=== PATIENT | male | born 1970 | race Caucasian/White ===

== ENCOUNTER 2019-12-01 23:30 | Emergency (ER) | payer SELFPAY ==
--- NOTE | 2019-12-01 23:49 | ED_ITS ---
HPI - Nausea/Vomiting/Diarrhea General: Chief complaint: Alcohol Stated complaint: N/V/ ETOH Time Seen by Provider: 12/01/19 23:33 History of Present Illness: HPI Narrative: 49-year-old male who evidently has been drinking for 3 days. He presents tonight with several episodes of vomiting at a friend's house. He evidently has an appointment set up to check into [facility] tomorrow. He was given Phenergan in the ambulance, and has not vomited since, but is still feeling ill. He denies any fever, cough, congestion. He denies diarrhea. Denies significant belly pain. MD elicited complaint: nausea and vomiting Onset (ago): minute(s) Description of vomiting: food contents Associated nausea: Yes Associated abdominal pain: No Severity: moderate Context: alcohol abuse Associated symtoms: Reports nausea; Denies anxiety, change in vision, chest pain, dizziness, headache(s) or palpitations Review of Systems Const: Denies: fever or chills Eyes: Denies: change in vision or blurry vision ENMT: Denies: painful swallowing, post nasal drip or facial/sinus pain Card: Denies: chest pain, palpitations, irregular heart rhythm or edema Resp: Denies: shortness of breath, productive cough, non-productive cough or wheezing GI: Reports: nausea : Denies: difficulty urinating or blood in urine Musc: Denies: neck pain, back pain, redness or joint warmth Skin/Breast: Denies: rash, itching or redness Neuro: Denies: headache, dizziness or confusion Psych: Denies: anxiety PFSH ED PFSH: Social History Smoking and tobacco status: former smoker Physical Exam Const: GENERAL APPEARANCE: well developed ORIENTATION/CONSCIOUSNESS: Yes oriented to person, Yes oriented to place and Yes oriented to time HENMT: COMMON NORMALS: normocephalic, external ears normal and external nose normal HEAD & SCALP: normocephalic FACE & SINUS: normal facial exam NOSE: external nose normal and no nasal discharge EXTERNAL EAR: Yes external ears normal Eye: COMMON NORMALS: PERRL, EOMs intact bilaterally and conjunctivae normal EYELID: eyelids normal CONJUNCTIVA: Yes conjunctivae normal PUPIL: Yes PERRL Neck/C-Spine: COMMON NORMALS: full ROM GENERAL: No tracheal deviation Chest: COMMONS NORMALS: inspection of chest normal CHEST: No tenderness Resp: COMMON NORMALS: clear to auscultation bilaterally EFFORT & INSPECTION: No tachypneic, No respiratory distress, No retractions, No uses accessory muscles and No tracheal deviation AUSCULTATION: clear to auscultation bilaterally, no rhonchi, no wheezes and lung sounds not diminished Cardio: COMMON NORMALS: regular rate and regular rhythm RATE: regular rate RHYTHM: regular rhythm HEART SOUNDS: no murmurs PERIPHERAL PULSES: radial pulses present GI: INSPECTION: No abdominal distension AUSCULTATION: No hyperactive bowel sounds and No hypoactive bowel sounds PALPATION: No guarding and No rigid PERCUSSION: no dullness to percussion and no tympanic to percussion Neuro: SENSORIUM/ORIENTATION: Yes oriented to person, Yes oriented to place and Yes oriented to time Psych: COMMON NORMALS: mental status grossly normal Skin: COMMON NORMALS: no rashes or lesions noted GENERAL SKIN EXAM: no rashes or lesions noted Course Vital Signs: Vital signs: Vital Signs Temperature 98.7 F 12/02/19 00:07 Pulse Rate 95 12/02/19 00:24 Respiratory Rate 16 12/02/19 01:05 Blood Pressure 168/98 12/02/19 01:05 Pulse Oximetry 93 12/02/19 01:05 MDM - Nausea/Vomiting/Diarrhea MDM Narrative: Medical decision making narrative: 49-year-old male. He presents intoxicated, but calm. He has no belly tenderness. His white blood cell count is 8.8. He has a pseudohyponatremia of 128 related to an alcohol level above 300. His other laboratory is essentially benign. He has not vomited since he has been here. He is received Zofran, IV fluids, and thiamine. He also received Haldol for nausea. He will be discharged, as he has an appointment to start rehabilitation tomorrow. Lab Data: Attestation: I reviewed the patient's lab results. Labs: Lab Results 12/02/19 12/02/19 12/02/19 Range/Units 00:21 00:21 00:21 WBC 8.8 (4.0-10.0) 10^3/ uL RBC 5.34 H (4.1-5.3) 10^6/u L Hgb 16.3 (11.7-16.6) g/dL Hct 46.6 (42.0-52.0) % MCV 87.3 (80-94) fL MCH 30.5 (28.0-34.0) pg MCHC 35.0 (30.0-36.0) g/dL RDW 12.2 (12.1-15.1) % Plt Count 240 (130-400) 10^3/c mm MPV 10.6 H (7.4-10.4) fL Neut % (Auto) 56.0 % Lymph % (Auto) 35.3 % [place] % (Auto) 7.4 % Eos % (Auto) 0.2 % Baso % (Auto) 0.9 % Neut # (Auto) 4.9 (1.8-7.7) 10^3/u L Lymph # (Auto) 3.1 (0.8-4.8) 10^3/u L [place] # (Auto) 0.7 (0.2-0.9) 10^3/u L Eos # (Auto) 0.0 (0.0-0.8) 10^3/u L Baso # (Auto) 0.1 (0.0-0.1) 10^3/u L Nucleated RBC % (a uto) 0 % Nucleated RBCs # 0.0 /100WBC PT 13.20 (10.5-13.3) SECO NDS INR 1.00 (0.8-1.2) Sodium 128 L (136-145) mmol/L Potassium 4.1 (3.5-5.1) mmol/L Chloride 82 L (98-107) mmol/L Carbon Dioxide 22 (22-29) mmol/L Anion Gap 28.1 H (5-19) BUN 18 (6-20) mg/dL Creatinine 0.9 (0.7-1.2) mg/dL GFR Calculation 90.4 (90-130) mL/min Glucose 128 H (65-115) mg/dL Calculated Osmolal ity 264 L (285-295) mOsm/k g Calcium 9.4 (8.5-10.5) mg/dL Total Bilirubin 0.5 (0.15-1.2) mg/dL AST 55 H (0-40) U/L ALT 27 (0-41) U/L Alkaline Phosphata se 74 (40-130) IU/L Total Protein 8.8 H (6.6-8.7) g/dL Albumin 4.9 (3.5-5.2) g/dL Globulin 3.9 (1.3-4.6) g/dL Lipase 30 (13-60) U/L Ethyl Alcohol 316 H* (0-10) mg/dL Discharge Plan Discharge Patient Disposition: Home, Self-Care Clinical Impression: Alcoholic intoxication Qualifiers: Complication of substance-induced condition: uncomplicated Qualified Code(s): F10.920 - Alcohol use, unspecified with intoxication, uncomplicated Vomiting Qualifiers: Vomiting type: unspecified Vomiting Intractability: non-intractable Nausea presence: with nausea Qualified Code(s): R11.2 - Nausea with vomiting, unspecified Condition: Stable Prescriptions: No Action Unable to Assess RF: 0 Discharge Orders: Discharge Order (Routine); Ordered 12/02/19 Ordered By: Tate Vance Discharge Diet: Advance as tolerated Discharge Activity: Increase activity as tolerated Patient Instructions: Alcohol Intoxication (ED), Acute Nausea and Vomiting (ED) Activity Restrictions/Additional Instructions: Avoid alcohol. Plenty of clear liquids for the next 48 hours. Return for intra ctable vomiting, fever greater than 100, blood in vomitus or stool, other concerning symptoms. Coding Level of Care Code ED Grinder Set Up Operator External for Sandee Fwd Exam Comprehensive
[2019-12-02] VITALS (11 sets, daily range): BP systolic 141–197; BP diastolic 91–112; PULSE 91–107; RESP 14–18; TEMP 37.1; O2SAT 93–97; BMI 38.0
[2019-12-02] MEDS: ondansetron 2 mg/ML SDV 2 mL 8 MG IM (00:16)
[2019-12-02] MEDS: haloperidol inj 5 mg/mL INJ 1 mL 3 MG IVP ×2 (00:16→01:44)
[2019-12-02 00:27] LABS: Basophils # 0.1 10^3/uL (0.0-0.1); Basophils % 0.9 %; Eosinophils % 0.2 %; Hematocrit 46.6 % (42.0-52.0); Hemoglobin 16.3 g/dL (11.7-16.6); Lymphocytes # 3.1 10^3/uL (0.8-4.8); Lymphocytes % 35.3 %; Mean Corpuscular Hemoglobin 30.5 pg (28.0-34.0); Mean Corpuscular Volume 87.3 fL (80-94); Mean Platelet Volume 10.6 fL (7.4-10.4); Monocytes # 0.7 10^3/uL (0.2-0.9); Monocytes % 7.4 %; Neutrophils # 4.9 10^3/uL (1.8-7.7); Nucleated Red Blood Cells % 0 %; Platelet Count 240 10^3/cmm (130-400); Red Blood Count 5.34 10^6/uL (4.1-5.3); Red Cell Distribution Width 12.2 % (12.1-15.1); White Blood Count 8.8 10^3/uL (4.0-10.0)
[2019-12-02] MEDS: sodium chloride 0.9% 1,000 ML 999 ML IV ×2 (00:28→01:12)
--- NOTE | 2019-12-02 00:32 | PC.NURSE ---
patient given urinal and instructed that nurse needs a urine sample. Patient states that he will try to pee.
[2019-12-02 00:39] LABS: Alanine Aminotransferase 27 U/L (0-41); Albumin Level 4.9 g/dL (3.5-5.2); Alkaline Phosphatase 74 IU/L (40-130); Anion Gap 28.1 (5-19); Aspartate Amino Transferase 55 U/L (0-40); Blood Urea Nitrogen 18 mg/dL (6-20); Calcium 9.4 mg/dL (8.5-10.5); Carbon Dioxide 22 mmol/L (22-29); Chloride 82 mmol/L (98-107); Globulin 3.9 g/dL (1.3-4.6); Glomerular Filtration Rate 90.4 mL/min (90-130); Glucose 128 mg/dL (65-115); Lipase 30 U/L (13-60); Osmolality Calculated 264 mOsm/kg (285-295); Potassium 4.1 mmol/L (3.5-5.1); Sodium 128 mmol/L (136-145); Total Bilirubin 0.5 mg/dL (0.15-1.2); Total Protein 8.8 g/dL (6.6-8.7)
[2019-12-02 00:43] LABS: Alcohol Level 316 mg/dL (0-10)
[2019-12-02] MEDS: metoclopramide 5 mg/mL SDV 2 mL 10 MG IVP (01:46)
[2019-12-02 02:15] LABS: Bilirubin Urine Neg (NEGATIVE); Blood Urine 3+ (Negative); Glucose Urine UA 2+ (Normal); Ketones Urine 1+ (Negative); Leukocyte Esterase Urine Negative (Negative); Nitrate Urine Negative (Negative); Protein Urine 1+ (Negative); Specific Gravity, Urine 1.015 (1.005-1.030); Urine Appearance Clear (CLEAR); Urine Color Yellow (Yellow); Urobilinogen Urine Norm (Negative); pH Urine 5 (5-7)
[2019-12-02 02:16] LABS: Add Urine Microscopic? YES
[2019-12-02 02:17] LABS: RBC Urine 0-4 /hpf (0-2); Squamous Epithelial Cell Urine 0-4 (0-5); WBC Urine 0-4 /hpf (0-5)
[2019-12-02 02:18] LABS: Add Urine Culture? No; Amorphous Sediment Urine 1+; Bacteria Urine TRACE; Mucus Urine TRACE
[2019-12-02 02:20] LABS: Amphetamines Screen Urine Negative (Negative); Barbiturates Screen Urine Negative (Negative); Benzodiazepines Screen Urine Negative (Negative); Cocaine Screen Urine Negative (Negative); Opiate Screen Urine Negative (Negative); PCP Screen Urine Negative (Negative); THC Screen Urine Negative (Negative)
[2019-12-02] MEDS: LORazepam 2 mg/mL INJ 1 mL 1 MG IVP ×2 (03:14→05:16)
[2019-12-02] MEDS: ondansetron 2 mg/ML SDV 2 mL 4 MG IVP (05:16)
== END 2019-12-02 06:18 ==
PROVIDERS: Emergency Provider Emergency Medicine
DX: F10.120 Alcohol abuse with intoxication, uncomplicated (principal); Y90.8 Blood alcohol level of 240 mg/100 ml or more; Z87.891 Personal history of nicotine dependence
CPT/HCPCS: 12345; 80053; 80306; 80307; 81001; 81003; 83690; 85025; 85610; 96360; 96361; 96374; 96375; 96376; 99283; 99284; J1630; J2060; J2405; J2765; J3411; J7030

== ENCOUNTER 2020-05-07 11:52 | Emergency (ER) | payer SELFPAY ==
[2020-05-07 13:07] VITALS: BP 163/105; PULSE 110; RESP 12; TEMP 36.6; O2SAT 96; BMI 38.0
--- NOTE | 2020-05-07 13:39 | ED_ITS ---
HPI - Nausea/Vomiting/Diarrhea General: Chief complaint: Nausea/Vomiting/Diarrhea Stated complaint: alcohol withdrawl Time Seen by Provider: 05/07/20 13:31 Source: patient Mode of arrival: ambulatory Limitations: no limitations History of Present Illness: HPI Narrative: 49-year-old male who is a chronic alcoholic states has not had a drink in the last 5 to 6 hours and feels like he is going through withdrawals. He states he had vomiting and has had the shakes. 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 Denies any worsening improving factors. Denies any pain anywhere. Patient is diaphoretic and tachycardic currently. Associated nausea: Yes Associated symtoms: Reports nausea; Denies chest pain, dysuria or headache(s) Review of Systems Const: Denies: fever(s), chills, body aches or change in appetite Eyes: Denies: blurry vision or eye discomfort ENMT: Denies: throat pain or dental pain Card: Denies: chest pain Resp: Denies: dyspnea GI: Reports: nausea and vomiting : Denies: dysuria Musc: Denies: neck pain or back pain Skin/Breast: Denies: rash Neuro: Denies: headache(s) Psych: Denies: depression Anton/Lymph: Denies: easy bruising All/Imm: Denies: urticaria PFSH ED PFSH: Social History (Updated 05/07/20 @ 13:10 by Femi Sampson RN) Smoking and tobacco status: former smoker Alcohol intake: current Alcohol intake frequency: 3 or more drinks per day Alcohol type: hard liquor Substance/Drug Use: never Physical Exam Const: COMMON NORMALS: patient oriented x3 and healthy appearing GENERAL APPEARANCE: ill appearing HENMT: COMMON NORMALS: normocephalic and atraumatic HEAD & SCALP: normocephalic and atraumatic Eye: COMMON NORMALS: Equal, round and reactive pupils present and EOMs intact bilaterally PUPIL: Yes Equal, round and reactive pupils present Neck/C-Spine: COMMON NORMALS: full ROM and supple Chest: COMMONS NORMALS: normal inspection of the chest and normal palpation of entire chest wall Resp: COMMON NORMALS: normal respiratory effort, No retractions, No use of accessory muscles and clear to auscultation bilaterally AUSCULTATION: clear to auscultation bilaterally Cardio: COMMON NORMALS: regular rhythm and No murmurs present (Cardio) RATE: tachycardic RHYTHM: regular rhythm GI: COMMON NORMALS: Normal to inspection, nondistended, normoactive bowel sounds present, Soft to palpation, non-tender and no masses PALPATION: Yes Soft to palpation Extremity: COMMON NORMALS: normal to inspection and full ROM Neuro: COMMON NORMALS: patient oriented x3, moves all extremities and no focal motor deficits Psych: COMMON NORMALS: mental status grossly normal, Normal thought process present and cooperative THOUGHT PROCESS: Normal thought process present Skin: COMMON NORMALS: no rashes or lesions noted and no wounds GENERAL SKIN EXAM: no rashes or lesions noted Course Vital Signs: Vital signs: Vital Signs Temperature 98 F 05/07/20 13:07 Pulse Rate 113 H 05/07/20 16:15 Respiratory Rate 18 05/07/20 16:15 Blood Pressure 161/103 05/07/20 16:15 Pulse Oximetry 92 05/07/20 16:15 MDM - Nausea/Vomiting/Diarrhea MDM Narrative: Medical decision making narrative: Patient presents here with alcohol intoxication. Patient has no signs of active withdrawals here. Will prescribe him Librium for home if he does want to try to stop drinking. I did inform him not to take Librium while he drinks. Patient's lab work here is normal he feels improved and is stable for discharge. He is return if worsening. Lab Data: Labs: Lab Results 05/07/20 05/07/20 Range/Units 13:40 13:40 WBC 5.1 (4.0-10.0) 10^3/ uL RBC 5.21 (4.1-5.3) 10^6/u L Hgb 17.3 H (11.7-16.6) g/dL Hct 49.3 (42.0-52.0) % MCV 94.6 H (80-94) fL MCH 33.2 (28.0-34.0) pg MCHC 35.1 (30.0-36.0) g/dL RDW 15.4 H (12.1-15.1) % Plt Count 166 (130-400) 10^3/c mm MPV 10.8 H (7.4-10.4) fL Neut % (Auto) 42.8 % Lymph % (Auto) 44.5 % [place] % (Auto) 8.1 % Eos % (Auto) 2.8 % Baso % (Auto) 1.8 % Neut # (Auto) 2.18 (1.8-7.7) 10^3/u L Lymph # (Auto) 2.3 (0.8-4.8) 10^3/u L [place] # (Auto) 0.4 (0.2-0.9) 10^3/u L Eos # (Auto) 0.1 (0.0-0.8) 10^3/u L Baso # (Auto) 0.1 (0.0-0.1) 10^3/u L Nucleated RBC % (a uto) 0 % Nucleated RBCs # 0.0 /100WBC Sodium 134 L (136-145) mmol/L Potassium 4.4 (3.5-5.1) mmol/L Chloride 95 L (98-107) mmol/L Carbon Dioxide 23 (22-29) mmol/L Anion Gap 20.4 H (5-19) BUN 9 (6-20) mg/dL Creatinine 0.7 (0.7-1.2) mg/dL GFR Calculation 120.9 (90-130) mL/min Glucose 117 H (65-115) mg/dL Calculated Osmolal ity 278 L (285-295) mOsm/k g Calcium 9.3 (8.5-10.5) mg/dL Total Bilirubin 0.5 (0.15-1.2) mg/dL AST 188 H (0-40) U/L ALT 104 H (0-41) U/L Alkaline Phosphata se 75 (40-130) IU/L Total Protein 8.9 H (6.6-8.7) g/dL Albumin 4.9 (3.5-5.2) g/dL Globulin 4.0 (1.3-4.6) g/dL Lipase 46 (13-60) U/L Ethyl Alcohol 346 H* (0-10) mg/dL Discharge Plan Discharge Patient Disposition: Home Clinical Impression: Alcohol intoxication Qualifiers: Complication of substance-induced condition: uncomplicated Qualified Code(s): F10.920 - Alcohol use, unspecified with intoxication, uncomplicated Condition: Stable Prescriptions: New ondansetron 4 mg tablet,disintegrating 4 mg PO Q6H PRN (Reason: nausea and vomiting) Qty: 14 RF: 0 chlordiazepoxide HCl 25 mg capsule 25 mg PO Q6H PRN (Reason: withdrawal symptoms) Qty: 20 RF: 0 No Action ondansetron HCl [Zofran] 4 mg tablet 4 mg PO Q6H PRN (Reason: nausea and vomiting) Qty: 10 RF: 0 Discharge Orders: Discharge Order (Routine); Ordered 05/07/20 Ordered By: Krysta Vann Discharge Diet: Advance as tolerated Discharge Activity: Resume usual activity Patient Instructions: Abuse of Alcohol (ED) Discharge Date/Time: 05/07/20 16:18 Coding Level of Care Code ED Plywood Layup Line Core Feeder for Giang Fwd Exam Comprehensive
[2020-05-07] MEDS: sodium chloride 0.9% 1,000 ML 999 ML IV (13:47)
[2020-05-07] MEDS: LORazepam 2 mg/mL INJ 1 mL IVP (13:47)
[2020-05-07] MEDS: ondansetron 2 mg/ML SDV 2 mL 4 MG IVP (13:47)
[2020-05-07 13:49] LABS: Basophils # 0.1 10^3/uL (0.0-0.1); Basophils % 1.8 %; Eosinophils # 0.1 10^3/uL (0.0-0.8); Eosinophils % 2.8 %; Hematocrit 49.3 % (42.0-52.0); Hemoglobin 17.3 g/dL (11.7-16.6); Lymphocytes # 2.3 10^3/uL (0.8-4.8); Lymphocytes % 44.5 %; Mean Corpuscular HGB Conc 35.1 g/dL (30.0-36.0); Mean Corpuscular Hemoglobin 33.2 pg (28.0-34.0); Mean Corpuscular Volume 94.6 fL (80-94); Mean Platelet Volume 10.8 fL (7.4-10.4); Monocytes # 0.4 10^3/uL (0.2-0.9); Monocytes % 8.1 %; Neutrophils # 2.18 10^3/uL (1.8-7.7); Neutrophils % 42.8 %; Nucleated Red Blood Cells % 0 %; Platelet Count 166 10^3/cmm (130-400); Red Blood Count 5.21 10^6/uL (4.1-5.3); Red Cell Distribution Width 15.4 % (12.1-15.1); White Blood Count 5.1 10^3/uL (4.0-10.0)
[2020-05-07 14:05] LABS: Alanine Aminotransferase 104 U/L (0-41); Albumin Level 4.9 g/dL (3.5-5.2); Alkaline Phosphatase 75 IU/L (40-130); Aspartate Amino Transferase 188 U/L (0-40); Blood Urea Nitrogen 9 mg/dL (6-20); Calcium 9.3 mg/dL (8.5-10.5); Carbon Dioxide 23 mmol/L (22-29); Chloride 95 mmol/L (98-107); Glomerular Filtration Rate 120.9 mL/min (90-130); Glucose 117 mg/dL (65-115); Lipase 46 U/L (13-60); Osmolality Calculated 278 mOsm/kg (285-295); Sodium 134 mmol/L (136-145); Total Bilirubin 0.5 mg/dL (0.15-1.2); Total Protein 8.9 g/dL (6.6-8.7)
[2020-05-07 14:08] LABS: Anion Gap 20.4 (5-19); Potassium 4.4 mmol/L (3.5-5.1)
[2020-05-07 14:10] LABS: Alcohol Level 346 mg/dL (0-10)
[2020-05-07 15:10] VITALS: BP 117/69; PULSE 103; RESP 16; O2SAT 91
[2020-05-07 16:15] VITALS: BP 161/103; PULSE 113; RESP 18; O2SAT 92
== END 2020-05-07 16:18 | disposition home or self-care (01) ==
PROVIDERS: Emergency Provider Emergency Medicine
DX: F10.920 Alcohol use, unspecified with intoxication, uncomplicated (principal); Y90.8 Blood alcohol level of 240 mg/100 ml or more; Z87.891 Personal history of nicotine dependence
CPT/HCPCS: 12345; 80053; 80307; 83690; 85025; 96361; 96374; 96375; 99282; 99283; J2060; J2405; J7030

== ENCOUNTER 2020-05-09 21:39 | Emergency (ER) | payer SELFPAY ==
[2020-05-09 21:43] VITALS: BP 200/123; PULSE 125; RESP 28; TEMP 36.7; O2SAT 93; BMI 38.0
--- NOTE | 2020-05-09 21:46 | ECG_ITS ---
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 Measurements Intervals [place] Rate: 107 P: 45 DC: 132 QRS: 64 QRSD: 90 T: -6 QT: 320 QTc: 427 Interpretive Statements SINUS TACHYCARDIA Compared to ECG 06/17/2018 03:18:19 Sinus rhythm no longer present Electronically Signed On 05-10-2020 20:26:09 CDT by Henry Bear M.D. [id number] f
[2020-05-09 21:53] VITALS: BP 200/123; PULSE 111; RESP 19; O2SAT 94
[2020-05-09] MEDS: haloperidol inj 5 mg/mL INJ 1 mL IVP (22:01)
[2020-05-09] MEDS: LORazepam 2 mg/mL INJ 1 mL IV (22:01)
[2020-05-09] MEDS: sodium chloride 0.9% 1,000 ML 999 ML IV (22:02)
[2020-05-09 22:12] LABS: Basophils # 0.1 10^3/uL (0.0-0.1); Eosinophils % 0.8 %; Hematocrit 48.5 % (42.0-52.0); Hemoglobin 16.6 g/dL (11.7-16.6); Lymphocytes # 1.3 10^3/uL (0.8-4.8); Lymphocytes % 25.1 %; Mean Corpuscular HGB Conc 34.2 g/dL (30.0-36.0); Mean Corpuscular Hemoglobin 32.3 pg (28.0-34.0); Mean Corpuscular Volume 94.4 fL (80-94); Mean Platelet Volume 11.1 fL (7.4-10.4); Monocytes # 0.3 10^3/uL (0.2-0.9); Monocytes % 6.8 %; Neutrophils # 3.27 10^3/uL (1.8-7.7); Neutrophils % 65.1 %; Nucleated Red Blood Cells % 0 %; Platelet Count 122 10^3/cmm (130-400); Red Blood Count 5.14 10^6/uL (4.1-5.3); Red Cell Distribution Width 15.5 % (12.1-15.1)
[2020-05-09 22:25] LABS: Alanine Aminotransferase 212 U/L (0-41); Albumin Level 4.7 g/dL (3.5-5.2); Alcohol Level 207 mg/dL (0-10); Alkaline Phosphatase 77 IU/L (40-130); Aspartate Amino Transferase 539 U/L (0-40); Blood Urea Nitrogen 10 mg/dL (6-20); Calcium 9.9 mg/dL (8.5-10.5); Carbon Dioxide 19 mmol/L (22-29); Chloride 95 mmol/L (98-107); Creatinine Clr Calc Pharmacy 157.1997; Globulin 3.6 g/dL (1.3-4.6); Glomerular Filtration Rate 103.6 mL/min (90-130); Glucose 122 mg/dL (65-115); Osmolality Calculated 288 mOsm/kg (285-295); Sodium 139 mmol/L (136-145); Total Bilirubin 0.7 mg/dL (0.15-1.2); Total Protein 8.3 g/dL (6.6-8.7)
[2020-05-09 22:26] LABS: Anion Gap 28.6 (5-19); Potassium 3.6 mmol/L (3.5-5.1)
[2020-05-09 22:48] VITALS: BP 148/88; PULSE 98; RESP 18; O2SAT 96
--- NOTE | 2020-05-09 23:10 | ED_ITS ---
HPI - Alcohol General: Chief Complaint: Alcohol Stated Complaint: ETOH / N/V Time Seen by Provider: 05/09/20 21:44 History of Present Illness: HPI narrative: 49-year-old male alcoholic presenting with vomiting, abdominal discomfort, and shaking. He says that he has not had a drink since , 3 days ago. He is only drank water since then. No food. He has not held any solid food down, and was throwing up water when he called the ambulance. He notes that he was trying to take the medication that he was given a couple of days ago in the ER, but had thrown some of it up. MD complaint: alcohol withdrawal and alcohol dependence Last drink: Days (ago) Chronic alcohol use: Yes Previous visits for alcohol intoxication: Yes Recent trauma: No Associated symptoms: Reports abdominal pain, nausea and vomiting; Deny involuntary movements or suicidal ideation Review of Systems Const: Denies: fever(s) or chills Eyes: Denies: blurry vision ENMT: Denies: swelling of lips/tongue, bleeding gums, epistaxis, post nasal drip or sinus pain Card: Denies: chest pain, palpitations or irregular heart rhythm Resp: Denies: dyspnea, productive cough, non-productive cough or wheezing GI: Reports: abdominal pain, nausea and vomiting : Denies: difficulty urinating, dysuria or hematuria Musc: Denies: neck pain or back pain Skin/Breast: Denies: rash or pruritus Neuro: Denies: involuntary movements Psych: Denies: suicidal ideation PFS ED PFSH: Social History (Updated 05/07/20 @ 13:10 by Femi Sampson RN) Smoking and tobacco status: former smoker Alcohol intake: current Alcohol intake frequency: 3 or more drinks per day Alcohol type: hard liquor Physical Exam Const: GENERAL APPEARANCE: lethargic and ill appearing ORIENTATION/CONSCIOUSNESS: Yes oriented to person, Yes oriented to place, Yes oriented to time and Yes lethargic HENMT: COMMON NORMALS: normocephalic, external ears normal and Normal external nose present HEAD & SCALP: normocephalic FACE & SINUS: normal facial exam NOSE: Normal external nose present and No nasal discharge present EXTERNAL EAR: Yes external ears normal Eye: COMMON NORMALS: Equal, round and reactive pupils present, EOMs intact bilaterally and conjunctivae normal EYELID: eyelids normal CONJUNCTIVA: Yes conjunctivae normal PUPIL: Yes Equal, round and reactive pupils present Neck/C-Spine: GENERAL: No tracheal deviation Chest: COMMONS NORMALS: normal inspection of the chest CHEST: No tenderness Resp: COMMON NORMALS: clear to auscultation bilaterally EFFORT & INSPECTION: No tachypneic, No respiratory distress, No retractions, No uses accessory muscles and No tracheal deviation AUSCULTATION: clear to auscultation bilaterally, no rhonchi, no wheezes and lung sounds not diminished Cardio: COMMON NORMALS: regular rhythm RATE: tachycardic RHYTHM: regular rhythm HEART SOUNDS: no murmurs PERIPHERAL PULSES: radial pulses present GI: INSPECTION: No abdominal distension AUSCULTATION: No Hyperactive bowel sounds present and No Hypoactive bowel sounds present PALPATION: No Guarding due to palpation present (GI) and No Rigid due to palpation PERCUSSION: no dullness to percussion and no tympanic to percussion Neuro: SENSORIUM/ORIENTATION: Yes oriented to person, Yes oriented to place, Yes oriented to time and Yes lethargic Psych: COMMON NORMALS: cooperative, speech normal, denies hallucinations and denies suicidal ideation SPEECH: Yes normal speech Skin: COMMON NORMALS: no rashes or lesions noted GENERAL SKIN EXAM: no rashes or lesions noted Course Vital Signs: Vital signs: Vital Signs Temperature 98.1 F 05/09/20 21:43 Pulse Rate 85 05/10/20 02:46 Respiratory Rate 18 05/10/20 02:46 Blood Pressure 156/90 05/10/20 02:46 Pulse Oximetry 93 05/10/20 02:46 MDM - Alcohol MDM Narrative: Medical decision making narrative: 49-year-old male alcoholic presenting with vomiting. His blood alcohol level was 207 even though he told us he had not had a drink in 3 days. His platelet count is 122. His b icarbonate level was 19. He is received over a liter of fluid, thiamine, Ativan, and Haldol for vomiting. He is feeling better. His blood pressure is currently 142/91. He also got amlodipine for his blood pressure. He has been prescribed chlordiazepoxide as well as Zofran for alcohol withdrawal, which he likely has not taken. He will be discharged. Lab Data: Labs: Lab Results 05/09/20 05/09/20 05/09/20 Range/Units 22:00 22:00 23:51 WBC 5.0 (4.0-10.0) 10^3/ uL RBC 5.14 (4.1-5.3) 10^6/u L Hgb 16.6 (11.7-16.6) g/dL Hct 48.5 (42.0-52.0) % MCV 94.4 H (80-94) fL MCH 32.3 (28.0-34.0) pg MCHC 34.2 (30.0-36.0) g/dL RDW 15.5 H (12.1-15.1) % Plt Count 122 L (130-400) 10^3/c mm MPV 11.1 H (7.4-10.4) fL Neut % (Auto) 65.1 % Lymph % (Auto) 25.1 % [place] % (Auto) 6.8 % Eos % (Auto) 0.8 % Baso % (Auto) 2.0 % Neut # (Auto) 3.27 (1.8-7.7) 10^3/u L Lymph # (Auto) 1.3 (0.8-4.8) 10^3/u L [place] # (Auto) 0.3 (0.2-0.9) 10^3/u L Eos # (Auto) 0.0 (0.0-0.8) 10^3/u L Baso # (Auto) 0.1 (0.0-0.1) 10^3/u L Nucleated RBC % (a uto) 0 % Nucleated RBCs # 0.0 /100WBC Sodium 139 (136-145) mmol/L Potassium 3.6 (3.5-5.1) mmol/L Chloride 95 L (98-107) mmol/L Carbon Dioxide 19 L (22-29) mmol/L Anion Gap 28.6 H (5-19) BUN 10 (6-20) mg/dL Creatinine 0.8 (0.7-1.2) mg/dL GFR Calculation 103.6 (90-130) mL/min Glucose 122 H (65-115) mg/dL Calculated Osmolal ity 288 (285-295) mOsm/k g Calcium 9.9 (8.5-10.5) mg/dL Total Bilirubin 0.7 (0.15-1.2) mg/dL AST 539 H (0-40) U/L ALT 212 H (0-41) U/L Alkaline Phosphata se 77 (40-130) IU/L Total Protein 8.3 (6.6-8.7) g/dL Albumin 4.7 (3.5-5.2) g/dL Globulin 3.6 (1.3-4.6) g/dL Urine Color Yellow (Yellow) Urine Appearance Clear (CLEAR) Urine pH 6 (5-7) Ur Specific Gravit y 1.020 (1.005-1.030) Urine Protein 3+ H (Negative) Urine Glucose (UA) Norm (Normal) Urine Ketones 1+ H (Negative) Urine Blood 2+ H (Negative) Urine Nitrate Negative (Negative) Urine Bilirubin Neg (Negative) Urine Urobilinogen 1 H (Negative) mg/dL Ur Leukocyte Aishwarya ase Negative (Negative) Urine RBC 0-4 H (0-2) /hpf Urine WBC None (0-5) /hpf Ur Squamous Epith Cells None (0-5) /hpf Amorphous Sediment Not Reportable Urine Bacteria Trace (NONE) /hpf Hyaline Casts 0-4 H /lpf Coarse Granular Ca sts 0-4 H /lpf Urine Mucus 1+ /hpf Urine Opiates Scre en (Negative) ng/mL Ur Barbiturates Sc reen (Negative) ng/mL Ur Phencyclidine S crn (Negative) ng/mL Ur Amphetamines Sc reen (Negative) ng/mL U Benzodiazepines Scrn (Negative) ng/mL Urine Cocaine Scre en (Negative) ng/mL U Marijuana (THC) Screen (Negative) ng/mL Ethyl Alcohol 207 H (0-10) mg/dL 05/09/20 Range/Units 23:51 WBC (4.0-10.0) 10^3/ uL RBC (4.1-5.3) 10^6/u L Hgb (11.7-16.6) g/dL Hct (42.0-52.0) % MCV (80-94) fL MCH (28.0-34.0) pg MCHC (30.0-36.0) g/dL RDW (12.1-15.1) % Plt Count (130-400) 10^3/c mm MPV (7.4-10.4) fL Neut % (Auto) % Lymph % (Auto) % [place] % (Auto) % Eos % (Auto) % Baso % (Auto) % Neut # (Auto) (1.8-7.7) 10^3/u L Lymph # (Auto) (0.8-4.8) 10^3/u L [place] # (Auto) (0.2-0.9) 10^3/u L Eos # (Auto) (0.0-0.8) 10^3/u L Baso # (Auto) (0.0-0.1) 10^3/u L Nucleated RBC % (a uto) % Nucleated RBCs # /100WBC Sodium (136-145) mmol/L Potassium (3.5-5.1) mmol/L Chloride (98-107) mmol/L Carbon Dioxide (22-29) mmol/L Anion Gap (5-19) BUN (6-20) mg/dL Creatinine (0.7-1.2) mg/dL GFR Calculation (90-130) mL/min Glucose (65-115) mg/dL Calculated Osmolal ity (285-295) mOsm/k g Calcium (8.5-10.5) mg/dL Total Bilirubin (0.15-1.2) mg/dL AST (0-40) U/L ALT (0-41) U/L Alkaline Phosphata se (40-130) IU/L Total Protein (6.6-8.7) g/dL Albumin (3.5-5.2) g/dL Globulin (1.3-4.6) g/dL Urine Color (Yellow) Urine Appearance (CLEAR) Urine pH (5-7) Ur Specific Gravit y (1.005-1.030) Urine Protein (Negative) Urine Glucose (UA) (Normal) Urine Ketones (Negative) Urine Blood (Negative) Urine Nitrate (Negative) Urine Bilirubin (Negative) Urine Urobilinogen (Negative) mg/dL Ur Leukocyte Aishwarya ase (Negative) Urine RBC (0-2) /hpf Urine WBC (0-5) /hpf Ur Squamous Epith Cells (0-5) /hpf Amorphous Sediment Urine Bacteria (NONE) /hpf Hyaline Casts /lpf Coarse Granular Ca sts /lpf Urine Mucus /hpf Urine Opiates Scre en Negative (Negative) ng/mL Ur Barbiturates Sc reen Negative (Negative) ng/mL Ur Phencyclidine S crn Negative (Negative) ng/mL Ur Amphetamines Sc reen Negative (Negative) ng/mL U Benzodiazepines Scrn Positive H (Negative) ng/mL Urine Cocaine Scre en Negative (Negative) ng/mL U Marijuana (THC) Screen Negative (Negative) ng/mL Ethyl Alcohol (0-10) mg/dL Discharge Plan Discharge Patient Disposition: Home Clinical Impression: Alcohol intoxication Qualifiers: Complication of substance-induced condition: uncomplicated Qualified Code(s): F10.920 - Alcohol use, unspecified with intoxication, uncomplicated Hypertension Qualifiers: Hypertension type: essential hypertension Qualified Code(s): I10 - Essential (primary) hypertension Condition: Stable Prescriptions: New amlodipine 10 mg tablet 10 mg PO DAILY Qty: 30 RF: 0 No Action ondansetron HCl [Zofran] 4 mg tablet 4 mg PO Q6H PRN (Reason: nausea and vomiting) Qty: 10 RF: 0 ondansetron 4 mg tablet,disintegrating 4 mg PO Q6H PRN (Reason: nausea and vomiting) Qty: 14 RF: 0 chlordiazepoxide HCl 25 mg capsule 25 mg PO Q6H PRN (Reason: withdrawal symptoms) Qty: 20 RF: 0 Discharge Orders: Discharge Order (Routine); Ordered 05/10/20 Ordered By: Tate Vance Discharge Diet: Advance as tolerated and Clear Liquid Discharge Activity: Resume usual activity Patient Instructions: Alcohol Intoxication (ED) Activity Restrictions/Additional Instructions: Abstain from alcohol. Take your previously prescribed medication as instructed and ordered. Return for worsening symptoms despite treatment. Discharge Date/Time: 05/10/20 02:46 Coding Level of Care Code ED Pattern Changer for Sandee Fwd Exam Comprehensive
[2020-05-09 23:14] VITALS: BP 155/100; PULSE 103; RESP 16; O2SAT 96
[2020-05-10 00:04] VITALS: BP 202/118; PULSE 97; RESP 18; O2SAT 93
[2020-05-10 00:11] LABS: Amphetamines Screen Urine Negative (Negative); Barbiturates Screen Urine Negative (Negative); Benzodiazepines Screen Urine Positive (Negative); Cocaine Screen Urine Negative (Negative); Opiate Screen Urine Negative (Negative); PCP Screen Urine Negative (Negative); THC Screen Urine Negative (Negative)
[2020-05-10 00:13] LABS: Add Urine Microscopic? YES; Bilirubin Urine Neg (Negative); Blood Urine 2+ (Negative); Glucose Urine UA Norm (Normal); Ketones Urine 1+ (Negative); Leukocyte Esterase Urine Negative (Negative); Nitrate Urine Negative (Negative); Protein Urine 3+ (Negative); Urine Appearance Clear (CLEAR); Urine Color Yellow (Yellow); Urobilinogen Urine 1 mg/dL (Negative); pH Urine 6 (5-7)
[2020-05-10 00:14] LABS: Add Urine Culture? No; Bacteria Urine TRACE /hpf; Coarse Granular Casts Urine 0-4 /lpf; Hyaline Casts Urine 0-4 /lpf; Mucus Urine 1+ /hpf; RBC Urine 0-4 /hpf (0-2)
[2020-05-10] MEDS: LORazepam 2 mg/mL INJ 1 mL 1 MG IVP (00:43)
[2020-05-10] MEDS: amlodipine 10 mg Tablet PO (00:44)
[2020-05-10 00:48] VITALS: BP 164/109; PULSE 104; RESP 18; O2SAT 94
[2020-05-10] MEDS: labetalol 5 mg/mL SDV 20mL 20 MG IVP (01:32)
[2020-05-10 01:35] VITALS: BP 201/136; PULSE 103; RESP 17; O2SAT 93
[2020-05-10 02:28] VITALS: BP 142/91; PULSE 81; RESP 18; O2SAT 94
[2020-05-10 02:46] VITALS: BP 156/90; PULSE 85; RESP 18; O2SAT 93
== END 2020-05-10 02:46 | disposition home or self-care (01) ==
PROVIDERS: Emergency Provider Emergency Medicine
DX: F10.920 Alcohol use, unspecified with intoxication, uncomplicated (principal); I10 Essential (primary) hypertension; Y90.7 Blood alcohol level of 200-239 mg/100 ml; Z87.891 Personal history of nicotine dependence
CPT/HCPCS: 12345; 80053; 80306; 80307; 81001; 81003; 85025; 93005; 96361; 96374; 96375; 96376; 99283; 99284; J1630; J2060; J3411; J3490; J7030

== ENCOUNTER 2020-07-21 21:32 | Emergency (ER) | payer SELFPAY ==
[2020-07-21 21:33] VITALS: BP 179/126; PULSE 101; RESP 22; TEMP 36.8; O2SAT 94; BMI 38.0
--- NOTE | 2020-07-21 21:38 | CTR_ITS ---
PROCEDURE INFORMATION: Exam: CT Abdomen And Pelvis With Contrast Exam date and time: 07/21/2020 9:40 PM Age: 49 years old Clinical indication: Abdominal pain TECHNIQUE: Imaging protocol: Computed tomography of the abdomen and pelvis with intravenous contrast. Radiation optimization: All CT scans at this facility use at least one of these dose optimization techniques: automated exposure control; mA and/or kV adjustment per patient size (includes targeted exams where dose is matched to clinical indication); or iterative reconstruction. Contrast material: OMNI 300; Contrast volume: 95 ml; Contrast route: INTRAVENOUS (IV); COMPARISON: CT abdomen pelvis w con* [id number] 12/17/2018 5:09 PM RADIATION DOSE METRICS: Total DLP (mGy-cm): 1931.98 FINDINGS: Liver: Diffuse fatty infiltration of the liver. Gallbladder and bile ducts: Normal. No calcified stones. No ductal dilation. Pancreas: Normal. No ductal dilation. Spleen: Normal. No splenomegaly. Adrenal glands: Normal. No mass. Kidneys and ureters: Normal. No hydronephrosis. Stomach and bowel: Mild diverticulosis of the transverse colon without diverticulitis. The stomach and small bowel are unremarkable. Appendix: The appendix is normal. Intraperitoneal space: Unremarkable. No free air. No significant fluid collection. Vasculature: Unremarkable. No abdominal aortic aneurysm. Lymph nodes: Unremarkable. No enlarged lymph nodes. Urinary bladder: Unremarkable as visualized. Reproductive: Unremarkable as visualized. Bones/joints: Unremarkable. No acute fracture. Soft tissues: Unremarkable. CT/CT abdomen pelvis w con* [id number] IMPRESSION: 1. No acute abnormality identified in the abdomen or pelvis. 2. Mild diverticulosis in the transverse colon. Radiation Dose CTDIVOL = (mGy): DLP = 1931.98 (mGy-cm)
--- NOTE | 2020-07-21 21:38 | XR_ITS ---
WS: [id number] XR chest 1V portable [id number] REASON FOR EXAM: Confusion FINDINGS: Tortuous thoracic aorta without aneurysmal dilatation. The heart is not enlarged. No active pulmonary parenchymal or pleural disease is identified. Moderate degenerative spondylosis in the mid and lower thoracic spine. XR/XR chest 1V portable [id number] IMPRESSION: No acute chest abnormality.
[2020-07-21] MEDS: iohexol 300 mg/mL 100 mL Btl IV (21:51)
[2020-07-21 21:59] VITALS: BP 196/124; PULSE 97; RESP 18; O2SAT 99
[2020-07-21] MEDS: metoclopramide 5 mg/mL SDV 2 mL 10 MG IV (22:04)
[2020-07-21] MEDS: diphenhydrAMINE 50 mg/mL SDV 1mL 25 MG IVP (22:04)
[2020-07-21] MEDS: folic acid 1 MG, multivitamin inj 10 ML, thiamine 100 MG in sodium chloride 0.9% 1,000 ML 252.8 MG IV (22:25)
[2020-07-21 22:26] LABS: Basophils # 0.1 10^3/uL (0.0-0.1); Basophils % 0.9 %; Eosinophils # 0.1 10^3/uL (0.0-0.8); Eosinophils % 1.2 %; Hematocrit 46.9 % (42.0-52.0); Hemoglobin 16.3 g/dL (11.7-16.6); Lymphocytes # 3.2 10^3/uL (0.8-4.8); Lymphocytes % 46.3 %; Mean Corpuscular HGB Conc 34.8 g/dL (30.0-36.0); Mean Corpuscular Hemoglobin 32.9 pg (28.0-34.0); Mean Corpuscular Volume 94.7 fL (80-94); Mean Platelet Volume 11.2 fL (7.4-10.4); Monocytes # 0.5 10^3/uL (0.2-0.9); Monocytes % 6.9 %; Neutrophils # 3.08 10^3/uL (1.8-7.7); Neutrophils % 44.6 %; Nucleated Red Blood Cells % 0 %; Platelet Count 174 10^3/cmm (130-400); Red Blood Count 4.95 10^6/uL (4.1-5.3); Red Cell Distribution Width 13.6 % (12.1-15.1); White Blood Count 6.9 10^3/uL (4.0-10.0)
[2020-07-21 22:28] LABS: Alanine Aminotransferase 54 U/L (0-41); Albumin Level 4.5 g/dL (3.5-5.2); Alkaline Phosphatase 67 IU/L (40-130); Anion Gap 20.8 (5-19); Aspartate Amino Transferase 60 U/L (0-40); Blood Urea Nitrogen 11 mg/dL (6-20); Calcium 8.7 mg/dL (8.5-10.5); Carbon Dioxide 24 mmol/L (22-29); Chloride 100 mmol/L (98-107); Globulin 3.5 g/dL (1.3-4.6); Glomerular Filtration Rate 120.9 mL/min (90-130); Glucose 98 mg/dL (65-115); Lipase 26 U/L (13-60); Magnesium 1.8 mg/dL (1.7-2.3); Osmolality Calculated 291 mOsm/kg (285-295); Potassium 3.8 mmol/L (3.5-5.1); Sodium 141 mmol/L (136-145); Total Bilirubin 0.4 mg/dL (0.15-1.2)
[2020-07-21 22:32] LABS: Alcohol Level 419 mg/dL (0-10)
--- NOTE | 2020-07-21 23:28 | ED_ITS ---
Documented by User: Nasreen Yu 07/22/20 05:50 HPI - Alcohol General: Chief Complaint: Alcohol Stated Complaint: ETOH/ABD PAIN Time Seen by Provider: 07/21/20 21:33 Source: patient and EMS Mode of arrival: EMS Limitations: no limitations History of Present Illness: HPI narrative: Ade is a nice 49-year-old male who comes in complaining of abdominal pain. Patient is an alcoholic and admits to drinking vodka all day. He has had alcoholic pancreatitis in the past and it was concerned that was developing again. Patient states he wants relief from his pain and wants to get help. He denies any homicidal or suicidal ideation. Patient denies any medical problems other than hypertension which she states is not taking his medication for. Patient is a poor historian secondary to alcohol intoxication but does appear alert and oriented times person, place, time and situation. Associated symptoms: Reports abdominal pain; Deny diaphoresis, hematemesis, melena, nausea, seizure-like activity, syncope or vomiting Review of Systems Const: Denies: fever(s), chills, body aches, fatigue, malaise or diaphoresis Eyes: Denies: change in vision, blurry vision, photophobia, eye discomfort, eye discharge, eye redness or yellow eyes ENMT: Denies: throat pain, odynophagia, hoarseness, swelling of lips/tongue, ear or mastoid pain, ear discharge, change in hearing or nasal discharge Card: Denies: chest pain, palpitations, irregular heart rhythm, edema, lightheadedness, syncope, pre-syncope, dyspnea on exertion or orthopnea Resp: Denies: dyspnea, productive cough, non-productive cough, wheezing, hemoptysis or chest congestion GI: Reports: abdominal pain; Denies: nausea, vomiting, hematemesis, coffee ground emesis, heartburn, diarrhea, constipation, GI cramping, hematochezia or melena : Denies: flank pain, dysuria, urinary frequency, urinary urgency or hematuria Musc: Denies: neck pain, back pain, extremity pain, extremity swelling, joint pain, joint swelling, joint redness, joint warmth or joint stiffness Skin/Breast: Denies: rash, pruritus, erythema, skin pain or skin tenderness Neuro: Denies: headache(s), numbness in extremities, weakness in extremities, sensory changes, lack of coordination, difficulty walking, dizziness, vertigo, confusion, Slurred speech present or seizure-like activity Anton/Lymph: Denies: easy bruising, easy bleeding, petechiae, purpura or enlarged lymph nodes All/Imm: Denies: urticaria, throat swelling, tongue swelling, facial swelling or acute wheezing PFSH ED PFSH: Medical History Alcoholism Hypertension Social History Smoking and tobacco status: former smoker Alcohol intake: current Alcohol intake frequency: 3 or more drinks per day Alcohol type: hard liquor Physical Exam Const: COMMON NORMALS: no acute distress, patient oriented x3, no limitations and alert GENERAL APPEARANCE: cooperative HENMT: COMMON NORMALS: normocephalic, atraumatic, external ears normal, EAC's normal and Normal external nose present HEAD & SCALP: normal to inspection, normocephalic and atraumatic FACE & SINUS: normal facial exam and face symmetric NOSE: Normal external nose present and Normal nares present EXTERNAL EAR: Yes external ears normal EXTERNAL AUDITORY CANAL: EAC's normal MOUTH: Normal oral and palatal mucosa present, lip normal and tongue normal Eye: COMMON NORMALS: Equal, round and reactive pupils present and conjunctivae normal GENERAL EYE: appearance normal, both eyes and all related structures ALIGNMENT: Yes alignment normal PERIORBITAL: periorbital findings normal EYELID: eyelids normal CONJUNCTIVA: Yes conjunctivae normal SCLERA: sclerae normal PUPIL: Yes Equal, round and reactive pupils present Neck/C-Spine: COMMON NORMALS: full ROM, no lymphadenopathy, supple, no meningeal signs and no JVD GENERAL: Yes normal visual inspection and Yes trachea midline Chest: COMMONS NORMALS: normal inspection of the chest and normal palpation of entire chest wall Resp: COMMON NORMALS: normal respiratory effort, No retractions, No use of accessory muscles and clear to auscultation bilaterally EFFORT & INSPECTION: Yes able to speak in complete sentences and Yes symmetric chest movement AUSCULTATION: clear to auscultation bilaterally, no crackles, no rales, no rhonchi and no wheezes Cardio: COMMON NORMALS: no JVD, regular rate, regular rhythm, S1 normal heart sound present and S2 normal heart sound present RATE: regular rate RHYTHM: regular rhythm HEART SOUNDS: S1 normal heart sound present, S2 normal heart sound present, no click, no gallops, no murmurs and no rubs GI: COMMON NORMALS: Soft to palpation and No hepatosplenomegaly present PALPATION: Yes Soft to palpation, No Tenderness to palpation present (GI), No Guarding due to palpation present (GI), No Rigid due to palpation, Yes No hepatosplenomegaly present, No Hernia present, No Palpable mass present and No Pulsatile mass present : COMMON NORMALS: Yes no CVA tenderness BLADDER/KIDNEY EXAM: Yes no CVA tenderness Back/Pelvis: COMMON NORMALS: no CVA tenderness, thoracic and lumbar spine normal to inspection, no thoracic nor lumbar tenderness and thoraco-lumbar ROM normal Extremity: COMMON NORMALS: normal to inspection, full ROM, capillary refill normal, no joint enlargement, no clubbing, cyanosis or edema and no calf tenderness Neuro: COMMON NORMALS: patient oriented x3, CN's II-XII intact bilaterally, moves all extremities, no focal motor deficits and no sensory deficits noted SENSORIUM/ORIENTATION: Yes alert MENINGEAL SIGNS: Yes no meningeal signs SPEECH: speech normal Psych: COMMON NORMALS: mental status grossly normal, Normal thought process present, cooperative, normal affect, speech normal and activity/motor behavior normal SPEECH: Yes normal speech THOUGHT PROCESS: Normal thought process present Skin: COMMON NORMALS: no rashes or lesions noted, turgor normal, no jaundice, no petechiae and no mottling GENERAL SKIN EXAM: no rashes or lesions noted and turgor normal Course Vital Signs: Vital signs: Vital Signs Temperature 98.2 F 07/21/20 21:33 Pulse Rate 99 07/22/20 07:09 Respiratory Rate 18 07/22/20 07:09 Blood Pressure 163/95 07/22/20 07:09 Pulse Oximetry 96 07/22/20 07:09 MDM - Alcohol MDM Narrative: Medical decision making narrative: Js Webb is a 49-year-old male who comes in acutely intoxicated. He was concerned that he may be withdrawing as he had abdominal pain and he was also concerned about pancreatitis. No evidence of pancreatitis at this time. The patient wants to go home with Librium as he is done in the past. Sounds like he has a short runs of sobriety in which he uses benzos but then relapses. Patient asked if he can stay here until he has a trackless trolley driver and he can finish his banana bag. I will go ahead and allowed him to do this and treat him for gastritis as well. Patient understands he can return if his symptoms worsen at all. 0530 -patient is much more alert and oriented. He does not appear clinically intoxicated. Patient still says he wants to sleep and rest. He mentioned before about possibly having an metal cabinet finisher take him home but I have informed him that a responsible adult that he knows he was going to drive him home but then also get him into his home and care for him there will need to come pick him up. He states his mother will be awake later this morning and he believes that she may be able to come and get him. Until that time that a responsible adult can pick him up we will continue to watch him here and once he feels like cooperating to get up and ambulate and we feel he is clinically sober he can be discharged then otherwise he will have to rest in bed and wait until someone can pick him up. At this time as long as he is in bed he appears sober and is cooperative but does not want to get up and ambulate and cooperate otherwise. We will continue to monitor him until a safe disposition can be made. Case we turned over to the oncoming doctor Dr. Gardner this morning. Differential Diagnosis: Differential diagnosis: Likely hypomagnesemia, alcohol intoxication and alcohol ketoacidosis Medical Records: Attestation: I reviewed the patient's medical records. Lab Data: Attestation: I reviewed the patient's lab results. Labs: Lab Results 07/21/20 07/21/20 07/21/20 Range/Units 21:42 21:42 21:42 WBC 6.9 (4.0-10.0) 10^3/ uL RBC 4.95 (4.1-5.3) 10^6/u L Hgb 16.3 (11.7-16.6) g/dL Hct 46.9 (42.0-52.0) % MCV 94.7 H (80-94) fL MCH 32.9 (28.0-34.0) pg MCHC 34.8 (30.0-36.0) g/dL RDW 13.6 (12.1-15.1) % Plt Count 174 (130-400) 10^3/c mm MPV 11.2 H (7.4-10.4) fL Neut % (Auto) 44.6 % Lymph % (Auto) 46.3 % [place] % (Auto) 6.9 % Eos % (Auto) 1.2 % Baso % (Auto) 0.9 % Neut # (Auto) 3.08 (1.8-7.7) 10^3/u L Lymph # (Auto) 3.2 (0.8-4.8) 10^3/u L [place] # (Auto) 0.5 (0.2-0.9) 10^3/u L Eos # (Auto) 0.1 (0.0-0.8) 10^3/u L Baso # (Auto) 0.1 (0.0-0.1) 10^3/u L Nucleated RBC % (a uto) 0 % Nucleated RBCs # 0.0 /100WBC PT 14.50 (12.1-14.9) SECO NDS INR 1.10 (0.8-1.2) Sodium 141 (136-145) mmol/L Potassium 3.8 (3.5-5.1) mmol/L Chloride 100 (98-107) mmol/L Carbon Dioxide 24 (22-29) mmol/L Anion Gap 20.8 H (5-19) BUN 11 (6-20) mg/dL Creatinine 0.7 (0.7-1.2) mg/dL GFR Calculation 120.9 (90-130) mL/min Glucose 98 (65-115) mg/dL Calculated Osmolal ity 291 (285-295) mOsm/k g Calcium 8.7 (8.5-10.5) mg/dL Magnesium 1.8 (1.7-2.3) mg/dL Total Bilirubin 0.4 (0.15-1.2) mg/dL AST 60 H (0-40) U/L ALT 54 H (0-41) U/L Alkaline Phosphata se 67 (40-130) IU/L Total Protein 8.0 (6.6-8.7) g/dL Albumin 4.5 (3.5-5.2) g/dL Globulin 3.5 (1.3-4.6) g/dL Lipase 26 (13-60) U/L Ethyl Alcohol 419 H* (0-10) mg/dL Imaging Data^: CT Abd/Pel: Radiologist's impression: [address] [address] [address] Scan Report Signed Patient: Ade Carcamo #: [id number] : 1970Acct#:[id number] Age/Sex: 49 / MADM Date: 07/21/20 Loc: ERRoom/Bed: Attending Dr: Ordering Provider/Ordering MD: Nasreen Yu DO Date of Service: 07/21/20 Procedure(s): CT abdomen pelvis w con* [id number] Accession Number(s): [id number] Report Number: [id number] PROCEDURE INFORMATION: Exam: CT Abdomen And Pelvis With Contrast Exam date and time: 07/21/2020 9:40 PM Age: 49 years old Clinical indication: Abdominal pain TECHNIQUE: Imaging protocol: Computed tomography of the abdomen and pelvis with intravenous contrast. Radiation optimization: All CT scans at this facility use at least one of these dose optimization techniques: automated exposure control; mA and/or kV adjustment per patient size (includes targeted exams where dose is matched to clinical indication); or iterative reconstruction. Contrast material: OMNI 300; Contrast volume: 95 ml; Contrast route: INTRAVENOUS (IV); COMPARISON: CT abdomen pelvis w con* [id number] 12/17/2018 5:09 PM RADIATION DOSE METRICS: Total DLP (mGy-cm): 1931.98 FINDINGS: Liver: Diffuse fatty infiltration of the liver. Gallbladder and bile ducts: Normal. No calcified stones. No ductal dilation. Pancreas: Normal. No ductal dilation. Spleen: Normal. No splenomegaly. Adrenal glands: Normal. No mass. Kidneys and ureters: Normal. No hydronephrosis. Stomach and bowel: Mild diverticulosis of the transverse colon without diverticulitis. The stomach and small bowel are unremarkable. Appendix: The appendix is normal. Intraperitoneal space: Unremarkable. No free air. No significant fluid collection. Vasculature: Unremarkable. No abdominal aortic aneurysm. Lymph nodes: Unremarkable. No enlarged lymph nodes. Urinary bladder: Unremarkable as visualized. Reproductive: Unremarkable as visualized. Bones/joints: Unremarkable. No acute fracture. Soft tissues: Unremarkable. CT/CT abdomen pelvis w con* [id number] IMPRESSION: 1. No acute abnormality identified in the abdomen or pelvis. 2. Mild diverticulosis in the transverse colon. Radiation Dose CTDIVOL = (mGy): DLP = 1931.98 (mGy-cm) Dictated By:Lorne Johnson Signed By:Lorne JohnsonSiamarilis Date/Time:07/21/202214 DD/ 12 Discharge Plan Discharge Patient Disposition: Home Clinical Impression: Alcoholic intoxication Qualifiers: Complication of substance-induced condition: with unspecified complication Qualified Code(s): F10.929 - Alcohol use, unspecified with intoxication, unspecified Gastritis Qualifiers: Gastritis type: alcoholic Chronicity: acute Gastritis bleeding: without bleeding Qualified Code(s): K29.20 - Alcoholic gastritis without bleeding Condition: Stable Prescriptions: New Ativan 1 mg tablet 1 mg sublingual Q4H PRN (Reason: alcohol withdrawal) Qty: 20 RF: 0 Zofran 4 mg tablet 4 mg PO Q6H PRN (Reason: nausea and vomiting) Qty: 20 RF: 0 Protonix 40 mg tablet,delayed release (DR/EC) 40 mg PO DAILY Qty: 30 RF: 0 No Action ondansetron HCl [Zofran] 4 mg tablet 4 mg PO Q6H PRN (Reason: nausea and vomiting) Qty: 10 RF: 0 amlodipine 10 mg tablet 10 mg PO DAILY Qty: 30 RF: 0 ondansetron 4 mg tablet,disintegrating 4 mg PO Q6H PRN (Reason: nausea and vomiting) Qty: 14 RF: 0 chlordiazepoxide HCl 25 mg capsule 25 mg PO Q6H PRN (Reason: withdrawal symptoms) Qty: 20 RF: 0 Discharge Orders: Discharge ED (Routine); Ordered 07/22/20 Ordered By: Michael Gardner Referrals: [facility], [Staff Physician] - 1-3 days Milan Herrera MD [Physician] - 1-3 days Discharge Diet: Clear Liquid Discharge Activity: Increase activity as tolerated Patient Instructions: Alcoholism, Gastritis (ED), Alcohol Intoxication (ED), Alcohol Withdrawal (ED) Activity Restrictions/Additional Instructions: Please return to the ER immediately for any of the signs or symptoms listed on your discharge instruction sheets, worsening/changing of your symptoms, you are not getting better as quickly as expected, or for ANY other cause or concerns. Do not drink alcohol and take Ativan together. If you do so he can have a dangerous even lethal combining type of affect. Follow-up with your doctor or [facility] as an outpatient for treatment of your alcoholism. If your tremors become too severe, you can stop vomiting, you have seizures or any other concerns please return to the ER immediately for recheck. Coding Level of Care Code ED Production Shift Supervisor for Giang Fwd Exam Comprehensive Documented by User: Michael Gardner DO 07/22/20 11:22 HPI - Alcohol General: Chief Complaint: Alcohol Stated Complaint: ETOH/ABD PAIN Time Seen by Provider: 07/21/20 21:33 PFSH ED PFSH: Medical History Alcoholism Hypertension Social History Smoking and tobacco status: former smoker Alcohol intake: current Alcohol intake frequency: 3 or more drinks per day Alcohol type: hard liquor Course Vital Signs: Vital signs: Vital Signs Temperature 98.2 F 07/21/20 21:33 Pulse Rate 99 07/22/20 07:09 Respiratory Rate 18 07/22/20 07:09 Blood Pressure 163/95 07/22/20 07:09 Pulse Oximetry 96 07/22/20 07:09 MDM - Alcohol MDM Narrative: Medical decision making narrative: Assumed a change of shift Dr. Richardson already arranged for the discharge orders. I went in and evaluated the patient his exam is normal he is not having any further vomiting he is awake alert and oriented appropriate for discharge. Encouraged alcohol abstinence offered referral to [facility] Lab Data: Labs: Lab Results 07/21/20 07/21/20 07/21/20 Range/Units 21:42 21:42 21:42 WBC 6.9 (4.0-10.0) 10^3/ uL RBC 4.95 (4.1-5.3) 10^6/u L Hgb 16.3 (11.7-16.6) g/dL Hct 46.9 (42.0-52.0) % MCV 94.7 H (80-94) fL MCH 32.9 (28.0-34.0) pg MCHC 34.8 (30.0-36.0) g/dL RDW 13.6 (12.1-15.1) % Plt Count 174 (130-400) 10^3/c mm MPV 11.2 H (7.4-10.4) fL Neut % (Auto) 44.6 % Lymph % (Auto) 46.3 % [place] % (Auto) 6.9 % Eos % (Auto) 1.2 % Baso % (Auto) 0.9 % Neut # (Auto) 3.08 (1.8-7.7) 10^3/u L Lymph # (Auto) 3.2 (0.8-4.8) 10^3/u L [place] # (Auto) 0.5 (0.2-0.9) 10^3/u L Eos # (Auto) 0.1 (0.0-0.8) 10^3/u L Baso # (Auto) 0.1 (0.0-0.1) 10^3/u L Nucleated RBC % (a uto) 0 % Nucleated RBCs # 0.0 /100WBC PT 14.50 (12.1-14.9) SECO NDS INR 1.10 (0.8-1.2) Sodium 141 (136-145) mmol/L Potassium 3.8 (3.5-5.1) mmol/L Chloride 100 (98-107) mmol/L Carbon Dioxide 24 (22-29) mmol/L Anion Gap 20.8 H (5-19) BUN 11 (6-20) mg/dL Creatinine 0.7 (0.7-1.2) mg/dL GFR Calculation 120.9 (90-130) mL/min Glucose 98 (65-115) mg/dL Calculated Osmolal ity 291 (285-295) mOsm/k g Calcium 8.7 (8.5-10.5) mg/dL Magnesium 1.8 (1.7-2.3) mg/dL Total Bilirubin 0.4 (0.15-1.2) mg/dL AST 60 H (0-40) U/L ALT 54 H (0-41) U/L Alkaline Phosphata se 67 (40-130) IU/L Total Protein 8.0 (6.6-8.7) g/dL Albumin 4.5 (3.5-5.2) g/dL Globulin 3.5 (1.3-4.6) g/dL Lipase 26 (13-60) U/L Ethyl Alcohol 419 H* (0-10) mg/dL Discharge Plan Discharge Patient Disposition: Home Clinical Impression: Alcoholic intoxication Qualifiers: Complication of substance-induced condition: with unspecified complication Qualified Code(s): F10.929 - Alcohol use, unspecified with intoxication, unspecified Gastritis Qualifiers: Gastritis type: alcoholic Chronicity: acute Gastritis bleeding: without bleeding Qualified Code(s): K29.20 - Alcoholic gastritis without bleeding Condition: Stable Prescriptions: New Ativan 1 mg tablet 1 mg sublingual Q4H PRN (Reason: alcohol withdrawal) Qty: 20 RF: 0 Zofran 4 mg tablet 4 mg PO Q6H PRN (Reason: nausea and vomiting) Qty: 20 RF: 0 Protonix 40 mg tablet,delayed release (DR/EC) 40 mg PO DAILY Qty: 30 RF: 0 No Action ondansetron HCl [Zofran] 4 mg tablet 4 mg PO Q6H PRN (Reason: nausea and vomiting) Qty: 10 RF: 0 amlodipine 10 mg tablet 10 mg PO DAILY Qty: 30 RF: 0 ondansetron 4 mg tablet,disintegrating 4 mg PO Q6H PRN (Reason: nausea and vomiting) Qty: 14 RF: 0 chlordiazepoxide HCl 25 mg capsule 25 mg PO Q6H PRN (Reason: withdrawal symptoms) Qty: 20 RF: 0 Discharge Orders: Discharge ED (Routine); Ordered 07/22/20 Ordered By: Michael Gardner Referrals: [facility], [Staff Physician] - 1-3 days Milan Herrera MD [Physician] - 1-3 days Discharge Diet: Clear Liquid Discharge Activity: Increase activity as tolerated Patient Instructions: Alcoholism, Gastritis (ED), Alcohol Intoxication (ED), Alcohol Withdrawal (ED) Activity Restrictions/Additional Instructions: Please return to the ER immediately for any of the signs or symptoms listed on your discharge instruction sheets, worsening/changing of your symptoms, you are not getting better as quickly as expected, or for ANY other cause or concerns. Do not drink alcohol and take Ativan together. If you do so he can have a dangerous even lethal combining type of affect. Follow-up with your doctor or [facility] as an outpatient for treatment of your alcoholism. If your tremors become too severe, you can stop vomiting, you have seizures or any other concerns please return to the ER immediately for recheck. Coding Level of Care Code ED Production Shift Supervisor for Sandee Blanc Exam Comprehensive
[2020-07-21 23:49] VITALS: BP 167/117; PULSE 78; RESP 18; O2SAT 96
[2020-07-22 02:19] VITALS: BP 177/106; PULSE 82; RESP 18; O2SAT 95
[2020-07-22] MEDS: famotidine 20 mg/2 mL INJ 40 MG IVP (02:24)
[2020-07-22] MEDS: pantoprazole DR 40 mg Tablet 80 MG PO (02:26)
[2020-07-22 03:41] VITALS: BP 143/87; PULSE 77; RESP 16; O2SAT 95
[2020-07-22 05:38] VITALS: BP 143/88; PULSE 82; RESP 18; O2SAT 96
[2020-07-22] MEDS: ondansetron 2 mg/ML SDV 2 mL 4 MG IVP (05:50)
[2020-07-22] MEDS: lidocaine 2% viscous 15 ML, aluminum-mag hydrox-simethicon 30 ML, sucralfate oral liq 1 GM PO (06:04)
[2020-07-22 06:10] VITALS: BP 182/123; PULSE 82; RESP 16; O2SAT 94
[2020-07-22 07:09] VITALS: BP 163/95; PULSE 99; RESP 18; O2SAT 96
== END 2020-07-22 07:09 | disposition home or self-care (01) ==
PROVIDERS: Emergency Provider Emergency Medicine
DX: K29.20 Alcoholic gastritis without bleeding (principal); F10.929 Alcohol use, unspecified with intoxication, unspecified; I10 Essential (primary) hypertension; Z87.891 Personal history of nicotine dependence
CPT/HCPCS: 12345; 71045; 74177; 80053; 80307; 83690; 83735; 85025; 85610; 96374; 96375; 99283; J1200; J2405; J2765; J3411; J3490; J7030; Q9967

== ENCOUNTER 2020-07-31 05:07 | Emergency (ER) | payer SELFPAY ==
--- NOTE | 2020-07-31 05:11 | W.ED.ALCOHOL ---
Documented by User: Krysta Vann MD 07/31/20 05:13 HPI - Alcohol General: Chief Complaint: Alcohol Stated Complaint: ETOH Time Seen by Provider: 07/31/20 05:13 Source: patient and EMS Mode of arrival: EMS Limitations: no limitations History of Present Illness: HPI narrative: 50-year-old male who is well-known to the ER has a long history of alcoholism. He states been drinking heavily for the last 2 days. He states that he is also ran out of his blood pressure medicine has been having some tremors and high blood pressure. He has had some nausea denies any vomiting. Denies any chest pain. Associated symptoms: Deny abdominal pain, depression, nausea or vomiting Review of Systems Const: Denies: fever(s), chills, body aches or change in appetite Eyes: Denies: blurry vision or eye discomfort ENMT: Denies: throat pain or dental pain Card: Denies: chest pain Resp: Denies: dyspnea GI: Denies: abdominal pain, nausea, vomiting or diarrhea : Denies: dysuria Musc: Denies: neck pain or back pain Skin/Breast: Denies: rash Neuro: Denies: headache(s) Psych: Denies: depression Anton/Lymph: Denies: easy bruising All/Imm: Denies: urticaria PFSH ED PFSH: Medical History Alcoholism Hypertension Social History Smoking and tobacco status: former smoker Alcohol intake: current Alcohol intake frequency: 3 or more drinks per day Alcohol type: hard liquor Physical Exam Const: COMMON NORMALS: no acute distress, patient oriented x3 and healthy appearing GENERAL APPEARANCE: odor of alcohol detected HENMT: COMMON NORMALS: normocephalic and atraumatic HEAD & SCALP: normocephalic and atraumatic Eye: COMMON NORMALS: Equal, round and reactive pupils present and EOMs intact bilaterally PUPIL: Yes Equal, round and reactive pupils present Neck/C-Spine: COMMON NORMALS: full ROM and supple Chest: COMMONS NORMALS: normal inspection of the chest and normal palpation of entire chest wall Resp: COMMON NORMALS: normal respiratory effort, No retractions, No use of accessory muscles and clear to auscultation bilaterally AUSCULTATION: clear to auscultation bilaterally Cardio: COMMON NORMALS: regular rate, regular rhythm and No murmurs present (Cardio) RATE: regular rate RHYTHM: regular rhythm GI: COMMON NORMALS: Normal to inspection, nondistended, normoactive bowel sounds present, Soft to palpation, non-tender and no masses PALPATION: Yes Soft to palpation Extremity: COMMON NORMALS: normal to inspection and full ROM Neuro: COMMON NORMALS: patient oriented x3, moves all extremities and no focal motor deficits Psych: COMMON NORMALS: mental status grossly normal, Normal thought process present and cooperative THOUGHT PROCESS: Normal thought process present Skin: COMMON NORMALS: no rashes or lesions noted and no wounds GENERAL SKIN EXAM: no rashes or lesions noted Course Vital Signs: Vital signs: Vital Signs Temperature 98.1 F 07/31/20 05:16 Pulse Rate 84 07/31/20 06:40 Respiratory Rate 18 07/31/20 06:40 Blood Pressure 136/77 07/31/20 06:40 Pulse Oximetry 96 07/31/20 06:40 MDM - Alcohol Lab Data: Labs: Lab Results 07/31/20 07/31/20 Range/Units 05:40 05:40 WBC 5.2 (4.0-10.0) 10^3/ uL RBC 4.61 (4.1-5.3) 10^6/u L Hgb 15.4 (11.7-16.6) g/dL Hct 44.9 (42.0-52.0) % MCV 97.4 H (80-94) fL MCH 33.4 (28.0-34.0) pg MCHC 34.3 (30.0-36.0) g/dL RDW 13.6 (12.1-15.1) % Plt Count 141 (130-400) 10^3/c mm MPV 10.7 H (7.4-10.4) fL Neut % (Auto) 43.9 % Lymph % (Auto) 41.1 % [place] % (Auto) 10.9 % Eos % (Auto) 2.5 % Baso % (Auto) 1.4 % Neut # (Auto) 2.27 (1.8-7.7) 10^3/u L Lymph # (Auto) 2.1 (0.8-4.8) 10^3/u L [place] # (Auto) 0.6 (0.2-0.9) 10^3/u L Eos # (Auto) 0.1 (0.0-0.8) 10^3/u L Baso # (Auto) 0.1 (0.0-0.1) 10^3/u L Nucleated RBC % (a uto) 0 % Nucleated RBCs # 0.0 /100WBC Sodium 142 (136-145) mmol/L Potassium 4.0 (3.5-5.1) mmol/L Chloride 97 L (98-107) mmol/L Carbon Dioxide 25 (22-29) mmol/L Anion Gap 24.0 H (5-19) BUN 11 (6-20) mg/dL Creatinine 0.6 L (0.7-1.2) mg/dL GFR Calculation 143.8 H (90-130) mL/min Glucose 84 (65-115) mg/dL Calculated Osmolal ity 293 (285-295) mOsm/k g Calcium 9.1 (8.5-10.5) mg/dL Total Bilirubin 0.4 (0.15-1.2) mg/dL AST 144 H (0-40) U/L ALT 179 H (0-41) U/L Alkaline Phosphata se 59 (40-130) IU/L Total Protein 8.3 (6.6-8.7) g/dL Albumin 5.0 (3.5-5.2) g/dL Globulin 3.3 (1.3-4.6) g/dL Salicylates < 0.3 L (3-10) mg/dL Acetaminophen < 5.0 L (10-30) ug/mL Ethyl Alcohol 356 H* (0-10) mg/dL Discharge Plan Discharge Patient Disposition: Home Clinical Impression: Alcoholic intoxication Qualifiers: Complication of substance-induced condition: uncomplicated Qualified Code(s): F10.920 - Alcohol use, unspecified with intoxication, uncomplicated Condition: Stable Prescriptions: No Action ondansetron HCl [Zofran] 4 mg tablet 4 mg PO Q6H PRN (Reason: nausea and vomiting) Qty: 10 RF: 0 amlodipine 10 mg tablet 10 mg PO DAILY Qty: 30 RF: 0 ondansetron 4 mg tablet,disintegrating 4 mg PO Q6H PRN (Reason: nausea and vomiting) Qty: 14 RF: 0 chlordiazepoxide HCl 25 mg capsule 25 mg PO Q6H PRN (Reason: withdrawal symptoms) Qty: 20 RF: 0 Ativan 1 mg tablet 1 mg sublingual Q4H PRN (Reason: alcohol withdrawal) Qty: 20 RF: 0 Zofran 4 mg tablet 4 mg PO Q6H PRN (Reason: nausea and vomiting) Qty: 20 RF: 0 Protonix 40 mg tablet,delayed release (DR/EC) 40 mg PO DAILY Qty: 30 RF: 0 Discharge Orders: Discharge ED (Routine); Ordered 07/31/20 Ordered By: Alessandra Pace Discharge Diet: Usual diet Patient Instructions: Abuse of Alcohol (ED) Coding Level of Care Code ED Archives Director for Chg Fwd Exam Comprehensive Documented by User: Alessandra Pace MD 07/31/20 13:03 HPI - Alcohol General: Chief Complaint: Alcohol Stated Complaint: ETOH Time Seen by Provider: 07/31/20 05:13 PFS ED PFSH: Medical History Alcoholism Hypertension Social History Smoking and tobacco status: former smoker Alcohol intake: current Alcohol intake frequency: 3 or more drinks per day Alcohol type: hard liquor Course Vital Signs: Vital signs: Vital Signs Temperature 98.1 F 07/31/20 05:16 Pulse Rate 84 07/31/20 06:40 Respiratory Rate 18 07/31/20 06:40 Blood Pressure 136/77 07/31/20 06:40 Pulse Oximetry 96 07/31/20 06:40 MDM - Alcohol MDM Narrative: Medical decision making narrative: I received signout from at 0600; lab work was pending. Alcohol level mid 300s. Patient was not exhibiting any signs or symptoms of alcohol withdrawal. His vital signs remained stable. He was able to ambulate without difficulty he called a cab and left prior to being discharged. He declined thiamine and IV fluid Differential Diagnosis: Differential diagnosis: Likely alcohol intoxication Medical Records: Attestation: I reviewed the patient's medical records. Lab Data: Attestation: I reviewed the patient's lab results. Labs: Lab Results 07/31/20 07/31/20 Range/Units 05:40 05:40 WBC 5.2 (4.0-10.0) 10^3/ uL RBC 4.61 (4.1-5.3) 10^6/u L Hgb 15.4 (11.7-16.6) g/dL Hct 44.9 (42.0-52.0) % MCV 97.4 H (80-94) fL MCH 33.4 (28.0-34.0) pg MCHC 34.3 (30.0-36.0) g/dL RDW 13.6 (12.1-15.1) % Plt Count 141 (130-400) 10^3/c mm MPV 10.7 H (7.4-10.4) fL Neut % (Auto) 43.9 % Lymph % (Auto) 41.1 % [place] % (Auto) 10.9 % Eos % (Auto) 2.5 % Baso % (Auto) 1.4 % Neut # (Auto) 2.27 (1.8-7.7) 10^3/u L Lymph # (Auto) 2.1 (0.8-4.8) 10^3/u L [place] # (Auto) 0.6 (0.2-0.9) 10^3/u L Eos # (Auto) 0.1 (0.0-0.8) 10^3/u L Baso # (Auto) 0.1 (0.0-0.1) 10^3/u L Nucleated RBC % (a uto) 0 % Nucleated RBCs # 0.0 /100WBC Sodium 142 (136-145) mmol/L Potassium 4.0 (3.5-5.1) mmol/L Chloride 97 L (98-107) mmol/L Carbon Dioxide 25 (22-29) mmol/L Anion Gap 24.0 H (5-19) BUN 11 (6-20) mg/dL Creatinine 0.6 L (0.7-1.2) mg/dL GFR Calculation 143.8 H (90-130) mL/min Glucose 84 (65-115) mg/dL Calculated Osmolal ity 293 (285-295) mOsm/k g Calcium 9.1 (8.5-10.5) mg/dL Total Bilirubin 0.4 (0.15-1.2) mg/dL AST 144 H (0-40) U/L ALT 179 H (0-41) U/L Alkaline Phosphata se 59 (40-130) IU/L Total Protein 8.3 (6.6-8.7) g/dL Albumin 5.0 (3.5-5.2) g/dL Globulin 3.3 (1.3-4.6) g/dL Salicylates < 0.3 L (3-10) mg/dL Acetaminophen < 5.0 L (10-30) ug/mL Ethyl Alcohol 356 H* (0-10) mg/dL Discharge Plan Discharge Patient Disposition: Home Clinical Impression: Alcoholic intoxication Qualifiers: Complication of substance-induced condition: uncomplicated Qualified Code(s): F10.920 - Alcohol use, unspecified with intoxication, uncomplicated Condition: Stable Prescriptions: No Action ondansetron HCl [Zofran] 4 mg tablet 4 mg PO Q6H PRN (Reason: nausea and vomiting) Qty: 10 RF: 0 amlodipine 10 mg tablet 10 mg PO DAILY Qty: 30 RF: 0 ondansetron 4 mg tablet,disintegrating 4 mg PO Q6H PRN (Reason: nausea and vomiting) Qty: 14 RF: 0 chlordiazepoxide HCl 25 mg capsule 25 mg PO Q6H PRN (Reason: withdrawal symptoms) Qty: 20 RF: 0 Ativan 1 mg tablet 1 mg sublingual Q4H PRN (Reason: alcohol withdrawal) Qty: 20 RF: 0 Zofran 4 mg tablet 4 mg PO Q6H PRN (Reason: nausea and vomiting) Qty: 20 RF: 0 Protonix 40 mg tablet,delayed release (DR/EC) 40 mg PO DAILY Qty: 30 RF: 0 Discharge Orders: Discharge ED (Routine); Ordered 07/31/20 Ordered By: Alessandra Pace Discharge Diet: Usual diet Patient Instructions: Abuse of Alcohol (ED) Coding Level of Care Code ED Archives Director for Chg Fwd Exam Comprehensive
[2020-07-31 05:16] VITALS: BP 183/112; PULSE 91; RESP 18; TEMP 36.7; O2SAT 95; BMI 40.6
[2020-07-31 05:19] VITALS: BP 172/100; PULSE 82; RESP 20; O2SAT 90
[2020-07-31] MEDS: labetalol 5 mg/mL SDV 20mL 10 MG IVP (05:50)
[2020-07-31 05:56] VITALS: BP 146/91; PULSE 74; RESP 18; O2SAT 94
[2020-07-31 05:57] LABS: Basophils # 0.1 10^3/uL (0.0-0.1); Basophils % 1.4 %; Eosinophils # 0.1 10^3/uL (0.0-0.8); Eosinophils % 2.5 %; Hematocrit 44.9 % (42.0-52.0); Hemoglobin 15.4 g/dL (11.7-16.6); Lymphocytes # 2.1 10^3/uL (0.8-4.8); Lymphocytes % 41.1 %; Mean Corpuscular HGB Conc 34.3 g/dL (30.0-36.0); Mean Corpuscular Hemoglobin 33.4 pg (28.0-34.0); Mean Corpuscular Volume 97.4 fL (80-94); Mean Platelet Volume 10.7 fL (7.4-10.4); Monocytes # 0.6 10^3/uL (0.2-0.9); Monocytes % 10.9 %; Neutrophils # 2.27 10^3/uL (1.8-7.7); Neutrophils % 43.9 %; Nucleated Red Blood Cells % 0 %; Platelet Count 141 10^3/cmm (130-400); Red Blood Count 4.61 10^6/uL (4.1-5.3); Red Cell Distribution Width 13.6 % (12.1-15.1); White Blood Count 5.2 10^3/uL (4.0-10.0)
[2020-07-31 06:36] LABS: Alanine Aminotransferase 179 U/L (0-41); Alkaline Phosphatase 59 IU/L (40-130); Aspartate Amino Transferase 144 U/L (0-40); Blood Urea Nitrogen 11 mg/dL (6-20); Calcium 9.1 mg/dL (8.5-10.5); Carbon Dioxide 25 mmol/L (22-29); Chloride 97 mmol/L (98-107); Globulin 3.3 g/dL (1.3-4.6); Glomerular Filtration Rate 143.8 mL/min (90-130); Glucose 84 mg/dL (65-115); Osmolality Calculated 293 mOsm/kg (285-295); Sodium 142 mmol/L (136-145); Total Bilirubin 0.4 mg/dL (0.15-1.2); Total Protein 8.3 g/dL (6.6-8.7)
[2020-07-31 06:37] LABS: Acetaminophen < 5.0 ug/mL (10-30); Salicylate < 0.3 mg/dL (3-10)
[2020-07-31 06:38] LABS: Alcohol Level 356 mg/dL (0-10)
[2020-07-31 06:40] VITALS: BP 136/77; PULSE 84; RESP 18; O2SAT 96
== END 2020-07-31 07:58 | disposition home or self-care (01) ==
PROVIDERS: Emergency Medicine; Emergency Provider Family Medicine
DX: F10.920 Alcohol use, unspecified with intoxication, uncomplicated (principal); Y90.8 Blood alcohol level of 240 mg/100 ml or more; I10 Essential (primary) hypertension; Z87.891 Personal history of nicotine dependence
CPT/HCPCS: 12345; 80053; 80307; 85025; 96374; 99282; 99283; J3490

== ENCOUNTER 2020-08-02 19:11 | Inpatient (IN) | payer SELFPAY ==
[2020-08-02 19:18] VITALS: BP 171/104; PULSE 118; RESP 18; TEMP 36.7; O2SAT 99; BMI 36.2
--- NOTE | 2020-08-02 19:22 | ECG_ITS ---
[facility] Test Date: 2020-08-02 Pat Name: Ade Carcamo Department: Room: Gender: Male [employer]: : 1970 Requested By: Nasreen Murphy Order Number: [id number] Dilcia MD: Henry Bear M.D. Measurements Intervals [place] Rate: 108 P: 52 NH: 140 QRS: 4 QRSD: 89 T: 42 QT: 313 QTc: 420 Interpretive Statements SINUS TACHYCARDIA Compared to ECG 05/09/2020 21:56:02 No significant changes Electronically Signed On 08-03-2020 13:08:30 LADLE POURER by Henry Bear M.D. [id number] f
--- NOTE | 2020-08-02 19:22 | CTR_ITS ---
PROCEDURE INFORMATION: Exam: CT Head Without Contrast Exam date and time: 08/02/2020 7:30 PM Age: 50 years old Clinical indication: Injury or trauma; Blunt trauma (contusions or hematomas); Consciousness not specified; Patient HX: Multiple ETOH involved falls - unk loc; Additional info: Altered mental status, falls TECHNIQUE: Imaging protocol: Computed tomography of the head without contrast. Radiation optimization: All CT scans at this facility use at least one of these dose optimization techniques: automated exposure control; mA and/or kV adjustment per patient size (includes targeted exams where dose is matched to clinical indication); or iterative reconstruction. COMPARISON: CT head wo con* [id number] 06/17/2018 2:31 AM RADIATION DOSE METRICS: Total DLP (mGy-cm): 800.84 FINDINGS: Brain: Normal. No hemorrhage. Unremarkable white matter. No mass effect. Cerebral ventricles: No ventriculomegaly. Bones/joints: Unremarkable. No acute fracture. Paranasal sinuses: Mild sphenoid and bilateral ethmoid sinusitis is appreciated. Mastoid air cells: Visualized mastoid air cells are well aerated. Soft tissues: Unremarkable. CT/CT head wo con* [id number] IMPRESSION: No acute intracranial abnormality. Mild sinusitis. Radiation Dose CTDIVOL = (mGy): DLP = 800.84 (mGy-cm)
--- NOTE | 2020-08-02 19:22 | XRR_ITS ---
PROCEDURE INFORMATION: Exam: XR Chest, 1 View Exam date and time: 08/02/2020 7:49 PM Age: 50 years old Clinical indication: Dyspnea; Additional info: Altered mental status, falls TECHNIQUE: Imaging protocol: XR of the chest Views: 1 view. COMPARISON: CR XR chest 1V portable [id number] 07/21/2020 9:49 PM FINDINGS: Lungs: The lungs are clear. Pleural space: Unremarkable. No pleural effusion. No pneumothorax. Heart/Mediastinum: Unremarkable. No cardiomegaly. Bones/joints: No acute fracture is seen. XR/XR chest 1V portable [id number] IMPRESSION: No acute cardiopulmonary abnormality.
--- NOTE | 2020-08-02 19:25 | ED_ITS ---
HPI - Alcohol General: Chief Complaint: Alcohol Stated Complaint: ETOH WITHDRAW Time Seen by Provider: 08/02/20 19:12 Source: patient and EMS Mode of arrival: EMS Limitations: no limitations History of Present Illness: HPI narrative: Ade is a 50-year-old male who comes in requesting help with alcohol addiction. Patient states that he is an alcoholic and can stop drinking on his own. He states that he has not urinated in the past 3 days and he has not had anything to eat or drink in the past 6 days. Patient admits to drinking heavily today. Patient states he is unable to stop drinking on his own as he has seizures and hallucinations when he withdraws. Patient states that he needs help to come off of the alcohol. Patient claims to be hurting all over and he just has generalized malaise. Denies any vomiting, any vomiting blood, blood in his stools or other complaints. Review of Systems General: Reports: ROS unobtainable due to mental status PFSH ED PFSH: Medical History (Updated 08/02/20 @ 22:20 by Nasreen Yu) Alcoholism Depression Fibula fracture Generalized anxiety disorder Hypertension Surgical History (Updated 08/02/20 @ 21:57 by Taya Lala MD) History of open reduction and internal fixation (ORIF) procedure Fibula fracture, left distal lateral malleolar fracture Family History (Updated 08/02/20 @ 21:52 by Taya Lala MD) Other No pertinent family history Social History (Updated 08/02/20 @ 21:51 by Taya Lala MD) Smoking and tobacco status: former smoker Alcohol intake: current Alcohol intake frequency: 3 or more drinks per day Alcohol type: hard liquor Household members: friend(s) Physical Exam Const: COMMON NORMALS: no acute distress, no limitations and alert GENERAL APPEARANCE: cooperative HENMT: COMMON NORMALS: normocephalic, atraumatic, external ears normal, EAC's normal and Normal external nose present HEAD & SCALP: normal to inspection, normocephalic and atraumatic FACE & SINUS: normal facial exam and face symmetric NOSE: Normal external nose present and Normal nares present EXTERNAL EAR: Yes external ears normal EXTERNAL AUDITORY CANAL: EAC's normal MOUTH: Normal oral and palatal mucosa present, lip normal and tongue normal Eye: COMMON NORMALS: Equal, round and reactive pupils present and conjunctivae normal GENERAL EYE: appearance normal, both eyes and all related structures ALIGNMENT: Yes alignment normal PERIORBITAL: periorbital findings normal EYELID: eyelids normal CONJUNCTIVA: Yes conjunctivae normal SCLERA: sclerae normal PUPIL: Yes Equal, round and reactive pupils present Neck/C-Spine: COMMON NORMALS: full ROM, no lymphadenopathy, supple, no meningeal signs and no JVD GENERAL: Yes normal visual inspection and Yes trachea midline Chest: COMMONS NORMALS: normal inspection of the chest and normal palpation of entire chest wall Resp: COMMON NORMALS: normal respiratory effort, No retractions, No use of accessory muscles and clear to auscultation bilaterally EFFORT & INSPECTION: Yes able to speak in complete sentences and Yes symmetric chest movement AUSCULTATION: clear to auscultation bilaterally, no crackles, no rales, no rhonchi and no wheezes Cardio: COMMON NORMALS: no JVD, regular rate, regular rhythm, S1 normal heart sound present and S2 normal heart sound present RATE: regular rate RHYTHM: regular rhythm HEART SOUNDS: S1 normal heart sound present, S2 normal heart sound present, no click, no gallops, no murmurs and no rubs GI: COMMON NORMALS: Soft to palpation and No hepatosplenomegaly present PALPATION: Yes Soft to palpation, No Tenderness to palpation present (GI), No Guarding due to palpation present (GI), No Rigid due to palpation, Yes No hepatosplenomegaly present, No Hernia present, No Palpable mass present and No Pulsatile mass present : COMMON NORMALS: Yes no CVA tenderness BLADDER/KIDNEY EXAM: Yes no CVA tenderness Back/Pelvis: COMMON NORMALS: no CVA tenderness, thoracic and lumbar spine normal to inspection, no thoracic nor lumbar tenderness and thoraco-lumbar ROM normal Extremity: COMMON NORMALS: normal to inspection, full ROM, capillary refill normal, no joint enlargement, no clubbing, cyanosis or edema and no calf tenderness Neuro: COMMON NORMALS: CN's II-XII intact bilaterally, moves all extremities, no focal motor deficits and no sensory deficits noted SENSORIUM/ORIENTATION: Yes alert MENINGEAL SIGNS: Yes no meningeal signs SPEECH: speech normal Skin: COMMON NORMALS: no rashes or lesions noted, turgor normal, no jaundice, no petechiae and no mottling GENERAL SKIN EXAM: no rashes or lesions noted and turgor normal Course Vital Signs: Vital signs: Vital Signs Temperature 98.0 F 08/02/20 19:18 Pulse Rate 80 08/02/20 21:39 Respiratory Rate 22 H 08/02/20 21:39 Blood Pressure 146/89 08/02/20 21:39 Pulse Oximetry 93 08/02/20 21:39 MDM - Alcohol MDM Narrative: Medical decision making narrative: Mr. Carcamo is a nice 50-ye ar-old male who comes in with a complaint of alcohol intoxication. Patient's been on a binge drinking episode. Patient states he wants to stop drinking but cannot do so on his own. He states he has seizures and hallucinations when he tries to stop drinking. Patient this time obviously is very intoxicated but he is in ketoacidosis from his alcohol intake. He has not had anything to eat or drink in 3 days. I have started him on a banana bag and get him medicine for nausea. He is feeling somewhat better. I have endorsed the case to Dr. Lala as alcoholic ketoacidosis and the patient desires to detox and will need help as he goes through delirium tremens. Lab Data: Attestation: I reviewed the patient's lab results. Labs: Lab Results 08/02/20 08/02/20 08/02/20 Range/Units 20:26 20:30 20:30 WBC 4.0 (4.0-10.0) 10^3/ uL RBC 5.02 (4.1-5.3) 10^6/u L Hgb 16.7 H (11.7-16.6) g/dL Hct 48.1 (42.0-52.0) % MCV 95.8 H (80-94) fL MCH 33.3 (28.0-34.0) pg MCHC 34.7 (30.0-36.0) g/dL RDW 13.6 (12.1-15.1) % Plt Count 147 (130-400) 10^3/c mm MPV 10.5 H (7.4-10.4) fL Neut % (Auto) 44.8 % Lymph % (Auto) 42.1 % [place] % (Auto) 8.9 % Eos % (Auto) 1.5 % Baso % (Auto) 2.2 % Neut # (Auto) 1.81 (1.8-7.7) 10^3/u L Lymph # (Auto) 1.7 (0.8-4.8) 10^3/u L [place] # (Auto) 0.4 (0.2-0.9) 10^3/u L Eos # (Auto) 0.1 (0.0-0.8) 10^3/u L Baso # (Auto) 0.1 (0.0-0.1) 10^3/u L Nucleated RBC % (a uto) 0 % Nucleated RBCs # 0.0 /100WBC PT 13.90 (12.1-14.9) SECO NDS INR 1.04 (0.8-1.2) Specimen Type Arterial Sample Site Radial, right ABG pH 7.41 (7.35-7.45) ABG pCO2 41.7 (35-45) mmHg ABG pO2 72.6 L (80.0-100.0) mmH g ABG HCO3 26.6 H (22-26) mmol/L ABG Base Excess 1.7 (-2.0-2.0) mmol/ L John Test Pos Hematocrit 51.8 (42-52) % O2 Delivery Device Room air FiO2 21.0 % Uniform Room Attendant ID Harkr Sodium (136-145) mmol/L Potassium (3.5-5.1) mmol/L Chloride (98-107) mmol/L Carbon Dioxide (22-29) mmol/L Anion Gap (5-19) BUN (6-20) mg/dL Creatinine (0.7-1.2) mg/dL GFR Calculation (90-130) mL/min Glucose (65-115) mg/dL Calculated Osmolal ity (285-295) mOsm/k g Lactic Acid (0.5-2.2) mmol/L Calcium (8.5-10.5) mg/dL Magnesium (1.7-2.3) mg/dL Total Bilirubin (0.15-1.2) mg/dL AST (0-40) U/L ALT (0-41) U/L Alkaline Phosphata se (40-130) IU/L Creatine Kinase (39-308) U/L Troponin T Baselin e (0-15) ng/L Total Protein (6.6-8.7) g/dL Albumin (3.5-5.2) g/dL Globulin (1.3-4.6) g/dL Lipase (13-60) U/L Urine Color (Yellow) Urine Appearance (CLEAR) Urine pH (5-7) Ur Specific Gravit y (1.005-1.030) Urine Protein (Negative) Urine Glucose (UA) (Normal) Urine Ketones (Negative) Urine Blood (Negative) Urine Nitrate (Negative) Urine Bilirubin (Negative) Urine Urobilinogen (Negative) mg/dL Ur Leukocyte Aishwarya ase (Negative) Urine RBC (0-2) /hpf Urine WBC (0-5) /hpf Ur Squamous Epith Cells (0-5) /hpf Amorphous Sediment Urine Bacteria (NONE) /hpf Hyaline Casts /lpf Urine Mucus /hpf Urine Opiates Scre en (Negative) ng/mL Ur Barbiturates Sc reen (Negative) ng/mL Ur Phencyclidine S crn (Negative) ng/mL Ur Amphetamines Sc reen (Negative) ng/mL U Benzodiazepines Scrn (Negative) ng/mL Urine Cocaine Scre en (Negative) ng/mL U Marijuana (THC) Screen (Negative) ng/mL Ethyl Alcohol (0-10) mg/dL 08/02/20 08/02/20 08/02/20 Range/Units 20:30 20:30 20:30 WBC (4.0-10.0) 10^3/ uL RBC (4.1-5.3) 10^6/u L Hgb (11.7-16.6) g/dL Hct (42.0-52.0) % MCV (80-94) fL MCH (28.0-34.0) pg MCHC (30.0-36.0) g/dL RDW (12.1-15.1) % Plt Count (130-400) 10^3/c mm MPV (7.4-10.4) fL Neut % (Auto) % Lymph % (Auto) % [place] % (Auto) % Eos % (Auto) % Baso % (Auto) % Neut # (Auto) (1.8-7.7) 10^3/u L Lymph # (Auto) (0.8-4.8) 10^3/u L [place] # (Auto) (0.2-0.9) 10^3/u L Eos # (Auto) (0.0-0.8) 10^3/u L Baso # (Auto) (0.0-0.1) 10^3/u L Nucleated RBC % (a uto) % Nucleated RBCs # /100WBC PT (12.1-14.9) SECO NDS INR (0.8-1.2) Specimen Type Sample Site ABG pH (7.35-7.45) ABG pCO2 (35-45) mmHg ABG pO2 (80.0-100.0) mmH g ABG HCO3 (22-26) mmol/L ABG Base Excess (-2.0-2.0) mmol/ L John Test Hematocrit (42-52) % O2 Delivery Device FiO2 % Uniform Room Attendant ID Sodium 141 (136-145) mmol/L Potassium 4.4 (3.5-5.1) mmol/L Chloride 95 L (98-107) mmol/L Carbon Dioxide 25 (22-29) mmol/L Anion Gap 25.4 H (5-19) BUN 10 (6-20) mg/dL Creatinine 0.5 L (0.7-1.2) mg/dL GFR Calculation 177.5 H (90-130) mL/min Glucose 101 (65-115) mg/dL Calculated Osmolal ity 291 (285-295) mOsm/k g Lactic Acid 3.4 H (0.5-2.2) mmol/L Calcium 9.4 (8.5-10.5) mg/dL Magnesium 1.9 (1.7-2.3) mg/dL Total Bilirubin 0.7 (0.15-1.2) mg/dL AST 246 H (0-40) U/L ALT 245 H (0-41) U/L Alkaline Phosphata se 70 (40-130) IU/L Creatine Kinase 450 H* (39-308) U/L Troponin T Baselin e 8 (0-15) ng/L Total Protein 8.5 (6.6-8.7) g/dL Albumin 5.1 (3.5-5.2) g/dL Globulin 3.4 (1.3-4.6) g/dL Lipase 47 (13-60) U/L Urine Color (Yellow) Urine Appearance (CLEAR) Urine pH (5-7) Ur Specific Gravit y (1.005-1.030) Urine Protein (Negative) Urine Glucose (UA) (Normal) Urine Ketones (Negative) Urine Blood (Negative) Urine Nitrate (Negative) Urine Bilirubin (Negative) Urine Urobilinogen (Negative) mg/dL Ur Leukocyte Aishwarya ase (Negative) Urine RBC (0-2) /hpf Urine WBC (0-5) /hpf Ur Squamous Epith Cells (0-5) /hpf Amorphous Sediment Urine Bacteria (NONE) /hpf Hyaline Casts /lpf Urine Mucus /hpf Urine Opiates Scre en (Negative) ng/mL Ur Barbiturates Sc reen (Negative) ng/mL Ur Phencyclidine S crn (Negative) ng/mL Ur Amphetamines Sc reen (Negative) ng/mL U Benzodiazepines Scrn (Negative) ng/mL Urine Cocaine Scre en (Negative) ng/mL U Marijuana (THC) Screen (Negative) ng/mL Ethyl Alcohol 467 H* (0-10) mg/dL 08/02/20 08/02/20 Range/Units 21:29 21:29 WBC (4.0-10.0) 10^3/ uL RBC (4.1-5.3) 10^6/u L Hgb (11.7-16.6) g/dL Hct (42.0-52.0) % MCV (80-94) fL MCH (28.0-34.0) pg MCHC (30.0-36.0) g/dL RDW (12.1-15.1) % Plt Count (130-400) 10^3/c mm MPV (7.4-10.4) fL Neut % (Auto) % Lymph % (Auto) % [place] % (Auto) % Eos % (Auto) % Baso % (Auto) % Neut # (Auto) (1.8-7.7) 10^3/u L Lymph # (Auto) (0.8-4.8) 10^3/u L [place] # (Auto) (0.2-0.9) 10^3/u L Eos # (Auto) (0.0-0.8) 10^3/u L Baso # (Auto) (0.0-0.1) 10^3/u L Nucleated RBC % (a uto) % Nucleated RBCs # /100WBC PT (12.1-14.9) SECO NDS INR (0.8-1.2) Specimen Type Sample Site ABG pH (7.35-7.45) ABG pCO2 (35-45) mmHg ABG pO2 (80.0-100.0) mmH g ABG HCO3 (22-26) mmol/L ABG Base Excess (-2.0-2.0) mmol/ L John Test Hematocrit (42-52) % O2 Delivery Device FiO2 % Uniform Room Attendant ID Sodium (136-145) mmol/L Potassium (3.5-5.1) mmol/L Chloride (98-107) mmol/L Carbon Dioxide (22-29) mmol/L Anion Gap (5-19) BUN (6-20) mg/dL Creatinine (0.7-1.2) mg/dL GFR Calculation (90-130) mL/min Glucose (65-115) mg/dL Calculated Osmolal ity (285-295) mOsm/k g Lactic Acid (0.5-2.2) mmol/L Calcium (8.5-10.5) mg/dL Magnesium (1.7-2.3) mg/dL Total Bilirubin (0.15-1.2) mg/dL AST (0-40) U/L ALT (0-41) U/L Alkaline Phosphata se (40-130) IU/L Creatine Kinase (39-308) U/L Troponin T Baselin e (0-15) ng/L Total Protein (6.6-8.7) g/dL Albumin (3.5-5.2) g/dL Globulin (1.3-4.6) g/dL Lipase (13-60) U/L Urine Color Yellow (Yellow) Urine Appearance Clear (CLEAR) Urine pH 5 (5-7) Ur Specific Gravit y 1.020 (1.005-1.030) Urine Protein 3+ H (Negative) Urine Glucose (UA) Norm (Normal) Urine Ketones 2+ H (Negative) Urine Blood 2+ H (Negative) Urine Nitrate Negative (Negative) Urine Bilirubin Neg (Negative) Urine Urobilinogen Norm (Negative) mg/dL Ur Leukocyte Aishwarya ase Negative (Negative) Urine RBC 0-4 H (0-2) /hpf Urine WBC 0-4 H (0-5) /hpf Ur Squamous Epith Cells 0-4 H (0-5) /hpf Amorphous Sediment Not Reportable Urine Bacteria Trace (NONE) /hpf Hyaline Casts 55-80 H /lpf Urine Mucus 3+ /hpf Urine Opiates Scre en Negative (Negative) ng/mL Ur Barbiturates Sc reen Negative (Negative) ng/mL Ur Phencyclidine S crn Negative (Negative) ng/mL Ur Amphetamines Sc reen Negative (Negative) ng/mL U Benzodiazepines Scrn Negative (Negative) ng/mL Urine Cocaine Scre en Negative (Negative) ng/mL U Marijuana (THC) Screen Negative (Negative) ng/mL Ethyl Alcohol (0-10) mg/dL Imaging Data^: CXR: Attestation: I personally reviewed and interpreted this imaging study as follows: My impression: No acute cardiopulmonary findings. CT Head: Radiologist's impression: [address] [address] [address] Scan Report Signed Patient: Ade Carcamo Unit #: [id number] : 1970 Age/Sex: 50 / M ADM Date: 08/02/20 Loc: ER Room/Bed: Attending Dr: Ordering Provider/Ordering MD: Nasreen Yu DO Date of Service: 08/02/20 Procedure(s): CT head wo con* [id number] Accession Number(s): [id number] Report Number: [id number] PROCEDURE INFORMATION: Exam: CT Head Without Contrast Exam date and time: 08/02/2020 7:30 PM Age: 50 years old Clinical indication: Injury or trauma; Blunt trauma (contusions or hematomas); Consciousness not specified; Patient HX: Multiple ETOH involved falls - unk loc; Additional info: Altered mental status, falls TECHNIQUE: Imaging protocol: Computed tomography of the head without contrast. Radiation optimization: All CT scans at this facility use at least one of these dose optimization techniques: automated exposure control; mA and/or kV adjustment per patient size (includes targeted exams where dose is matched to clinical indication); or iterative reconstruction. COMPARISON: CT head wo con* [id number] 06/17/2018 2:31 AM RADIATION DOSE METRICS: Total DLP (mGy-cm): 800.84 FINDINGS: Brain: Normal. No hemorrhage. Unremarkable white matter. No mass effect. Cerebral ventricles: No ventriculomegaly. Bones/joints: Unremarkable. No acute fracture. Paranasal sinuses: Mild sphenoid and bilateral ethmoid sinusitis is appreciated. Mastoid air cells: Visualized mastoid air cells are well aerated. Soft tissues: Unremarkable. CT/CT head wo con* [id number] IMPRESSION: No acute intracranial abnormality. Mild sinusitis. Radiation Dose CTDIVOL = (mGy): DLP = 800.84 (mGy-cm) Dictated By: Herminio Watkins MD Signed By: Herminio Watkins MD Signed Date/Time: 08/02/201956 DD/ 55 EKG Data^: EKG 1: Attestation: I personally reviewed and interpreted this EKG as follows: EKG interpretation date: 08/02/20 EKG interpretation time: 19:41 Interpretation: Sinus tachycardia to 108 beats a minute, normal axis, no blocks, normal intervals, no acute ST or T wave changes. Discharge Plan Discharge Patient Disposition: Admitted As Inpatient Clinical Impression: Alcoholic ketoacidosis, Alcoholic intoxication Condition: Stable Prescriptions: No Action ondansetron HCl [Zofran] 4 mg tablet 4 mg PO Q6H PRN (Reason: nausea and vomiting) Qty: 10 RF: 0 amlodipine 10 mg tablet 10 mg PO DAILY Qty: 30 RF: 0 ondansetron 4 mg tablet,disintegrating 4 mg PO Q6H PRN (Reason: nausea and vomiting) Qty: 14 RF: 0 chlordiazepoxide HCl 25 mg capsule 25 mg PO Q6H PRN (Reason: withdrawal symptoms) Qty: 20 RF: 0 Ativan 1 mg tablet 1 mg sublingual Q4H PRN (Reason: alcohol withdrawal) Qty: 20 RF: 0 Zofran 4 mg tablet 4 mg PO Q6H PRN (Reason: nausea and vomiting) Qty: 20 RF: 0 Protonix 40 mg tablet,delayed release (DR/EC) 40 mg PO DAILY Qty: 30 RF: 0 Coding Level of Care Code ED Logging Engineer for Chg Fwd Exam Comprehensive
[2020-08-02 20:04] VITALS: BP 165/98; PULSE 93; RESP 17; O2SAT 96
[2020-08-02] MEDS: ondansetron 2 mg/ML SDV 2 mL 4 MG IVP (20:32)
[2020-08-02] MEDS: folic acid 1 MG, multivitamin inj 10 ML, thiamine 100 MG in sodium chloride 0.9% 1,000 ML 252.8 MG IV (20:33)
[2020-08-02 20:36] LABS: ABG PCO2 41.7 mmHg (35-45); ABG PH Result 7.41 (7.35-7.45); Arterial Blood Gas Hematocrit 51.8 % (42-52); Base Excess ABG 1.7 mmol/L (-2.0-2.0); Blood Gas Allen Test Pos; Blood Gas Operator Identificat HARKR; Blood Gas Sample Site Radial, right; Blood Gas Sample Type Arterial; HCO3 ABG 26.6 mmol/L (22-26); Oxygen Device ROOM AIR; PO2 ABG 72.6 mmHg (80.0-100.0)
[2020-08-02 20:38] LABS: Basophils # 0.1 10^3/uL (0.0-0.1); Basophils % 2.2 %; Eosinophils # 0.1 10^3/uL (0.0-0.8); Eosinophils % 1.5 %; Hematocrit 48.1 % (42.0-52.0); Hemoglobin 16.7 g/dL (11.7-16.6); Lymphocytes # 1.7 10^3/uL (0.8-4.8); Lymphocytes % 42.1 %; Mean Corpuscular HGB Conc 34.7 g/dL (30.0-36.0); Mean Corpuscular Hemoglobin 33.3 pg (28.0-34.0); Mean Corpuscular Volume 95.8 fL (80-94); Mean Platelet Volume 10.5 fL (7.4-10.4); Monocytes # 0.4 10^3/uL (0.2-0.9); Monocytes % 8.9 %; Neutrophils # 1.81 10^3/uL (1.8-7.7); Neutrophils % 44.8 %; Nucleated Red Blood Cells % 0 %; Platelet Count 147 10^3/cmm (130-400); Red Blood Count 5.02 10^6/uL (4.1-5.3); Red Cell Distribution Width 13.6 % (12.1-15.1)
[2020-08-02 20:48] LABS: INR 1.04 (0.8-1.2)
[2020-08-02 20:59] LABS: Alanine Aminotransferase 245 U/L (0-41); Albumin Level 5.1 g/dL (3.5-5.2); Alkaline Phosphatase 70 IU/L (40-130); Anion Gap 25.4 (5-19); Aspartate Amino Transferase 246 U/L (0-40); Blood Urea Nitrogen 10 mg/dL (6-20); Calcium 9.4 mg/dL (8.5-10.5); Carbon Dioxide 25 mmol/L (22-29); Chloride 95 mmol/L (98-107); Globulin 3.4 g/dL (1.3-4.6); Glomerular Filtration Rate 177.5 mL/min (90-130); Glucose 101 mg/dL (65-115); Lipase 47 U/L (13-60); Magnesium 1.9 mg/dL (1.7-2.3); Osmolality Calculated 291 mOsm/kg (285-295); Potassium 4.4 mmol/L (3.5-5.1); Sodium 141 mmol/L (136-145); Total Bilirubin 0.7 mg/dL (0.15-1.2); Total Protein 8.5 g/dL (6.6-8.7)
[2020-08-02 21:00] VITALS: BP 132/76; PULSE 82; RESP 22; O2SAT 97
[2020-08-02 21:00] LABS: Troponin(5th) Baseline 8 ng/L (0-15)
[2020-08-02 21:01] LABS: Lactic Sepsis W/Reflex 3.4 mmol/L (0.5-2.2)
[2020-08-02 21:03] LABS: Creatine Phosphokinase 450 U/L (39-308)
[2020-08-02 21:04] LABS: Alcohol Level 467 mg/dL (0-10)
[2020-08-02 21:39] VITALS: BP 146/89; PULSE 80; RESP 22; O2SAT 93
[2020-08-02 21:47] LABS: Amphetamines Screen Urine Negative (Negative); Barbiturates Screen Urine Negative (Negative); Benzodiazepines Screen Urine Negative (Negative); Cocaine Screen Urine Negative (Negative); Opiate Screen Urine Negative (Negative); PCP Screen Urine Negative (Negative); THC Screen Urine Negative (Negative)
--- NOTE | 2020-08-02 21:49 | P.HP_ITS ---
Providers/Chief Complaint Chief Complaint: ETOH WITHDRAW History of Present Illness Ade Carcamo is a 50 year old male who has history of heavy alcohol abuse presented today with for detoxification. Patient is stating that he wants to quit and does not want detoxification at home because last time he experienced withdrawal symptoms which are really painful to him. He is drinking 1 gallon of vodka about every day does not smoke or use recreational drugs. He drank alcohol before coming to the hospital. He has never been intubated before however endorsing severe withdrawal symptoms. He is currently eating with his mother. Recently he has not noticed any fever nausea vomiting diarrhea, his last proper meal intake was probably a week ago he has not been able to eat healthy at all. Also endorsing decreased urine output. Diagnostics in the ER revealed alcohol tox Acacian CIWA 4-5, sinus tachycardia, hypertensive, diaphoretic, awake alert able to protect airway, not endorsing active hallucination at this point Admit to ICU CIWA protocol Review of Systems Const: Reports: chills, body aches, change in appetite, change in weight, fatigue and diaphoresis Eyes: Denies: change in vision ENMT: Denies: throat pain Card: Denies: chest pain Resp: Denies: dyspnea GI: Reports: nausea; Denies: abdominal pain : Reports: oliguria; Denies: flank pain Musc: Denies: neck pain Skin/Breast: Denies: rash Neuro: Denies: headache(s) Psych: Denies: anxiety Endo: Denies: polyuria Anton/Lymph: Denies: easy bruising All/Imm: Denies: urticaria Medications/Allergies Home Medications Medication Instructions Recorded Confirmed Last Taken Type ondansetron HCl [Zofran] 4 mg PO Q6H PRN #10 tab 12/02/19 05/07/20 Unknown Rx chlordiazepoxide HCl 25 mg PO Q6H PRN #20 cap 05/07/20 Unknown Rx ondansetron 4 mg PO Q6H PRN #14 tab 05/07/20 Unknown Rx amlodipine 10 mg PO DAILY #30 tab 05/10/20 Unknown Rx lorazepam [Ativan] 1 mg SUBLINGUAL Q4H PRN #20 tab 07/22/20 Unknown Rx ondansetron HCl [Zofran] 4 mg PO Q6H PRN #20 tab 07/22/20 Unknown Rx pantoprazole [Protonix] 40 mg PO DAILY #30 tab 07/22/20 Unknown Rx Allergies Allergy/AdvReac Type Severity Reaction Status Date / Time No Known Allergies Allergy Verified 12/02/19 00:20 PFSH Acute PFSH: Medical History Alcoholism Depression Fibula fracture Generalized anxiety disorder Hypertension Surgical History History of open reduction and internal fixation (ORIF) procedure Fibula fracture, left distal lateral malleolar fracture Family History Other No pertinent family history Social History Smoking and tobacco status: former smoker Alcohol intake: current Alcohol intake frequency: 3 or more drinks per day Alcohol type: hard liquor Household members: friend(s) Vitals/I&O/Wt Last Vital Signs Temp 98.0 F 08/02/20 19:18 Pulse 80 08/02/20 21:39 Resp 22 H 08/02/20 21:39 BP 146/89 08/02/20 21:39 Pulse Ox 93 08/02/20 21:39 Weight last 48 hrs Weight 117.934 kg Physical Exam Narrative: EXAM NARRATIVE: middle-age male who appears more than stated age Currently diaphoretic seems very anxious Diaphoretic sinus tachycardia, hypertensive No coarse tremors S1, S2 sinus tachycardia no signs of heart failure Abdomen soft, distended, bowel sounds present, Bilateral breath sounds without adventitious rhonchi or crackles Awake alert oriented x3 GCS 15 Mood irritable and anxious EOMI, PERRLA no neurological deficit Lower extremity no edema gangrene or ulcer Data : 08/02/20 20:30 08/02/20 20:30 A&P Assessment and plan (1) Alcoholic intoxication: Status: Acute (2) Starvation: Status: Acute (3) Lactic acidosis: Status: Acute Additional A&P Information Alcohol toxic patient with acute withdrawal CIWA protocol Admit to ICU, use Precedex for conscious sedation Is high risk for DTs Also at risk of refeeding syndrome will check magnesium and phosphorus level have received banana bag in the ER I will start D5 normal saline maintenance rate along thiamine and folic acid Lactic acidemia This most likely secondary to starvation ketosis and alcohol No signs of sepsis No active tremors At risk of refeeding syndrome, Monitor closely in the ER Full code Cardiac diet DVT prophylaxis Lovenox Attestations Medical Necessity Statement*: Anticipating stay in the hospital cross more than 2 midnights for etoh intoxication and acute withdrawal Time Spent in Patient Care: (>than 50% of time spent in counselling and/or direct pt care on unit) . 40mins Coding Level of Care Code Acute Manager Animation for g Fwd Diagnoses Alcoholic intoxication F10.929 Starvation T73.0XXA Lactic acidosis E87.2
[2020-08-02 21:59] LABS: Add Urine Microscopic? YES; Bilirubin Urine Neg (Negative); Blood Urine 2+ (Negative); Glucose Urine UA Norm (Normal); Ketones Urine 2+ (Negative); Leukocyte Esterase Urine Negative (Negative); Nitrate Urine Negative (Negative); Protein Urine 3+ (Negative); Urine Appearance Clear (CLEAR); Urine Color Yellow (Yellow); Urobilinogen Urine Norm (Negative); pH Urine 5 (5-7)
[2020-08-02 22:00] LABS: RBC Urine 0-4 /hpf (0-2); WBC Urine 0-4 /hpf (0-5)
[2020-08-02 22:01] LABS: Bacteria Urine TRACE /hpf; Mucus Urine 3+ /hpf; Squamous Epithelial Cell Urine 0-4 /hpf (0-5)
[2020-08-02 22:02] LABS: Add Urine Culture? No; Hyaline Casts Urine 55-80 /lpf
[2020-08-02 22:22] LABS: Reflex Lactate Order REFLEX LACTIC ORDERD
[2020-08-02 22:42] VITALS: BP 166/105; PULSE 104; RESP 18; O2SAT 96
[2020-08-02 22:52] LABS: Troponin 5 2HR 7.12 ng/L (0-15)
[2020-08-02 22:56] LABS: Troponin 5 2HR Delta -0.88 ABS# (0-10)
[2020-08-02 23:52] VITALS: BP 135/78; PULSE 96; RESP 17; O2SAT 94
[2020-08-03] VITALS (52 sets, daily range): BP systolic 116–227; BP diastolic 79–139; PULSE 78–144; RESP 11–30; TEMP 36.9–37.2; O2SAT 90–98
[2020-08-03] MEDS: metoclopramide 5 mg/mL SDV 2 mL 10 MG IV (01:25)
[2020-08-03] MEDS: diphenhydrAMINE 50 mg/mL SDV 1mL IVP (01:25)
[2020-08-03] MEDS: ondansetron 2 mg/ML SDV 2 mL 4 MG IVP ×2 (02:52→22:06)
[2020-08-03] MEDS: LORazepam 2 mg/mL INJ 1 mL IVP ×7 (02:58→23:50)
[2020-08-03] MEDS: dexmedetomidine 400 MCG in sodium chloride 0.9% (100 ml) 100 ML 6.1 MCG IV (03:11)
[2020-08-03] MEDS: dextrose 5%-sod chloride 0.9% 1,000 ML 75 ML IV ×2 (03:19→16:36)
[2020-08-03] MEDS: enoxaparin 40 mg/0.4 mL Syringe SUBCUT (03:19)
[2020-08-03 04:56] LABS: Basophils # 0.1 10^3/uL (0.0-0.1); Basophils % 1.2 %; Eosinophils % 0.4 %; Hematocrit 43.6 % (42.0-52.0); Lymphocytes # 0.9 10^3/uL (0.8-4.8); Lymphocytes % 18.6 %; Mean Corpuscular HGB Conc 34.4 g/dL (30.0-36.0); Mean Corpuscular Hemoglobin 33.3 pg (28.0-34.0); Mean Corpuscular Volume 96.9 fL (80-94); Mean Platelet Volume 10.9 fL (7.4-10.4); Monocytes # 0.4 10^3/uL (0.2-0.9); Neutrophils # 3.59 10^3/uL (1.8-7.7); Neutrophils % 71.6 %; Nucleated Red Blood Cells % 0 %; Platelet Count 126 10^3/cmm (130-400); Red Cell Distribution Width 13.7 % (12.1-15.1)
[2020-08-03 05:12] LABS: Alanine Aminotransferase 200 U/L (0-41); Albumin Level 4.7 g/dL (3.5-5.2); Alkaline Phosphatase 58 IU/L (40-130); Anion Gap 28.2 (5-19); Aspartate Amino Transferase 193 U/L (0-40); Blood Urea Nitrogen 11 mg/dL (6-20); Calcium 8.6 mg/dL (8.5-10.5); Carbon Dioxide 21 mmol/L (22-29); Chloride 97 mmol/L (98-107); Globulin 3.1 g/dL (1.3-4.6); Glomerular Filtration Rate 120.4 mL/min (90-130); Glucose 94 mg/dL (65-115); Magnesium 1.6 mg/dL (1.7-2.3); Osmolality Calculated 293 mOsm/kg (285-295); Phosphorus 2.1 mg/dL (2.5-4.5); Potassium 4.2 mmol/L (3.5-5.1); Sodium 142 mmol/L (136-145); Total Bilirubin 0.7 mg/dL (0.15-1.2); Total Protein 7.8 g/dL (6.6-8.7)
[2020-08-03] MEDS: pantoprazole DR 40 mg Tablet PO (08:12)
[2020-08-03] MEDS: amlodipine 10 mg Tablet PO (08:12)
[2020-08-03] MEDS: thiamine 100 mg Tablet PO (08:12)
[2020-08-03] MEDS: multivitamin therapeutic Tablet 1 TAB PO (08:12)
[2020-08-03] MEDS: folic acid 1 mg Tablet PO (08:13)
--- NOTE | 2020-08-03 09:38 | PC.CHAP ---
Pastoral Care Encounter/Spiritual Assessment Type of Contact [] Declined produce laborer visit [] Patient/Family/Request visit [] Outpatient visit [] Follow-up visit [] Physician referral [] Code/Alert [] Routine visit [] Staff referral [] Actively dying [] Patient sleeping [] Family support [] [] Out of room [] Palliative care [] [] Receiving care in room [] Pre-surgical visit [] Trauma [] Long length of stay [x] ICU visit [] Other: Relational/Emotional Strength [] Patient feels connected with others/family/visitors/staff [] Distress [] Loneliness/isolation [] Abandonment Spirituality of Patient [] Person of Gregoria [] Attends Nondenominational of their Gregoria [] Believes in Prayer [] Reads Bible or Baptism materials [] There are Spiritual issues to be addressed Brineyard Supervisor Interventions [x] Prayer [] Active listening [] Non-anxious presence [] Spiritual/emotional support [] Crisis/trauma care [] Spiritual counseling [] Bereavement support [] Provided bereavement packet [] Provided Bible/devotional materials [] Provided toy/stuffed animal, coloring book to patient or family member [] Provided Communion [] Anointing/Providence [] Salvation [x] Completed spiritual assessment [] Other: Impact on Illness or Injury [] Angry [] Fearful [] Anxious [] Often cries [] Exhaustion [] Unable to work [] Unable to attend methodist [] Unable to walk/stand [] Unable to read [] Unable to drive [] Unable to eat/drink [] Unable to sleep [] Unable to be with family [] Patient intubated [] Other: Summary Time spent with patient
--- NOTE | 2020-08-03 10:13 | P.PN_ITS ---
Subjective Subjective: Interval history: Ade reports he still feels very shaky and is going through withdrawal. He is slightly nauseated. History and physical was reviewed. Medications: Reviewed: Yes Vitals/I&O/Wt Last Vital Signs Temp 98.5 F 08/03/20 08:00 Pulse 85 08/03/20 08:00 Resp 22 H 08/03/20 08:00 BP 116/87 08/03/20 08:00 Pulse Ox 95 08/03/20 08:00 08/02/20 08/03/20 08/03/20 22:59 06:59 14:59 Intake Total 1018.507 / 1018.507 Balance 1018.507 / 1018.507 Weight last 48 hrs Weight 117.934 kg Physical Exam Narrative: EXAM NARRATIVE: General exam is a white male, somewhat shaky with injected sclera Neck is supple no lymphadenopathy or thyromegaly Cardiovascular regular rate and rhythm without murmur Lungs clear no wheezing or crackles Abdomen is soft, positive bowel sounds. No obvious organomegaly Extremities no cyanosis clubbing or edema Data : 08/03/20 03:59 08/03/20 03:59 A&P Assessment and plan (1) Alcoholic intoxication: Now with some alcohol withdrawal Continue Precedex Continue CIWA protocol Continue thiamine Continue hydration Status: Acute (2) Starvation: Now taking some p.o. Status: Acute (3) Lactic acidosis: Resolving Status: Acute Additional A&P Information Hypomagnesemia. Supplement. Transaminitis. Secondary to alcohol. Slightly low platelets secondary to the same. Check Hepatitis serology. Check TSH History of hypertension for which she has not taken medicines in quite some time secondary to noncompliance Full code Lovenox for DVT prophylaxis Attestations Medical Necessity Statement*: Needs continued hospitalization secondary to alcohol withdrawal requiring Ativan, Precedex Coding Level of Care Code Acute Piano Professor for [facility] Fwd Diagnoses Alcoholic intoxication F10.929 Starvation T73.0XXA Lactic acidosis E87.2
[2020-08-03] MEDS: magnesium sulfate premix 2 GM/50 ML PIGGYBACK IV (10:31)
[2020-08-03 11:26] LABS: Thyroid Stimulating Hormone 3.69 uIU/mL (0.27-4.20)
--- NOTE | 2020-08-03 12:39 | PC.NURSE ---
tremors more severe. precedex turned up to o.7 with ativan 2 mg iv.
[2020-08-03] MEDS: LORazepam 2 mg Tablet PO ×2 (12:56→17:30)
[2020-08-03] MEDS: dexmedetomidine 400 MCG in sodium chloride 0.9% (100 ml) 100 ML 9.2 MCG IV (16:36)
[2020-08-03 17:45] LABS: Glucose Point of Care 172 mg/dL (70-110)
[2020-08-03 17:45] LABS: Glucose Point of Care 135 mg/dL (70-110)
[2020-08-03 18:03] LABS: Hepatitis A Antibody IgM Non-Reactive (Nonreactive); Hepatitis B Core IgM Non-Reactive (Nonreactive); Hepatitis B Surface Antigen Non-Reactive (Nonreactive); Hepatitis C Virus Antibody Non-Reactive (Nonreactive)
[2020-08-04] VITALS (48 sets, daily range): BP systolic 124–179; BP diastolic 87–126; PULSE 67–78; RESP 14–36; TEMP 36.7–37.5; O2SAT 89–98
[2020-08-04] MEDS: LORazepam 2 mg/mL INJ 1 mL IVP ×6 (01:15→21:09)
[2020-08-04] MEDS: dexmedetomidine 400 MCG in sodium chloride 0.9% (100 ml) 100 ML 12.3 MCG IV ×3 (01:49→19:57)
--- NOTE | 2020-08-04 01:51 | PC.NURSE ---
Patient resting in bed with eyes closed. Did have episodes of vomiting and nausea earlier PRN medication given per orders and continues to following CIWA protocol. Denies pain. Call light within reach. Continue care
[2020-08-04] MEDS: enoxaparin 40 mg/0.4 mL Syringe SUBCUT (02:06)
--- NOTE | 2020-08-04 02:20 | PC.NURSE ---
Patient requiring ativian per protocol to manage withdrawals. Precedex running per MAR via protocol
--- NOTE | 2020-08-04 03:07 | PC.NURSE ---
Patient had not voided entire shift and some of day shift. Bladder scanned patient and bladder scanner showed greater than 999mL. Dr. Lala on floor and gave orders to place canales. 1000mL of urine returned upon placement via sterile technique.
[2020-08-04] MEDS: dextrose 5%-sod chloride 0.9% 1,000 ML 75 ML IV ×2 (04:43→17:44)
[2020-08-04 05:55] LABS: Basophils # 0.1 10^3/uL (0.0-0.1); Basophils % 1.1 %; Eosinophils # 0.2 10^3/uL (0.0-0.8); Eosinophils % 3.6 %; Hematocrit 39.6 % (42.0-52.0); Hemoglobin 13.2 g/dL (11.7-16.6); Lymphocytes # 1.4 10^3/uL (0.8-4.8); Lymphocytes % 31.2 %; Mean Corpuscular HGB Conc 33.3 g/dL (30.0-36.0); Mean Corpuscular Hemoglobin 33.2 pg (28.0-34.0); Mean Corpuscular Volume 99.7 fL (80-94); Monocytes # 0.4 10^3/uL (0.2-0.9); Neutrophils # 2.43 10^3/uL (1.8-7.7); Neutrophils % 54.9 %; Nucleated Red Blood Cells % 0 %; Platelet Count 89 10^3/cmm (130-400); Red Blood Count 3.97 10^6/uL (4.1-5.3); Red Cell Distribution Width 13.2 % (12.1-15.1); White Blood Count 4.4 10^3/uL (4.0-10.0)
[2020-08-04 06:18] LABS: Magnesium 1.7 mg/dL (1.7-2.3)
[2020-08-04 06:21] LABS: Alanine Aminotransferase 162 U/L (0-41); Alkaline Phosphatase 54 IU/L (40-130); Anion Gap 14.6 (5-19); Aspartate Amino Transferase 150 U/L (0-40); Blood Urea Nitrogen 12 mg/dL (6-20); Calcium 9.1 mg/dL (8.5-10.5); Carbon Dioxide 26 mmol/L (22-29); Chloride 98 mmol/L (98-107); Globulin 2.8 g/dL (1.3-4.6); Glomerular Filtration Rate 143.8 mL/min (90-130); Glucose 122 mg/dL (65-115); Osmolality Calculated 281 mOsm/kg (285-295); Potassium 3.6 mmol/L (3.5-5.1); Sodium 135 mmol/L (136-145); Total Bilirubin 1.2 mg/dL (0.15-1.2); Total Protein 6.8 g/dL (6.6-8.7)
--- NOTE | 2020-08-04 06:21 | PC.NURSE ---
Patient still requiring increased usage of ativan per protocol. Brunson in place draining appropriately. No s/s of pain. Call light within reach. Continue care.
--- NOTE | 2020-08-04 07:44 | P.PN_ITS ---
Subjective Subjective: Interval history: Ade reports he has been nauseated and vomiting some. He reports he does not feel well. Medications: Reviewed: Yes Vitals/I&O/Wt Last Vital Signs Temp 99.5 F 08/04/20 00:00 Pulse 72 08/04/20 06:00 Resp 23 H 08/04/20 06:00 BP 144/96 08/04/20 06:00 Pulse Ox 93 08/04/20 06:00 08/03/20 08/04/20 08/04/20 22:59 06:59 14:59 Intake Total 1239.57 / 2839.57 1340.00 / 4179.57 Balance 1239.57 / 2839.57 1340.00 / 4179.57 Weight last 48 hrs Weight 117.934 kg Physical Exam Narrative: EXAM NARRATIVE: General exam is a white male, somewhat shaky with injected sclera Neck is supple no lymphadenopathy or thyromegaly Cardiovascular regular rate and rhythm without murmur Lungs clear no wheezing or crackles Abdomen is soft, positive bowel sounds. No obvious organomegaly Extremities no cyanosis clubbing or edema Neurologic: Able to converse with me, tremor is noted. Urinary Catheter Management^: Brunson: Cath Placed During This Visit: yes Reason for Continuing Indwelling Catheter: Accurate Measurement of Urinary Output in Critically Ill Patients Urinary Catheter Date of Insertion: 08/04/20 Urinary Catheter Time of Insertion: 03:00 Data : 08/04/20 05:27 08/04/20 05:27 A&P Assessment and plan (1) Alcoholic intoxication: Alcohol withdrawal appears somewhat worse than yesterday Continue Precedex Continue CIWA protocol, Librium Continue thiamine Continue hydration Status: Acute (2) Starvation: Now taking some p.o. Status: Acute (3) Lactic acidosis: Resolving Status: Acute Additional A&P Information Hypomagnesemia. Supplemented and normal today Transaminitis. Improved. Secondary to alcohol. Slightly low platelets secondary to the same, but lower today. Hepatitis serology negative. TSH normal History of hypertension for which she has not taken medicines in quite some time secondary to noncompliance. Continue Norvasc. Add hydralazine as needed Full code Lovenox for DVT prophylaxis. Consider stopping if platelet count drops less than 70,000 Attestations Medical Necessity Statement*: Needs continued hospitalization secondary to alcohol withdrawal Critical Care Time: 30 minutes spent in critical care time at bedside secondary to significant alcohol withdrawal requiring multiple medications including IV drip of Precedex in this patient with high risk of worsening alcohol withdrawal, seizures from alcohol withdrawal and multiple complications . Coding Level of Care Code Acute Choir Teacher for [facility] Blanc Diagnoses Alcoholic intoxication F10.929 Starvation T73.0XXA Lactic acidosis E87.2
[2020-08-04] MEDS: pantoprazole DR 40 mg Tablet PO (07:47)
[2020-08-04] MEDS: potassium chloride ER 20 mEq Tablet 40 MEQ PO (07:47)
[2020-08-04] MEDS: multivitamin therapeutic Tablet 1 TAB PO (07:47)
[2020-08-04] MEDS: LORazepam 2 mg Tablet PO ×4 (07:48→18:42)
[2020-08-04] MEDS: amlodipine 10 mg Tablet PO (07:48)
[2020-08-04] MEDS: chlordiazePOXIDE 25 mg Capsule 50 MG PO ×4 (07:48→19:54)
[2020-08-04] MEDS: folic acid 1 mg Tablet PO (07:48)
[2020-08-04] MEDS: thiamine 100 mg Tablet PO (07:48)
[2020-08-04] MEDS: ondansetron 2 mg/ML SDV 2 mL 4 MG IVP ×2 (11:45→17:44)
[2020-08-04] MEDS: hyDRALAzine 25 mg Tablet PO ×2 (15:28→23:23)
[2020-08-05] VITALS (48 sets, daily range): BP systolic 100–179; BP diastolic 81–135; PULSE 65–99; RESP 0–35; O2SAT 84–99
[2020-08-05] MEDS: chlordiazePOXIDE 25 mg Capsule 50 MG PO ×4 (02:35→18:15)
[2020-08-05] MEDS: LORazepam 2 mg/mL INJ 1 mL IVP ×9 (02:35→22:18)
[2020-08-05] MEDS: enoxaparin 40 mg/0.4 mL Syringe SUBCUT (02:36)
[2020-08-05] MEDS: dexmedetomidine 400 MCG in sodium chloride 0.9% (100 ml) 100 ML 18.4 MCG IV (02:40)
[2020-08-05 04:20] LABS: Basophils # 0.1 10^3/uL (0.0-0.1); Basophils % 0.9 %; Eosinophils # 0.3 10^3/uL (0.0-0.8); Eosinophils % 5.1 %; Hematocrit 40.9 % (42.0-52.0); Hemoglobin 14.2 g/dL (11.7-16.6); Lymphocytes # 1.6 10^3/uL (0.8-4.8); Lymphocytes % 30.1 %; Mean Corpuscular HGB Conc 34.7 g/dL (30.0-36.0); Mean Corpuscular Hemoglobin 33.6 pg (28.0-34.0); Mean Corpuscular Volume 96.9 fL (80-94); Mean Platelet Volume 11.7 fL (7.4-10.4); Monocytes # 0.4 10^3/uL (0.2-0.9); Monocytes % 7.7 %; Neutrophils # 3.05 10^3/uL (1.8-7.7); Nucleated Red Blood Cells % 0 %; Platelet Count 82 10^3/cmm (130-400); Red Blood Count 4.22 10^6/uL (4.1-5.3); Red Cell Distribution Width 12.5 % (12.1-15.1); White Blood Count 5.5 10^3/uL (4.0-10.0)
[2020-08-05 04:49] LABS: Alanine Aminotransferase 159 U/L (0-41); Albumin Level 3.8 g/dL (3.5-5.2); Alkaline Phosphatase 57 IU/L (40-130); Anion Gap 13.7 (5-19); Aspartate Amino Transferase 132 U/L (0-40); Blood Urea Nitrogen 6 mg/dL (6-20); Calcium 9.3 mg/dL (8.5-10.5); Carbon Dioxide 24 mmol/L (22-29); Chloride 101 mmol/L (98-107); Globulin 3.2 g/dL (1.3-4.6); Glomerular Filtration Rate 143.8 mL/min (90-130); Glucose 143 mg/dL (65-115); Osmolality Calculated 280 mOsm/kg (285-295); Potassium 3.7 mmol/L (3.5-5.1); Sodium 135 mmol/L (136-145)
[2020-08-05 04:53] LABS: Magnesium 1.5 mg/dL (1.7-2.3)
[2020-08-05] MEDS: ondansetron 2 mg/ML SDV 2 mL 4 MG IVP ×2 (06:04→15:24)
[2020-08-05] MEDS: magnesium sulfate premix 2 GM/50 ML PIGGYBACK IV (07:32)
[2020-08-05] MEDS: amlodipine 10 mg Tablet PO (08:18)
[2020-08-05] MEDS: dextrose 5%-sod chloride 0.9% 1,000 ML 75 ML IV ×2 (08:18→20:31)
[2020-08-05] MEDS: thiamine 100 mg Tablet PO (08:19)
[2020-08-05] MEDS: multivitamin therapeutic Tablet 1 TAB PO (08:19)
[2020-08-05] MEDS: folic acid 1 mg Tablet PO (08:19)
[2020-08-05] MEDS: lisinopril 10 mg Tablet PO (08:19)
[2020-08-05] MEDS: pantoprazole DR 40 mg Tablet PO (08:19)
[2020-08-05] MEDS: LORazepam 2 mg Tablet PO ×4 (08:20→18:15)
--- NOTE | 2020-08-05 13:36 | PC.NURSE ---
Patient up to chair per patient request, linens changed at this time. Patient appears less anxious/tremors after 2mg Ativan IV
--- NOTE | 2020-08-05 16:07 | PM.PN ---
Subjective Subjective: Interval history: Feels like he needs more Ativan. Visited him early this morning and repeat visit this afternoon. Medications: Reviewed: Yes Vitals/I&O/Wt Last Vital Signs Temp 98.0 F 08/04/20 20:00 Pulse 67 08/05/20 13:30 Resp 22 H 08/05/20 13:30 BP 125/100 08/05/20 14:00 Pulse Ox 96 08/05/20 13:30 08/05/20 08/05/20 08/05/20 06:59 14:59 22:59 Intake Total 622.358 / 2538.023 1091.82 / 1091.82 28.447 / 1120.267 Output Total 1400 / 2125 325 / 325 Balance -777.642 / 413.023 766.82 / 766.82 28.447 / 795.267 Physical Exam Narrative: EXAM NARRATIVE: General exam is a white male, somewhat shaky with injected sclera Neck is supple no lymphadenopathy or thyromegaly Cardiovascular regular rate and rhythm without murmur Lungs clear no wheezing or crackles Abdomen is soft, positive bowel sounds. No obvious organomegaly Extremities no cyanosis clubbing or edema Neurologic: Less tremor. Urinary Catheter Management^: Brunson: Cath Placed During This Visit: yes Reason for Continuing Indwelling Catheter: Accurate Measurement of Urinary Output in Critically Ill Patients Urinary Catheter Date of Insertion: 08/04/20 Urinary Catheter Time of Insertion: 03:00 Data : 08/05/20 04:02 08/05/20 04:02 A&P Assessment and plan (1) Alcoholic intoxication: Still in significant alcohol withdrawal Increase Ativan, see if Precedex can be discontinued Continue CIWA protocol, will also schedule Librium Continue thiamine Continue hydration Status: Acute (2) Starvation: Now taking some p.o. Status: Acute (3) Lactic acidosis: Resolving Status: Acute Additional A&P Information Hypomagnesemia. Supplement again Transaminitis. Improved. Secondary to alcohol. Slightly low platelets secondary to the same, but lower today. Hepatitis serology negative. TSH normal History of hypertension for which she has not taken medicines in quite some time secondary to noncompliance. Continue Norvasc. Lisinopril added. Hydralazine as needed Full code Lovenox for DVT prophylaxis. Consider stopping if platelet count drops less than 70,000 Attestations Medical Necessity Statement*: Needs continued hospital stay secondary to severe alcohol withdrawal Critical Care Time: 31 minutes spent in critical care, at bedside, reviewing patient history, examining the patient, reviewing abscess, in this patient with high risk for morbidity and mortality secondary to active alcohol withdrawal requiring IV Precedex Coding Level of Care Code Acute Grain Cleaner And Transfer Operator for [facility] Karend Diagnoses Alcoholic intoxication F10.929 Starvation T73.0XXA Lactic acidosis E87.2
[2020-08-05] MEDS: hyDRALAzine 25 mg Tablet PO ×2 (16:40→22:22)
[2020-08-05] MEDS: dexmedetomidine 400 MCG in sodium chloride 0.9% (100 ml) 100 ML IV (20:31)
--- NOTE | 2020-08-05 21:36 | PC.NURSE ---
Pt anxious and requesting ativan more often than available. Pt has tremors and beads of sweat on his forehead. Pt thoughts are inconsistent and often trails off on his conversations. Pt over hearing conversations in hallway and becoming paranoid that his family was in a car accident. Blood pressure is elevated. Other VSS - canales cath to gravity.
[2020-08-06] VITALS (49 sets, daily range): BP systolic 92–193; BP diastolic 65–134; PULSE 59–137; RESP 11–34; TEMP 36.6–36.8; O2SAT 93–99
[2020-08-06] MEDS: LORazepam 2 mg/mL INJ 1 mL IVP ×7 (00:22→17:04)
[2020-08-06] MEDS: dexmedetomidine 400 MCG in sodium chloride 0.9% (100 ml) 100 ML 15.3 MCG IV (03:41)
[2020-08-06] MEDS: enoxaparin 40 mg/0.4 mL Syringe SUBCUT (03:43)
[2020-08-06 05:32] LABS: Alanine Aminotransferase 159 U/L (0-41); Albumin Level 3.9 g/dL (3.5-5.2); Alkaline Phosphatase 59 IU/L (40-130); Anion Gap 15.6 (5-19); Aspartate Amino Transferase 108 U/L (0-40); Blood Urea Nitrogen 4 mg/dL (6-20); Calcium 9.3 mg/dL (8.5-10.5); Carbon Dioxide 23 mmol/L (22-29); Chloride 102 mmol/L (98-107); Glomerular Filtration Rate 177.5 mL/min (90-130); Glucose 141 mg/dL (65-115); Magnesium 1.7 mg/dL (1.7-2.3); Osmolality Calculated 283 mOsm/kg (285-295); Potassium 3.6 mmol/L (3.5-5.1); Sodium 137 mmol/L (136-145); Total Bilirubin 0.9 mg/dL (0.15-1.2); Total Protein 6.9 g/dL (6.6-8.7)
[2020-08-06 06:26] LABS: Basophils # 0.1 10^3/uL (0.0-0.1); Basophils % 0.8 %; Eosinophils # 0.2 10^3/uL (0.0-0.8); Hematocrit 42.1 % (42.0-52.0); Hemoglobin 14.5 g/dL (11.7-16.6); Lymphocytes # 1.5 10^3/uL (0.8-4.8); Lymphocytes % 24.4 %; Mean Corpuscular HGB Conc 34.4 g/dL (30.0-36.0); Mean Corpuscular Hemoglobin 33.8 pg (28.0-34.0); Mean Corpuscular Volume 98.1 fL (80-94); Mean Platelet Volume 12.6 fL (7.4-10.4); Monocytes # 0.5 10^3/uL (0.2-0.9); Neutrophils # 3.96 10^3/uL (1.8-7.7); Neutrophils % 63.6 %; Nucleated Red Blood Cells % 0 %; Platelet Count 88 10^3/cmm (130-400); Red Blood Count 4.29 10^6/uL (4.1-5.3); Red Cell Distribution Width 13.2 % (12.1-15.1); White Blood Count 6.2 10^3/uL (4.0-10.0)
[2020-08-06] MEDS: chlordiazePOXIDE 25 mg Capsule 50 MG PO ×4 (07:20→17:02)
[2020-08-06] MEDS: pantoprazole DR 40 mg Tablet PO (08:09)
[2020-08-06] MEDS: amlodipine 10 mg Tablet PO (08:09)
[2020-08-06] MEDS: lisinopril 10 mg Tablet PO (08:09)
[2020-08-06] MEDS: thiamine 100 mg Tablet PO (08:09)
[2020-08-06] MEDS: multivitamin therapeutic Tablet 1 TAB PO (08:09)
[2020-08-06] MEDS: folic acid 1 mg Tablet PO (08:09)
--- NOTE | 2020-08-06 10:16 | PC.NURSE ---
Patient resting quietly in bed upon shift change. Precedex infusing at 0.3 mcg/min - MAR documented precedex at 0.5 mcg/min. Physician verbalizes that patient can have 2mg ativan IVP q 2 hours as needed.
[2020-08-06] MEDS: dextrose 5%-sod chloride 0.9% 1,000 ML 75 ML IV (10:43)
--- NOTE | 2020-08-06 16:17 | PM.PN ---
Subjective Subjective: Interval history: Ade reports he might be a little bit better. Still feels like he is withdrawing and wants to make sure he can get his Ativan frequently. He has been taking it about every 2 hours. This morning I discussed with the nurse about trying to get him off the Precedex drip which is been successful. Medications: Reviewed: Yes Vitals/I&O/Wt Last Vital Signs Temp 98.2 F 08/06/20 08:00 Pulse 82 08/06/20 15:30 Resp 29 H 08/06/20 15:30 BP 173/108 08/06/20 15:30 Pulse Ox 98 08/06/20 15:30 08/06/20 08/06/20 08/06/20 06:59 14:59 22:59 Intake Total 106.427 / 2292.944 1838.412 / 1838.412 Output Total 1400 / 3975 600 / 600 Balance -1293.573 / -7522.640 3507.412 / 1238.412 Physical Exam Narrative: EXAM NARRATIVE: Distress Cardiovascular regular in rhythm without murmur Lungs clear Abdomen is soft positive bowel sounds Extremities no cyanosis clubbing or edema Urinary Catheter Management^: Brunson: Cath Placed During This Visit: yes, but has since been removed by the nurse Reason for Continuing Indwelling Catheter: Accurate Measurement of Urinary Output in Critically Ill Patients Urinary Catheter Date of Insertion: 08/04/20 Urinary Catheter Time of Insertion: 03:00 Date Urinary Catheter Removed: 08/06/20 Time Urinary Catheter Discontinued: 10:50 Data : 08/06/20 04:27 08/06/20 04:27 A&P Assessment and plan (1) Alcoholic intoxication: Still in withdrawal but improving Discontinue Precedex Continue CIWA protocol, scheduled Librium Continue thiamine Continue hydration Status: Acute (2) Starvation: Now taking some p.o. Status: Acute (3) Lactic acidosis: Resolving Status: Acute Additional A&P Information Hypomagnesemia. Supplemented and normal this morning Transaminitis. Improved. Secondary to alcohol. Platelets have stabilized. Hepatitis serology negative. TSH normal. History of hypertension for which she has not taken medicines in quite some time secondary to noncompliance. Continue Norvasc, lisinopril. Hydralazine as needed Full code Lovenox for DVT prophylaxis. Consider stopping if platelet count drops less than 70,000 Attestations Medical Necessity Statement*: Needs continued hospital stay for continued treatment of alcohol withdrawal. Coding Level of Care Code Acute Planning Coordinator for [facility] Fwd Diagnoses Alcoholic intoxication F10.929 Starvation T73.0XXA Lactic acidosis E87.2
[2020-08-06] MEDS: hyDRALAzine 25 mg Tablet PO (16:21)
[2020-08-06] MEDS: LORazepam 2 mg Tablet PO ×3 (19:00→23:00)
[2020-08-06] MEDS: cloNIDine 0.1 mg Tablet PO (20:55)
[2020-08-07] VITALS (37 sets, daily range): BP systolic 120–194; BP diastolic 77–127; PULSE 63–100; RESP 11–36; TEMP 36.6–37; O2SAT 94–97
[2020-08-07] MEDS: hyDRALAzine 25 mg Tablet PO (00:01)
[2020-08-07] MEDS: chlordiazePOXIDE 25 mg Capsule 50 MG PO ×4 (00:01→17:30)
[2020-08-07] MEDS: dextrose 5%-sod chloride 0.9% 1,000 ML 75 ML IV (00:04)
[2020-08-07] MEDS: LORazepam 2 mg Tablet PO ×8 (00:58→21:03)
[2020-08-07] MEDS: cloNIDine 0.1 mg Tablet PO ×2 (00:59→06:58)
[2020-08-07] MEDS: labetalol 5 mg/mL SDV 20mL 10 MG IVP ×2 (01:02→06:05)
[2020-08-07] MEDS: enoxaparin 40 mg/0.4 mL Syringe SUBCUT (03:09)
[2020-08-07] MEDS: ondansetron 2 mg/ML SDV 2 mL 4 MG IVP ×2 (03:32→22:40)
[2020-08-07 03:39] LABS: Basophils # 0.1 10^3/uL (0.0-0.1); Basophils % 0.6 %; Eosinophils # 0.2 10^3/uL (0.0-0.8); Eosinophils % 1.7 %; Hematocrit 41.5 % (42.0-52.0); Hemoglobin 14.3 g/dL (11.7-16.6); Lymphocytes # 1.9 10^3/uL (0.8-4.8); Lymphocytes % 20.5 %; Mean Corpuscular HGB Conc 34.5 g/dL (30.0-36.0); Mean Corpuscular Hemoglobin 33.6 pg (28.0-34.0); Mean Corpuscular Volume 97.6 fL (80-94); Mean Platelet Volume 11.9 fL (7.4-10.4); Monocytes # 0.9 10^3/uL (0.2-0.9); Monocytes % 9.6 %; Neutrophils # 6.23 10^3/uL (1.8-7.7); Neutrophils % 67.4 %; Nucleated Red Blood Cells % 0 %; Platelet Count 115 10^3/cmm (130-400); Red Blood Count 4.25 10^6/uL (4.1-5.3); Red Cell Distribution Width 13.3 % (12.1-15.1); White Blood Count 9.3 10^3/uL (4.0-10.0)
[2020-08-07 04:17] LABS: Alanine Aminotransferase 160 U/L (0-41); Albumin Level 3.9 g/dL (3.5-5.2); Alkaline Phosphatase 61 IU/L (40-130); Anion Gap 15.4 (5-19); Aspartate Amino Transferase 95 U/L (0-40); Blood Urea Nitrogen 3 mg/dL (6-20); Calcium 9.4 mg/dL (8.5-10.5); Carbon Dioxide 23 mmol/L (22-29); Chloride 102 mmol/L (98-107); Globulin 3.2 g/dL (1.3-4.6); Glomerular Filtration Rate 143.8 mL/min (90-130); Glucose 135 mg/dL (65-115); Osmolality Calculated 283 mOsm/kg (285-295); Potassium 3.4 mmol/L (3.5-5.1); Sodium 137 mmol/L (136-145); Total Bilirubin 0.7 mg/dL (0.15-1.2); Total Protein 7.1 g/dL (6.6-8.7)
[2020-08-07] MEDS: thiamine 100 mg Tablet PO (08:46)
[2020-08-07] MEDS: multivitamin therapeutic Tablet 1 TAB PO (08:46)
[2020-08-07] MEDS: lisinopril 10 mg Tablet PO (08:46)
[2020-08-07] MEDS: folic acid 1 mg Tablet PO (08:46)
[2020-08-07] MEDS: amlodipine 10 mg Tablet PO (08:46)
[2020-08-07] MEDS: pantoprazole DR 40 mg Tablet PO (08:46)
--- NOTE | 2020-08-07 08:58 | PC.NURSE ---
frequent requesting medication for nerves ativan given po and when he asked for librium assured him it was due at noon
--- NOTE | 2020-08-07 09:22 | PC.CHAP ---
Pastoral Care Encounter/Spiritual Assessment Type of Contact [] Declined manager hotel visit [] Patient/Family/Request visit [] Outpatient visit [] Follow-up visit [] Physician referral [] Code/Alert [x] Routine visit [] Staff referral [] Actively dying [] Patient sleeping [] Family support [] [] Out of room [] Palliative care [] [] Receiving care in room [] Pre-surgical visit [] Trauma [] Long length of stay [] ICU visit [] Other: Relational/Emotional Strength [] Patient feels connected with others/family/visitors/staff [] Distress [] Loneliness/isolation [] Abandonment Spirituality of Patient [] Person of Gregoria [] Attends Oriental Orthodox of their Gregoria [] Believes in Prayer [] Reads Bible or Baptism materials [] There are Spiritual issues to be addressed Credit Portfolio Manager Interventions [x] Prayer [x] Active listening [x] Non-anxious presence [x] Spiritual/emotional support [] Crisis/trauma care [] Spiritual counseling [] Bereavement support [] Provided bereavement packet [] Provided Bible/devotional materials [] Provided toy/stuffed animal, coloring book to patient or family member [] Provided Communion [] Anointing/[place] [] Salvation [x] Completed spiritual assessment [] Other: Impact on Illness or Injury [] Angry [] Fearful [] Anxious [] Often cries [] Exhaustion [] Unable to work [] Unable to attend amish [] Unable to walk/stand [] Unable to read [] Unable to drive [] Unable to eat/drink [] Unable to sleep [] Unable to be with family [] Patient intubated [] Other: Summary feeling stronger Time spent with patient 5 min
--- NOTE | 2020-08-07 10:05 | PC.NURSE ---
pt called staff to room requesting more ativan explained not due untill [id number]
--- NOTE | 2020-08-07 17:38 | PC.NURSE ---
pt requesting more ativan states im too nervous no change in order given
--- NOTE | 2020-08-07 19:27 | P.PN_ITS ---
Subjective Subjective: Interval history: Patient has been triggering on CIWA. Has been getting Ativan around the clock. Has not had any seizure-like activity. States he feels very anxious. Also noted nausea and decreased p.o. intake. Medications: Reviewed: Yes Vitals/I&O/Wt Last Vital Signs Temp 98.1 F 08/09/20 03:37 Pulse 75 08/09/20 16:31 Resp 18 08/09/20 16:31 BP 130/68 08/09/20 16:31 Pulse Ox 97 08/09/20 16:31 Physical Exam Narrative: EXAM NARRATIVE: General- no acute distress Cardiovascular regular in rhythm without murmur Lungs clear Abdomen is soft positive bowel sounds Extremities no cyanosis clubbing or edema Urinary Catheter Management^: Brunson: Cath Placed During This Visit: yes, but has since been removed by the nurse Reason for Continuing Indwelling Catheter: Accurate Measurement of Urinary Output in Critically Ill Patients Urinary Catheter Date of Insertion: 08/04/20 Urinary Catheter Time of Insertion: 03:00 Date Urinary Catheter Removed: 08/06/20 Time Urinary Catheter Discontinued: 10:50 Data : 08/07/20 03:20 08/07/20 03:20 A&P Assessment and plan (1) Alcoholic intoxication: Ativan PRN for CIWA Will try to limit May consider psych consult On Librium as well Continue hydration Status: Resolved (2) Starvation: Improving Status: Resolved (3) Lactic acidosis: Resolving Status: Resolved Additional A&P Information Hypomagnesemia. Continue to monitor and replace as needed. Transaminitis. Trend LFT Hypertension: Continue Norvasc, lisinopril. Hydralazine as needed Anxiety/depression: Consider cosultation with psychiatry Disposition: Ok to transfer out of ICU pending bed availability Full code Lovenox for DVT prophylaxis. Consider stopping if platelet count drops less than 70,000 Attestations Medical Necessity Statement*: Will require further hospitalization for management of alcohol withdrawal Time Spent in Patient Care: Greater than 35 minutes (>than 50% of time spent in counselling and/or direct pt care on unit) . Coding Level of Care Code Acute Special Education Itinerant Teacher for Sandee Blanc Diagnoses Alcoholic intoxication F10.929 Starvation T73.0XXA Lactic acidosis E87.2
[2020-08-08] MEDS: chlordiazePOXIDE 25 mg Capsule 50 MG PO ×2 (00:03→05:40)
[2020-08-08 00:05] VITALS: BP 132/87; PULSE 82; RESP 22; TEMP 37.1; O2SAT 97
[2020-08-08] MEDS: ondansetron 2 mg/ML SDV 2 mL 4 MG IVP ×2 (02:31→08:22)
[2020-08-08] MEDS: LORazepam 2 mg Tablet PO (03:01)
[2020-08-08] MEDS: enoxaparin 40 mg/0.4 mL Syringe SUBCUT (03:01)
[2020-08-08 03:25] VITALS: BP 140/80; RESP 22; TEMP 37.1; O2SAT 98
[2020-08-08 07:24] VITALS: BP 122/88; PULSE 78; RESP 14; TEMP 37.1; O2SAT 98
--- NOTE | 2020-08-08 07:55 | PC.NURSE ---
Pt sitting up in bed. Informed this nurse that his Ativan is due at 0930 and he needs his Zofran before breakfast, so he does not throw up. When asked pt stated he had zero nausea at this time. Re-reminded pt that the Ativan was administered only when need per his CIWA score, which he does not need at this time. He informed me that he was suppose to be tapered off the meds. I replied Yes. That is what is happening. The Ativan is not to stop every uncomfortable feeling it is suppose to prevent seizures due to withdrawal.
--- NOTE | 2020-08-08 08:45 | PC.NURSE ---
Pt retching, less than 50ml noted , it appears he ate only the ice cream on his breakfast tray. Zfran admin. Pt stating needed that Ativan he was shaking, this nurse noted only the left arm, (where nurse was looking while administering Zofran) was shaking , right was normal. Will admin PO meds after Zofran takes effect. It was noticed that pt has absolutely no more retching immediately after Zofran administered.
[2020-08-08] MEDS: pantoprazole DR 40 mg Tablet PO (08:59)
[2020-08-08] MEDS: multivitamin therapeutic Tablet 1 TAB PO (08:59)
[2020-08-08] MEDS: thiamine 100 mg Tablet PO (08:59)
[2020-08-08] MEDS: amlodipine 10 mg Tablet PO (08:59)
[2020-08-08] MEDS: folic acid 1 mg Tablet PO (08:59)
[2020-08-08] MEDS: lisinopril 10 mg Tablet PO (08:59)
--- NOTE | 2020-08-08 10:30 | PC.NURSE ---
Dr Nevin peng on pts. Pt informed of his throwing up spell. They discussed gastritis , taking longer to heal after every alcohol abuse spell. Diet hanged to clear liquid for his stomach comfort. Also discussed pt's behavior: pt thought he had recieved an Ativan with his am meds, he did not. Pt stated his withdrawing was improving. Absolutely no tremors, nausea or sweating noted after Zofran administration.
[2020-08-08 12:00] VITALS: BP 138/82; PULSE 81; RESP 24; TEMP 36.9; O2SAT 98
--- NOTE | 2020-08-08 12:40 | PC.NURSE ---
Pt finished his clear liquid diet. Asked for something ore substantial as he was still hungry Discussed again with pt gastritis after alcohol abuse.
--- NOTE | 2020-08-08 15:50 | PC.NURSE ---
Pt called this nurse to his room asked about having a diet other than clear liquids again. Discussed with pt gastritis after alcohol abuse again. PT state it was a Matheus miracle, my stomach is all better now .
--- NOTE | 2020-08-08 17:39 | PC.NURSE ---
Report faxed to [facility].
--- NOTE | 2020-08-08 17:45 | PC.NURSE ---
Verbal report given to ELIN Barron CSU
[2020-08-08 18:00] VITALS: BP 141/94; PULSE 80; RESP 14; TEMP 36.9; O2SAT 100
--- NOTE | 2020-08-08 18:35 | PC.NURSE ---
Pt transferred to [facility] via W/C. All belongings gathered and taken by pt.
--- NOTE | 2020-08-08 18:54 | PC.NURSE ---
received into room 107 from icu at 1815.report received.oriented to room environment.
[2020-08-08 19:20] VITALS: BP 144/108; PULSE 88; RESP 18; TEMP 36.6; O2SAT 97
--- NOTE | 2020-08-08 19:32 | P.PN_ITS ---
Subjective Subjective: Interval history: Was noted to have increased appetite. Scoring less on alcohol withdrawal scale. Requiring less than anoxiolytcs. no fever, chills. no emesis. Medications: Reviewed: Yes Vitals/I&O/Wt Last Vital Signs Temp 98.1 F 08/09/20 03:37 Pulse 75 08/09/20 16:31 Resp 18 08/09/20 16:31 BP 130/68 08/09/20 16:31 Pulse Ox 97 08/09/20 16:31 Physical Exam Narrative: EXAM NARRATIVE: General- no acute distress Cardiovascular regular in rhythm without murmur Lungs clear Abdomen is soft positive bowel sounds Extremities no cyanosis clubbing or edema Urinary Catheter Management^: Brunson: Cath Placed During This Visit: yes, but has since been removed by the nurse Reason for Continuing Indwelling Catheter: Accurate Measurement of Urinary Output in Critically Ill Patients Urinary Catheter Date of Insertion: 08/04/20 Urinary Catheter Time of Insertion: 03:00 Date Urinary Catheter Removed: 08/06/20 Time Urinary Catheter Discontinued: 10:50 Data : 08/07/20 03:20 08/07/20 03:20 A&P Assessment and plan (1) Alcoholic intoxication: Ativan PRN for CIWA Scoring less on CIWA- requiring less ativan May consider psych consult On Librium as well Continue hydration Status: Resolved (2) Starvation: Improving, Was started on regular diet overnight. Status: Resolved (3) Lactic acidosis: Resolving Status: Resolved Additional A&P Information Hypomagnesemia. Continue to monitor and replace as needed. Transaminitis. Trend LFT Hypertension: Continue Norvasc, lisinopril. Hydralazine as needed Anxiety/depression: Consider consultation with psychiatry - No suicidal ideation, Is wanting to discharge, transferred to [facility] Disposition: [place] to discharge home. Is not willing to consider alcohol detox rehab Full code Lovenox for DVT prophylaxis. Attestations Medical Necessity Statement*: Continue hospitalization for managment of alcohol withdrawal. Time Spent in Patient Care: Greater than 35 minutes (>than 50% of time spent in counselling and/or direct pt care on unit) . Coding Level of Care Code Acute Hot Blast Worker for [facility] Fwd Diagnoses Alcoholic intoxication F10.929 Starvation T73.0XXA Lactic acidosis E87.2
--- NOTE | 2020-08-09 00:52 | PC.NURSE ---
PT IS NON COMPLIANT WITH WEARING TELE, WEARING A MASK OUTSIDE OF ROOM, DIET. PT GOT INTO REFRIGERATOR AN TOOK 8-12 CHEESE STICKS, SODA, AND A SANDWICH. PT WENT TO VENDING MACHINE TO GET SNACKS. PT WAS EDUCATED THAT THEY ARE ON A CLEAR LIQUID DIET. PT STATES THAT THE DOCTOR SAID THAT ISN'T NEEDED ANYMORE. PT IS PUTTING WATER ON THEIR FACE AND THEN SAID ITS HOT IN HERE, AM I SWEATING. PT IS UPSET AND CALLED THE NURSES STATION WANTING US TO CALL HIS [employer] TO EXPLAIN WHY HE IS HERE. PT IS UPSET THAT THEIR ISN'T A PROGRAM HERE THAT ALLOW HIS MOM TO GIFT HIM MONEY TO BUY SNACKS. PT STATES THAT EVEN PRISONS HAVE THIS OPTION.
[2020-08-09] MEDS: enoxaparin 40 mg/0.4 mL Syringe SUBCUT (02:07)
[2020-08-09 03:37] VITALS: BP 144/95; PULSE 85; RESP 18; TEMP 36.7; O2SAT 97
--- NOTE | 2020-08-09 05:12 | PC.NURSE ---
WAS NOTIFIED THAT PT WANTS TO UPGRADE DIET OFF CLEAR LIQUID. DR RUBALCAVA PUT IN CARDIAC DIET ORDERS.
[2020-08-09] MEDS: thiamine 100 mg Tablet PO (08:40)
[2020-08-09] MEDS: folic acid 1 mg Tablet PO (08:40)
[2020-08-09] MEDS: pantoprazole DR 40 mg Tablet PO (08:40)
[2020-08-09] MEDS: lisinopril 10 mg Tablet PO (08:40)
[2020-08-09] MEDS: multivitamin therapeutic Tablet 1 TAB PO (08:40)
[2020-08-09] MEDS: amlodipine 10 mg Tablet PO (08:40)
--- NOTE | 2020-08-09 10:32 | PC.NURSE ---
Patient denies any nausea vomiting no tremors noted patient has requested to be on a regular diet several times thus far this shift.
--- NOTE | 2020-08-09 13:29 | PC.NURSE ---
The pts nurse told me that the pt did not want to move rooms. Unfortunately, we did not have a option d/t every floor being maxed on pts. So I went to speak with the pt and told him that we would be moving him to another room and he would have a roommate. The pt was not very receptive to this and stated that I don't like being around other people . I apologized but told him that our options were limited d/t the fact that the Hospital was full. The pts stated I guess I don't have a choice and I told him that we would continue to provide him with excellent care. After leaving the room the pt approached the nurses station and told his nurse that he was leaving because it was getting too crowded here .
--- NOTE | 2020-08-09 13:31 | PC.NURSE ---
Patient standing at nurses station asking to see the doctor wants to go home. patient educated on the right to refuse treatment and sign out AMA. patient states I would like to go home its just getting to crowded her for me patient then asked for a work release; patient advised if he left AMA this would not be provided for him. Patient verbalizes understanding and would like to speak with the doctor Patient was asked to change rooms to a semi-privet room which patient denied, patient was asked again by boiler house supervisor. This started the upset with patient. Patient has remained calm throughout process. Dr. Rooney notified of situation.
[2020-08-09 15:00] VITALS: BP 130/86; PULSE 75; RESP 18; O2SAT 97
[2020-08-09 16:31] VITALS: BP 130/68; PULSE 75; RESP 18; O2SAT 97
--- NOTE | 2020-08-09 17:01 | PC.NURSE ---
Patient discharged home at this time patient alert oriented and in stable condition patient provided with all discharge instructions and follow up appointment educated patient on new medications and discharge diagnosis. patient assisted to uber ride via wheel chair. all belongings and discharge instructions in hand.
--- NOTE | 2020-08-09 19:36 | PM.DCS ---
Discharge Providers Date of Admission: 08/03/20 02:15 Date of Discharge: August 18, 2020 Attending Provider at Admission: Taya Lala MD Attending Provider at Discharge: Mark Krueger MD Diagnoses at Discharge Discharge Diagnosis (1) Alcoholic intoxication: Status: Resolved (2) Starvation: Status: Resolved (3) Lactic acidosis: Status: Resolved Reason for Visit Reason for Visit: ETOH WITHDRAW Hospital Course Hospital Course 50-year-old male with a longstanding history of alcoholism of presented to the hospital with withdrawal. He was initially admitted to the intensive care unit due to high scores requiring Ativan and Librium. He was eventually transition out to CSU unit. In addition he was complaining of poor appetite and nausea. This gradually improved as well. On the day of discharge patient was dressed and wanting to be discharged home [place] to the care of family. Did not have any suicidal ideations. Recommended inpatient psychiatric evaluation however patient refused. In addition recommended alcohol detox rehab however patient also refused. Stated he would follow up with his primary care physician for further care. At this point discharge order was placed. Patient verbalized understanding of risk of premature discharge. Stated he would leave against medical advice if order was not placed. Physical Exam Narrative: EXAM NARRATIVE: General- no acute distress Cardiovascular regular in rhythm without murmur Lungs clear Abdomen is soft positive bowel sounds Extremities no cyanosis clubbing or edema Urinary Catheter Management^: Brunson: Cath Placed During This Visit: yes, but has since been removed by the nurse Reason for Continuing Indwelling Catheter: Accurate Measurement of Urinary Output in Critically Ill Patients Urinary Catheter Date of Insertion: 08/04/20 Urinary Catheter Time of Insertion: 03:00 Date Urinary Catheter Removed: 08/06/20 Time Urinary Catheter Discontinued: 10:50 Discharge Data Data Completed and Pending: Completed Studies During Hospitalization Category Date Time Status CT head wo con* [id number] Stat Cat Scan 08/02/20 19:22 Completed XR chest 1V ciara ble [id number] Stat Exams 08/02/20 19:22 Completed Vitals: Last Vital Signs Temp 98.1 F 08/09/20 03:37 Pulse 75 08/09/20 16:31 Resp 18 08/09/20 16:31 BP 130/68 08/09/20 16:31 Pulse Ox 97 08/09/20 16:31 Discharge Plan Discharge Patient Disposition: Home Condition: Stable Prescriptions: New amlodipine 10 mg Tablet 10 mg PO DAILY Qty: 30 RF: 0 pantoprazole 40 mg Tablet,Delayed Release (Dr/Ec) 40 mg PO DAILY Qty: 30 RF: 0 lisinopril 10 mg Tablet 10 mg PO DAILY Qty: 30 RF: 0 folic acid 1 mg Tablet 1 mg PO DAILY Qty: 30 RF: 0 Vitamin B-1 (mononitrate) 100 mg Tablet 100 mg PO DAILY Qty: 30 RF: 0 Continued multivitamin with minerals Tablet 1 tab PO DAILY RF: 0 Discharge Orders: Discharge Order (Routine); Ordered 08/09/20 Ordered By: Emeka Rooney Referrals: Latonya Jaramillo FNP [Referring] - 08/17/20 1:30 pm (Please arrive at 1:00pm, will need to fill out paperwork at this time & will need to bring a source of income. ) Discharge Diet: Advance as tolerated Discharge Activity: Return to work/school after cleared by PCP/Specialist Patient Instructions: Alcohol Abuse, Lisinopril (By mouth), Thiamine (Vitamin B-1) (By mouth), Folic Acid (By mouth), Amlodipine (By mouth), Pantoprazole (By mouth), Chronic Hypertension (DC) Activity Restrictions/Additional Instructions: Alcohol cessation counseling, no driving until seen by primary care physician and cleared. Also no operating heavy machinery. Return to hospital if any recurrence of withdrawal symptoms. Discharge Attestations Time Spent in Discharge Care*: greater than 30 min Specific Discharge Activities: educating patient, discussing with machine adjuster leader case trim/social workers/dc planners, documenting/other paperwork and evaluating patient/reviewing data Status at Discharge: Cognitive status at discharge: cognitively intact, Behavioral status at discharge: can be uncooperative, Functional status at discharge: independent ambulation Overall status at discharge: patient is progressing back to baseline Quality Metrics Clinical Quality Measures During this hospital stay, did patient experience: None Coding Level of Care Code Acute [facility] Manager for Sandee Fwd Diagnoses Alcoholic intoxication F10.929 Starvation T73.0XXA Lactic acidosis E87.2
== END 2020-08-09 17:04 | disposition home or self-care (01) | DRG 897 ==
LOC: ER 22:40 → ICU 08-03 02:33 → CSU 08-08 18:10
PROVIDERS: Admitting Provider Internal Medicine; Emergency Provider Emergency Medicine; Visit Provider Internal Medicine
DX: F10.229 Alcohol dependence with intoxication, unspecified (principal); E87.2 Acidosis; F10.239 Alcohol dependence with withdrawal, unspecified; Y90.8 Blood alcohol level of 240 mg/100 ml or more; F32.9 Major depressive disorder, single episode, unspecified; I10 Essential (primary) hypertension; F41.1 Generalized anxiety disorder; Z87.891 Personal history of nicotine dependence; T73.0XXA Starvation, initial encounter; X58.XXXA Exposure to other specified factors, initial encounter; E83.42 Hypomagnesemia; Z91.128 Patient's intentional underdosing of medication regimen for other reason
CPT/HCPCS: 12345; 36415; 36416; 36592; 36600; 51702; 70450; 71045; 80053; 80074; 80306; 80307; 81001; 82550; 82803; 82962; 83605; 83690; 83735; 84100; 84443; 84484; 85025; 85610; 93005; 96372; 99283; J1200; J1650; J2060; J2405; J2765; J3411; J3475; J3490; J7030

== ENCOUNTER → 2020-09-28 15:14 | Outpatient (BNVA) | payer SELFPAY | PROVIDERS: PCP Family Medicine; Visit Provider Nurse Practitioner Family | DX: I10 Essential (primary) hypertension (principal); F10.20 Alcohol dependence, uncomplicated | CPT/HCPCS: 80053; 80061; 82607; 82746; 83735; 84443; 85025 ==

== ENCOUNTER → 2021-03-01 08:23 | Outpatient (BNVA) | payer SELFPAY | PROVIDERS: PCP Family Medicine; Visit Provider Nurse Practitioner Family | DX: I10 Essential (primary) hypertension (principal) | CPT/HCPCS: 80053; 80061; 83735; 85025 ==

== ENCOUNTER → 2021-04-02 12:25 | Outpatient (BNVA) | payer OTHER, SELFPAY | PROVIDERS: PCP Family Medicine; Visit Provider Nurse Practitioner Family | DX: Z20.822 Contact with and (suspected) exposure to COVID-19 (principal) | CPT/HCPCS: 87635 ==

== ENCOUNTER → 2021-07-07 15:56 | Outpatient (BNVA) | payer SELFPAY | PROVIDERS: PCP Family Medicine; Visit Provider Family Medicine | DX: F41.1 Generalized anxiety disorder (principal); I10 Essential (primary) hypertension; J32.9 Chronic sinusitis, unspecified | CPT/HCPCS: 80053; 80061; 84443; 85025 ==

== ENCOUNTER → 2021-11-12 08:46 | Outpatient (BNVA) | payer SELFPAY | PROVIDERS: PCP Family Medicine; Visit Provider Nurse Practitioner Family | DX: M25.521 Pain in right elbow (principal); M25.421 Effusion, right elbow | CPT/HCPCS: 73080 ==

== ENCOUNTER → 2022-01-19 09:22 | Outpatient (BNVA) | payer SELFPAY | PROVIDERS: PCP Family Medicine; Referring Provider Nurse Practitioner Family; Visit Provider Specialist | DX: M25.521 Pain in right elbow (principal) | CPT/HCPCS: 73080 ==

== ENCOUNTER 2022-02-18 06:59 | Outpatient (CLI) | payer SELFPAY ==
--- NOTE | 2022-02-18 07:15 | MR_ITS ---
WS: [id number] INDICATION: Possible muscle tear. Pain for 3 to 4 months. TECHNIQUE: Axial T1, axial T2, coronal T1, coronal STIR, sagittal PD fat-sat, axial 3-D FSPGR. FINDINGS: Normal bone marrow signal in the distal humerus and humeral condyles. Normal bone marrow si gnal in the radial head and neck. Normal olecranon. No acute fractures. No significant bone marrow ed ratna. No significant joint effusion. Slight dorsal olecranon spurring. Small amount T2 signal abnormality with mild irregularity involving the distal triceps insertion at the olecranon compatible with tendinopathy. Recommend correlation wi th area of pain and injury. Small amount of fluid along the distal biceps tendon. Distal biceps tendon is intact at the radial in sertion. Findings compatible with tenosynovitis. Capitellum and trochlea are intact. Tiny amount of edema along the extensor compartment common tendon sheath. No high-grade tears. Normal flexor compartment tendons. Normal visualized soft tissues. Tortuous dilated superficial varicositie s. No other significant findings. MR/MR elbow RT wo con* [id number] IMPRESSION: 1. Normal bone marrow signal in the distal humerus and humeral epicondyles. 2. Radial head and neck are normal. No acute radial fractures. 3. Normal olecranon. Slight spurring at the dorsal olecranon. 4. Tendinopathy involving the distal triceps insertion at the dorsal olecranon . Correlation for area of pain and injury. 5. Small amount of tenosynovitis along the distal biceps tendon which is other syed intact. 6. Small amount of edema along the common extensor tendon. Normal common flexo r tendon
== END 2022-02-18 07:00 | disposition home or self-care (01) ==
PROVIDERS: PCP Family Medicine; Visit Provider Specialist
DX: M25.521 Pain in right elbow (principal)
CPT/HCPCS: 73221

== ENCOUNTER → 2022-04-20 09:39 | Outpatient (BNVA) | payer SELFPAY | PROVIDERS: PCP Family Medicine; Visit Provider Nurse Practitioner Family | DX: I10 Essential (primary) hypertension (principal); R73.9 Hyperglycemia, unspecified; F41.9 Anxiety disorder, unspecified; F32.9 Major depressive disorder, single episode, unspecified; G47.00 Insomnia, unspecified | CPT/HCPCS: 80053; 80061; 83036; 83735; 84443; 85025 ==

== ENCOUNTER → 2022-08-12 12:17 | Outpatient (BNVA) | payer SELFPAY | PROVIDERS: PCP Family Medicine; Visit Provider Family Medicine | DX: R05.8 Other specified cough (principal) | CPT/HCPCS: 71046; 87400; 87426 ==

== ENCOUNTER 2023-06-20 12:23 | Emergency (ER) | payer SELFPAY ==
[2023-06-20] VITALS (12 sets, daily range): BP systolic 153–177; BP diastolic 92–99; PULSE 92; RESP 18; TEMP 36.8; O2SAT 89–98
--- NOTE | 2023-06-20 12:46 | ED_ITS ---
HPI - Alcohol General: Chief Complaint: Alcohol Stated Complaint: N/V ETOH Time Seen by Provider: 06/20/23 12:26 Source: patient Mode of arrival: EMS History of Present Illness: 52-year-old male presents emergency room heavily intoxicated. He states he thinks he is having withdrawals. He drank half of a liter and a half bottle of vodka yesterday and drank some more vodka this morning although he cannot tell me exactly how much or when this morning. He was given oral Zofran in route. Admits to history of heavy drinking the last 3 to 4 months. He states prior to that he had been sober. He presents complaining of withdrawal symptoms. MD complaint: alcohol intoxication Associated symptoms: Reports abdominal pain; Deny depression, diaphoresis, hematemesis, involuntary movements, melena, nausea, seizure-like activity, suicidal ideation, syncope, vomiting or other Treatments prior to arrival: anti-emetics (Oral Zofran) Review of Systems Const: Reports: fatigue and malaise; Denies: fever(s), chills or diaphoresis Card: Denies: chest pain or syncope Resp: Denies: dyspnea GI: Reports: abdominal pain; Denies: nausea, vomiting, hematemesis or melena : Denies: dysuria, urinary frequency or urinary urgency Musc: Denies: neck pain or back pain Skin/Breast: Denies: rash Neuro: Denies: seizure-like activity or involuntary movements Psych: Denies: depression or suicidal ideation PFS ED PFSH: Medical History Alcoholism Depression Fibula fracture Generalized anxiety disorder Hypertension Surgical History History of open reduction and internal fixation (ORIF) procedure Fibula fracture, left distal lateral malleolar fracture Family History Other No pertinent family history Social History Smoking and tobacco/nicotine status: former use of tobacco/nicotine Quit status (tobacco/nicotine): has quit using Year quit tobacco: 2021 3-4 months ago Second hand smoke exposure: No Alcohol intake: former Former alcohol use details: has been sober x 6 months Substance/Drug Use: never Lives independently: No Household members: friend(s) Marital status: Single service: No Current occupational status: employed Current gender identity: Male Special bethel needs: No Agree to transfusion: Yes Physical Exam Const: COMMON NORMALS: no acute distress GENERAL APPEARANCE: cooperative and comfortable ORIENTATION/CONSCIOUSNESS: Yes awake, Yes oriented to person, Yes oriented to place and Yes oriented to time HENMT: COMMON NORMALS: normocephalic, atraumatic and hearing grossly normal bilaterally HEAD & SCALP: normocephalic and atraumatic Resp: COMMON NORMALS: normal respiratory effort, No retractions, No use of accessory muscles and clear to auscultation bilaterally AUSCULTATION: clear to auscultation bilaterally Cardio: COMMON NORMALS: regular rate, regular rhythm and No murmurs present (Cardio) RATE: regular rate RHYTHM: regular rhythm GI: COMMON NORMALS: Soft to palpation and No hepatosplenomegaly present AUSCULTATION: Yes normoactive bowel sounds PALPATION: Yes Soft to palpation, No Tenderness to palpation present (GI), No Guarding due to palpation present (GI) and Yes No hepatosplenomegaly present Extremity: COMMON NORMALS: normal to inspection, capillary refill normal, no clubbing, cyanosis or edema, no calf tenderness and no pedal edema Neuro: SENSORIUM/ORIENTATION: Yes oriented to person, Yes oriented to place and Yes oriented to time Skin: COMMON NORMALS: no rashes or lesions noted GENERAL SKIN EXAM: no rashes or lesions noted Course Vital Signs: Vital signs: Vital Signs Temperature 98.2 F 06/20/23 12:37 Pulse Rate 92 06/20/23 14:54 Respiratory Rate 18 06/20/23 12:37 Blood Pressure 177/99 06/20/23 14:54 Pulse Oximetry 98 06/20/23 14:54 Oxygen Delivery Me thod Room Air 06/20/23 14:54 MDM - Alcohol Medical Decision Making Patient is highly intoxicated same time he is still coherent we had a prolonged conversation about how he would get home and who he might call and when they would be available. He is asking to be admitted he wants to stay in the ER until tomorrow morning when his mother gets off of work and can come pick him up advised him we would not be able to do that. We will discharge the patient home he is going to call some friends to come get him. Discussed with patient if he continues to drink this way I will have significantly life-threatening effects on his health he expresses understanding of this but when encouraged him to seek out assistance and abstinence and sobriety he expresses no interest. Improved slightly after IV fluids given Differential Diagnosis Likely alcohol intoxication Medical Records I reviewed the patient's medical records. Lab Data I reviewed the patient's lab results. 06/20/23 13:00 06/20/23 14:53 Laboratory Results WBC 4.13 10^3/uL (3.29-11.43) 06/20/23 13:00 RBC 3.68 10^6/uL (3.85-5.65) L 06/20/23 13:00 Hgb 12.50 g/dL (11.27-16.99) 06/20/23 13:00 Hct 34.7 % (37-53) L 06/20/23 13:00 MCV 94.3 fl (82-101) 06/20/23 13:00 MCH 34.0 pg (27-33) H 06/20/23 13:00 MCHC 36.0 g/dL (30-55) 06/20/23 13:00 RDW 12.5 % (12.1-15.1) 06/20/23 13:00 Plt Count 86 10^3/cmm (157-399) L 06/20/23 13:00 MPV 10.9 fL (7.4-10.4) H 06/20/23 13:00 Neut % (Auto) 49.8 % 06/20/23 13:00 Lymph % (Auto) 35.4 % 06/20/23 13:00 [place] % (Auto) 12.1 % 06/20/23 13:00 Eos % (Auto) 1.0 % 06/20/23 13:00 Baso % (Auto) 1.5 % 06/20/23 13:00 Neut # (Auto) 2.06 10^3/uL (1.8-7.7) 06/20/23 13:00 Lymph # (Auto) 1.5 10^3/uL (0.8-4.8) 06/20/23 13:00 [place] # (Auto) 0.5 10^3/uL (0.2-0.9) 06/20/23 13:00 Eos # (Auto) 0.0 10^3/uL (0.0-0.8) 06/20/23 13:00 Baso # (Auto) 0.1 10^3/uL (0.0-0.1) 06/20/23 13:00 Nucleated RBC % (auto) 0 % 06/20/23 13:00 Nucleated RBCs # 0.0 /100WBC 06/20/23 13:00 Sodium 130 mmol/L (136-145) L 06/20/23 14:53 Potassium 4.4 mmol/L (3.5-5.1) 06/20/23 14:53 Chloride 85 mmol/L (98-107) L 06/20/23 14:53 Carbon Dioxide 21 mmol/L (22-29) L 06/20/23 14:53 Anion Gap 28.4 (5-19) H 06/20/23 14:53 BUN 12 mg/dL (6-20) 06/20/23 14:53 Creatinine 1.0 mg/dL (0.7-1.2) 06/20/23 14:53 GFR Calculation 79.1 mL/min (90-130) L 06/20/23 14:53 Glucose 83 mg/dL (65-115) 06/20/23 14:53 Calculated Osmolality 269 mOsm/kg (285-295) L 06/20/23 14:53 Calcium 8.8 mg/dL (8.5-10.5) 06/20/23 14:53 Total Bilirubin 0.8 mg/dL (0.15-1.2) 06/20/23 13:00 AST 336 U/L (0-40) H 06/20/23 13:00 ALT 278 U/L (0-41) H 06/20/23 13:00 Alkaline Phosphatase 64 U/L (40-130) 06/20/23 13:00 Total Protein 8.7 g/dL (6.6-8.7) 06/20/23 13:00 Albumin 4.9 g/dL (3.5-5.2) 06/20/23 13:00 Globulin 3.8 g/dL (1.3-4.6) 06/20/23 13:00 Ethyl Alcohol 408 mg/dL (0-10) H* 06/20/23 13:00 All radiology interpretation(s) finalized by discharge Discharge Plan Discharge Patient Disposition: Home Clinical Impression: Alcoholic intoxication, Alcohol use disorder, severe, dependence Condition: Stable Prescriptions: No Action vitamin B complex Tablet 1 tab PO DAILY propranolol 20 mg tablet 20 mg PO BID PRN (Reason: anxiety) Qty: 60 2RF diazepam [Valium] 5 mg tablet 5 mg PO BID Qty: 60 0RF multivitamin with minerals Tablet 1 tab PO DAILY magnesium oxide 400 mg magnesium Tablet 400 mg PO DAILY ibuprofen 800 mg tablet 800 mg PO Q8H PRN (Reason: Pain) sucralfate 1 gram tablet 1 g PO TID sertraline 100 mg tablet 100 mg PO DAILY amlodipine 10 mg tablet 10 mg PO DAILY lisinopril 10 mg tablet 10 mg PO DAILY lansoprazole 30 mg capsule,delayed release(DR/EC) 30 mg PO BID buspirone 15 mg tablet 15 mg PO BID hydroxyzine pamoate 25 mg capsule 75 mg PO TID PRN (Reason: Anxiety) Discharge Orders: Discharge ED (Routine); Ordered 06/20/23 Ordered By: Michael Gardner Referrals: Hyacinth Lee MD [Primary Care Provider] - Discharge Diet: Usual diet Discharge Activity: Increase activity as tolerated Patient Instructions: Alcohol Intoxication (ED), Abuse of Alcohol (ED), Alcoholic Hepatitis (ED), Opioid Safety, Pain Management Activity Restrictions/Additional Instructions: Thank you for choosing [facility] for your healthcare needs today. Please realize this is an emergency room and that we are providing you with a medical screening exam and this may not be complete and all inclusive of all the testing and or work up that you may need to determine your ailment or severity of your illness. It is very important that you follow up as instructed or that you return to the Emergency Department should you have concerns or if your condition changes or worsens in any way. You were seen today for in regards to alcohol use. You are highly intoxicated in the emergency room. Strongly recommend you abstain from alcohol and follow- up with a treatment program such as [facility] here in [place]. Coding Level of Care Code ED Advertising Agency Manager for Sandee Blanc
--- NOTE | 2023-06-20 13:16 | PC.PHAR ---
Addendum entered by Vida Wagner 06/20/23 13:23: medications entered are the meds the pt states he has and takes when he wants too Original Note: pt states he takes care of his own medications-pt states he hasnt taken most of his meds in 2 months pt states he picks them up but doesnt take them states just replaces his pills with alcohol-pt states he no longer has an albuterol inhaler ext shows last filled 08/09/22 25d/s-pt states he no longer takes trazodone 100mg hs ext shows last filled 01/06/23 30d/s-notes are made in the pharmacy comments on each prescription with last fill dates
[2023-06-20] MEDS: pantoprazole 40 mg SDV 80 MG IVP (13:24)
[2023-06-20] MEDS: lactated ringers 1,000 ML 999 ML IV ×2 (13:24→14:50)
[2023-06-20 13:27] LABS: Basophils # 0.1 10^3/uL (0.0-0.1); Basophils % 1.5 %; Hematocrit 34.7 % (37-53); Lymphocytes # 1.5 10^3/uL (0.8-4.8); Lymphocytes % 35.4 %; Mean Corpuscular Volume 94.3 fl (82-101); Mean Platelet Volume 10.9 fL (7.4-10.4); Monocytes # 0.5 10^3/uL (0.2-0.9); Monocytes % 12.1 %; Neutrophils # 2.06 10^3/uL (1.8-7.7); Neutrophils % 49.8 %; Nucleated Red Blood Cells % 0 %; Platelet Count 86 10^3/cmm (157-399); Red Blood Count 3.68 10^6/uL (3.85-5.65); Red Cell Distribution Width 12.5 % (12.1-15.1); White Blood Count 4.13 10^3/uL (3.29-11.43)
[2023-06-20 13:47] LABS: Alanine Aminotransferase 278 U/L (0-41); Albumin Level 4.9 g/dL (3.5-5.2); Alkaline Phosphatase 64 U/L (40-130); Anion Gap 28.4 (5-19); Aspartate Amino Transferase 336 U/L (0-40); Blood Urea Nitrogen 13 mg/dL (6-20); Carbon Dioxide 21 mmol/L (22-29); Chloride 83 mmol/L (98-107); Globulin 3.8 g/dL (1.3-4.6); Glomerular Filtration Rate 89.3 mL/min (90-130); Glucose 85 mg/dL (65-115); Osmolality Calculated 265 mOsm/kg (285-295); Potassium 4.4 mmol/L (3.5-5.1); Sodium 128 mmol/L (136-145); Total Bilirubin 0.8 mg/dL (0.15-1.2); Total Protein 8.7 g/dL (6.6-8.7)
[2023-06-20 13:49] LABS: Alcohol Level 408 mg/dL (0-10)
[2023-06-20 16:58] LABS: Anion Gap 28.4 (5-19); Blood Urea Nitrogen 12 mg/dL (6-20); Calcium 8.8 mg/dL (8.5-10.5); Carbon Dioxide 21 mmol/L (22-29); Chloride 85 mmol/L (98-107); Glomerular Filtration Rate 79.1 mL/min (90-130); Glucose 83 mg/dL (65-115); Osmolality Calculated 269 mOsm/kg (285-295); Potassium 4.4 mmol/L (3.5-5.1); Sodium 130 mmol/L (136-145)
== END 2023-06-20 16:06 | disposition home or self-care (01) ==
PROVIDERS: Emergency Provider Family Medicine; PCP Family Medicine
DX: F10.229 Alcohol dependence with intoxication, unspecified (principal); Y90.8 Blood alcohol level of 240 mg/100 ml or more; Z87.891 Personal history of nicotine dependence; I10 Essential (primary) hypertension
CPT/HCPCS: 36415; 80048; 80053; 80307; 85025; 96361; 96374; 99284; C9113; J7120

== ENCOUNTER 2023-11-25 15:00 | Inpatient (IN) | payer MEDICAID, SELFPAY ==
[2023-11-25] VITALS (9 sets, daily range): BP systolic 132–200; BP diastolic 83–132; PULSE 89–123; RESP 18–27; TEMP 36.8; O2SAT 91–98
--- NOTE | 2023-11-25 15:06 | ED_ITS ---
HPI - Alcohol 2 General: Chief Complaint: Alcohol Stated Complaint: N/V; ETOH Time Seen by Provider: 11/25/23 15:02 Source: patient and EMS Mode of arrival: EMS Limitations: no limitations History of Present Illness: 53-year-old male has a history of alcoho lism states he been drinking heavily since last night states he is drink a pint of vodka he states he has been vomiting today with severe nausea he did receive Ativan Phenergan and route had some improvement he denies any pain anywhere. Associated symptoms: Reports nausea and vomiting; Deny abdominal pain Review of Systems 2 Const: Denies: fever(s), chills, body aches or change in appetite ENMT: Denies: throat pain or dental pain Card: Denies: chest pain Resp: Denies: dyspnea GI: Reports: nausea and vomiting; Denies: abdominal pain or diarrhea : Denies: dysuria Musc: Denies: neck pain or back pain Skin/Breast: Denies: rash Neuro: Denies: headache(s) PFSH ED 2 PFSH: Medical History Fibula fracture Generalized anxiety disorder Depression Alcoholism Hypertension Surgical History History of open reduction and internal fixation (ORIF) procedure Fibula fracture, left distal lateral malleolar fracture Family History Other No pertinent family history Social History Smoking and tobacco/nicotine status: former use of tobacco/nicotine Quit status (tobacco/nicotine): has quit using Year quit tobacco: 2021 3-4 months ago Second hand smoke exposure: No Alcohol intake: former Former alcohol use details: has been sober x 6 months Substance/Drug Use: never Lives independently: No Household members: friend(s) Marital status: Single service: No Current occupational status: employed Current gender identity: Male Special bethel needs: No Agree to transfusion: Yes Physical Exam 2 Const: COMMON NORMALS: no acute distress and patient oriented x3 OTHER: intoxicated HENMT: COMMON NORMALS: normocephalic and atraumatic HEAD & SCALP: n ormocephalic and atraumatic Eye: COMMON NORMALS: Equal, round and reactive pupils present and EOMs intact bilaterally PUPIL: Yes Equal, round and reactive pupils present Neck/C-Spine: COMMON NORMALS: full ROM and supple Chest: COMMONS NORMALS: normal inspection of the chest and normal palpation of entire chest wall Resp: COMMON NORMALS: normal respiratory effort, No retractions, No use of accessory muscles and clear to auscultation bilaterally AUSCULTATION: clear to auscultation bilaterally Cardio: COMMON NORMALS: regular rate, regular rhythm and No murmurs present (Cardio) RATE: regular rate RHYTHM: regular rhythm GI: COMMON NORMALS: Normal to inspection, nondistended, normoactive bowel sounds present, Soft to palpation, non-tender and no masses PALPATION: Yes Soft to palpation Extremity: COMMON NORMALS: normal to inspection and full ROM Neuro: COMMON NORMALS: patient oriented x3, moves all extremities and no focal motor deficits Psych: COMMON NORMALS: mental status grossly normal, Normal thought process present and cooperative THOUGHT PROCESS: Normal thought process present Skin: COMMON NORMALS: no rashes or lesions noted and no wounds GENERAL SKIN EXAM: no rashes or lesions noted Course 2 Vital Signs: Vital signs: Vital Signs Temperature 98.3 F 11/25/23 15:01 Pulse Rate 107 H 11/25/23 15:01 Respiratory Rate 18 11/25/23 15:01 Blood Pressure 180/106 11/25/23 15:01 Pulse Oximetry 92 11/25/23 15:01 Oxygen Delivery Me thod Room Air 11/25/23 15:01 MDM - Alcohol Medical Decision Making Patient presents with alcohol intoxication he has been well-appearing here blood works normal besides alcohol level he is stable for discharge follow-up PCP return if worsening. Medical Records I reviewed the patient's medical records. Lab Data I reviewed the patient's lab results. 11/25/23 15:32 11/25/23 15:32 Laboratory Results WBC 4.54 10^3/uL (3.29-11.43) 11/25/23 15:32 RBC 5.23 10^6/uL (3.85-5.65) 11/25/23 15:32 Hgb 16.70 g/dL (11.27-16.99) 11/25/23 15:32 Hct 47.9 % (37-53) 11/25/23 15:32 MCV 91.6 fl (82-101) 11/25/23 15:32 MCH 31.9 pg (27-33) 11/25/23 15: MCHC 34.9 g/dL (30-55) 11/25/23 15:32 RDW 13.8 % (12.1-15.1) 11/25/23 15:32 Plt Count 110 10^3/cmm (157-399) L 11/25/23 15:32 MPV 10.2 fL (7.4-10.4) 11/25/23 15:32 Neut % (Auto) 61.7 % 11/25/23 15:32 Lymph % (Auto) 25.8 % 11/25/23 15:32 [place] % (Auto) 9.7 % 11/25/23 15:32 Eos % (Auto) 1.1 % 11/25/23:32 Baso % (Auto) 1.5 % 11/25/23: Neut # (Auto) 2.80 10^3/uL (1.8-7.7) 11/25/23 15:32 Lymph # (Auto) 1.2 10^3/uL (0.8-4.8) 11/25/23 15:32 [place] # (Auto) 0.4 10^3/uL (0.2-0.9) 11/25/23 15:32 Eos # (Auto) 0.1 10^3/uL (0.0-0.8) 11/25/23:32 Baso # (Auto) 0.1 10^3/uL (0.0-0.1) 11/25/23 15:32 Nucleated RBC % (auto) 0 % 11/25/23: Nucleated RBCs # 0.0 /100WBC 11/25/23 15:32 Sodium 137 mmol/L (136-145) 11/25/23 15:32 Potassium 3.8 mmol/L (3.5-5.1) 11/25/23 15:32 Chloride 95 mmol/L (98-107) L 11/25/23 15:32 Carbon Dioxide 24 mmol/L (22-29) 11/25/23 15:32 Anion Gap 21.8 (5-19) H 11/25/23 15:32 BUN 9 mg/dL (6-20) 11/25/23 15:32 Creatinine 0.6 mg/dL (0.7-1.2) L 11/25/23 15:32 GFR Calculation 142.0 mL/min (90-130) H 11/25/23 15:32 Glucose 111 mg/dL (65-115) 11/25/23 15:32 Calculated Osmolality 283 mOsm/kg (285-295) L 11/25/23 15:32 Calcium 8.4 mg/dL (8.5-10.5) L 11/25/23 15:32 Total Bilirubin 0.6 mg/dL (0.15-1.2) 11/25/23 15:32 AST 117 U/L (0-40) H 11/25/23 15:32 ALT 79 U/L (0-41) H 11/25/23 15:32 Alkaline Phosphatase 64 U/L (40-130) 11/25/23 15:32 Total Protein 8.5 g/dL (6.6-8.7) 11/25/23 15:32 Albumin 4.4 g/dL (3.5-5.2) 11/25/23 15:32 Globulin 4.1 g/dL (1.3-4.6) 11/25/23 15:32 Lipase 84 U/L (13-60) H 11/25/23 15:32 Ethyl Alcohol 373 mg/dL (0-10) H* 11/25/23 15:32 No radiology studies performed this visit Discharge Plan Discharge Patient Disposition: Home Clinical Impression: Alcoholic intoxication, Abdominal pain Condition: Stable Prescriptions: New ondansetron 4 mg tablet,disintegrating 4 mg PO Q6H PRN (Reason: nausea and vomiting) Qty: 14 0RF No Action amlodipine 10 mg tablet 10 mg PO DAILY 30 Days Qty: 30 3RF lisinopril 10 mg tablet 10 mg PO DAILY 30 Days Qty: 30 3RF propranolol 20 mg tablet 20 mg PO BID PRN (Reason: anxiety) Qty: 60 2RF sertraline 100 mg tablet 100 mg PO DAILY Qty: 30 2RF buspirone 15 mg tablet 15 mg PO BID Qty: 60 3RF diazepam [Valium] 5 mg tablet 5 mg PO BID Qty: 60 0RF lansoprazole 30 mg capsule,delayed release(DR/EC) 30 mg PO BID Qty: 60 3RF multivitamin with minerals Tablet 1 tab PO DAILY ibuprofen 800 mg tablet 800 mg PO Q8H PRN (Reason: Pain) sucralfate 1 gram tablet 1 g PO TID hydroxyzine pamoate 25 mg capsule 75 mg PO TID PRN (Reason: Anxiety) Discharge Orders: Discharge ED (Routine); Ordered 11/25/23 Ordered By: Krysta Vann Referrals: Hyacinth Lee MD [Primary Care Provider] - 4-7 days Discharge Diet: Advance as tolerated Discharge Activity: Resume usual activity Patient Instructions: Acute Nausea and Vomiting (ED), Abdominal Pain (ED) Coding Level of Care Code ED Transportation Consultant for Sandee Blanc
[2023-11-25 15:38] LABS: Basophils # 0.1 10^3/uL (0.0-0.1); Basophils % 1.5 %; Eosinophils # 0.1 10^3/uL (0.0-0.8); Eosinophils % 1.1 %; Hematocrit 47.9 % (37-53); Lymphocytes # 1.2 10^3/uL (0.8-4.8); Lymphocytes % 25.8 %; Mean Corpuscular HGB Conc 34.9 g/dL (30-55); Mean Corpuscular Hemoglobin 31.9 pg (27-33); Mean Corpuscular Volume 91.6 fl (82-101); Mean Platelet Volume 10.2 fL (7.4-10.4); Monocytes # 0.4 10^3/uL (0.2-0.9); Monocytes % 9.7 %; Neutrophils % 61.7 %; Nucleated Red Blood Cells % 0 %; Platelet Count 110 10^3/cmm (157-399); Red Blood Count 5.23 10^6/uL (3.85-5.65); Red Cell Distribution Width 13.8 % (12.1-15.1); White Blood Count 4.54 10^3/uL (3.29-11.43)
[2023-11-25] MEDS: multivitamin therapeutic Tablet 1 TAB PO (15:44)
[2023-11-25] MEDS: sodium chloride 0.9% 1,000 ML 999 ML IV ×2 (15:50→22:06)
[2023-11-25 15:55] LABS: Alanine Aminotransferase 79 U/L (0-41); Albumin Level 4.4 g/dL (3.5-5.2); Alkaline Phosphatase 64 U/L (40-130); Aspartate Amino Transferase 117 U/L (0-40); Blood Urea Nitrogen 9 mg/dL (6-20); Calcium 8.4 mg/dL (8.5-10.5); Carbon Dioxide 24 mmol/L (22-29); Chloride 95 mmol/L (98-107); Globulin 4.1 g/dL (1.3-4.6); Glucose 111 mg/dL (65-115); Lipase 84 U/L (13-60); Osmolality Calculated 283 mOsm/kg (285-295); Sodium 137 mmol/L (136-145); Total Bilirubin 0.6 mg/dL (0.15-1.2); Total Protein 8.5 g/dL (6.6-8.7)
[2023-11-25 16:05] LABS: Creatinine Clr Calc Pharmacy 208.0606
[2023-11-25 16:06] LABS: Anion Gap 21.8 (5-19); Potassium 3.8 mmol/L (3.5-5.1)
[2023-11-25 16:07] LABS: Alcohol Level 373 mg/dL (0-10)
[2023-11-25] MEDS: ondansetron 2 mg/ML SDV 2 mL 4 MG IVP (16:10)
--- NOTE | 2023-11-25 18:38 | PC.NURSE ---
discharge delayed due to waiting on medicaid ride.
[2023-11-25] MEDS: LORazepam 2 mg/mL INJ 10 mL MDV 0.5 MG IM (20:58)
[2023-11-25] MEDS: LORazepam 2 mg/mL INJ 10 mL MDV 1 MG IM (21:38)
[2023-11-25] MEDS: LORazepam 2 mg/mL INJ 10 mL MDV 1 MG IVP (22:12)
[2023-11-25] MEDS: diphenhydrAMINE 50 mg/mL SDV 1mL IVP (22:13)
[2023-11-25] MEDS: metoclopramide 5 mg/mL SDV 2 mL 10 MG IVP (22:13)
[2023-11-25 22:53] LABS: Alcohol Level 239 mg/dL (0-10)
--- NOTE | 2023-11-25 22:57 | P.HP_ITS ---
Providers/Chief Complaint 2 Admitting Physician: Arlin Erickson MD Primary Care Provider: Hyacinth Lee MD Chief Complaint: N/V; ETOH History of Present Illness Ade Carcamo is a 53 year old male with a longstanding history of alcohol abuse and withdrawal, currently presenting to the hospital this morning with intractable nausea and vomiting. Alcohol level was 373 upon admission. He was diagnosed with alcohol induced gastritis. He was given symptomatic treatment and was planned to be discharged home however by the evening he started to go into alcohol withdrawal. His nausea worsened after an initial period Of improvement, he had excessive shaking, sweating and high CIWA scores. additionally became hypertensive and required admission. At the time of my assessment, patient's blood pressure is 194/120 mmHg. CIWA score was nearly 21. He was admitted to the ICU for close monitoring. Review of Systems 2 General: Reports: 10 or more systems reviewed and unremarkable except in HPI and below Const: Denies: fever(s), chills or body aches Eyes: Denies: change in vision, blurry vision or photophobia ENMT: Reports: hoarseness; Denies: throat pain, enlarged tonsils, odynophagia or nasal congestion Card: Denies: chest pain, palpitations, irregular heart rhythm, edema, swelling of feet/ankles, lightheadedness, pre-syncope, dyspnea on exertion or orthopnea Resp: Denies: dyspnea, productive cough, non-productive cough, wheezing, stridor, pain on inspiration, change in phlegm color, hemoptysis or chest congestion GI: Denies: abdominal pain, nausea, vomiting, hematemesis, coffee ground emesis, dysphagia, heartburn, diarrhea, constipation, GI cramping, change in stool character, hematochezia or melena : Denies: flank pain, dysuria, urinary frequency, urinary urgency, urinary hesitancy or hematuria Musc: Denies: neck pain, back pain, extremity pain, joint swelling, joint warmth or deformity Neuro: Denies: headache(s), numbness in extremities, weakness in extremities, sensory changes, difficulty walking, frequent falls, dizziness, vertigo, behavioral changes, Slurred speech present or seizure-like activity Psych: Denies: anxiety, depression, suicidal ideation or homicidal ideation Endo: Denies: polyuria, polydipsia, tired all the time, cold intolerance or hot flashes Anton/Lymph: Denies: easy bruising or easy bleeding Medications/Allergies Home Medications Medication Instructions Recorded Confirmed Last Taken Type multivitamin with minerals 1 tab PO DAILY 08/03/20 11/25/23 11/24/23 History propranolol 20 mg tablet 20 mg PO BID PRN anxiety #60 tabs 05/23/23 11/25/23 Unknown Rx hydroxyzine pamoate 25 mg capsule 75 mg PO TID PRN Anxiety 06/20/23 11/25/23 Unknown History ibuprofen 800 mg tablet 800 mg PO Q8H PRN Pain 06/20/23 11/25/23 Unknown History sucralfate 1 gram tablet 1 g PO TID 06/20/23 11/25/23 11/18/23 History sertraline 100 mg tablet 100 mg PO DAILY #30 tabs 07/06/23 11/25/23 11/24/23 Rx amlodipine 10 mg tablet 10 mg PO DAILY 30 days #30 tabs 07/10/23 11/25/23 11/24/23 Rx lisinopril 10 mg tablet 10 mg PO DAILY 30 days #30 tabs 07/10/23 11/25/23 11/24/23 Rx buspirone 15 mg tablet 15 mg PO BID #60 tabs 08/31/23 11/25/23 11/24/23 Rx diazepam 5 mg tablet (Valium) 5 mg PO BID #60 tabs 11/03/23 11/25/23 11/24/23 Rx lansoprazole 30 mg capsule,delayed 30 mg PO BID #60 caps 11/09/23 11/25/23 11/24/23 Rx release ondansetron 4 mg disintegrating 4 mg PO Q6H PRN nausea and 11/25/23 Unknown Rx tablet vomiting #14 tabs Allergies Allergy/AdvReac Type Severity Reaction Status Date / Time No Known Allergies Allergy Verified 07/10/23 11:23 PFSH Acute 2 PFSH: Medical History Fibula fracture Generalized anxiety disorder Depression Alcoholism Hypertension Surgical History History of open reduction and internal fixation (ORIF) procedure Fibula fracture, left distal lateral malleolar fracture Family History Other No pertinent family history Social History Smoking and tobacco/nicotine status: former use of tobacco/nicotine Quit status (tobacco/nicotine): has quit using Year quit tobacco: 2021 3-4 months ago Second hand smoke exposure: No Alcohol intake: former Former alcohol use details: has been sober x 6 months Substance/Drug Use: never Lives independently: No Household members: friend(s) Marital status: Single service: No Current occupational status: employed Current gender identity: Male Special bethel needs: No Agree to transfusion: Yes Vitals/I&O/Wt Last Vital Signs Temp 98.3 F 11/25/23 15:01 Pulse 107 H 11/25/23 22:00 Resp 27 H 11/25/23 22:00 BP 159/83 11/25/23 22:00 Pulse Ox 97 11/25/23 22:00 O2 Del Method Room Air 11/25/23 22:00 Weight last 48 hrs Weight 136.078 kg Physical Exam 2 Narrative: General: Tachycardic, anxious, asking for Ativan continuously , AO x3 HEENT: PERRLA, pupils bilaterally equal and reactive, pallors not present Chest: Normal vesicular breath sounds, no added sounds, equal good air entry bilaterally CVS: S1-S2 regular, no murmurs, no tachycardia, no gallops, no rubs Abdomen: Soft, nontender, no organomegaly, bowel sounds present Neuro: No focal deficits, no facial deformity, AO x3, power 5/5 in all limbs Extremities: bilateral lower extremity lymphedema Data 11/25/23 15:32 11/25/23 15:32 Other data: Laboratory Results WBC 4.54 10^3/uL (3.29-11.43) 11/25/23 15:32 RBC 5.23 10^6/uL (3.85-5.65) 11/25/23 15:32 Hgb 16.70 g/dL (11.27-16.99) 11/25/23 15:32 Hct 47.9 % (37-53) 11/25/23 15:32 MCV 91.6 fl (82-101) 11/25/23 15:32 MCH 31.9 pg (27-33) 11/25/23 15:32 MCHC 34.9 g/dL (30-55) 11/25/23 15:32 RDW 13.8 % (12.1-15.1) 11/25/23 15:32 Plt Count 110 10^3/cmm (157-399) L 11/25/23 15:32 MPV 10.2 fL (7.4-10.4) 11/25/23 15:32 Neut % (Auto) 61.7 % 11/25/23 15:32 Lymph % (Auto) 25.8 % 11/25/23 15:32 [place] % (Auto) 9.7 % 11/25/23 15:32 Eos % (Auto) 1.1 % 11/25/23: Baso % (Auto) 1.5 % 11/25/23: Neut # (Auto) 2.80 10^3/uL (1.8-7.7) 11/25/23 15:32 Lymph # (Auto) 1.2 10^3/uL (0.8-4.8) 11/25/23 15:32 [place] # (Auto) 0.4 10^3/uL (0.2-0.9) 11/25/23 15:32 Eos # (Auto) 0.1 10^3/uL (0.0-0.8) 11/25/23:32 Baso # (Auto) 0.1 10^3/uL (0.0-0.1) 11/25/23 15:32 Nucleated RBC % (auto) 0 % 11/25/23 15: Nucleated RBCs # 0.0 /100WBC 11/25/23 15:32 Sodium 137 mmol/L (136-145) 11/25/23 15:32 Potassium 3.8 mmol/L (3.5-5.1) 11/25/23 15:32 Chloride 95 mmol/L (98-107) L 11/25/23 15:32 Carbon Dioxide 24 mmol/L (22-29) 11/25/23 15:32 Anion Gap 21.8 (5-19) H 11/25/23 15:32 BUN 9 mg/dL (6-20) 11/25/23 15:32 Creatinine 0.6 mg/dL (0.7-1.2) L 11/25/23 15:32 GFR Calculation 142.0 mL/min (90-130) H 11/25/23 15:32 Glucose 111 mg/dL (65-115) 11/25/23 15:32 Calculated Osmolality 283 mOsm/kg (285-295) L 11/25/23 15:32 Calcium 8.4 mg/dL (8.5-10.5) L 11/25/23 15:32 Total Bilirubin 0.6 mg/dL (0.15-1.2) 11/25/23 15:32 AST 117 U/L (0-40) H 11/25/23 15:32 ALT 79 U/L (0-41) H 11/25/23 15:32 Alkaline Phosphatase 64 U/L (40-130) 11/25/23 15:32 Troponin T 5th Gen ng/L 7 ng/L (0-15) 11/26/23 01:47 Total Protein 8.5 g/dL (6.6-8.7) 11/25/23 15:32 Albumin 4.4 g/dL (3.5-5.2) 11/25/23 15:32 Globulin 4.1 g/dL (1.3-4.6) 11/25/23 15:32 Lipase 84 U/L (13-60) H 11/25/23 15:32 Ethyl Alcohol 239 mg/dL (0-10) H 11/25/23 22:33 XR/XR chest 2V* [id number] IMPRESSION: No acute findings. A&P Assessment and plan (1) Alcohol use disorder, severe, dependence: (2) Alcohol withdrawal: (3) Vomiting: (4) Gastritis: (5) Uncontrolled hypertension: Plan 53-year-old male initially presenting with multiple episodes of vomiting, acute alcohol intoxication, thereafter during course of the day now developed alcohol withdrawal. Currently CIWA score is a 21. Patient is anxious, agitated, no evidence of respiratory compromise at this time. He is being admitted to the ICU in view of high scores and need to monitor for possibility of DTs/seizures. Management for alcohol withdrawal per CIWA protocol. As needed Ativan, additionally adding Precedex infusion to help with severe alcohol withdrawal. While on Precedex infusion closely monitor heart rate, any signs of arrhythmias. As needed Zofran/Reglan, scopolamine patch for intractable vomiting Protonix 40 mg twice daily for suspected alcohol gastritis. Patient takes sucralfate at home which we will continue during the admission course. Abdominal exam is benign. Lipase noted to be mildly elevated at 84, however clinical picture currently more consistent with alcohol gastritis and intractable nausea from withdrawal. Defer imaging for now. Repeat lipase with a.m. labs. Uncontrolled hypertension, currently likely driven by acute withdrawal. Hydralazine 10 mg IV every 4 hours Continue home dose of amlodipine 10 mg daily, starting now. Continue lisinopril. Continue sertraline at home dosing Attestations 2 Medical Necessity Statement*: Greater than 2 midnight admission is anticipated Critical Care Time: The high probability of a clinically significant, sudden or life threatening deterioration of the patient's [neurological, GI] system(s) required my full and direct attention, intervention and personal management. The critical care time is as shown. This time is in addition to time spent performing any reported procedures but includes the following: [x] Data and vital sign review and interpretation [x] Patient assessment, examination and intervention [x] Documentation [x] Medication orders and management Critical Care Time (min): 45 Coding Level of Care Code Critical Care >/= 30 minutes Critical care time (in minutes): 45 The high probability of a clinically significant, sudden or life threatening deterioration, as referenced in this documentation, required my full and direct attention, intervention and personal management. The critical care time shown is in addition to time spent performing any reported separately billable procedures and includes the following: [x] Data and vital sign review and interpretation [x ] Patient assessment, examination and intervention [x] Medication orders and management [x] Patient/Family updates as able [x] Care Coordination and Documentation. Diagnoses Alcohol use disorder, severe, dependence F10.20 Alcohol withdrawal F10.939 Vomiting R11.10 Gastritis K29.70 Uncontrolled hypertension I10
[2023-11-26] VITALS (63 sets, daily range): BP systolic 111–210; BP diastolic 75–152; PULSE 68–143; RESP 12–33; TEMP 36.9; O2SAT 87–96
--- NOTE | 2023-11-26 | PC.NURSE ---
Received patient from ER. Patient has been vomiting since arrival and was unable to take po BP medicine. Patient is sweaty, shaking, and and asking for ativan. Patient reports generalized body pain and headache.
[2023-11-26] MEDS: ondansetron 2 mg/ML SDV 2 mL 4 MG IVP ×3 (00:07→22:10)
[2023-11-26] MEDS: LORazepam 2 mg/mL INJ 10 mL MDV IVP ×2 (00:12→02:16)
[2023-11-26] MEDS: scopolamine 1.5 Patch 1 PATCH TRANSDERMA (00:19)
[2023-11-26] MEDS: sodium chloride 0.9% 1,000 ML 75 ML IV ×2 (00:19→19:44)
[2023-11-26] MEDS: hyDRALAzine 20 mg/mL INJ 1 mL 10 MG IVP ×3 (00:20→21:05)
[2023-11-26] MEDS: dexmedeTOMIDine 0.9 % NaCL 400 MCG/100 ML PREMIX 3.39999999999999991 MCG IV (00:29)
[2023-11-26 02:28] LABS: Troponin T (5th) Once 7 ng/L (0-15)
[2023-11-26 05:35] LABS: Basophils # 0.1 10^3/uL (0.0-0.1); Basophils % 0.9 %; Eosinophils # 0.1 10^3/uL (0.0-0.8); Eosinophils % 1.5 %; Hematocrit 41.4 % (37-53); Lymphocytes # 1.1 10^3/uL (0.8-4.8); Lymphocytes % 21.1 %; Mean Corpuscular HGB Conc 34.3 g/dL (30-55); Mean Corpuscular Hemoglobin 31.8 pg (27-33); Mean Corpuscular Volume 92.8 fl (82-101); Mean Platelet Volume 11.2 fL (7.4-10.4); Monocytes # 0.5 10^3/uL (0.2-0.9); Monocytes % 8.5 %; Neutrophils # 3.66 10^3/uL (1.8-7.7); Neutrophils % 67.8 %; Nucleated Red Blood Cells % 0 %; Platelet Count 88 10^3/cmm (157-399); Red Blood Count 4.46 10^6/uL (3.85-5.65)
[2023-11-26 05:47] LABS: INR 1.15 (0.8-1.2)
[2023-11-26 05:52] LABS: Alanine Aminotransferase 72 U/L (0-41); Albumin Level 3.9 g/dL (3.5-5.2); Alkaline Phosphatase 52 U/L (40-130); Anion Gap 19.7 (5-19); Aspartate Amino Transferase 110 U/L (0-40); Blood Urea Nitrogen 11 mg/dL (6-20); Calcium 7.7 mg/dL (8.5-10.5); Carbon Dioxide 24 mmol/L (22-29); Chloride 98 mmol/L (98-107); Creatinine Clr Calc Pharmacy 249.6727; Globulin 3.2 g/dL (1.3-4.6); Glomerular Filtration Rate 175.3 mL/min (90-130); Glucose 101 mg/dL (65-115); Osmolality Calculated 286 mOsm/kg (285-295); Potassium 3.7 mmol/L (3.5-5.1); Sodium 138 mmol/L (136-145); Total Bilirubin 0.8 mg/dL (0.15-1.2); Total Protein 7.1 g/dL (6.6-8.7)
[2023-11-26 05:55] LABS: Lipase 77 U/L (13-60); Magnesium 1.6 mg/dL (1.7-2.3)
[2023-11-26] MEDS: dexmedeTOMIDine 0.9 % NaCL 400 MCG/100 ML PREMIX 17.0100000000000016 MCG IV ×2 (06:58→12:08)
[2023-11-26] MEDS: BuSPIRONE 10 mg Tablet 15 MG PO ×2 (09:04→17:13)
[2023-11-26] MEDS: sucralfate 1 gm Tablet PO ×3 (09:05→20:19)
[2023-11-26] MEDS: thiamine 100 mg Tablet PO (09:05)
[2023-11-26] MEDS: folic acid 1 mg Tablet PO (09:05)
[2023-11-26] MEDS: amlodipine 10 mg Tablet PO (09:05)
[2023-11-26] MEDS: lisinopril 10 mg Tablet PO (09:05)
[2023-11-26] MEDS: pantoprazole DR 40 mg Tablet PO ×2 (09:05→17:13)
[2023-11-26] MEDS: sertraline 100 mg Tablet PO (09:06)
[2023-11-26 11:45] LABS: Iron 220 ug/dL (59-158); Thyroid Stimulating Hormone 4.22 uIU/mL (0.27-4.20); Vitamin B12 661 pg/mL (232-1245)
[2023-11-26] MEDS: chlordiazePOXIDE 25 mg Capsule PO ×2 (12:25→22:03)
--- NOTE | 2023-11-26 13:22 | P.PN_ITS ---
Subjective 2 Subjective: Admitted overnight. No acute events overnight. Currently on Precedex 0.5. CIWA around 15. Complaining of nausea and jitteriness along with [id number]. Vitals/I&O/Wt Last Vital Signs Temp 98.4 F 11/26/23 03:00 Pulse 76 11/26/23 10:15 Resp 15 11/26/23 10:15 BP 154/113 11/26/23 10:15 Pulse Ox 90 11/26/23 10:15 O2 Del Method Room Air 11/26/23 10:15 O2 Flow Rate 4 11/25/23 23:32 11/25/23 11/26/23 11/26/23 22:59 06:59 14:59 Intake Total 1000 / 1000 2266.293 / 3266.293 387.885 / 387.885 Balance 1000 / 1000 2266.293 / 3266.293 387.885 / 387.885 Weight last 48 hrs Weight 131.542 kg Weight 136.078 kg Physical Exam 2 Narrative: General: Tachycardic, anxious, asking for Ativan continuously , AO x3 HEENT: PERRLA, pupils bilaterally equal and reactive, pallors not present Chest: Normal vesicular breath sounds, no added sounds, equal good air entry bilaterally CVS: S1-S2 regular, no murmurs, no tachycardia, no gallops, no rubs Abdomen: Soft, nontender, no organomegaly, bowel sounds present Neuro: No focal deficits, no facial deformity, AO x3, power 5/5 in all limbs Extremities: bilateral lower extremity lymphedema Data 11/26/23 05:25 11/26/23 05:25 A&P Assessment and plan (1) Alcohol use disorder, severe, dependence: (2) Alcohol withdrawal: (3) Vomiting: (4) Gastritis: (5) Uncontrolled hypertension: Plan 53-year-old male initially presenting with multiple episodes of vomiting, acute alcohol intoxication, thereafter during course of the day now developed alcohol withdrawal. Currently CIWA score is a 21. Patient is anxious, agitated, no evidence of respiratory compromise at this time. Monitor CIWA. Wean Precedex accordingly. Restart home dose of diazepam. Start on Librium 50 mg every 6 hourly. Monitor LFTs. Protonix twice daily, Zofran as needed. Continue with home dose of Carafate. Hypertension: Most likely uncontrolled in setting of alcohol withdrawal. Continue home antihypertensives. IV hydralazine as needed. Continue the chronic home medications. Full code Clear liquid diet Attestations 2 Medical Necessity Statement*: Requires further hospitalization for management of alcohol withdrawal as patient is on Precedex drip Diagnoses Alcohol use disorder, severe, dependence F10.20 Alcohol withdrawal F10.939 Vomiting R11.10 Gastritis K29.70 Uncontrolled hypertension I10
[2023-11-26 13:44] LABS: Total Iron Binding Capacity 227.99999 mcg/dl; Unsaturated Iron Binding < 8 ug/dL (112-347)
[2023-11-26] MEDS: diazePAM 5 mg Tablet PO (17:13)
[2023-11-26] MEDS: dexmedeTOMIDine 0.9 % NaCL 400 MCG/100 ML PREMIX 20.4100000000000001 MCG IV ×2 (17:50→22:42)
[2023-11-26] MEDS: metoclopramide 5 mg/mL SDV 2 mL IVP (19:17)
[2023-11-26] MEDS: LORazepam 2 mg Tablet PO (22:08)
[2023-11-27] VITALS (60 sets, daily range): BP systolic 89–130; BP diastolic 71–100; PULSE 61–90; RESP 13–32; TEMP 36.6; O2SAT 90–98; BMI 39.3
[2023-11-27] MEDS: metoclopramide 5 mg/mL SDV 2 mL IVP (01:41)
[2023-11-27] MEDS: dexmedeTOMIDine 0.9 % NaCL 400 MCG/100 ML PREMIX 20.4100000000000001 MCG IV ×4 (03:13→18:43)
[2023-11-27] MEDS: LORazepam 2 mg Tablet PO ×2 (04:57→08:12)
[2023-11-27 07:41] LABS: Basophils % 0.6 %; Eosinophils # 0.2 10^3/uL (0.0-0.8); Eosinophils % 4.7 %; Hematocrit 42.2 % (37-53); Lymphocytes # 0.9 10^3/uL (0.8-4.8); Lymphocytes % 17.7 %; Mean Corpuscular HGB Conc 35.5 g/dL (30-55); Mean Corpuscular Hemoglobin 31.8 pg (27-33); Mean Corpuscular Volume 89.4 fl (82-101); Mean Platelet Volume 11.8 fL (7.4-10.4); Monocytes # 0.4 10^3/uL (0.2-0.9); Monocytes % 7.4 %; Neutrophils # 3.37 10^3/uL (1.8-7.7); Neutrophils % 69.4 %; Nucleated Red Blood Cells % 0 %; Platelet Count 75 10^3/cmm (157-399); Red Blood Count 4.72 10^6/uL (3.85-5.65); Red Cell Distribution Width 13.1 % (12.1-15.1); White Blood Count 4.86 10^3/uL (3.29-11.43)
[2023-11-27 08:04] LABS: Alanine Aminotransferase 63 U/L (0-41); Albumin Level 3.9 g/dL (3.5-5.2); Alkaline Phosphatase 56 U/L (40-130); Anion Gap 14.4 (5-19); Aspartate Amino Transferase 86 U/L (0-40); Blood Urea Nitrogen 7 mg/dL (6-20); Calcium 7.9 mg/dL (8.5-10.5); Carbon Dioxide 26 mmol/L (22-29); Chloride 96 mmol/L (98-107); Creatinine Clr Calc Pharmacy 245.1871; Globulin 3.5 g/dL (1.3-4.6); Glomerular Filtration Rate 175.3 mL/min (90-130); Glucose 103 mg/dL (65-115); Osmolality Calculated 274 mOsm/kg (285-295); Potassium 3.4 mmol/L (3.5-5.1); Sodium 133 mmol/L (136-145); Total Protein 7.4 g/dL (6.6-8.7)
[2023-11-27 08:06] LABS: Chol HDL Ratio 2.57 mg/dL (1.0-5.00); Cholesterol 213 mg/dL (0-200); Estmated Average Glucose 123; HDL Cholesterol 83 mg/dL (60-100); Hemoglobin A1C 5.9 % (4.0-6.0); LDL Cholesterol Calculated 109 mg/dL (50-129); Magnesium 1.4 mg/dL (1.7-2.3); Triglycerides 106 mg/dL (0-150); VLDL Cholestrol Calculation 21 mg/dL (0-30)
[2023-11-27] MEDS: thiamine 100 mg Tablet PO (08:11)
[2023-11-27] MEDS: lisinopril 10 mg Tablet PO (08:11)
[2023-11-27] MEDS: sucralfate 1 gm Tablet PO ×3 (08:11→19:28)
[2023-11-27] MEDS: diazePAM 5 mg Tablet PO (08:11)
[2023-11-27] MEDS: folic acid 1 mg Tablet PO (08:12)
[2023-11-27] MEDS: sertraline 100 mg Tablet PO (08:12)
[2023-11-27] MEDS: pantoprazole DR 40 mg Tablet PO ×2 (08:12→17:37)
[2023-11-27] MEDS: amlodipine 10 mg Tablet PO (08:12)
[2023-11-27] MEDS: BuSPIRONE 10 mg Tablet 15 MG PO ×2 (08:12→17:37)
[2023-11-27 08:57] LABS: Folate Level > 20.0 ng/mL (4.5-32.2)
[2023-11-27] MEDS: magnesium sulfate premix 4 GM/100 ML PREMIX IV (10:39)
[2023-11-27] MEDS: potassium chloride oral liq 20 mEq/15 mL UDC PO (10:40)
[2023-11-27] MEDS: chlordiazePOXIDE 25 mg Capsule PO (10:53)
[2023-11-27] MEDS: LORazepam 2 mg/mL INJ 10 mL MDV IVP ×3 (13:45→22:28)
[2023-11-27] MEDS: sodium chloride 0.9% 1,000 ML 75 ML IV (15:49)
--- NOTE | 2023-11-27 17:38 | PM.PN ---
Subjective Subjective: He is still tremulous, anxious. States earlier was having some hallucinations but that seems to be better. Feels he cannot shake off his tremors and anxiety so far. Getting partial relief from the medications he is on currently. He has previously gone for rehabilitation at [facility] and at another facility. Feels that he did get some benefit from it, but also had some concerns. He states that he will be reaching out to rehabilitation after discharge again. Vitals/I&O/Wt Last Vital Signs Temp 98.4 F 11/26/23 20:27 Pulse 68 11/27/23 16:00 Resp 17 11/27/23 16:00 BP 113/78 11/27/23 16:00 Pulse Ox 95 11/27/23 15:45 O2 Del Method Room Air 11/26/23 16:00 O2 Flow Rate 4 11/25/23 23:32 11/27/23 11/27/23 11/27/23 06:59 14:59 22:59 Intake Total 572.185 / 2757.027 2158.308 / 2158.308 Output Total 1000 / 1000 Balance 572.185 / 6210.209 3711.308 / 1158.308 Weight last 48 hrs Weight 131.542 kg Weight 131.542 kg Physical Exam Narrative: Anxious Tremulous Const: COMMON NORMALS: patient oriented x3 and alert GENERAL APPEARANCE: cooperative ORIENTATION/CONSCIOUSNESS: Yes awake HENMT: COMMON NORMALS: oropharynx normal Neck/C-Spine: COMMON NORMALS: no JVD Resp: COMMON NORMALS: normal respiratory effort and clear to auscultation bilaterally AUSCULTATION: clear to auscultation bilaterally Cardio: COMMON NORMALS: no JVD, regular rhythm, S1 normal heart sound present, S2 normal heart sound present and No murmurs present (Cardio) RHYTHM: regular rhythm HEART SOUNDS: S1 normal heart sound present and S2 normal heart sound present GI: COMMON NORMALS: Normal to inspection, nondistended, normoactive bowel sounds present, Soft to palpation and non-tender PALPATION: Yes Soft to palpation Extremity: COMMON NORMALS: no joint enlargement and no pedal edema Neuro: COMMON NORMALS: patient oriented x3 and moves all extremities SENSORIUM/ORIENTATION: Yes alert Skin: COMMON NORMALS: no rashes or lesions noted GENERAL SKIN EXAM: no rashes or lesions noted Data 11/27/23 07:23 11/27/23 07:23 A&P Assessment and plan (1) Alcohol use disorder, severe, dependence: (2) Alcohol withdrawal: (3) Vomiting: (4) Gastritis: (5) Uncontrolled hypertension: Plan 53-year-old male initially presenting with multiple episodes of vomiting, acute alcohol intoxication, thereafter during course of the day now developed alcohol withdrawal. Severe alcohol withdrawal/delirium tremens at risk of life-threatening complications. So far without seizure. Did have hallucinations earlier. Seizure precautions. CIWA up to 16 today. Still reports symptoms with anxiety, tremors. Will further adjust medications, switch from diazepam to scheduled Librium 20 mg every 8 hours. Ativan for breakthrough symptoms. He is also on Precedex, wean down as tolerating. Reviewed vitals, CBC, CMP, magnesium, folic acid. Noted hypomagnesemia, requested for gram replacement. Recheck magnesium. Recheck chemistry. Reviewed potassium, noted hypokalemia: Replacement requested. Recheck chemistry. Monitor CIWA. Wean Precedex accordingly. Start on Librium 50 mg every 6 hourly. Monitor LFTs. At home on diazepam and seems in the past was used treatment of DTs, subsequently added as an additional agent for treatment of anxiety alongside buspirone and sertraline. Encourage alcohol cessation. Discussed with director of casework services. Protonix twice daily, Zofran as needed. Continue with home dose of Carafate. Hypertension: Reviewed blood pressures, continue current medication treatment with amlodipine, lisinopril Continue the chronic home medications. Full code Clear liquid diet Attestations Medical Necessity Statement*: Continue admission for assessment management of severe alcohol withdrawal. Coding Level of Care Code Critical Care >/= 30 minutes Critical care time (in minutes): 35 The high probability of a clinically significant, sudden or life threatening deterioration, as referenced in this documentation, required my full and direct attention, intervention and personal management. The critical care time shown is in addition to time spent performing any reported separately billable procedures and includes the following: [x] Data and vital sign review and interpretation [x] Patient assessment, examination and intervention [x] Medication orders and management [x] Patient/Family updates as able [x] Care Coordination and Documentation. Diagnoses Alcohol use disorder, severe, dependence F10.20 Alcohol withdrawal F10.939 Vomiting R11.10 Gastritis K29.70 Uncontrolled hypertension I10
[2023-11-27] MEDS: chlordiazePOXIDE 10 mg Capsule 20 MG PO (18:16)
[2023-11-27] MEDS: guaiFENesin 100 mg/5 mL UDC 10 mL 200 MG PO (21:42)
--- NOTE | 2023-11-27 22:17 | PC.NURSE ---
Patient requesting something for a cough. Informed Dr Lala and received orders for Robitussin and tessalon phong as ordered and documented. RBVO
[2023-11-28] VITALS (25 sets, daily range): BP systolic 87–160; BP diastolic 63–107; PULSE 56–94; RESP 13–29; TEMP 36.6; O2SAT 92–95
[2023-11-28] MEDS: chlordiazePOXIDE 10 mg Capsule 20 MG PO ×3 (01:03→16:59)
[2023-11-28] MEDS: LORazepam 2 mg/mL INJ 10 mL MDV IVP ×4 (01:40→14:24)
[2023-11-28] MEDS: metoclopramide 5 mg/mL SDV 2 mL IVP (03:54)
--- NOTE | 2023-11-28 04:02 | PC.NURSE ---
Patient continues with withdrawal symptoms of n/v/d, tremors/shivers in general does not feel well. Medicated as ordered. Will continue to monitor.
[2023-11-28 07:51] LABS: Basophils % 0.6 %; Eosinophils # 0.2 10^3/uL (0.0-0.8); Eosinophils % 3.2 %; Hematocrit 45.9 % (37-53); Lymphocytes # 1.1 10^3/uL (0.8-4.8); Lymphocytes % 17.5 %; Mean Corpuscular HGB Conc 35.3 g/dL (30-55); Mean Corpuscular Hemoglobin 31.7 pg (27-33); Mean Corpuscular Volume 89.8 fl (82-101); Mean Platelet Volume 11.9 fL (7.4-10.4); Monocytes # 0.5 10^3/uL (0.2-0.9); Monocytes % 7.7 %; Neutrophils # 4.63 10^3/uL (1.8-7.7); Nucleated Red Blood Cells % 0 %; Platelet Count 81 10^3/cmm (157-399); Red Blood Count 5.11 10^6/uL (3.85-5.65); Red Cell Distribution Width 13.1 % (12.1-15.1); White Blood Count 6.52 10^3/uL (3.29-11.43)
[2023-11-28] MEDS: ondansetron 2 mg/ML SDV 2 mL 4 MG IVP ×3 (07:56→23:56)
[2023-11-28] MEDS: dexmedeTOMIDine 0.9 % NaCL 400 MCG/100 ML PREMIX 10.2100000000000009 MCG IV (07:57)
[2023-11-28] MEDS: folic acid 1 mg Tablet PO (07:59)
[2023-11-28] MEDS: thiamine 100 mg Tablet PO (07:59)
[2023-11-28] MEDS: sertraline 100 mg Tablet PO (07:59)
[2023-11-28] MEDS: amlodipine 10 mg Tablet PO (07:59)
[2023-11-28] MEDS: sucralfate 1 gm Tablet PO ×3 (07:59→19:39)
[2023-11-28] MEDS: BuSPIRONE 10 mg Tablet 15 MG PO ×2 (08:02→16:59)
[2023-11-28] MEDS: lisinopril 10 mg Tablet PO (08:02)
[2023-11-28] MEDS: pantoprazole DR 40 mg Tablet PO ×2 (08:02→16:59)
[2023-11-28 08:20] LABS: Alanine Aminotransferase 76 U/L (0-41); Alkaline Phosphatase 63 U/L (40-130); Aspartate Amino Transferase 116 U/L (0-40); Blood Urea Nitrogen 6 mg/dL (6-20); Carbon Dioxide 23 mmol/L (22-29); Chloride 99 mmol/L (98-107); Creatinine Clr Calc Pharmacy 204.3226; Globulin 3.9 g/dL (1.3-4.6); Glucose 108 mg/dL (65-115); Osmolality Calculated 276 mOsm/kg (285-295); Sodium 134 mmol/L (136-145); Total Bilirubin 0.8 mg/dL (0.15-1.2); Total Protein 7.9 g/dL (6.6-8.7)
[2023-11-28 08:25] LABS: Anion Gap 15.7 (5-19); Potassium 3.7 mmol/L (3.5-5.1)
[2023-11-28 08:34] LABS: Magnesium 1.5 mg/dL (1.7-2.3)
[2023-11-28 08:43] LABS: Slide Review Slide Review Perform
[2023-11-28] MEDS: dexmedeTOMIDine 0.9 % NaCL 400 MCG/100 ML PREMIX 1.02000000000000002 MCG IV (12:46)
[2023-11-28] MEDS: LORazepam 2 mg Tablet PO ×2 (19:31→23:54)
[2023-11-28] MEDS: dexmedeTOMIDine 0.9 % NaCL 400 MCG/100 ML PREMIX 17.0100000000000016 MCG IV (19:40)
--- NOTE | 2023-11-28 19:40 | P.PN_ITS ---
Subjective 2 Subjective: He feels he is not yet improving. Still tremulous, anxious. Vitals/I&O/Wt Last Vital Signs Temp 97.8 F 11/28/23 01:14 Pulse 58 L 11/28/23 16:00 Resp 19 H 11/28/23 16:00 BP 108/72 11/28/23 16:00 Pulse Ox 96 11/27/23 20:00 O2 Del Method Room Air 11/28/23 04:00 O2 Flow Rate 4 11/25/23 23:32 11/28/23 11/28/23 11/28/23 06:59 14:59 22:59 Intake Total 627.544 / 4050.808 100 / 100 758.869 / 858.869 Output Total 750 / 1750 700 / 700 1200 / 1900 Balance -122.456 / 2300.808 -600 / -600 -441.131 / -1041.131 Weight last 48 hrs Weight 131.542 kg Weight 131.542 kg Physical Exam 2 Narrative: Tremulous Const: COMMON NORMALS: patient oriented x3 and alert GENERAL APPEARANCE: c ooperative ORIENTATION/CONSCIOUSNESS: Yes awake HENMT: COMMON NORMALS: oropharynx normal Neck/C-Spine: COMMON NORMALS: no JVD Resp: COMMON NORMALS: normal respiratory effort and clear to auscultation bilaterally AUSCULTATION: clear to auscultation bilaterally Cardio: COMMON NORMALS: no JVD, regular rhythm, S1 normal heart sound present, S2 normal heart sound present and No murmurs present (Cardio) RHYTHM: regular rhythm HEART SOUNDS: S1 normal heart sound present and S2 normal heart sound present GI: COMMON NORMALS: Normal to inspection, nondistended, normoactive bowel sounds present, Soft to palpation and non-tender PALPATION: Yes Soft to palpation Extremity: COMMON NORMALS: no joint enlargement and no pedal edema Neuro: COMMON NORMALS: patient oriented x3 and moves all extremities S ENSORIUM/ORIENTATION: Yes alert Skin: COMMON NORMALS: no rashes or lesions noted GENERAL SKIN EXAM: no rashes or lesions noted Data 11/28/23 07:31 11/28/23 07:31 A&P Assessment and plan (1) Alcohol use disorder, severe, dependence: (2) Alcohol withdrawal: (3) Vomiting: (4) Gastritis: (5) Uncontrolled hypertension: Plan 53-year-old male initially presenting with multiple episodes of vomiting, acute alcohol intoxication, thereafter during course of the day now developed alcohol withdrawal. CIWA score up to 29 this morning, 19 later this morning. Continue Librium, Ativan as needed. Discussed with nursing staff. Cut down . Precedex, will adjust Librium dose 0.1 mcg/KG/HR every 2-3 hours, will adjust Librium dose as needed. Includes Librium dose to 25 mg every 8 hours. He does appear to have tolerance to benzodiazepines, with prior diazepam exposure. Severe alcohol withdrawal/delirium tremens at risk of life-threatening complications. So far without seizure. Did have hallucinations earlier. Seizure precautions. Discussed with adult protective caseworker, he has declined rehabilitation so far, however, on discussion with him he would like a prescription for naltrexone at discharge. He still having intermittent nausea, dry heaving. Discussed consideration of and risk of advancing diet. He will let us know once he is feeling little bit better wants to try something more substantial. Reviewed vitals, CBC, CMP, magnesium, folic acid. Again hypomagnesemia, requested 4 gram additional replacement. Recheck magnesium. Recheck chemistry. Monitor CIWA. Wean Precedex Librium 50 mg every 6 hourly. Monitor LFTs. At home on diazepam and seems in the past was used treatment of DTs, subsequently added as an additional agent for treatment of anxiety alongside buspirone and sertraline. Encourage alcohol cessation. Discussed with adult protective caseworker. Protonix twice daily, Zofran as needed. Continue with home dose of Carafate. Hypertension: Reviewed blood pressures, continue current medication treatment with amlodipine, lisinopril Continue the chronic home medications. Full code Clear liquid diet Attestations 2 Medical Necessity Statement*: Continue admission for assessment management of severe alcohol withdrawal. Coding Level of Care Code Acute Code for [facility] Fwd Diagnoses Alcohol use disorder, severe, dependence F10.20 Alcohol withdrawal F10.939 Vomiting R11.10 Gastritis K29.70 Uncontrolled hypertension I10
[2023-11-28] MEDS: magnesium sulfate premix 4 GM/100 ML PREMIX IV (20:45)
[2023-11-28] MEDS: sodium chloride 0.9% 1,000 ML 30 ML IV (22:11)
[2023-11-29] VITALS (26 sets, daily range): BP systolic 95–187; BP diastolic 56–118; PULSE 58–140; RESP 7–30; TEMP 36.6–37; O2SAT 93–99
[2023-11-29] MEDS: chlordiazePOXIDE 25 mg Capsule PO ×2 (01:09→08:08)
[2023-11-29] MEDS: metoclopramide 5 mg/mL SDV 2 mL IVP ×2 (02:02→07:59)
[2023-11-29] MEDS: acetaminophen 325 mg Tablet 650 MG PO (04:10)
[2023-11-29] MEDS: LORazepam 2 mg Tablet PO ×2 (04:10→20:29)
[2023-11-29 04:50] LABS: Basophils # 0.1 10^3/uL (0.0-0.1); Basophils % 0.8 %; Eosinophils # 0.3 10^3/uL (0.0-0.8); Eosinophils % 4.3 %; Hematocrit 46.1 % (37-53); Lymphocytes # 1.4 10^3/uL (0.8-4.8); Lymphocytes % 22.3 %; Mean Corpuscular HGB Conc 34.9 g/dL (30-55); Mean Corpuscular Hemoglobin 31.4 pg (27-33); Mean Platelet Volume 12.5 fL (7.4-10.4); Monocytes # 0.6 10^3/uL (0.2-0.9); Monocytes % 9.1 %; Neutrophils # 3.94 10^3/uL (1.8-7.7); Neutrophils % 63.3 %; Nucleated Red Blood Cells % 0 %; Platelet Count 78 10^3/cmm (157-399); Red Blood Count 5.12 10^6/uL (3.85-5.65); Red Cell Distribution Width 13.1 % (12.1-15.1); White Blood Count 6.23 10^3/uL (3.29-11.43)
[2023-11-29 05:09] LABS: Alanine Aminotransferase 98 U/L (0-41); Albumin Level 4.1 g/dL (3.5-5.2); Alkaline Phosphatase 59 U/L (40-130); Anion Gap 15.5 (5-19); Aspartate Amino Transferase 138 U/L (0-40); Blood Urea Nitrogen 6 mg/dL (6-20); Calcium 8.9 mg/dL (8.5-10.5); Carbon Dioxide 26 mmol/L (22-29); Chloride 98 mmol/L (98-107); Creatinine Clr Calc Pharmacy 204.3226; Globulin 3.8 g/dL (1.3-4.6); Glucose 89 mg/dL (65-115); Osmolality Calculated 279 mOsm/kg (285-295); Potassium 3.5 mmol/L (3.5-5.1); Sodium 136 mmol/L (136-145); Total Bilirubin 0.8 mg/dL (0.15-1.2); Total Protein 7.9 g/dL (6.6-8.7)
[2023-11-29 05:11] LABS: Magnesium 1.7 mg/dL (1.7-2.3)
[2023-11-29] MEDS: hyDRALAzine 20 mg/mL INJ 1 mL 10 MG IVP (06:15)
[2023-11-29] MEDS: ondansetron 2 mg/ML SDV 2 mL 4 MG IVP (06:50)
[2023-11-29] MEDS: LORazepam 2 mg/mL INJ 10 mL MDV IVP ×4 (07:20→11:18)
[2023-11-29] MEDS: dexmedeTOMIDine 0.9 % NaCL 400 MCG/100 ML PREMIX 3.39999999999999991 MCG IV (09:24)
[2023-11-29] MEDS: amlodipine 10 mg Tablet PO (10:04)
[2023-11-29] MEDS: BuSPIRONE 10 mg Tablet 15 MG PO ×2 (10:05→17:41)
[2023-11-29] MEDS: sertraline 100 mg Tablet PO (10:05)
[2023-11-29] MEDS: folic acid 1 mg Tablet PO (10:06)
[2023-11-29] MEDS: lisinopril 10 mg Tablet PO (10:06)
[2023-11-29] MEDS: sucralfate 1 gm Tablet PO ×3 (10:06→20:29)
[2023-11-29] MEDS: pantoprazole DR 40 mg Tablet PO (10:06)
[2023-11-29] MEDS: thiamine 100 mg Tablet PO (10:06)
[2023-11-29] MEDS: cloNIDine 0.1 mg/24 hr Patch 1 PATCH TRANSDERMA (12:10)
--- NOTE | 2023-11-29 15:18 | PM.PN ---
Subjective Subjective: He still feeling anxious, jittery, especially when trying to get up and do something. Also with nausea and vomiting today could not receive several his medications despite antiemetic. Had to be restarted on Precedex Vitals/I&O/Wt Last Vital Signs Temp 98.6 F 11/29/23 09:00 Pulse 68 11/29/23 14:00 Resp 20 H 11/29/23 14:00 BP 109/67 11/29/23 14:00 Pulse Ox 93 11/29/23 12:00 O2 Del Method Room Air 11/29/23 06:00 O2 Flow Rate 4 11/25/23 23:32 11/29/23 11/29/23 11/29/23 06:59 14:59 22:59 Intake Total 265.83 / 1507.008 5.383 / 5.383 Output Total 2226 / 4126 1500 / 1500 Balance -1960.17 / -2618.992 -1494.617 / -1494.617 Weight last 48 hrs Weight 134.445 kg Weight 131.542 kg Physical Exam Narrative: Tremulous, anxious Const: COMMON NORMALS: patient oriented x3 and alert GENERAL APPEARANCE: cooperative ORIENTATION/CONSCIOUSNESS: Yes awake HENMT: COMMON NORMALS: oropharynx normal Neck/C-Spine: COMMON NORMALS: no JVD Resp: COMMON NORMALS: normal respiratory effort and clear to auscultation bilaterally AUSCULTATION: clear to auscultation bilaterally Cardio: COMMON NORMALS: no JVD, regular rhythm, S1 normal heart sound present, S2 normal heart sound present and No murmurs present (Cardio) RHYTHM: regular rhythm HEART SOUNDS: S1 normal heart sound present and S2 normal heart sound present GI: COMMON NORMALS: Normal to inspection, nondistended, normoactive bowel sounds present, Soft to palpation and non-tender PALPATION: Yes Soft to palpation Extremity: COMMON NORMALS: no joint enlargement and no pedal edema Neuro: COMMON NORMALS: patient oriented x3 and moves all extremities SENSORIUM/ORIENTATION: Yes alert Skin: COMMON NORMALS: no rashes or lesions noted GENERAL SKIN EXAM: no rashes or lesions noted Data 11/29/23 04:30 11/29/23 04:30 A&P Assessment and plan (1) Alcohol use disorder, severe, dependence: (2) Alcohol withdrawal: (3) Vomiting: (4) Gastritis: (5) Uncontrolled hypertension: Plan 53-year-old male initially presenting with multiple episodes of vomiting, acute alcohol intoxication, thereafter during course of the day now developed alcohol withdrawal. This morning more difficulties with withdrawal, CIWA score up to received Librium, but as needed could not be given as he was also having nausea and vomiting the same time. Received Zofran, Reglan, Ativan, had to be restarted on Precedex. Switch PPI to IV twice daily. Continue sucralfate. With improvement in nausea and ability to return Librium will increase Librium to 40 mg every 8 hours. Continue treatment of severe withdrawal. Added clonidine patch for HTN, alcohol withdrawal as unable to reliably tolerate oral medication. Monitor heart rates due to risk of bradycardia. Wean off Precedex as tolerating. Severe alcohol withdrawal/delirium tremens at risk of life-threatening complications. So far without seizure. Did have hallucinations earlier in admission. Seizure precautions. Discussed with continuous pillowcase cutter, he has declined rehabilitation so far, however, on discussion with him he would like a prescription for naltrexone at discharge. He still having intermittent nausea, dry heaving. Discussed consideration of and risk of advancing diet. He will let us know once he is feeling little bit better wants to try something more substantial. Reviewed vitals, CBC, CMP, magnesium, folic acid. Still hypomagnesemia noted and reviewed magnesium but somewhat better, requested 2 gram additional replacement. Recheck magnesium. Recheck chemistry. Monitor CIWA. Wean Precedex Librium 50 mg every 6 hourly. Monitor LFTs. At home on diazepam and seems in the past was used treatment of DTs, subsequently added as an additional agent for treatment of anxiety alongside buspirone and sertraline. Encourage alcohol cessation. Discussed with continuous pillowcase cutter. Protonix twice daily, Zofran as needed. Continue with home dose of Carafate. Hypertension: Reviewed blood pressures, continue current medication treatment with amlodipine, lisinopril Continue the chronic home medications. Full code Attestations Medical Necessity Statement*: Continue admission for assessment management of severe alcohol withdrawal. Coding Level of Care Code Critical Care >/= 30 minutes Critical care time (in minutes): 35 The high probability of a clinically significant, sudden or life threatening deterioration, as referenced in this documentation, required my full and direct attention, intervention and personal management. The critical care time shown is in addition to time spent performing any reported separately billable procedures and includes the following: [x] Data and vital sign review and interpretation [x] Patient assessment, examination and intervention [x] Medication orders and management [x] Patient/Family updates as able [x] Care Coordination and Documentation. Diagnoses Alcohol use disorder, severe, dependence F10.20 Alcohol withdrawal F10.939 Vomiting R11.10 Gastritis K29.70 Uncontrolled hypertension I10
[2023-11-29] MEDS: chlordiazePOXIDE 10 mg Capsule 40 MG PO (15:49)
[2023-11-29] MEDS: pantoprazole 40 mg SDV IVP (15:49)
[2023-11-29] MEDS: magnesium sulfate premix 2 GM/50 ML PIGGYBACK IV (15:50)
[2023-11-29 16:15] LABS: Lipase 53 U/L (13-60)
[2023-11-29] MEDS: dexmedeTOMIDine 0.9 % NaCL 400 MCG/100 ML PREMIX 10.2100000000000009 MCG IV (18:13)
[2023-11-30] VITALS (18 sets, daily range): BP systolic 147–189; BP diastolic 90–113; PULSE 72–114; RESP 18–35; TEMP 36.9–37.2; O2SAT 95–97
[2023-11-30] MEDS: chlordiazePOXIDE 10 mg Capsule 40 MG PO ×4 (00:10→23:13)
[2023-11-30] MEDS: temazepam 15 mg Capsule PO ×2 (00:10→23:14)
[2023-11-30] MEDS: LORazepam 2 mg Tablet PO ×5 (03:50→20:41)
[2023-11-30] MEDS: pantoprazole 40 mg SDV IVP ×2 (03:50→15:09)
[2023-11-30] MEDS: sodium chloride 0.9% 1,000 ML 30 ML IV ×2 (03:51→23:14)
[2023-11-30] MEDS: hyDRALAzine 20 mg/mL INJ 1 mL 10 MG IVP (04:06)
[2023-11-30 04:14] LABS: Basophils # 0.1 10^3/uL (0.0-0.1); Basophils % 0.6 %; Eosinophils # 0.2 10^3/uL (0.0-0.8); Eosinophils % 2.2 %; Hematocrit 48.7 % (37-53); Lymphocytes # 1.6 10^3/uL (0.8-4.8); Mean Corpuscular HGB Conc 35.1 g/dL (30-55); Mean Corpuscular Hemoglobin 31.5 pg (27-33); Mean Corpuscular Volume 89.7 fl (82-101); Monocytes # 0.9 10^3/uL (0.2-0.9); Monocytes % 10.2 %; Neutrophils # 5.79 10^3/uL (1.8-7.7); Neutrophils % 67.6 %; Nucleated Red Blood Cells % 0 %; Platelet Count 103 10^3/cmm (157-399); Red Blood Count 5.43 10^6/uL (3.85-5.65); Red Cell Distribution Width 13.5 % (12.1-15.1); White Blood Count 8.56 10^3/uL (3.29-11.43)
[2023-11-30 04:36] LABS: Alanine Aminotransferase 94 U/L (0-41); Albumin Level 4.4 g/dL (3.5-5.2); Alkaline Phosphatase 61 U/L (40-130); Anion Gap 17.6 (5-19); Aspartate Amino Transferase 89 U/L (0-40); Blood Urea Nitrogen 9 mg/dL (6-20); Calcium 9.5 mg/dL (8.5-10.5); Carbon Dioxide 24 mmol/L (22-29); Chloride 99 mmol/L (98-107); Creatinine Clr Calc Pharmacy 206.7149; Glucose 100 mg/dL (65-115); Osmolality Calculated 283 mOsm/kg (285-295); Potassium 3.6 mmol/L (3.5-5.1); Sodium 137 mmol/L (136-145); Total Bilirubin 0.8 mg/dL (0.15-1.2); Total Protein 8.4 g/dL (6.6-8.7)
[2023-11-30 05:02] LABS: Slide Review Slide Review Perform
[2023-11-30] MEDS: sertraline 100 mg Tablet PO (08:18)
[2023-11-30] MEDS: thiamine 100 mg Tablet PO (08:18)
[2023-11-30] MEDS: folic acid 1 mg Tablet PO (08:18)
[2023-11-30] MEDS: sucralfate 1 gm Tablet PO ×3 (08:18→20:41)
[2023-11-30] MEDS: amlodipine 10 mg Tablet PO (08:18)
[2023-11-30] MEDS: lisinopril 10 mg Tablet PO (08:18)
[2023-11-30] MEDS: BuSPIRONE 10 mg Tablet 15 MG PO ×2 (08:18→17:08)
[2023-11-30] MEDS: ondansetron 2 mg/ML SDV 2 mL 4 MG IVP ×2 (12:53→17:11)
--- NOTE | 2023-11-30 21:36 | P.PN_ITS ---
Subjective 2 Subjective: He still feels anxious, tremulous. No hallucinations. Vitals/I&O/Wt Last Vital Signs Temp 98.9 F 11/30/23 19:41 Pulse 93 11/30/23 19:41 Resp 18 11/30/23 19:41 BP 172/104 11/30/23 20:36 Pulse Ox 97 11/30/23 19:41 O2 Del Method Room Air 11/30/23 16:01 O2 Flow Rate 4 11/25/23 23:32 11/30/23 11/30/23 11/30/23 06:59 14:59 22:59 Intake Total 220.5 / 1415.847 200 / 200 Output Total 700 / 2725 Balance -479.5 / -1309.153 200 / 200 Weight last 48 hrs Weight 132.041 kg Weight 134.445 kg Physical Exam 2 Narrative: Tremulous, anxious Const: COMMON NORMALS: patient oriented x3 and alert GENERAL APPEARANCE: c ooperative ORIENTATION/CONSCIOUSNESS: Yes awake HENMT: COMMON NORMALS: oropharynx normal Neck/C-Spine: COMMON NORMALS: no JVD Resp: COMMON NORMALS: normal respiratory effort and clear to auscultation bilaterally AUSCULTATION: clear to auscultation bilaterally Cardio: COMMON NORMALS: no JVD, regular rhythm, S1 normal heart sound present, S2 normal heart sound present and No murmurs present (Cardio) RHYTHM: regular rhythm HEART SOUNDS: S1 normal heart sound present and S2 normal heart sound present GI: COMMON NORMALS: Normal to inspection, nondistended, normoactive bowel sounds present, Soft to palpation and non-tender PALPATION: Yes Soft to palpation Extremity: COMMON NORMALS: no joint enlargement and no pedal edema Neuro: COMMON NORMALS: patient oriented x3 and moves all extremities S ENSORIUM/ORIENTATION: Yes alert Skin: COMMON NORMALS: no rashes or lesions noted GENERAL SKIN EXAM: no rashes or lesions noted Data 11/30/23 03:50 11/30/23 03:50 A&P Assessment and plan (1) Alcohol use disorder, severe, dependence: (2) Alcohol withdrawal: (3) Vomiting: (4) Gastritis: (5) Uncontrolled hypertension: Plan 53-year-old male initially presenting with multiple episodes of vomiting, acute alcohol intoxication, thereafter during course of the day now developed alcohol withdrawal. Reviewed vitals, CBC, CMP, noted no leukocytosis, platelets slightly better at 103. Hemoglobin with some hemoconcentration 17.1. Follow-up CBC. Transaminitis slightly better, AST 89, ALT 94. Recheck CMP. Recheck magnesium. Still having anxiety, tremors, however, Reviewed CIWA scores and appears to be doing better. Continue on increased dose Librium 40 mg 3 times daily. States could not sleep, did take a dose of temazepam last night. Continue as needed for now. Weaned off Precedex. Transfer out of ICU. Continue CIWA assessments, reassessment of mental status, risk of mental status and respiratory depression with IV benzodiazepines. Discussed with case finishing machine adjuster. Per their discussion he was not interested in rehabilitation, per our discussion he would be interested in prescription for naltrexone at discharge. Severe alcohol withdrawal/delirium tremens at risk of life-threatening complications. So far without seizure. Did have hallucinations earlier in admission. Seizure precautions. He has been having nausea although not vomiting anymore, has had poor appetite. Discussed with him and he would like to downgrade diet to clear liquid, changed. Added boost breeze. He will let us know when he is feeling a bit better and ready to advance. Reviewed lipase, discussed with him, he is not having symptoms of pancreatitis. He still having intermittent nausea, dry heaving. Discussed consideration of and risk of advancing diet. He will let us know once he is feeling little bit better wants to try something more substantial. Reviewed vitals, CBC, CMP, magnesium, folic acid. Still hypomagnesemia noted and reviewed magnesium but somewhat better, requested 2 gram additional replacement. Recheck magnesium. Recheck chemistry. At home on diazepam and seems in the past was used treatment of DTs, subsequently added as an additional agent for treatment of anxiety alongside buspirone and sertraline. Encourage alcohol cessation. Protonix twice daily, Zofran as needed. Continue with home dose of Carafate. Hypertension: Reviewed blood pressures, continue current medication treatment with amlodipine, lisinopril Continue the chronic home medications. Full code Attestations 2 Medical Necessity Statement*: Continue admission for assessment management of severe alcohol withdrawal with benzodiazepine tolerance. Diagnoses Alcohol use disorder, severe, dependence F10.20 Alcohol withdrawal F10.939 Vomiting R11.10 Gastritis K29.70 Uncontrolled hypertension I10
[2023-12-01] VITALS (8 sets, daily range): BP systolic 139–172; BP diastolic 88–104; PULSE 75–98; RESP 16–18; TEMP 36.9–37.3; O2SAT 93–96
[2023-12-01] MEDS: LORazepam 2 mg Tablet PO ×2 (03:58→08:08)
[2023-12-01] MEDS: pantoprazole 40 mg SDV IVP ×2 (04:17→16:44)
[2023-12-01 05:58] LABS: Basophils # 0.1 10^3/uL (0.0-0.1); Basophils % 0.8 %; Eosinophils # 0.1 10^3/uL (0.0-0.8); Eosinophils % 1.2 %; Hematocrit 45.2 % (37-53); Lymphocytes # 1.9 10^3/uL (0.8-4.8); Lymphocytes % 20.9 %; Mean Corpuscular HGB Conc 35.2 g/dL (30-55); Mean Corpuscular Hemoglobin 32.1 pg (27-33); Mean Corpuscular Volume 91.1 fl (82-101); Mean Platelet Volume 11.4 fL (7.4-10.4); Monocytes # 1.5 10^3/uL (0.2-0.9); Monocytes % 16.2 %; Neutrophils # 5.46 10^3/uL (1.8-7.7); Neutrophils % 60.7 %; Nucleated Red Blood Cells % 0 %; Platelet Count 128 10^3/cmm (157-399); Red Blood Count 4.96 10^6/uL (3.85-5.65); Red Cell Distribution Width 13.9 % (12.1-15.1)
[2023-12-01 06:08] LABS: Magnesium 1.8 mg/dL (1.7-2.3)
[2023-12-01 06:09] LABS: Alanine Aminotransferase 75 U/L (0-41); Albumin Level 4.1 g/dL (3.5-5.2); Alkaline Phosphatase 54 U/L (40-130); Anion Gap 14.5 (5-19); Aspartate Amino Transferase 56 U/L (0-40); Blood Urea Nitrogen 10 mg/dL (6-20); Calcium 9.2 mg/dL (8.5-10.5); Carbon Dioxide 25 mmol/L (22-29); Chloride 101 mmol/L (98-107); Globulin 3.9 g/dL (1.3-4.6); Glomerular Filtration Rate 118.9 mL/min (90-130); Glucose 105 mg/dL (65-115); Osmolality Calculated 283 mOsm/kg (285-295); Potassium 3.5 mmol/L (3.5-5.1); Sodium 137 mmol/L (136-145); Total Bilirubin 0.8 mg/dL (0.15-1.2)
[2023-12-01] MEDS: chlordiazePOXIDE 10 mg Capsule 40 MG PO (07:28)
[2023-12-01] MEDS: BuSPIRONE 10 mg Tablet 15 MG PO ×2 (08:09→16:44)
[2023-12-01] MEDS: folic acid 1 mg Tablet PO (08:09)
[2023-12-01] MEDS: sucralfate 1 gm Tablet PO ×3 (08:10→20:59)
[2023-12-01] MEDS: thiamine 100 mg Tablet PO (08:10)
[2023-12-01] MEDS: lisinopril 10 mg Tablet PO (08:10)
[2023-12-01] MEDS: sertraline 100 mg Tablet PO (08:11)
[2023-12-01] MEDS: amlodipine 10 mg Tablet PO (08:11)
[2023-12-01] MEDS: chlordiazePOXIDE 10 mg Capsule 20 MG PO ×2 (16:00→23:28)
--- NOTE | 2023-12-01 21:27 | P.PN_ITS ---
Subjective 2 Subjective: He feels that he is improving. He would like to try more solid diet. No further vomiting. He denies any feelings of depression, has not had any thoughts of self-harm or suicidal ideation. States that he will reach out to rehabilitation after discharge. We discussed the concerns of continuing benzodiazepines long-term given their concerning adverse effects. He is agreeable to prescription of naltrexone. Vitals/I&O/Wt Last Vital Signs Temp 98.9 F 12/01/23 19:44 Pulse 76 12/01/23 19:44 Resp 18 12/01/23 19:44 BP 152/88 12/01/23 19:44 Pulse Ox 96 12/01/23 19:44 O2 Del Method Room Air 12/01/23 19:44 O2 Flow Rate 4 11/25/23 23:32 12/01/23 12/01/23 12/01/23 06:59 14:59 22:59 Intake Total 941.5 / 1141.5 1240 / 1240 Balance 941.5 / 1141.5 1240 / 1240 Weight last 48 hrs Weight 126.552 kg Weight 132.041 kg Physical Exam 2 Narrative: Tremulous, anxious Const: COMMON NORMALS: patient oriented x3 and alert GENERAL APPEARANCE: c ooperative ORIENTATION/CONSCIOUSNESS: Yes awake HENMT: COMMON NORMALS: oropharynx normal Neck/C-Spine: COMMON NORMALS: no JVD Resp: COMMON NORMALS: normal respiratory effort and clear to auscultation bilaterally AUSCULTATION: clear to auscultation bilaterally Cardio: COMMON NORMALS: no JVD, regular rhythm, S1 normal heart sound present, S2 normal heart sound present and No murmurs present (Cardio) RHYTHM: regular rhythm HEART SOUNDS: S1 normal heart sound present and S2 normal heart sound present GI: COMMON NORMALS: Normal to inspection, nondistended, normoactive bowel sounds present, Soft to palpation and non-tender PALPATION: Yes Soft to palpation Extremity: COMMON NORMALS: no joint enlargement and no pedal edema Neuro: COMMON NORMALS: patient oriented x3 and moves all extremities S ENSORIUM/ORIENTATION: Yes alert Skin: COMMON NORMALS: no rashes or lesions noted GENERAL SKIN EXAM: no rashes or lesions noted Data 12/01/23 05:36 12/01/23 05:36 A&P Assessment and plan (1) Alcohol use disorder, severe, dependence: (2) Alcohol withdrawal: (3) Vomiting: (4) Gastritis: (5) Uncontrolled hypertension: Plan 53-year-old male initially presenting with multiple episodes of vomiting, acute alcohol intoxication, thereafter during course of the day now developed alcohol withdrawal. Reviewed vitals, CBC, CMP, CIWA score. He is improving. Symptomatically he is starting to feel better. Would like to advance diet. No further vomiting. He does not feel ready to discharge home. Discussed with him we will cut down Librium dose. Reassess continued recovery from withdrawal. Discussed with nurse case management. Decrease scheduled Librium to 20 mg every 8 hours. Continue CIWA assessments, reassessment of mental status, risk of mental status and respiratory depression with IV benzodiazepines. Discussed with nurse case management. Per their discussion he was not interested in rehabilitation, per our discussion he would be interested in prescription for naltrexone at discharge. Severe alcohol withdrawal/delirium tremens at risk of life-threatening complications. So far without seizure. Did have hallucinations earlier in admission. Seizure precautions. He still having intermittent nausea, dry heaving. Discussed consideration of and risk of advancing diet. He will let us know once he is feeling little bit better wants to try something more substantial. At home on diazepam and seems in the past was used treatment of DTs, subsequently added as an additional agent for treatment of anxiety alongside buspirone and sertraline. Encourage alcohol cessation. Protonix twice daily, Zofran as needed. Continue with home dose of Carafate. Hypertension: Reviewed blood pressures, continue current medication treatment with amlodipine, lisinopril Continue the chronic home medications. Full code Attestations 2 Medical Necessity Statement*: Continue admission for assessment management of severe alcohol withdrawal with benzodiazepine tolerance. Diagnoses Alcohol use disorder, severe, dependence F10.20 Alcohol withdrawal F10.939 Vomiting R11.10 Gastritis K29.70 Uncontrolled hypertension I10
[2023-12-01] MEDS: temazepam 15 mg Capsule PO (23:28)
[2023-12-02] VITALS: BP 115/75; PULSE 78; RESP 18; TEMP 37.2; O2SAT 95
[2023-12-02 04:00] VITALS: BP 123/85; PULSE 72; RESP 15; TEMP 36.4; O2SAT 94
[2023-12-02] MEDS: pantoprazole 40 mg SDV IVP (04:42)
[2023-12-02 05:27] LABS: Basophils # 0.1 10^3/uL (0.0-0.1); Basophils % 0.8 %; Eosinophils # 0.1 10^3/uL (0.0-0.8); Hematocrit 43.3 % (37-53); Lymphocytes # 1.8 10^3/uL (0.8-4.8); Lymphocytes % 25.1 %; Mean Corpuscular HGB Conc 34.9 g/dL (30-55); Mean Corpuscular Hemoglobin 32.1 pg (27-33); Mean Corpuscular Volume 92.1 fl (82-101); Mean Platelet Volume 11.2 fL (7.4-10.4); Monocytes # 1.3 10^3/uL (0.2-0.9); Monocytes % 18.9 %; Neutrophils # 3.75 10^3/uL (1.8-7.7); Neutrophils % 52.8 %; Nucleated Red Blood Cells % 0 %; Platelet Count 128 10^3/cmm (157-399); Red Cell Distribution Width 13.8 % (12.1-15.1)
[2023-12-02 05:43] LABS: Magnesium 1.7 mg/dL (1.7-2.3)
[2023-12-02 05:46] LABS: Alanine Aminotransferase 72 U/L (0-41); Albumin Level 4.1 g/dL (3.5-5.2); Alkaline Phosphatase 54 U/L (40-130); Anion Gap 13.5 (5-19); Aspartate Amino Transferase 53 U/L (0-40); Blood Urea Nitrogen 12 mg/dL (6-20); Calcium 8.5 mg/dL (8.5-10.5); Carbon Dioxide 25 mmol/L (22-29); Chloride 101 mmol/L (98-107); Glomerular Filtration Rate 118.9 mL/min (90-130); Glucose 93 mg/dL (65-115); Osmolality Calculated 281 mOsm/kg (285-295); Potassium 3.5 mmol/L (3.5-5.1); Sodium 136 mmol/L (136-145); Total Bilirubin 0.6 mg/dL (0.15-1.2); Total Protein 7.1 g/dL (6.6-8.7)
[2023-12-02 06:00] VITALS: PULSE 74
[2023-12-02 08:15] VITALS: BP 139/87; PULSE 79; RESP 17; TEMP 37.2; O2SAT 93
[2023-12-02] MEDS: amlodipine 10 mg Tablet PO (08:52)
[2023-12-02] MEDS: chlordiazePOXIDE 10 mg Capsule 20 MG PO (08:52)
[2023-12-02] MEDS: folic acid 1 mg Tablet PO (08:53)
[2023-12-02] MEDS: BuSPIRONE 10 mg Tablet 15 MG PO (08:53)
[2023-12-02] MEDS: lisinopril 10 mg Tablet PO (08:53)
[2023-12-02] MEDS: thiamine 100 mg Tablet PO (08:53)
[2023-12-02] MEDS: sucralfate 1 gm Tablet PO (08:53)
[2023-12-02] MEDS: sertraline 100 mg Tablet PO (08:57)
[2023-12-02 09:18] VITALS: BMI 38.9
[2023-12-02] MEDS: ondansetron 2 mg/ML SDV 2 mL 4 MG IVP (11:01)
[2023-12-02 12:56] VITALS: BP 117/85; PULSE 69; RESP 18; TEMP 37.2; O2SAT 92
--- NOTE | 2023-12-02 13:37 | PM.DCS ---
Discharge Providers Date of Admission: 11/25/23 23:28 Date of Discharge: December 02, 2023 Attending Provider at Admission: Arlin Erickson MD Attending Provider at Discharge: Abdifatah Wong Primary Care Provider: Hyacinth Lee MD Diagnoses at Discharge Discharge Diagnosis (1) Alcohol use disorder, severe, dependence: Status: Acute (2) Alcohol withdrawal: Status: Acute (3) Vomiting: Status: Acute (4) Gastritis: Status: Acute (5) Uncontrolled hypertension: Status: Acute Reason for Visit Reason for Visit: N/V; ETOH Hospital Course Hospital Course Pleasant 53-year-old gentleman with history of alcohol use disorder, prior attempts for rehabilitation, was admitted for assessment management due to severe alcohol withdrawal, initially with hallucinations, required benzodiazepines by [facility] protocol, Precedex drip, with elevated tolerance to benzodiazepines previously taking diazepam at home as part of his anxiety regimen with buspirone, sertraline and propranolol, had a difficult time going through the withdrawal with tolerance also to the treatment medications. Was started on scheduled Librium dose of which had to be increased, with additional Ativan per [facility] protocol. Hospitalization complicated by severe persistent nausea and vomiting with alcohol and NSAID induced gastritis. He takes ibuprofen chronically due to lower back pain. Treated with IV PPI, sucralfate while in the hospital. Blood pressure was elevated while in the hospital but improved with eventually improving and resolving withdrawal. Tapered on chlordiazepoxide. Weaned off Ativan. Asked to discontinue and avoid benzodiazepines due to associated risks. He would like to try to quit drinking, he will be looking into additional rehabilitation, but also is interested in naltrexone. It was not available to try to start in the hospital, but he is given prescription for the 380 mg deep gluteal injections, please start in office if possible which she is to continue monthly to help diminish cravings and reduce chance of relapse. He is not on any opiates and will need to avoid them once starting naltrexone. Continue to support alcohol abstinence. Please reassess also for resolution of gastritis, he continues on twice daily Protonix, sucralfate tablet 3 times daily, please refer for EGD if he has not had one. Recommended to discontinue and avoid NSAIDs with risk of recurrence of gastritis, and with hypertension, discussed strategies for chronic back pain including combination of acetaminophen, local agents with menthol, IcyHot and, or other age-adjusted negative relief, plus minus heat or cooling, which ever might work better for him. Physical Exam Narrative: Today he appears calm, pleasant, more energetic, in better spirits. No nausea or vomiting. Tolerating oral intake. Feels better and would like to discharge home. Const: COMMON NORMALS: patient oriented x3 and alert GENERAL APPEARANCE: cooperative NUTRITIONAL APPEARANCE: overweight ORIENTATION/CONSCIOUSNESS: Yes awake HENMT: COMMON NORMALS: oropharynx normal Neck/C-Spine: COMMON NORMALS: no JVD Resp: COMMON NORMALS: normal respiratory effort and clear to auscultation bilaterally AUSCULTATION: clear to auscultation bilaterally Cardio: COMMON NORMALS: no JVD, regular rhythm, S1 normal heart sound present, S2 normal heart sound present and No murmurs present (Cardio) RHYTHM: regular rhythm HEART SOUNDS: S1 normal heart sound present and S2 normal heart sound present GI: COMMON NORMALS: Normal to inspection, nondistended, normoactive bowel sounds present, Soft to palpation and non-tender PALPATION: Yes Soft to palpation Extremity: COMMON NORMALS: no joint enlargement and no pedal edema Neuro: COMMON NORMALS: patient oriented x3 and moves all extremities SENSORIUM/ORIENTATION: Yes alert Skin: COMMON NORMALS: no rashes or lesions noted GENERAL SKIN EXAM: no rashes or lesions noted Discharge Data Studies Completed and Pending Pending at discharge Category Date Time Status Complete Blood Count w/Auto AM LABS Lab 12/03/23 04:00 Ordered Comprehensive Metabolic Panel AM LABS Lab 12/03/23 04:00 Ordered Magnesium AM LABS Lab 12/03/23 04:00 Ordered Laboratory Results WBC 7.10 10^3/uL (3.29-11.43) 12/02/23 04:35 RBC 4.70 10^6/uL (3.85-5.65) 12/02/23 04:35 Hgb 15.10 g/dL (11.27-16.99) 12/02/23 04:35 Hct 43.3 % (37-53) 12/02/23 04:35 MCV 92.1 fl (82-101) 12/02/23 04:35 MCH 32.1 pg (27-33) 12/02/23 04:35 MCHC 34.9 g/dL (30-55) 12/02/23 04:35 RDW 13.8 % (12.1-15.1) 12/02/23 04:35 Plt Count 128 10^3/cmm (157-399) L 12/02/23 04:35 MPV 11.2 fL (7.4-10.4) H 12/02/23 04:35 Neut % (Auto) 52.8 % 12/02/23 04:35 Lymph % (Auto) 25.1 % 12/02/23 04:35 [place] % (Auto) 18.9 % 12/02/23 04:35 Eos % (Auto) 2.0 % 12/02/23 04:35 Baso % (Auto) 0.8 % 12/02/23 04:35 Neut # (Auto) 3.75 10^3/uL (1.8-7.7) 12/02/23 04:35 Lymph # (Auto) 1.8 10^3/uL (0.8-4.8) 12/02/23 04:35 [place] # (Auto) 1.3 10^3/uL (0.2-0.9) H 12/02/23 04:35 Eos # (Auto) 0.1 10^3/uL (0.0-0.8) 12/02/23 04:35 Baso # (Auto) 0.1 10^3/uL (0.0-0.1) 12/02/23 04:35 Nucleated RBC % (auto) 0 % 12/02/23 04:35 Nucleated RBCs # 0.0 /100WBC 12/02/23 04:35 PT 15.10 SECONDS (12.1-14.9) H 11/26/23 05:25 INR 1.15 (0.8-1.2) 11/26/23 05:25 Sodium 136 mmol/L (136-145) 12/02/23 04:35 Potassium 3.5 mmol/L (3.5-5.1) 12/02/23 04:35 Chloride 101 mmol/L (98-107) 12/02/23 04:35 Carbon Dioxide 25 mmol/L (22-29) 12/02/23 04:35 Anion Gap 13.5 (5-19) 12/02/23 04:35 BUN 12 mg/dL (6-20) 12/02/23 04:35 Creatinine 0.7 mg/dL (0.7-1.2) 12/02/23 04:35 GFR Calculation 118.9 mL/min (90-130) 12/02/23 04:35 Glucose 93 mg/dL (65-115) 12/02/23 04:35 Estimat Average Glucose 123 11/27/23 07:23 Hemoglobin A1c 5.9 % (4.0-6.0) 11/27/23 07:23 Calculated Osmolality 281 mOsm/kg (285-295) L 12/02/23 04:35 Calcium 8.5 mg/dL (8.5-10.5) 12/02/23 04:35 Magnesium 1.7 mg/dL (1.7-2.3) 12/02/23 04:35 Iron 220 ug/dL (59-158) H 11/26/23 05:25 TIBC 227.33034 mcg/dl 11/26/23 05:25 % Saturation 96.0 % (20-50) H 11/26/23 05:25 Unsat Iron Binding < 8 ug/dL (112-347) L 11/26/23 05:25 Total Bilirubin 0.6 mg/dL (0.15-1.2) 12/02/23 04:35 AST 53 U/L (0-40) H 12/02/23 04:35 ALT 72 U/L (0-41) H 12/02/23 04:35 Alkaline Phosphatase 54 U/L (40-130) 12/02/23 04:35 Troponin T 5th Gen ng/L 7 ng/L (0-15) 11/26/23 01:47 Total Protein 7.1 g/dL (6.6-8.7) 12/02/23 04:35 Albumin 4.1 g/dL (3.5-5.2) 12/02/23 04:35 Globulin 3.0 g/dL (1.3-4.6) 12/02/23 04:35 Triglycerides 106 mg/dL (0-150) 11/27/23 07:23 Cholesterol 213 mg/dL (0-200) H 11/27/23 07:23 LDL Cholesterol, Calc 109 mg/dL (50-129) 11/27/23 07:23 Total VLDL Cholesterol 21 mg/dL (0-30) 11/27/23 07:23 HDL Cholesterol 83 mg/dL (60-100) 11/27/23 07:23 Cholesterol/HDL Ratio 2.57 mg/dL (1.0-5.00) 11/27/23 07:23 Lipase 53 U/L (13-60) 11/29/23 04:30 Vitamin B12 661 pg/mL (232-1245) 11/26/23 05:25 Folate > 20.0 ng/mL (4.5-32.2) 11/27/23 07:23 TSH 4.22 uIU/mL (0.27-4.20) H 11/26/23 05:25 Ethyl Alcohol 239 mg/dL (0-10) H 11/25/23 22:33 Vitals Last Vital Signs Temp 99 F 12/02/23 12:56 Pulse 69 12/02/23 12:56 Resp 18 12/02/23 12:56 BP 117/85 12/02/23 12:56 Pulse Ox 92 12/02/23 12:56 O2 Del Method Room Air 12/02/23 12:56 O2 Flow Rate 4 11/25/23 23:32 Discharge Plan Discharge Patient Disposition: Home Condition: Stable Prescriptions: New ondansetron 4 mg tablet,disintegrating 4 mg PO Q6H PRN (Reason: nausea and vomiting) Qty: 14 0RF folic acid 1 mg Tablet 1 mg PO DAILY Qty: 90 0RF Vitamin B-1 (mononitrate) 100 mg Tablet 100 mg PO DAILY Qty: 90 0RF naltrexone microspheres 380 mg suspension,extended rel recon 380 mg IM .monthly Qty: 6 0RF Continued amlodipine 10 mg tablet 10 mg PO DAILY 30 Days Qty: 30 3RF lisinopril 10 mg tablet 10 mg PO DAILY 30 Days Qty: 30 3RF propranolol 20 mg tablet 20 mg PO BID PRN (Reason: anxiety) Qty: 60 2RF sertraline 100 mg tablet 100 mg PO DAILY Qty: 30 2RF buspirone 15 mg tablet 15 mg PO BID Qty: 60 3RF multivitamin with minerals Tablet 1 tab PO DAILY hydroxyzine pamoate 25 mg capsule 75 mg PO TID PRN (Reason: Anxiety) sucralfate 1 gram tablet 1 g PO TID Qty: 90 0RF lansoprazole 30 mg capsule,delayed release(DR/EC) 30 mg PO BID Qty: 60 3RF Discontinued diazepam [Valium] 5 mg tablet 5 mg PO BID Qty: 60 0RF ibuprofen 800 mg tablet 800 mg PO Q8H PRN (Reason: Pain) Discharge Orders: Discharge Order (Routine); Ordered 12/02/23 Ordered By: Abdifatah Wong Referrals: Crisis Stabilization [Other] (7 days a week 8am-6pm. ) [facility] [address] [Outside] (? Follow up as a walk in at [facility], walk in hours are Monday-Monday from 7:30AM-3:00PM, first come, first seen. Once you do this assessment you will be referred for appropriate services.) Hyacinth Lee MD [Primary Care Provider] - 12/06/23 2:20 pm Discharge Diet: Advance as tolerated and Cardiac Discharge Activity: Resume usual activity and Increase activity as tolerated Patient Instructions: Folic Acid (By mouth), Naltrexone (By mouth), Ondansetron (By mouth), Gastritis (GEN), Acute Nausea and Vomiting (ED), Abdominal Pain (ED), Alcohol Dependence (GEN) Activity Restrictions/Additional Instructions: Please abstain from any alcohol. Returning to alcohol drinking will lead to further complications including gastritis/stomach inflammation, liver cirrhosis, dementia, high blood pressure, heart attack, stroke, different cancers including stomach cancer, colon cancer, and other complications including withdrawal. Given prescription for naltrexone, once you pick it up, bring it for your appointment with primary provider for help with administration, it is given as a deep gluteal injection (shot into the buttock) once monthly. Avoid any opioids while on this medication. Please discuss with your primary doctor naltrexone therapy to help you avoid restarting drinking. Seek rehabilitation to help you. Please do not take diazepam anymore, avoid benzodiazepines outside of hospital settings. Advance oral intake as tolerating. Discussed with your primary doctor additional assessment by EGD if you have never had one to further assess after symptoms of nausea, vomiting, suspected gastritis, but also to exclude malignancy. Avoid ibuprofen or other NSAID medications since they affect the stomach lining and contribute to gastritis, ulcers, nausea, vomiting, other problems as well as high blood pressure. When advancing her diet avoid fried foods, dairy. Return to the hospital in case of any worsening or new concerning symptoms Discharge Attestations Time Spent in Discharge Care*: greater than 30 min Status at Discharge: Cognitive status at discharge: cognitively intact, Behavioral status at discharge: can be uncooperative, Quality Metrics Clinical Quality Measures [ No reported AMI, CVA or VTE this stay] Coding Level of Care Code 19176 Total time (in minutes) for Discharge: 60 Diagnoses Alcohol use disorder, severe, dependence F10.20 Alcohol withdrawal F10.939 Vomiting R11.10 Gastritis K29.70 Uncontrolled hypertension I10
[2023-12-02 15:36] VITALS: BP 117/85; PULSE 69; RESP 18; TEMP 37.2; O2SAT 92
== END 2023-12-02 15:36 | disposition home or self-care (01) | DRG 897 ==
LOC: ER 21:49 → ICU 22:02 → MEDSURG 11-30 17:33
PROVIDERS: Student in an Organized Health Care Education/Training Program; Admitting Provider Student in an Organized Health Care Education/Training Program; Emergency Provider Emergency Medicine; PCP Family Medicine; Visit Provider Internal Medicine
DX: F10.232 Alcohol dependence with withdrawal with perceptual disturbance (principal); K29.20 Alcoholic gastritis without bleeding; F10.229 Alcohol dependence with intoxication, unspecified; Y90.8 Blood alcohol level of 240 mg/100 ml or more; I10 Essential (primary) hypertension; F41.9 Anxiety disorder, unspecified; E83.42 Hypomagnesemia; Z87.891 Personal history of nicotine dependence; Z79.1 Long term (current) use of non-steroidal anti-inflammatories (NSAID); M54.50 Low back pain, unspecified; G89.29 Other chronic pain
CPT/HCPCS: 36415; 80053; 80061; 80307; 82607; 82746; 83036; 83540; 83550; 83690; 83735; 84443; 84484; 85025; 85610; 96361; 96372; 96374; 96375; 96376; 99285; C9113; J0360; J1200; J2060; J2405; J2765; J3411; J3475; J7030

== ENCOUNTER 2024-03-16 15:11 | Inpatient (IN) | payer MEDICAID, SELFPAY ==
[2024-03-16] VITALS (20 sets, daily range): BP systolic 118–196; BP diastolic 69–118; PULSE 80–112; RESP 15–26; TEMP 36.3–36.7; O2SAT 90–99
--- NOTE | 2024-03-16 15:15 | ECG_ITS ---
[facility] Test Date: 2024-03-16 Pat Name: Ade Carcamo Department: Room: Gender: Male Emergency Department Director: : 1970 Requested By: Radha Lawrence Order Number: [id number] Ha MD: Henry Bear M.D. Measurements Intervals [place] Rate: 89 P: 44 AL: 175 QRS: -31 QRSD: 97 T: 62 QT: 360 QTc: 438 Interpretive Statements SINUS RHYTHM LEFT ATRIAL ENLARGEMENT [-0.15mV P-WAVE IN V1/V2] LEFT AXIS DEVIATION [QRS AXIS < -30] POSSIBLE ANTERIOR MYOCARDIAL INFARCTION , OF INDETERMINATE AGE [30 ms Q WAVE IN V3/V4, OR R < 0.2 mV IN V4] Compared to ECG 08/02/2020 19:41:15 Atrial abnormality now present Left-axis deviation now present Myocardial infarct finding now present Sinus tachycardia no longer present Electronically Signed On 03-17-2024 9:09:39 CDT by Henry Bear M.D. [id number]
--- NOTE | 2024-03-16 16:04 | ED_ITS ---
HPI - Alcohol 2 General: Chief Complaint: Alcohol Stated Complaint: ANXIETY Time Seen by Provider: 03/16/24 15:15 History of Present Illness: T3-year-old man with a history of known alcoholism, anxiety, hypertension and depression who presents emergency room with anxiety. He had told EMS that he was withdrawing and so Ativan was given. Here he appears intoxicated and quite somnolent after having received the Ativan. Unclear exactly what happened that caused police and EMS to become involved. Apparently his mother had called. Related Data Home Medications Medication Instructions Recorded Confirmed multivitamin with minerals 1 tab PO DAILY 08/03/20 03/15/24 Previous Rx's Medication Instructions Recorded ondansetron 4 mg disintegrating 4 mg PO Q6H PRN nausea and 11/25/23 tablet vomiting #14 tabs folic acid 1 mg tablet 1 mg PO DAILY #90 tabs 12/02/23 lansoprazole 30 mg capsule,delayed 30 mg PO BID #60 caps 12/02/23 release naltrexone microspheres 380 mg 380 mg IM .monthly #6 ea 12/02/23 intramuscular suspension,extended release thiamine mononitrate (vit B1) 100 100 mg PO DAILY #90 tabs 12/02/23 mg tablet (Vitamin B-1 (mononitrate)) amlodipine 10 mg tablet 10 mg PO DAILY 30 days #30 tabs 12/06/23 buspirone 15 mg tablet 15 mg PO BID #60 tabs 12/06/23 hydroxyzine pamoate 25 mg capsule 75 mg (3 x 25 mg) PO TID PRN 12/06/23 Anxiety #270 caps lisinopril 10 mg tablet 10 mg PO DAILY 30 days #30 tabs 12/06/23 meloxicam 15 mg tablet 15 mg PO DAILY #30 tabs 12/06/23 propranolol 20 mg tablet 20 mg PO BID PRN anxiety #60 tabs 12/06/23 sertraline 100 mg tablet 100 mg PO DAILY #30 tabs 12/06/23 sucralfate 1 gram tablet 1 g PO TID #90 tabs 12/06/23 omeprazole 40 mg capsule,delayed 40 mg PO DAILY #30 caps 01/10/24 release diazepam 5 mg tablet 5 mg PO DAILY PRN anxiety #14 tabs 03/12/24 Allergies Allergy/AdvReac Type Severity Reaction Status Date / Time No Known Allergies Allergy Verified 12/06/23 08:29 Review of Systems 2 General: Reports: ROS unobtainable due to mental status PFSH ED 2 PFSH: Medical History Fibula fracture Generalized anxiety disorder Depression Alcoholism Hypertension Surgical History History of open reduction and internal fixation (ORIF) procedure Fibula fracture, left distal lateral malleolar fracture Family History Other No pertinent family history Social History Smoking and tobacco/nicotine status: former use of tobacco/nicotine Quit status (tobacco/nicotine): has quit using Year quit tobacco: 2021 3-4 months ago Second hand smoke exposure: No Alcohol intake: former Former alcohol use details: has been sober x 6 months Substance/Drug Use: never Lives independently: No Household members: friend(s) Marital status: Single service: No Current occupational status: employed Current gender identity: Male Special bethel needs: No Agree to transfusion: Yes Physical Exam 2 Narrative: EXAM NARRATIVE: General: Alert, somnolent but arousable, appears intoxicated Skin: Warm, dry. Head: Normocephalic, atraumatic. Neck: Supple, trachea midline. Eye: Extraocular movements are intact. Ears, nose, mouth and throat: mucosa moist. Cardiovascular: Regular, Normal peripheral perfusion. Respiratory: Lungs are clear to auscultation, respirations are non-labored, breath sounds are equal, Symmetrical chest wall expansion. Gastrointestinal: Soft, Nontender, Non distended Musculoskeletal: Normal ROM, no deformity. Neurological: Somnolent, No focal neurological deficit observed. Psychiatric: Somnolent, appears intoxicated Course 2 Vital Signs: Vital signs: Vital Signs Temperature 98.1 F 03/16/24 15:26 Pulse Rate 95 03/16/24 19:57 Respiratory Rate 16 03/16/24 19:57 Blood Pressure 151/91 03/16/24 19:57 Pulse Oximetry 94 03/16/24 19:57 Oxygen Delivery Me thod Room Air 03/16/24 19:57 Oxygen Flow Rate 2 03/16/24 15:26 MDM - Alcohol Medical Decision Making Differential diagnosis: Patient with reported alcohol abuse and possible psychiatric issues. concerns for infection, alcohol intoxication, cardiac issues or other medical problems prior to psychiatric admission. Workup: labwork, ekg ordered to evaluate the pathologies and to clear the patient medically prior to psychiatric admission EKG: Time 1623. Rate 89. Normal sinus rhythm, No ST-T changes, no ectopy, normal MA & QRS intervals, This was reviewed and interpreted by myself the ER physician at 1625. Lab Review: Laboratory results were reviewed and interpreted by myself the emergency room physician. Lab work is fairly unremarkable other than a blood alcohol level of over 400. This is not an uncommon occurrence for this patient. Repeat after 4 hours shows about an 80 decrease in his blood alcohol level. Am discharging him but he will stay here in the emergency room and sleep until he is more awake. Or he can get a ride. Vital signs have been normal. He is maintaining his airway. And again this is not uncommon for him to have blood-alcohol level this high Assessment and plan: Alcohol intoxication Dehydration ? Normal saline bolus in the emergency room -Admission to neuropsychiatric unit for continued evaluation and treatment. - All lab work was reviewed and interpreted personally by myself, the ER physician - Evaluation and treatment of this problem were appropriate in the emergency setting Lab Data 03/16/24 15:48 03/16/24 15:48 Laboratory Results WBC 4.75 10^3/uL (3.29-11.43) 03/16/24 15:48 RBC 4.62 10^6/uL (3.85-5.65) 03/16/24 15:48 Hgb 15.50 g/dL (11.27-16.99) 03/16/24 15:48 Hct 44.3 % (37-53) 03/16/24 15:48 MCV 95.9 fl (82-101) 03/16/24 15:48 MCH 33.5 pg (27-33) H 03/16/24 15:48 MCHC 35.0 g/dL (30-55) 03/16/24 15:48 RDW 13.3 % (12.1-15.1) 03/16/24 15:48 Plt Count 163 10^3/cmm (157-399) 03/16/24 15:48 MPV 10.3 fL (7.4-10.4) 03/16/24 15:48 Neut % (Auto) 55.4 % 03/16/24 15:48 Lymph % (Auto) 33.5 % 03/16/24 15:48 [place] % (Auto) 6.9 % 03/16/24 15:48 Eos % (Auto) 2.5 % 03/16/24 15:48 Baso % (Auto) 1.3 % 03/16/24 15:48 Neut # (Auto) 2.63 10^3/uL (1.8-7.7) 03/16/24 15:48 Lymph # (Auto) 1.6 10^3/uL (0.8-4.8) 03/16/24 15:48 [place] # (Auto) 0.3 10^3/uL (0.2-0.9) 03/16/24 15:48 Eos # (Auto) 0.1 10^3/uL (0.0-0.8) 03/16/24 15:48 Baso # (Auto) 0.1 10^3/uL (0.0-0.1) 03/16/24 15:48 Nucleated RBC % (auto) 0 % 03/16/24 15:48 Nucleated RBCs # 0.0 /100WBC 03/16/24 15:48 Sodium 141 mmol/L (136-145) 03/16/24 15:48 Potassium 3.5 mmol/L (3.5-5.1) 03/16/24 15:48 Chloride 101 mmol/L (98-107) 03/16/24 15:48 Carbon Dioxide 21 mmol/L (22-29) L 03/16/24 15:48 Anion Gap 22.5 (5-19) H 03/16/24 15:48 BUN 10 mg/dL (6-20) 03/16/24 15:48 Creatinine 0.7 mg/dL (0.7-1.2) 03/16/24 15:48 GFR Calculation 118.9 mL/min (90-130) 03/16/24 15:48 Glucose 92 mg/dL (65-115) 03/16/24 15:48 Calculated Osmolality 291 mOsm/kg (285-295) 03/16/24 15:48 Calcium 8.2 mg/dL (8.5-10.5) L 03/16/24 15:48 Total Bilirubin 0.3 mg/dL (0.15-1.2) 03/16/24 15:48 AST 72 U/L (0-40) H 03/16/24 15:48 ALT 42 U/L (0-41) H 03/16/24 15:48 Alkaline Phosphatase 65 U/L (40-130) 03/16/24 15:48 Total Protein 7.7 g/dL (6.6-8.7) 03/16/24 15:48 Albumin 4.1 g/dL (3.5-5.2) 03/16/24 15:48 Globulin 3.6 g/dL (1.3-4.6) 03/16/24 15:48 TSH 1.42 uIU/mL (0.27-4.20) 03/16/24 15:48 Urine Color Yellow (Yellow) 03/16/24 16:00 Urine Appearance Clear (CLEAR) 03/16/24 16:00 Urine pH 5.5 (5-7) 03/16/24 16:00 Ur Specific [place] 1.011 (1.005-1.030) 03/16/24 16:00 Urine Protein 1+ (Negative) A 03/16/24 16:00 Urine Glucose (UA) Negative (Normal) 03/16/24 16:00 Urine Ketones Negative (Negative) 03/16/24 16:00 Urine Blood Trace (Negative) A 03/16/24 16:00 Urine Nitrate Negative (Negative) 03/16/24 16:00 Urine Bilirubin Negative (Negative) 03/16/24 16:00 Urine Urobilinogen 1.0 mg/dL (Negative) 03/16/24 16:00 Ur Leukocyte Esterase Negative (Negative) 03/16/24 16:00 Urine RBC 0-2 /hpf (0-2) 03/16/24 16:00 Urine WBC 0-5 /hpf (0-5) 03/16/24 16:00 Ur Squamous Epith Cells 0-5 /hpf (0-5) 03/16/24 16:00 Amorphous Sediment Not Reportable 03/16/24 16:00 Urine Bacteria None seen /hpf (NONE) 03/16/24 16:00 Hyaline Casts 3.71 /lpf 03/16/24 16:00 Salicylates < 0.3 mg/dL (3-10) L 03/16/24 15:48 Urine Opiates Screen Negative ng/mL (Negative) 03/16/24 16:00 Acetaminophen < 5.0 ug/mL (10-30) L 03/16/24 15:48 Ur Barbiturates Screen Negative ng/mL (Negative) 03/16/24 16:00 Ur Phencyclidine Scrn Negative ng/mL (Negative) 03/16/24 16:00 Ur Amphetamines Screen Negative ng/mL (Negative) 03/16/24 16:00 U Benzodiazepines Scrn Positive ng/mL (Negative) H 03/16/24 16:00 Urine Cocaine Screen Negative ng/mL (Negative) 03/16/24 16:00 U Marijuana (THC) Screen Positive ng/mL (Negative) H 03/16/24 16:00 Ethyl Alcohol 358 mg/dL (0-10) H* 03/16/24 19:16 No radiology studies performed this visit Discharge Plan Discharge Patient Disposition: Home Clinical Impression: Alcoholic intoxication Condition: Stable Prescriptions: No Action sertraline 100 mg tablet 100 mg PO DAILY Qty: 30 2RF propranolol 20 mg tablet 20 mg PO BID PRN (Reason: anxiety) Qty: 60 2RF lisinopril 10 mg tablet 10 mg PO DAILY 30 Days Qty: 30 3RF amlodipine 10 mg tablet 10 mg PO DAILY 30 Days Qty: 30 3RF buspirone 15 mg tablet 15 mg PO BID Qty: 60 3RF hydroxyzine pamoate 25 mg capsule 75 mg PO TID PRN (Reason: Anxiety) Qty: 270 3RF sucralfate 1 gram tablet 1 g PO TID Qty: 90 0RF meloxicam 15 mg tablet 15 mg PO DAILY Qty: 30 4RF omeprazole 40 mg capsule,delayed release(DR/EC) 40 mg PO DAILY Qty: 30 2RF diazepam 5 mg tablet 5 mg PO DAILY PRN (Reason: anxiety) Qty: 14 0RF multivitamin with minerals Tablet 1 tab PO DAILY ondansetron 4 mg tablet,disintegrating 4 mg PO Q6H PRN (Reason: nausea and vomiting) Qty: 14 0RF folic acid 1 mg Tablet 1 mg PO DAILY Qty: 90 0RF Vitamin B-1 (mononitrate) 100 mg Tablet 100 mg PO DAILY Qty: 90 0RF lansoprazole 30 mg capsule,delayed release(DR/EC) 30 mg PO BID Qty: 60 3RF naltrexone microspheres 380 mg suspension,extended rel recon 380 mg IM .monthly Qty: 6 0RF Discharge Orders: Discharge ED (Routine); Ordered 03/16/24 Ordered By: Radha Bella Referrals: Hyacinth Lee MD [Primary Care Provider] - Discharge Diet: Usual diet Discharge Activity: Increase activity as tolerated Patient Instructions: Abuse of Alcohol (ED) Activity Restrictions/Additional Instructions: Thank you for choosing [facility] for your healthcare needs today. Please realize this is an emergency room and that we are providing you with a medical screening exam and this may not be complete and all inclusive of all the testing and or work up that you may need to determine your ailment or severity of your illness. You have been screened and evaluated and felt safe for discharge. Health conditions do change or evolve sometimes and as such it is important that you follow up with your Primary Doctor to be re checked, 3-5 days is a general good time frame for follow up. You are always welcome to return to the ED for re assessment if your symptoms are worsening or you have new concerns Coding Level of Care Code ED [employer] for Sandee Blanc
[2024-03-16 16:10] LABS: Basophils # 0.1 10^3/uL (0.0-0.1); Basophils % 1.3 %; Eosinophils # 0.1 10^3/uL (0.0-0.8); Eosinophils % 2.5 %; Hematocrit 44.3 % (37-53); Lymphocytes # 1.6 10^3/uL (0.8-4.8); Lymphocytes % 33.5 %; Mean Corpuscular Hemoglobin 33.5 pg (27-33); Mean Corpuscular Volume 95.9 fl (82-101); Mean Platelet Volume 10.3 fL (7.4-10.4); Monocytes # 0.3 10^3/uL (0.2-0.9); Monocytes % 6.9 %; Neutrophils # 2.63 10^3/uL (1.8-7.7); Neutrophils % 55.4 %; Nucleated Red Blood Cells % 0 %; Platelet Count 163 10^3/cmm (157-399); Red Blood Count 4.62 10^6/uL (3.85-5.65); Red Cell Distribution Width 13.3 % (12.1-15.1); White Blood Count 4.75 10^3/uL (3.29-11.43)
[2024-03-16 16:13] LABS: Bilirubin Urine Negative (Negative); Blood Urine Trace (Negative); Glucose Urine UA Negative (Normal); Ketones Urine Negative (Negative); Leukocyte Esterase Urine Negative (Negative); Nitrate Urine Negative (Negative); Protein Urine 1+ (Negative); Specific Gravity, Urine 1.011 (1.005-1.030); Urine Appearance Clear (CLEAR); Urine Color Yellow (Yellow); pH Urine 5.5 (5-7)
[2024-03-16 16:18] LABS: Bacteria Urine None Seen /hpf; Hyaline Casts Urine 3.71 /lpf; RBC Urine 0-2 /hpf (0-2); Squamous Epithelial Cell Urine 0-5 /hpf (0-5); WBC Urine 0-5 /hpf (0-5)
[2024-03-16 16:22] LABS: Amphetamines Screen Urine Negative (Negative); Barbiturates Screen Urine Negative (Negative); Benzodiazepines Screen Urine Positive (Negative); Cocaine Screen Urine Negative (Negative); Opiate Screen Urine Negative (Negative); PCP Screen Urine Negative (Negative); THC Screen Urine Positive (Negative)
[2024-03-16 16:38] LABS: Alanine Aminotransferase 42 U/L (0-41); Albumin Level 4.1 g/dL (3.5-5.2); Alkaline Phosphatase 65 U/L (40-130); Anion Gap 22.5 (5-19); Aspartate Amino Transferase 72 U/L (0-40); Blood Urea Nitrogen 10 mg/dL (6-20); Calcium 8.2 mg/dL (8.5-10.5); Carbon Dioxide 21 mmol/L (22-29); Chloride 101 mmol/L (98-107); Globulin 3.6 g/dL (1.3-4.6); Glomerular Filtration Rate 118.9 mL/min (90-130); Glucose 92 mg/dL (65-115); Osmolality Calculated 291 mOsm/kg (285-295); Potassium 3.5 mmol/L (3.5-5.1); Sodium 141 mmol/L (136-145); Thyroid Stimulating Hormone 1.42 uIU/mL (0.27-4.20); Total Bilirubin 0.3 mg/dL (0.15-1.2); Total Protein 7.7 g/dL (6.6-8.7)
[2024-03-16 16:51] LABS: Acetaminophen < 5.0 ug/mL (10-30); Salicylate < 0.3 mg/dL (3-10)
[2024-03-16 16:52] LABS: Alcohol Level 429 mg/dL (0-10)
[2024-03-16] MEDS: sodium chloride 0.9% 1,000 ML 999 ML IV (17:43)
[2024-03-16 19:41] LABS: Alcohol Level 358 mg/dL (0-10)
[2024-03-16] MEDS: LORazepam 2 mg Tablet PO (21:45)
[2024-03-17] VITALS (92 sets, daily range): BP systolic 111–227; BP diastolic 73–132; PULSE 78–114; RESP 14–38; TEMP 36.4–36.8; O2SAT 85–96
[2024-03-17] MEDS: LORazepam 2 mg/mL INJ 1 mL IVP ×4 (00:37→12:15)
[2024-03-17] MEDS: hyDRALAzine 20 mg/mL INJ 1 mL 10 MG IVP ×3 (01:12→21:34)
--- NOTE | 2024-03-17 01:25 | P.HP_ITS ---
Providers/Chief Complaint 2 Admitting Physician: Arlin Erickson MD Primary Care Provider: Hyacinth Lee MD Chief Complaint: ANXIETY History of Present Illness Ade Carcamo is a 53 year old male with a longstanding history of alcohol abuse and withdrawal, currently presenting to the hospital because he was hypertensive after having consumed alcohol at home. In the ER blood pressure was noted to be as high as 220/119. Alcohol level was 429 upon admission. He was given treatment for the hypertension and was planned to be discharged home however by the evening he started to go into alcohol withdrawal. he had excessive shaking, sweating and high CIWA scores - 21 at time of this assessment. He has needed to be on Precedex infusions during his past admissions. He is being admitted to the hospital today for the above problems. Review of Systems 2 General: Reports: 10 or more systems reviewed and unremarkable except in HPI and below Const: Denies: fever(s), chills or body aches Eyes: Denies: change in vision, blurry vision or photophobia ENMT: Reports: hoarseness; Denies: throat pain, enlarged tonsils, odynophagia or nasal congestion Card: Denies: chest pain, palpitations, irregular heart rhythm, edema, swelling of feet/ankles, lightheadedness, pre-syncope, dyspnea on exertion or orthopnea Resp: Denies: dyspnea, productive cough, non-productive cough, wheezing, stridor, pain on inspiration, change in phlegm color, hemoptysis or chest congestion GI: Denies: abdominal pain, nausea, vomiting, hematemesis, coffee ground emesis, dysphagia, heartburn, diarrhea, constipation, GI cramping, change in stool character, hematochezia or melena : Denies: flank pain, dysuria, urinary frequency, urinary urgency, urinary hesitancy or hematuria Musc: Denies: neck pain, back pain, extremity pain, joint swelling, joint warmth or deformity Neuro: Denies: headache(s), numbness in extremities, weakness in extremities, sensory changes, difficulty walking, frequent falls, dizziness, vertigo, behavioral changes, Slurred speech present or seizure-like activity Psych: Denies: anxiety, depression, suicidal ideation or homicidal ideation Endo: Denies: polyuria, polydipsia, tired all the time, cold intolerance or hot flashes Anton/Lymph: Denies: easy bruising or easy bleeding Medications/Allergies Home Medications Medication Instructions Recorded Confirmed Last Taken Type multivitamin with minerals 1 tab PO DAILY 08/03/20 03/17/24 03/16/24 History amlodipine 10 mg tablet 10 mg PO DAILY 30 days #30 tabs 12/06/23 03/17/24 03/16/24 Rx buspirone 15 mg tablet 15 mg PO BID #60 tabs 12/06/23 03/17/24 03/16/24 Rx hydroxyzine pamoate 25 mg capsule 75 mg (3 x 25 mg) PO TID PRN 12/06/23 03/17/24 03/16/24 Rx Anxiety #270 caps lisinopril 10 mg tablet 10 mg PO DAILY 30 days #30 tabs 12/06/23 03/17/24 03/16/24 Rx meloxicam 15 mg tablet 15 mg PO DAILY #30 tabs 12/06/23 03/17/24 03/16/24 Rx sertraline 100 mg tablet 100 mg PO DAILY #30 tabs 12/06/23 03/17/24 03/16/24 Rx sucralfate 1 gram tablet 1 g PO TID #90 tabs 12/06/23 03/17/24 03/16/24 Rx omeprazole 40 mg capsule,delayed 40 mg PO DAILY #30 caps 01/10/24 03/17/24 03/16/24 Rx release diazepam 5 mg tablet 5 mg PO DAILY PRN anxiety #14 tabs 03/12/24 03/17/24 03/16/24 Rx vitamin B complex 1 tab PO DAILY 03/17/24 03/17/24 03/16/24 History Allergies Allergy/AdvReac Type Severity Reaction Status Date / Time No Known Allergies Allergy Verified 12/06/23 08:29 PFSH Acute 2 PFSH: Medical History Fibula fracture Generalized anxiety disorder Depression Alcoholism Hypertension Surgical History History of open reduction and internal fixation (ORIF) procedure Fibula fracture, left distal lateral malleolar fracture Family History Other No pertinent family history Social History Smoking and tobacco/nicotine status: former use of tobacco/nicotine Quit status (tobacco/nicotine): has quit using Year quit tobacco: 2021 3-4 months ago Second hand smoke exposure: No Alcohol intake: former Former alcohol use details: has been sober x 6 months Substance/Drug Use: never Lives independently: No Household members: friend(s) Marital status: Single service: No Current occupational status: employed Current gender identity: Male Special bethel needs: No Agree to transfusion: Yes Vitals/I&O/Wt Last Vital Signs Temp 97.6 F 03/17/24 00:05 Pulse 85 03/17/24 00:50 Resp 14 03/17/24 00:50 BP 206/125 03/17/24 00:50 Pulse Ox 94 03/16/24 23:35 O2 Del Method Room Air 03/16/24 23:26 O2 Flow Rate 2 03/16/24 15:26 03/16/24 03/16/24 03/17/24 14:59 22:59 06:59 Intake Total 1000 / 1000 Balance 1000 / 1000 Weight last 48 hrs Weight 134.399 kg Physical Exam 2 Narrative: General: No acute distress, AO x3 HEENT: PERRLA, pupils bilaterally equal and reactive, pallors not present Chest: Normal vesicular breath sounds, no added sounds, equal good air entry bilaterally CVS: S1-S2 regular, no murmurs, no tachycardia, no gallops, no rubs Abdomen: Soft, nontender, no organomegaly, bowel sounds present Neuro: No focal deficits, no facial deformity, AO x3, power 5/5 in all limbs Extremities: Bilateral lower extremity 1+ edema. Data 03/16/24 15:48 03/16/24 15:48 A&P Assessment and plan (1) Alcohol withdrawal: (2) Accelerated hypertension: Plan 53-year-old male initially presenting with hypertension with systolic BP > 220 , thereafter during course of the day developed alcohol withdrawal. Currently CIWA score is a 21. Patient is anxious, agitated, no evidence of respiratory compromise at this time. He is being admitted to the ICU in view of high scores and need to monitor for possibility of DTs/seizures. May need Precedex gtt if unable to control symptoms with Ativan. Management for alcohol withdrawal per CIWA protocol. As needed Ativan Uncontrolled hypertension, currently likely driven by acute withdrawal and non compliance with medications Hydralazine 10 mg IV every 4 hours, Labetalol 10mg IV q6h prn Continue home dose of amlodipine 10 mg daily, starting now. Continue lisinopril. Continue sertraline at home dosing Noted to have transamnitis on labs. LE edema. No signs of CHF. Concern for underlying cirrhosis and portal HTN- liver US to assess for same. Check acute hepatitis panel DVT ppx: lovenox 40 s/c Full code PUD ppx: protonix Attestations 2 Medical Necessity Statement*: > 2 midnight stay is anticipated Coding Level of Care Code Acute Code for Chg Fwd High MDM includes number and complexity of problems actively addressed during encounter, amount and/or complexity of data reviewed/ordered and described risk of complication, morbidity or mortality of management as documented Diagnoses Alcohol withdrawal F10.939 Accelerated hypertension I10
[2024-03-17] MEDS: ondansetron 2 mg/ML SDV 2 mL 4 MG IVP ×4 (01:58→20:36)
[2024-03-17] MEDS: amlodipine 10 mg Tablet PO ×2 (01:59→09:30)
[2024-03-17] MEDS: enoxaparin 40 mg/0.4 mL Syringe SUBCUT (01:59)
[2024-03-17] MEDS: labetalol 5 mg/mL SDV 20mL 10 MG IVP (02:14)
--- NOTE | 2024-03-17 06:34 | USR_ITS ---
PROCEDURE INFORMATION: Exam: US Abdomen, Limited; Right Upper Quadrant Exam date and time: 03/17/2024 9:39 AM Age: 53 years old Clinical indication: Screening exam; Other: Concern for cirrhosis TECHNIQUE: Imaging protocol: Real time ultrasound of the abdomen with image documentation. Limited exam focused on the right upper quadrant. COMPARISON: CT abdomen pelvis w con* [id number] 07/21/2020 9:41 PM FINDINGS: Liver: The liver is enlarged measuring 21.2 cm.The liver is diffusely increased in echogenicity consistent with fatty infiltration. Gallbladder: The gallbladder is mildly distended measuring 9.5 cm. No evidence for wall thickening, stones, or pericholecystic fluid. Biliary ducts: Common bile duct is normal in caliber measuring 6 mm. Pancreas: The pancreas is obscured by overlying bowel gas. Right kidney: Normal. No mass. No hydronephrosis. US/US liver [id number] IMPRESSION: Hepatomegaly with fatty infiltration of the liver.
--- NOTE | 2024-03-17 07:31 | P.PN_ITS ---
Subjective 2 Subjective: seen at bedside this AM. admitted for alcohol withdrawal CIWA on admission 21, current CIWA 10. longstanding Hx of alcohol abuse/withdrawal. 1 gallon vodka/day overnight had elevated blood pressures. pt appears slightly anxious. has nausea with two witness small emesis. visible shaking in L hand He has needed to be on Precedex infusions during his past admissions. Medications: Reviewed: Yes Vitals/I&O/Wt Last Vital Signs Temp 97.7 F 03/17/24 03:30 Pulse 85 03/17/24 06:00 Resp 26 H 03/17/24 04:35 BP 151/87 03/17/24 04:35 Pulse Ox 92 03/17/24 04:35 O2 Del Method Nasal Cannula 03/17/24 04:05 O2 Flow Rate 2 03/17/24 04:05 03/16/24 03/17/24 03/17/24 22:59 06:59 14:59 Intake Total 1000 / 1000 360 / 1360 Balance 1000 / 1000 360 / 1360 Weight last 48 hrs Weight 296 lb 4.8 oz Physical Exam 2 Narrative: General: AOx3, mild distress HEENT: PERRLA, pupils bilaterally equal and reactive, pallors not present Chest: Normal vesicular breath sounds, no added sounds, equal good air entry bilaterally CVS: tachycardic,S1-S2 regular, no murmurs, no gallops, no rubs Abdomen: Soft, nontender, no organomegaly, bowel sounds present Neuro: No focal deficits, no facial deformity, AO x3, power 5/5 in all limbs Extremities: Bilateral lower extremity 1+ edema. Data 03/17/24 08:13 03/17/24 08:13 A&P Assessment and plan (1) Alcohol withdrawal: (2) Accelerated hypertension: Plan 53-year-old male initially presenting with hypertension with systolic BP > 220 , thereafter during course of the day developed alcohol withdrawal. CIWA: 21 (03/16/24), CIWA 10 (03/17/24). Patient is anxious, agitated, no evidence of respiratory compromise at this time. Ativan appears to be controlling Sx, precedex gtt if unable to control Sx. monitor for withdrawal Sx (DT's/seizures) As needed Ativan Uncontrolled hypertension, currently likely driven by acute withdrawal and non compliance with medications Hydralazine 10 mg IV every 4 hours, Labetalol 10mg IV q6h prn continue home norvasc 10mg and lisinopril 10mg. may need ot adjust Noted to have transamnitis on labs. LE edema. No signs of CHF. Concern for underlying cirrhosis and portal HTN- liver US to assess for same. Check acute hepatitis panel DVT ppx: lovenox 40 s/c Full code PUD ppx: protonix Attestations 2 Medical Necessity Statement*: patient will require 2 overnight stays for ICU management Coding Level of Care Code 41772 Diagnoses Alcohol withdrawal F10.939 Accelerated hypertension I10
[2024-03-17 08:24] LABS: Basophils # 0.1 10^3/uL (0.0-0.1); Basophils % 1.2 %; Eosinophils # 0.3 10^3/uL (0.0-0.8); Eosinophils % 4.3 %; Hematocrit 43.2 % (37-53); Lymphocytes # 1.7 10^3/uL (0.8-4.8); Lymphocytes % 25.1 %; Mean Corpuscular HGB Conc 34.7 g/dL (30-55); Mean Corpuscular Volume 95.2 fl (82-101); Mean Platelet Volume 9.9 fL (7.4-10.4); Monocytes # 0.6 10^3/uL (0.2-0.9); Monocytes % 9.3 %; Neutrophils # 3.94 10^3/uL (1.8-7.7); Neutrophils % 59.8 %; Nucleated Red Blood Cells % 0 %; Platelet Count 142 10^3/cmm (157-399); Red Blood Count 4.54 10^6/uL (3.85-5.65); Red Cell Distribution Width 13.3 % (12.1-15.1); White Blood Count 6.58 10^3/uL (3.29-11.43)
[2024-03-17] MEDS: pantoprazole DR 40 mg Tablet PO (08:37)
[2024-03-17] MEDS: sucralfate 1 gm Tablet PO ×3 (08:37→20:36)
[2024-03-17 08:48] LABS: Alanine Aminotransferase 45 U/L (0-41); Albumin Level 4.3 g/dL (3.5-5.2); Alkaline Phosphatase 62 U/L (40-130); Anion Gap 22.5 (5-19); Aspartate Amino Transferase 80 U/L (0-40); Blood Urea Nitrogen 8 mg/dL (6-20); Calcium 8.1 mg/dL (8.5-10.5); Carbon Dioxide 23 mmol/L (22-29); Chloride 98 mmol/L (98-107); Globulin 3.4 g/dL (1.3-4.6); Glucose 94 mg/dL (65-115); Magnesium 1.4 mg/dL (1.7-2.3); Osmolality Calculated 288 mOsm/kg (285-295); Potassium 3.5 mmol/L (3.5-5.1); Sodium 140 mmol/L (136-145); Total Bilirubin 0.6 mg/dL (0.15-1.2); Total Protein 7.7 g/dL (6.6-8.7)
[2024-03-17 08:57] LABS: Creatinine Clr Calc Pharmacy 205.2175
[2024-03-17 08:59] LABS: Hepatitis A Antibody IgM Non-Reactive (Nonreactive); Hepatitis B Core IgM Non-Reactive (Nonreactive); Hepatitis B Surface Antigen Non-Reactive (Nonreactive); Hepatitis C Virus Antibody Non-Reactive (Nonreactive)
[2024-03-17] MEDS: multivitamin therapeutic Tablet 1 TAB PO (09:29)
[2024-03-17] MEDS: thiamine 100 mg Tablet PO (09:29)
[2024-03-17] MEDS: folic acid 1 mg Tablet PO (09:29)
[2024-03-17] MEDS: lisinopril 10 mg Tablet PO (09:30)
[2024-03-17] MEDS: sertraline 100 mg Tablet PO (09:30)
[2024-03-17] MEDS: LORazepam 2 mg Tablet PO ×3 (09:30→20:36)
[2024-03-17] MEDS: hyDROXYzine 25 mg Capsule 75 MG PO ×3 (11:00→23:56)
[2024-03-17] MEDS: magnesium citrate Btl 296 mL 150 ML PO (13:06)
--- NOTE | 2024-03-17 18:10 | PC.NURSE ---
Shift summary: Pt remains alert and oriented tp person, place and time. He is on CIWA protocol, 10-14 this shift. He had quite a bit of nausea and heaving with clear full output. He would heave then spit out saliva. He did complain of sinus drainage. He was becoming more anxious during this. Then that would exacerbate his puking . He received Zofran this am. Per Dr Nicholson go ahead and give him Zofran the next time it is due to help prevent this. He has had 2 doses this shift. He had PRN hydralazine once for HTN. He has received Ativan 3 x this shift for CIWA, 2 tablets and IVP once. He has also had Vistaril once this sift. His nausea finally slowed down around 1400. He is able to eat and drink this afternoon. He received Magnesium sulfate liquid tis am. His Mag level was 1.4. He has urinated 3x, adequate amount. He has had a large loose BM.
[2024-03-18] VITALS (43 sets, daily range): BP systolic 125–191; BP diastolic 76–110; PULSE 78–96; RESP 13–41; TEMP 36.2–37.1; O2SAT 93–97
[2024-03-18] MEDS: LORazepam 2 mg Tablet PO ×5 (00:37→22:24)
[2024-03-18] MEDS: enoxaparin 40 mg/0.4 mL Syringe SUBCUT (00:38)
[2024-03-18] MEDS: hyDRALAzine 20 mg/mL INJ 1 mL 10 MG IVP (01:56)
[2024-03-18] MEDS: ondansetron 2 mg/ML SDV 2 mL 4 MG IVP ×2 (04:11→12:47)
[2024-03-18 04:29] LABS: Basophils # 0.1 10^3/uL (0.0-0.1); Basophils % 0.8 %; Eosinophils # 0.2 10^3/uL (0.0-0.8); Eosinophils % 3.5 %; Hematocrit 47.6 % (37-53); Lymphocytes # 1.3 10^3/uL (0.8-4.8); Lymphocytes % 19.3 %; Mean Corpuscular HGB Conc 33.2 g/dL (30-55); Mean Corpuscular Hemoglobin 33.3 pg (27-33); Mean Corpuscular Volume 100.4 fl (82-101); Mean Platelet Volume 10.7 fL (7.4-10.4); Monocytes # 0.6 10^3/uL (0.2-0.9); Monocytes % 9.1 %; Neutrophils # 4.42 10^3/uL (1.8-7.7); Neutrophils % 67.1 %; Nucleated Red Blood Cells % 0 %; Platelet Count 128 10^3/cmm (157-399); Red Blood Count 4.74 10^6/uL (3.85-5.65); Red Cell Distribution Width 13.4 % (12.1-15.1); White Blood Count 6.58 10^3/uL (3.29-11.43)
[2024-03-18 04:49] LABS: Albumin Level 3.8 g/dL (3.5-5.2); Alkaline Phosphatase 55 U/L (40-130); Blood Urea Nitrogen 7 mg/dL (6-20); Calcium 8.4 mg/dL (8.5-10.5); Carbon Dioxide 23 mmol/L (22-29); Chloride 95 mmol/L (98-107); Globulin 3.8 g/dL (1.3-4.6); Glomerular Filtration Rate 175.3 mL/min (90-130); Glucose 114 mg/dL (65-115); Osmolality Calculated 275 mOsm/kg (285-295); Sodium 133 mmol/L (136-145); Total Protein 7.6 g/dL (6.6-8.7)
[2024-03-18 04:50] LABS: Alanine Aminotransferase 40 U/L (0-41); Anion Gap 18.6 (5-19); Aspartate Amino Transferase 67 U/L (0-40); Potassium 3.6 mmol/L (3.5-5.1)
[2024-03-18 04:55] LABS: Magnesium 1.7 mg/dL (1.7-2.3)
[2024-03-18] MEDS: sucralfate 1 gm Tablet PO ×3 (07:38→20:20)
[2024-03-18] MEDS: amlodipine 10 mg Tablet PO (07:38)
[2024-03-18] MEDS: lisinopril 10 mg Tablet PO (07:38)
[2024-03-18] MEDS: sertraline 100 mg Tablet PO (08:40)
[2024-03-18] MEDS: pantoprazole DR 40 mg Tablet PO (08:40)
[2024-03-18] MEDS: thiamine 100 mg Tablet PO (08:40)
[2024-03-18] MEDS: folic acid 1 mg Tablet PO (08:40)
[2024-03-18] MEDS: multivitamin therapeutic Tablet 1 TAB PO (08:40)
--- NOTE | 2024-03-18 12:41 | P.PN_ITS ---
Subjective 2 Subjective: Patient reports he is doing better. Less nauseous. Taking some p.o. Ativan. Overall CIWA scores improving. Medications: Reviewed: Yes Vitals/I&O/Wt Last Vital Signs Temp 98.8 F 03/18/24 08:30 Pulse 83 03/18/24 10:00 Resp 31 H 03/18/24 10:00 BP 164/94 03/18/24 10:00 Pulse Ox 93 03/18/24 10:00 O2 Del Method Room Air 03/18/24 10:00 O2 Flow Rate 2 03/17/24 10:00 03/17/24 03/18/24 03/18/24 22:59 06:59 14:59 Intake Total 1220 / 1520 480 / 2000 200 / 200 Output Total 800 / 1550 Balance 1220 / 770 -320 / 450 200 / 200 Weight last 48 hrs Weight 134.399 kg Weight 136.078 kg Weight 134.399 kg Physical Exam 2 Narrative: General Exam no distress Neck is supple Cardiovascular regular rate and rhythm, no murmur Lungs clear Abdomen is soft Extremities no cyanosis clubbing edema Data 03/18/24 03:52 03/18/24 03:52 A&P Assessment and plan (1) Alcohol withdrawal: Significant alcohol withdrawal Still with some withdrawal, requiring p.o. Ativan Stable to be transferred out of the ICU Continue to follow CIWA scores Continue fluids secondary to nausea (2) Accelerated hypertension: Lisinopril, amlodipine added. Continue to follow. Hopefully blood pressure will decrease as withdrawal wanes. Has as needed hydralazine Plan Transaminitis. Hepatitis panel negative. Liver ultrasound fatty infiltration. Repeat CBC, CMP in the morning DVT ppx: lovenox 40 s/c Full code PUD ppx: protonix Transfer out of ICU Attestations 2 Medical Necessity Statement*: Needs continued hospitalization secondary to continued withdrawal, with need for close monitoring and Ativan Diagnoses Alcohol withdrawal F10.939 Accelerated hypertension I10 Time Spent (min) 29
[2024-03-18] MEDS: sodium chloride 0.9% 1,000 ML 100 ML IV ×2 (13:04→22:19)
--- NOTE | 2024-03-18 13:52 | PC.NURSE ---
Addendum entered by Simon Clements RN 03/18/24 18:24: Patient has since urinated, 400mL [place] concentrated urine Original Note: No urine output during this shift so far. NUrse bladder scanned. SHows 240mL retained. Alerted Dr vasquez. No new orders.
--- NOTE | 2024-03-18 17:53 | PC.NURSE ---
Shift SUmmary: Uneventful shift. Patient rested in bed throughout the day, occasionally up to the bathroom. Needed ativan PO twice today for withdrawal symptoms (headache, tremors, nausea, perspiration, anxiety), but frequency was less than previous shift. Pending transfer to [facility], waiting on bed to become available.
--- NOTE | 2024-03-18 20:37 | PC.NURSE ---
Report called to med surg at 2014, patient transferred to med surg at 2024
[2024-03-19] VITALS: BP 157/93; PULSE 75; RESP 20; TEMP 36.9; O2SAT 95
[2024-03-19] MEDS: LORazepam 2 mg/mL INJ 1 mL IVP (00:05)
[2024-03-19] MEDS: enoxaparin 40 mg/0.4 mL Syringe SUBCUT (01:32)
[2024-03-19 04:00] VITALS: BP 129/86; PULSE 75; RESP 20; TEMP 36.8; O2SAT 96
[2024-03-19 05:36] LABS: Basophils % 0.7 %; Eosinophils # 0.4 10^3/uL (0.0-0.8); Eosinophils % 6.3 %; Hematocrit 45.2 % (37-53); Lymphocytes # 1.3 10^3/uL (0.8-4.8); Lymphocytes % 22.1 %; Mean Corpuscular HGB Conc 34.3 g/dL (30-55); Mean Corpuscular Hemoglobin 33.7 pg (27-33); Mean Corpuscular Volume 98.3 fl (82-101); Mean Platelet Volume 10.6 fL (7.4-10.4); Monocytes # 0.5 10^3/uL (0.2-0.9); Monocytes % 8.4 %; Neutrophils # 3.65 10^3/uL (1.8-7.7); Neutrophils % 62.3 %; Nucleated Red Blood Cells % 0 %; Platelet Count 118 10^3/cmm (157-399); Red Cell Distribution Width 12.6 % (12.1-15.1); White Blood Count 5.85 10^3/uL (3.29-11.43)
[2024-03-19] MEDS: LORazepam 2 mg Tablet PO (05:46)
[2024-03-19 05:59] VITALS: PULSE 73
[2024-03-19 06:02] LABS: Alanine Aminotransferase 44 U/L (0-41); Alkaline Phosphatase 55 U/L (40-130); Aspartate Amino Transferase 79 U/L (0-40); Blood Urea Nitrogen 6 mg/dL (6-20); Calcium 8.3 mg/dL (8.5-10.5); Carbon Dioxide 21 mmol/L (22-29); Chloride 98 mmol/L (98-107); Creatinine Clr Calc Pharmacy 203.8158; Globulin 3.5 g/dL (1.3-4.6); Glucose 170 mg/dL (65-115); Osmolality Calculated 278 mOsm/kg (285-295); Sodium 133 mmol/L (136-145); Total Protein 7.5 g/dL (6.6-8.7)
[2024-03-19 06:04] LABS: Anion Gap 17.1 (5-19); Potassium 3.1 mmol/L (3.5-5.1)
[2024-03-19 06:09] LABS: Magnesium 1.6 mg/dL (1.7-2.3)
[2024-03-19 07:08] VITALS: BP 140/98; PULSE 89; RESP 18; TEMP 36.9; O2SAT 97
[2024-03-19] MEDS: amlodipine 10 mg Tablet PO (09:08)
[2024-03-19] MEDS: thiamine 100 mg Tablet PO (09:08)
[2024-03-19] MEDS: multivitamin therapeutic Tablet 1 TAB PO (09:08)
[2024-03-19] MEDS: lisinopril 10 mg Tablet PO (09:08)
[2024-03-19] MEDS: magnesium sulfate premix 2 GM/50 ML PIGGYBACK IV (09:08)
[2024-03-19] MEDS: potassium chloride ER 20 mEq Tablet 40 MEQ PO (09:08)
[2024-03-19] MEDS: folic acid 1 mg Tablet PO (09:09)
[2024-03-19] MEDS: hyDROXYzine 25 mg Capsule 75 MG PO (09:09)
[2024-03-19] MEDS: sucralfate 1 gm Tablet PO (09:09)
[2024-03-19] MEDS: sertraline 100 mg Tablet PO (09:09)
[2024-03-19] MEDS: pantoprazole DR 40 mg Tablet PO (09:09)
--- NOTE | 2024-03-19 09:22 | P.DS_ITS ---
Discharge Providers Date of Admission: 03/16/24 22:36 Date of Discharge: March 19, 2024 Attending Provider at Admission: Arlin Erickson MD Attending Provider at Discharge: Mark Krueger MD Primary Care Provider: Hyacinth Lee MD Diagnoses at Discharge Discharge Diagnosis (1) Alcohol withdrawal: Status: Acute (2) Accelerated hypertension: Status: Acute Reason for Visit Reason for Visit: ANXIETY Hospital Course Hospital Course Ade is a 53-year-old white male who presented to the hospital on March 17, with elevated blood pressure as well as alcohol withdrawal. Blood pressure m edication with initiated. CIWA protocol was initiated. He was given fluids. Ultrasound of liver was done demonstrating some fatty liver. With this management he had gradual improvement. Withdrawal waned significantly and blood pressure became under better control with home medication. By March 19 he wished to go home. He reported he had some mild withdrawal symptoms but did not want to stay for any further treatment. He was amenable to taking some Librium as needed at home, and I counseled him not to take this with his Valium. He is not to drink any alcohol, discharge planning to give him resources regarding rehabilitation. He will follow-up with his primary care provider, to have further adjustments in blood pressure medication if needed. He was given an opportunity to ask questions, and agreed with the plan. He was discharged in stable condition home. Magnesium and potassium were supplemented prior to discharge. Physical Exam Narrative: General Exam no distress Neck is supple Cardiovascular regular rate and rhythm Lungs clear Abdomen is soft Extremities no cyanosis clubbing edema Discharge Data Studies Completed and Pending Completed Studies During Hospitalization [place] [id number] Routine Ultrasound 03/17/24 06:34 Completed Pending at discharge Category Date Time Status CBC Auto Diff [Complete Blood Count w/Auto] AM LABS Lab 03/20/24 09:00 Ordered CMP [Comprehensive Metabolic Panel] AM LABS Lab 03/20/24 04:01 Ordered Magnesium AM LABS Lab 03/20/24 07:00 Ordered Radiology Impressions Liver Ultrasound 03/17/24 06:34 IMPRESSION: Hepatomegaly with fatty infiltration of the liver. Laboratory Results WBC 5.85 10^3/uL (3.29-11.43) 03/19/24 05:22 RBC 4.60 10^6/uL (3.85-5.65) 03/19/24 05:22 Hgb 15.50 g/dL (11.27-16.99) 03/19/24 05:22 Hct 45.2 % (37-53) 03/19/24 05:22 MCV 98.3 fl (82-101) 03/19/24 05:22 MCH 33.7 pg (27-33) H 03/19/24 05:22 MCHC 34.3 g/dL (30-55) 03/19/24 05:22 RDW 12.6 % (12.1-15.1) 03/19/24 05:22 Plt Count 118 10^3/cmm (157-399) L 03/19/24 05:22 MPV 10.6 fL (7.4-10.4) H 03/19/24 05:22 Neut % (Auto) 62.3 % 03/19/24 05:22 Lymph % (Auto) 22.1 % 03/19/24 05:22 Motley % (Auto) 8.4 % 03/19/24 05:22 Eos % (Auto) 6.3 % 03/19/24 05:22 Baso % (Auto) 0.7 % 03/19/24 05:22 Neut # (Auto) 3.65 10^3/uL (1.8-7.7) 03/19/24 05:22 Lymph # (Auto) 1.3 10^3/uL (0.8-4.8) 03/19/24 05:22 Motley # (Auto) 0.5 10^3/uL (0.2-0.9) 03/19/24 05:22 Eos # (Auto) 0.4 10^3/uL (0.0-0.8) 03/19/24 05:22 Baso # (Auto) 0.0 10^3/uL (0.0-0.1) 03/19/24 05:22 Nucleated RBC % (auto) 0 % 03/19/24 05:22 Nucleated RBCs # 0.0 /100WBC 03/19/24 05:22 Sodium 133 mmol/L (136-145) L 03/19/24 05:22 Potassium 3.1 mmol/L (3.5-5.1) L 03/19/24 05:22 Chloride 98 mmol/L (98-107) 03/19/24 05:22 Carbon Dioxide 21 mmol/L (22-29) L 03/19/24 05:22 Anion Gap 17.1 (5-19) 03/19/24 05:22 BUN 6 mg/dL (6-20) 03/19/24 05:22 Creatinine 0.6 mg/dL (0.7-1.2) L 03/19/24 05:22 GFR Calculation 142.0 mL/min (90-130) H 03/19/24 05:22 Glucose 170 mg/dL (65-115) H 03/19/24 05:22 Calculated Osmolality 278 mOsm/kg (285-295) L 03/19/24 05:22 Calcium 8.3 mg/dL (8.5-10.5) L 03/19/24 05:22 Magnesium 1.6 mg/dL (1.7-2.3) L 03/19/24 05:22 Total Bilirubin 1.0 mg/dL (0.15-1.2) 03/19/24 05:22 AST 79 U/L (0-40) H 03/19/24 05:22 ALT 44 U/L (0-41) H 03/19/24 05:22 Alkaline Phosphatase 55 U/L (40-130) 03/19/24 05:22 Total Protein 7.5 g/dL (6.6-8.7) 03/19/24 05:22 Albumin 4.0 g/dL (3.5-5.2) 03/19/24 05:22 Globulin 3.5 g/dL (1.3-4.6) 03/19/24 05:22 TSH 1.42 uIU/mL (0.27-4.20) 03/16/24 15:48 Urine Color Yellow (Yellow) 03/16/24 16:00 Urine Appearance Clear (CLEAR) 03/16/24 16:00 Urine pH 5.5 (5-7) 03/16/24 16:00 Ur Specific [place] 1.011 (1.005-1.030) 03/16/24 16:00 Urine Protein 1+ (Negative) A 03/16/24 16:00 Urine Glucose (UA) Negative (Normal) 03/16/24 16:00 Urine Ketones Negative (Negative) 03/16/24 16:00 Urine Blood Trace (Negative) A 03/16/24 16:00 Urine Nitrate Negative (Negative) 03/16/24 16:00 Urine Bilirubin Negative (Negative) 03/16/24 16:00 Urine Urobilinogen 1.0 mg/dL (Negative) 03/16/24 16:00 Ur Leukocyte Esterase Negative (Negative) 03/16/24 16:00 Urine RBC 0-2 /hpf (0-2) 03/16/24 16:00 Urine WBC 0-5 /hpf (0-5) 03/16/24 16:00 Ur Squamous Epith Cells 0-5 /hpf (0-5) 03/16/24 16:00 Amorphous Sediment Not Reportable 03/16/24 16:00 Urine Bacteria None seen /hpf (NONE) 03/16/24 16:00 Hyaline Casts 3.71 /lpf 03/16/24 16:00 Salicylates < 0.3 mg/dL (3-10) L 03/16/24 15:48 Urine Opiates Screen Negative ng/mL (Negative) 03/16/24 16:00 Acetaminophen < 5.0 ug/mL (10-30) L 03/16/24 15:48 Ur Barbiturates Screen Negative ng/mL (Negative) 03/16/24 16:00 Ur Phencyclidine Scrn Negative ng/mL (Negative) 03/16/24 16:00 Ur Amphetamines Screen Negative ng/mL (Negative) 03/16/24 16:00 U Benzodiazepines Scrn Positive ng/mL (Negative) H 03/16/24 16:00 Urine Cocaine Screen Negative ng/mL (Negative) 03/16/24 16:00 U Marijuana (THC) Screen Positive ng/mL (Negative) H 03/16/24 16:00 Ethyl Alcohol 358 mg/dL (0-10) H* 03/16/24 19:16 Hepatitis A IgM Ab Cancelled 03/17/24 08:13 Hepatitis A IgM Ab Non-reactive (Nonreactive) 03/17/24 08:13 Hep Bs Antigen Cancelled 03/17/24 08:13 Hep Bs Antigen Non-reactive (Nonreactive) 03/17/24 08:13 Hep B Core IgM Ab Cancelled 03/17/24 08:13 Hep B Core IgM Ab Non-reactive (Nonreactive) 03/17/24 08:13 Hepatitis C Antibody Cancelled 03/17/24 08:13 Hepatitis C Antibody Non-reactive (Nonreactive) 03/17/24 08:13 Vitals Last Vital Signs Temp 98.4 F 03/19/24 07:08 Pulse 89 03/19/24 07:08 Resp 18 03/19/24 07:08 BP 140/98 03/19/24 07:08 Pulse Ox 97 03/19/24 07:08 O2 Del Method Room Air 03/19/24 07:08 O2 Flow Rate 0 03/19/24 07:08 Discharge Plan Discharge Patient Disposition: Home Condition: Stable Prescriptions: New folic acid 1 mg Tablet 1 mg PO DAILY Qty: 30 0RF Vitamin B-1 (mononitrate) 100 mg Tablet 100 mg PO DAILY Qty: 30 0RF Thera 400 mcg Tablet 1 tab PO DAILY Qty: 30 0RF chlordiazepoxide HCl 25 mg capsule 25 mg PO TID PRN (Reason: alcohol withdrawal) Qty: 7 0RF Continued sertraline 100 mg tablet 100 mg PO DAILY Qty: 30 2RF lisinopril 10 mg tablet 10 mg PO DAILY 30 Days Qty: 30 3RF amlodipine 10 mg tablet 10 mg PO DAILY 30 Days Qty: 30 3RF buspirone 15 mg tablet 15 mg PO BID Qty: 60 3RF hydroxyzine pamoate 25 mg capsule 75 mg PO TID PRN (Reason: Anxiety) Qty: 270 3RF sucralfate 1 gram tablet 1 g PO TID Qty: 90 0RF omeprazole 40 mg capsule,delayed release(DR/EC) 40 mg PO DAILY Qty: 30 2RF diazepam 5 mg tablet 5 mg PO DAILY PRN (Reason: anxiety) Qty: 14 0RF multivitamin with minerals Tablet 1 tab PO DAILY vitamin B complex Tablet 1 tab PO DAILY Discontinued meloxicam 15 mg tablet 15 mg PO DAILY Qty: 30 4RF Discharge Orders: Discharge Order (Routine); Ordered 03/19/24 Ordered By: Mark Krueger Referrals: Hyacinth Lee MD [Primary Care Provider] - 4-7 days (We have notified your physician's clinic of the need for a follow-up appointment to be scheduled. If you have not heard from them within the next 2 business days, please call them directly. ) Discharge Diet: Usual diet Discharge Activity: Increase activity as tolerated Patient Instructions: Chlordiazepoxide (By mouth), Folic Acid (By mouth), Vitamin B Complex (By mouth) (B-50 Complex, B6-Folic Acid, Balanced..., Abuse of Alcohol (ED), Opioid Safety Activity Restrictions/Additional Instructions: Take all medicine as prescribed Follow-up with your primary care provider 3 to 5 days Do not take Valium when you take Librium. Librium should be 1 pill, every 8 hours as needed for alcohol withdrawal. Return for any concerns Do not discharge until magnesium infusion completed and potassium given. Discharge Attestations Time Spent in Discharge Care*: greater than 30 min Status at Discharge: Cognitive status at discharge: cognitively intact , Behavioral status at discharge: can be uncooperative , Quality Metrics Clinical Quality Measures [ No reported AMI, CVA or VTE this stay] Coding Level of Care Code 54692 Total time (in minutes) for Discharge: 33 Diagnoses Alcohol withdrawal F10.939 Accelerated hypertension I10
[2024-03-19 10:45] VITALS: BP 140/98; PULSE 89; RESP 18; TEMP 36.9; O2SAT 97
--- NOTE | 2024-03-19 10:47 | PC.NURSE ---
pt adamant about leaving room upon d/c. educ pt that he was responsible for watching for his ride and he needed to sit where he was able to see the doors. educ him it could take up to 3 hours. pt agreed and left room to wait at main entrance.
== END 2024-03-19 10:45 | disposition home or self-care (01) | DRG 897 ==
LOC: ER 20:17 → ICU 22:42 → MEDSURG 03-18 20:25
PROVIDERS: Family Medicine; Admitting Provider Student in an Organized Health Care Education/Training Program; Emergency Provider Emergency Medicine; PCP Family Medicine; Visit Provider Internal Medicine
DX: F10.129 Alcohol abuse with intoxication, unspecified (principal); K76.6 Portal hypertension; F10.139 Alcohol abuse with withdrawal, unspecified; Y90.8 Blood alcohol level of 240 mg/100 ml or more; I10 Essential (primary) hypertension; F41.1 Generalized anxiety disorder; K70.0 Alcoholic fatty liver; Z87.891 Personal history of nicotine dependence; Z91.148 Patient's other noncompliance with medication regimen for other reason
CPT/HCPCS: 36415; 76705; 80053; 80074; 80306; 80307; 81001; 83735; 84443; 85025; 93005; 96360; 96372; 96376; 99285; J0360; J1650; J2060; J2405; J3411; J3475; J3490; J7030

== ENCOUNTER 2025-06-21 06:18 | Inpatient (IN) | payer MEDICAID, SELFPAY ==
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
--- OUTSIDE RECORDS SUMMARY | 2025-05-05 02:40 | XMS_ITS ---
Author Organization [facility] Address [address] [place] [address] Care Team Providers Care Shock Absorber Installer Name Role Phone Jose Alfredo Herrera Primary Care Provider [phone] REASON FOR VISIT Follow up Encounters Encounter Location Date Provider Diagnosis [facility] [address] [phone] 05/05/2025 Jose Alfredo Herrera Plan Of Treatment Next Appt Details Provider Name:Jose Alfredo Herrera, 12/08/2025 09:00:00 AM, [address], [address], Progress Notes * PERERADIONISIODOB:1970 (54 yo M)Acc No.[id number]:05/05/2025 Progress Notes Patient: DIONISIO CHENG Provider: Shelby Herrera MD :1970 A ge:54 Y S ex:Male Date:05/05/2025 Address:[address] [place] [address], [address], [id number] Subjective: * Chief Complaints: * F ollow up Care Plan Details* * Electronic signature of Zenia Herrera MD on 06/21/2025 at 06:[address] JUSTICE Sign off status: Pending * Provider: Shelby Herrera MD Date: 0 05/05/2025 Generated for Dajuan garcia/Faninoskag/eTransmitting on: 1 08/21/2024 06:[address] JUSTICE
[2025-06-21] VITALS (15 sets, daily range): BP systolic 121–213; BP diastolic 81–113; PULSE 101–130; RESP 16–38; TEMP 37.4–37.8; O2SAT 88–97; BMI 41.8; BMI 43.2
--- OUTSIDE RECORDS SUMMARY | 2025-06-21 06:21 | XMS_ITS | Patient Health Record ---
Author Organization [facility] Address [address] [place] [address] Care Team Providers Care Expressive Art Therapist Name Role Phone Jose Alfredo Herrera Primary Care Provider Allergies No Known Allergies Reason For Referral No Information Medications Medication SIG (Take, Route, Frequency, Duration) Notes Start Date End Date Status Sucralfate 1 GM Tablet 1 tablet on an empty stomach Orally daily; Duration: 90 days As needed Active diazePAM 5 MG Tablet 1 tablet as needed Orally Once a day; Duration: 30 days 06/13/2025 Active busPIRone HCl 15 MG Tablet 1 tablet Orally Twice a day Active Omeprazole 40 MG Capsule Delayed Release 1 Orally Once a day; Duration: 90 days Active Clotrimazole 1 % Solution 1 application Externally Twice a day; Duration: 30 days Not-Takin g Folic Acid 1 MG Tablet 1 tablet Orally O nce a day; Duration: 90 days 06/28/2025 Active amLODIPine Besylate 10 MG Tablet 1 tablet Orally Once a day; Duration: 90 days Active Lisinopril 40 MG Tablet 1 tablet Orally Once a day; Duration: 90 days Active DULoxetine HCl 60 MG Capsule Delayed Release Sprinkle 1 capsule Orally Once a day; Duration: 90 days 06/03/2024 Active Immunizations Vaccine Route Administration Date Status Comme nts Flucelvax Trivalent, Syringe 0.5 mL, PF Unknown 025 Refused Social History Tobacco Use: Social History Observation Description Date Details (start date - stop date) Former Smoker NA - NA Social History Depression Screening Social Info Question Answer Notes depression screening findings Findings Negative (0 -4) 01/20/25 PHQ-9 Little interest or p cheryl in doing things Not at all Feeling down, depressed, or hopeless Not at all Trouble falling or staying asleep, or sleeping t oo much Not at all Feeling tired or having little energy Not at all Poor appetite or overeating Not at all Feeling bad about yourself, or that you are a failure, or have let yourself or your family down Not at all Trouble concentrating on thi ngs, such as reading the newspaper or watching television Not at all Moving or speaking so slowly that other people could have noticed. Or the opposite ? being so fidgety or restless that you have been moving around a lot more than usual Not at all Thoughts that you would be b shaheen off , or of hurting yourself in some way Not at all Total Score 0 Drugs/Alcohol: Social Info Question Answer Notes Drugs Have you used drugs other than those for medical reasons in the past 12 months? No Drug/Alcohol: Social Info Question Answer Notes AUDIT-C (Standard) Did you have a drink containing alcohol in the past year? No Points 0 Interpretation Negative Tobacco Use: Social Info Question Answer Notes Tobacco Control (Standard) Tobacco use: Former smoker How long has it been since you last smoked? 1-5 years Section Notes: PHQ--9 - 06/03/24 PHQ- 9 - 06/03/24 CIME Dep/Tob 01/20/25 PHQ--9 - 06/03/24 PHQ- 9 - 10 CIME Dep/Tob 01/20/25 Problems Problem Type SNOMED Code ICD Code Onset Dates Problem Status W/U Status Risk Notes Problem Essential hypertension (57367375) Essential hypertension (I10) Active confirmed Problem Generalized anxiety disorder (24683121) ARIAS (generalized anxiety disorder) (F41.1) Active confirmed Vital Signs Heart Rate 82 /min 06/13/2025 Temperature 98.2 degrees Fahrenheit 06/13/2025 Blood pressure diastolic 76 mm Hg 06/13/2025 Oximetry 97 % 06/13/2025 Height-cm 182.88 cm 06/13/2025 Weight-kg 136.99 kg 06/13/2025 Height 72 in 06/13/2025 Blood pressure systolic 136 mm Hg 06/13/2025 Weight 302 lbs 06/13/2025 BMI 40.95 kg/m2 06/13/2025 Encounters Encounter Location Date Provider Diagnosis [facility] [address] [place] [phone] 06/13/2025 Jose Alfredo Herrera Essential hypertension I10 ; ARIAS (generalized anxiety disorder) F41.1 ; Encounter for immunization Z23 and Immunization not carried out because of patient refusal Z28.21 [facility] [address] [place] [phone] 01/20/2025 Jose Alfredo Herrera ARIAS (generalized anxiety disorder) F41.1 ; Essential hypertension I10 and Depression screen Z13.31 [facility] [address] [place] [phone] 07/03/2024 Jose Alfredo Herrera ARIAS (generalized anxiety disorder) F41.1 ; Essential hypertension I10 and Depression screen Z13.31 [facility] [address] [place] [address] 12/25/2024 Jose Alfredo Herrera [facility] [address] [place] [phone] 06/02/2025 Jose Alfredo Herrera Assessments Encounter Date Diagnosis (ICD Code) Assessment Notes Treatment Notes Treatment Clinical Notes Section Notes 06/13/2025 Essential hypertension (ICD-10 - I10) Pt advised to take meds as prescribed, exercise as tolerated, and monitor BP as directed. If symptoms develop, parameters out of range, or any distress contact clinic or utilize ER. 06/13/2025 ARIAS (generalized anxiety disorder) (ICD-10 - F41.1) 01/20/2025 ARIAS (generalized anxiety disorder) (ICD-10 - F41.1) 07/03/2024 Essential hypertension (ICD-10 - I10) 07/03/2024 ARIAS (generalized anxiety disorder) (ICD-10 - F41.1) 07/03/2024 Depression screen (ICD-10 - Z13.31) 06/13/2025 Encounter for immunization (ICD-10 - Z23) 01/20/2025 Essential hypertension (ICD-10 - I10) 01/20/2025 Depression screen (ICD-10 - Z13.31) 06/13/2025 Immunization not carried out because of patient refusal (ICD-10 - Z28.21) Plan Of Treatment Next Appt Details Provider Name:Jose Alfredo Herrera, 12/08/2025 09:00:00 AM, [address] [place] [address], [phone], Insurance Providers Payer Name Payer Address Payer Phone Subscriber Number Group Number Insured Name Patient Relationship to Insured Coverage Start Date Coverage End Date [facility] Medicaid Replacement [address] [place] [phone] [id number] DIONISIO PERERA Self - patient is the insured Medical (General) History Medical History History ICD Code hypertension anxiety Surgical History Surgery Date(Month/Year) ankle surgery both
--- NOTE | 2025-06-21 06:28 | XRR_ITS ---
PROCEDURE INFORMATION: Exam: XR Chest Exam date and time: 06/21/2025 6:40 AM Age: 54 years old Clinical indication: Cough and dyspnea; Additional info: Dyspnea/cough TECHNIQUE: Imaging protocol: Radiologic exam of the chest. Views: 1 view. COMPARISON: CR XR chest 2V* [id number] 08/12/2022 12:20 PM FINDINGS: Lungs: Unremarkable. No consolidation. Pleural spaces: Unremarkable. No pleural effusion. No pneumothorax. Heart/Mediastinum: Unremarkable. No cardiomegaly. Bones/joints: Unremarkable. XR/XR chest 1V portable [id number] IMPRESSION: No acute findings.
--- NOTE | 2025-06-21 06:28 | ED_ITS ---
HPI - Alcohol 2 General: Chief Complaint: Alcohol Stated Complaint: ETOH intoxication Time Seen by Provider: 06/21/25 06:21 History of Present Illness: 54-year-old male presents emergency room complaining of withdrawal symptoms. Says he last drank around midnight he has been drinking about fifth per day for quite some time he says he only drinks to try to keep from getting sick. He has had a little bit of cough recently. He is not normally on oxygen when he arrives he is on 2 L by nasal cannula which turned the oxygen off he desats to 86 to 87% on room air. EMS reports failure. States he drank 5 big bottles of gin over the last few days (1.5 L bottles). Patient denies any hematemesis or coffee-ground emesis. EMS gave him 300 mg of nebulized ketamine enroute. Amount of alcohol consumed: About 1/5/day Associated symptoms: Deny abdominal pain Related Data Home Medications ?Medication ?Instructions ?Recorded ?Confirmed multivitamin with minerals 1 tab PO DAILY 08/03/20 vitamin B complex 1 tab PO DAILY 03/17/2405/08 Previous Rx's ?Medication ?Instructions ?Recorded amlodipine 10 mg tablet 10 mg PO DAILY 30 days #30 t abs 12/06/23 buspirone 15 mg tablet 15 mg PO BID #60 tabs lisinopril 10 mg tablet 10 mg PO DAILY 30 days #30 t abs 12/06/23 sertraline 100 mg tablet 100 mg PO DAILY #30 tabs 08/30 omeprazole 40 mg capsule,delayed 40 mg PO DAILY #30 ca ps 01/10/24 release chlordiazepoxide HCl 25 mg capsule 25 mg PO TID PRN al cohol 03/19/24 withdrawal #7 caps folic acid 1 mg tablet 1 mg PO DAILY #30 tabs 03/19 multivitamin with folic acid 400 1 tab PO DAILY #30 ta bs 03/19/24 mcg tablet (Thera) thiamine mononitrate (vit B1) 100 100 mg PO DAILY #30 tabs 03/19/24 mg tablet (Vitamin B-1 (mononitrate)) diazepam 5 mg tablet 5 mg PO DAILY PRN anxiety #3 0 tabs 03/20/24 hydroxyzine pamoate 25 mg capsule 75 mg (3 x 25 mg) PO TID PRN 04/02/24 Anxiety #270 caps clotrimazole 1 % topical cream 1 applic topical BID 2 weeks #30 05/27/24 grams sulfamethoxazole 800 1 tab PO BID #20 tabs mg-trimethoprim 160 mg tablet (Bactrim DS) sucralfate 1 gram tablet 1 g PO TID #90 tabs 09/12/24 Allergies Allergy/AdvReac Type Severity Reaction Status Date / Time No Known Allergies Allergy Verified 05/27/24 08:47 Review of Systems 2 Const: Denies: fever(s) or chills Card: Denies: chest pain Resp: Denies: dyspnea GI: Denies: abdominal pain : Denies: dysuria, urinary frequency or urinary urgency Musc: Denies: neck pain or back pain Skin/Breast: Denies: rash PFSH ED 2 PFSH: Medical History Fibula fracture Generalized anxiety disorder Depression Alcoholism Hypertension Surgical History History of open reduction and internal fixation (ORIF) procedure Fibula fracture, left distal lateral malleolar fracture Family History Other No pertinent family history Social History Smoking and tobacco/nicotine status: former use of tobacco/nicotine Quit status (tobacco/nicotine): has quit using Year quit tobacco: 2021 3-4 months ago Second hand smoke exposure: No Alcohol intake: former Former alcohol use details: has been sober x 6 months Substance/Drug Use: never Lives independently: No Household members: friend(s) Marital status: Single service: No Current occupational status: employed Current gender identity: Male Special bethel needs: No Agree to transfusion: Yes Physical Exam 2 Const: GENERAL APPEARANCE: cooperative ORIENTATION/CONSCIOUSNESS: Yes awake, Yes oriented to person, Yes oriented to place and Yes oriented to time HENMT: COMMON NORMALS: normocephalic, atraumatic and hearing grossly normal bilaterally HEAD & SCALP: normocephalic and atraumatic Resp: COMMON NORMALS: normal respiratory effort, No retractions, No use of accessory muscles and clear to auscultation bilaterally AUSCULTATION: clear to auscultation bilaterally Cardio: COMMON NORMALS: regular rate, regular rhythm and No murmurs present (Cardio) RATE: regular rate RHYTHM: regular rhythm GI: COMMON NORMALS: Soft to palpation and No hepatosplenomegaly present A USCULTATION: Yes normoactive bowel sounds PALPATION: Yes Soft to palpation, No Tenderness to palpation present (GI), No Guarding due to palpation present (GI) and Yes No hepatosplenomegaly present Extremity: COMMON NORMALS: normal to inspection, capillary refill normal, no clubbing, cyanosis or edema, no calf tenderness and no pedal edema Neuro: SENSORIUM/ORIENTATION: Yes oriented to person, Yes oriented to place and Yes oriented to time Skin: COMMON NORMALS: no rashes or lesions noted GENERAL SKIN EXAM: no rashes or lesions noted Course 2 Vital Signs: Vital signs: Vital Signs Temperature 99.4 F 06/21/25 06:35 Pulse Rate 108 H 06/21/25 08:27 Respiratory Rate 16 06/21/25 08:00 Blood Pressure 121/81 06/21/25 08:27 Pulse Oximetry 95 06/21/25 08:27 Oxygen Delivery Me thod Room Air 06/21/25 08:00 MDM - Alcohol Medical Decision Making Patient wishes to be admitted for assistance with his alcohol use. He has had withdrawal problems including seizures in the past. His blood alcohol at this time is 292. He is somewhat tachycardic he had some hypoxia believe that is related to the ketamine he was given and route it did cause some sedation he has sleep apnea. His sats decreased when he is sleeping but when he sat up and awake his sats increased to the mid 90s persistently on room air. Chest x-ray was normal. He did not have significant elevations of his transaminases did not have anemia or thrombocytopenia at this time ammonia level is also in the normal range it has been elevated some mildly in the past. Discussed with the patient his previous admission several years ago he ended up ultimately leaving before completing treatment he states he is motivated and wants to actually stop at this time. He does have some metabolic acidosis likely related to his alcohol use he was given IV fluids nausea medications. Discussed with psychiatry that we will see him on consult at this point medically I think he will need to be on the floor rather than an MPU for detox discussed Dr. Goldsmith for the hospitalist service will admit to [facility] on a [facility] protocol. Medical Records I reviewed the patient's medical records. Lab Data I reviewed the patient's lab results. 06/21/25 06:26 06/21/25 06:26 Radiology Impressions Chest X-Ray 06/21/25 06:28 IMPRESSION: No acute findings. Laboratory Results WBC 12.79 10^3/uL (3.29-11.43) H 06/21/25 06:26 RBC 4.70 10^6/uL (3.85-5.65) 06/21/25 06:26 Hgb 15.10 g/dL (11.27-16.99) 06/21/25 06:26 Hct 42.5 % (37-53) 06/21/25 06:26 MCV 90.4 fl (82-101) 06/21/25 06:26 MCH 32.1 pg (27-33) 06/21/25 06:26 MCHC 35.5 g/dL (30-55) 06/21/25 06:26 RDW 12.3 % (12.1-15.1) 06/21/25 06:26 Plt Count 181 10^3/cmm (157-399) 06/21/25 06:26 MPV 9.7 fL (7.4-10.4) 06/21/25 06:26 Neut % (Auto) 77.7 % 06/21/25 06:26 Lymph % (Auto) 9.7 % 06/21/25 06:26 Smith % (Auto) 11.4 % 06/21/25 06:26 Eos % (Auto) 0.1 % 06/21/25 06:26 Baso % (Auto) 0.6 % 06/21/25 06:26 Neut # (Auto) 9.94 10^3/uL (1.8-7.7) H 06/21/25 06:26 Lymph # (Auto) 1.2 10^3/uL (0.8-4.8) 06/21/25 06:26 Smith # (Auto) 1.5 10^3/uL (0.2-0.9) H 06/21/25 06:26 Eos # (Auto) 0.0 10^3/uL (0.0-0.8) 06/21/25 06:26 Baso # (Auto) 0.1 10^3/uL (0.0-0.1) 06/21/25 06:26 Nucleated RBC % (auto) 0 % 06/21/25 06:26 Nucleated RBCs # 0.0 /100WBC 06/21/25 06:26 PT 13.70 SECONDS (12.1-14.9) 06/21/25 06:26 INR 0.98 (0.8-1.2) 06/21/25 06:26 Sodium 132 mmol/L (136-145) L 06/21/25 06:26 Potassium 3.9 mmol/L (3.5-5.1) 06/21/25 06:26 Chloride 89 mmol/L (98-107) L 06/21/25 06:26 Carbon Dioxide 21 mmol/L (22-29) L 06/21/25 06:26 Anion Gap 25.9 (5-19) H 06/21/25 06:26 BUN 9 mg/dL (6-20) 06/21/25 06:26 Creatinine 0.7 mg/dL (0.7-1.2) 06/21/25 06:26 GFR Calculation 118.4 mL/min (90-130) 06/21/25 06:26 Glucose 107 mg/dL (65-115) 06/21/25 06:26 Calculated Osmolality 273 mOsm/kg (285-295) L 06/21/25 06:26 Calcium 9.0 mg/dL (8.5-10.5) 06/21/25 06:26 Total Bilirubin 0.3 mg/dL (0.15-1.2) 06/21/25 06:26 AST 40 U/L (0-40) 06/21/25 06:26 ALT 29 U/L (0-41) 06/21/25 06:26 Alkaline Phosphatase 75 U/L (40-130) 06/21/25 06:26 Ammonia 37 umol/L (16-60) 06/21/25 06:26 Total Protein 8.4 g/dL (6.6-8.7) 06/21/25 06:26 Albumin 4.2 g/dL (3.5-5.2) 06/21/25 06:26 Globulin 4.2 g/dL (1.3-4.6) 06/21/25 06:26 Ethyl Alcohol 292 mg/dL (0-10) H 06/21/25 06:26 All radiology interpretation(s) finalized by discharge EKG Data EKG 1: I personally reviewed and interpreted this EKG as follows: Interpretation: EKG 06/21/2025 639 sinus tachycardia with a rate of 102. [place] interval 161 QTc [address] elevations. Compared to previous EKG 03/16/2024 no significant changes. Discharge Plan Discharge Patient Disposition: Admitted As Inpatient Admit Provider: uBck Goldsmith Clinical Impression: Alcoholism, Alcohol withdrawal, Alcohol use disorder, severe, dependence, Sleep apnea Condition: Stable Coding Level of Care Code ED Cloud Software Engineer for Sandee Blanc
[2025-06-21 06:34] LABS: Hematocrit 42.5 % (37-53); Hemoglobin 15.10 g/dL (11.27-16.99); Mean Corpuscular HGB Conc 35.5 g/dL (30-55); Mean Corpuscular Hemoglobin 32.1 pg (27-33); Mean Corpuscular Volume 90.4 fl (82-101); Nucleated Red Blood Cells % 0 %; Platelet Count 181 10^3/cmm (157-399); Red Blood Count 4.70 10^6/uL (3.85-5.65); White Blood Count 12.79 10^3/uL (3.29-11.43)
--- NOTE | 2025-06-21 06:39 | ECG_ITS ---
[employer] Test Date: 2025-06-21 Pat Name: Ade Carcamo Department: Room: Gender: Male [employer]: : 1970 Requested By: Michael Lawrence Order Number: [id number] MD: Efraín Ratliff M.D. Measurements Intervals [place] Rate: 102 P: 47 SC: 161 QRS: -18 QRSD: 93 T: 51 QT: 328 QTc: 428 Interpretive Statements SINUS TACHYCARDIA LEFT ATRIAL ENLARGEMENT [-0.15mV P-WAVE IN V1/V2] POSSIBLE ANTERIOR MYOCARDIAL INFARCTION , OF INDETERMINATE AGE [30 ms Q WAVE IN V3/V4, OR R < 0.2 mV IN V4] Compared to ECG 03/16/2024 16:23:28 Myocardial infarct finding still present Electronically Signed On 06-22-2025 15:27:00 IMMIGRATION LAW SPECIALIST by Efraín Ratliff M.D. [email or web address]
[2025-06-21 06:49] LABS: INR 0.98 (0.8-1.2); Prothrombin Time 13.70 SECONDS (12.1-14.9)
[2025-06-21 06:53] LABS: Alanine Aminotransferase 29 U/L (0-41); Albumin Level 4.2 g/dL (3.5-5.2); Alcohol Level 292 mg/dL (0-10); Alkaline Phosphatase 75 U/L (40-130); Anion Gap 25.9 (5-19); Aspartate Amino Transferase 40 U/L (0-40); Blood Urea Nitrogen 9 mg/dL (6-20); Calcium 9.0 mg/dL (8.5-10.5); Carbon Dioxide 21 mmol/L (22-29); Chloride 89 mmol/L (98-107); Globulin 4.2 g/dL (1.3-4.6); Glucose 107 mg/dL (65-115); Osmolality Calculated 273 mOsm/kg (285-295); Potassium 3.9 mmol/L (3.5-5.1); Sodium 132 mmol/L (136-145); Total Protein 8.4 g/dL (6.6-8.7)
[2025-06-21 06:55] LABS: Ammonia 37 umol/L (16-60)
[2025-06-21] MEDS: ondansetron 2 mg/ML SDV 2 mL 4 MG IVP ×3 (07:21→21:47)
[2025-06-21] MEDS: thiamine 100 mg/mL 2mL SDV IM (07:54)
[2025-06-21] MEDS: LORazepam 2 mg/mL INJ 1 mL IVP ×7 (08:00→22:33)
[2025-06-21 08:06] LABS: ABG PCO2 37.6 mmHg (35-45); ABG PH Result 7.41 (7.35-7.45); Alveolar-Arterial Oxygen Gradi 4.6 mmHg (5-10); Arterial Blood Gas Hematocrit 47.4 % (42-52); Blood Gas Allen Test Pos; Blood Gas Operator Identificat LC; Blood Gas Sample Site Radial, right; Blood Gas Sample Type Arterial; Carboxyhemoglobin 0.9 %THgb (0.4-20.1); Glucose Level-ABG 99.0 mg/dL (70-115); HCO3 ABG 24.1 mmol/L (22-26); Ionized Calcium Level - ABG 1.1 mmol/L (1.1-1.4); Methemoglobin 1.2 % (0.4-1.5); Oxygen Saturation ABG 92.1; PO2 ABG 66.4 mmHg (80.0-100.0); PO2 FiO2 Ratio Arterial Blood 316; Potassium Level - ABG 3.9 mmol/L (3.5-5.0); Sodium Level - ABG 135.0 mmol/L (131-143)
--- NOTE | 2025-06-21 09:03 | PC.NURSE ---
received at 0845 from er via stretcher,in to room 111-2.report received.pt is awake.oriented to person,place.etoh odor noted.pt is calm and cooperative. on monitor.oriented to room environment.instructed to notify staff if must get up out of bed,has pain,or for any conerns at all.pt verb understanding of instructions
[2025-06-21] MEDS: multivitamin therapeutic Tablet 1 TAB PO (09:41)
--- NOTE | 2025-06-21 10:20 | PM.HP ---
Providers/Chief Complaint Admitting Physician: Buck Goldsmith MD Primary Care Provider: Nany Carpenter MD Chief Complaint: ETOH intoxication History of Present Illness Ade Carcamo is a 54 year old male with history of alcohol use disorder, presented to the ER with complaint of stumbling and jitteriness. Symptoms started about 3 to 4 days ago. He reports symptom provoked after he tried to go down on heavy intake of alcohol. Patient reports taking as much as half a count of vodka every day. He reports associated cough, nausea and vomiting, and inability to keep fluids down. Given this, he came to the ER for further evaluation. Here in the ER, patient was reported to be very tachycardic. He was given IV ketamine en-route the hospital, with heart rate in the 110s. Patient also reports some diarrhea that has been going on for the past few days. He also reports mucus-producing cough, but denies any difficulty breathing or chest pain. He also reports having tried to get his alcohol problem resolved about 4 to 5 years ago, but apparent defaulted. Given the above, he was therefore recommended for admission. Review of Systems Narrative: 10 point review of system done, and essentially negative, except as in HPI. Medications/Allergies Home Medications ?Medication ?Instructions ?Recorded ?Confirmed ?Last Taken ?Type amlodipine 10 mg tablet 10 mg PO DAILY 30 days #30 tabs 12/06/23 06/21/25 03/16/24 Rx omeprazole 40 mg capsule,delayed 40 mg PO DAILY #30 caps 01/10/24 06/21/25 03/16/24 Rx release vitamin B complex 1 tab PO DAILY 03/17/24 06/21/25 03/16/24 History folic acid 1 mg tablet 1 mg PO DAILY #30 tabs 03/19/24 06/21/25 Unknown Rx multivitamin with folic acid 400 1 tab PO DAILY #30 tabs 03/19/24 06/21/25 Unknown Rx mcg tablet (Thera) thiamine mononitrate (vit B1) 100 100 mg PO DAILY #30 tabs 03/19/24 06/21/25 Unknown Rx mg tablet (Vitamin B-1 (mononitrate)) diazepam 5 mg tablet 5 mg PO DAILY PRN anxiety #30 tabs 03/20/24 06/21/25 Unknown Rx duloxetine 60 mg capsule,delayed 60 mg PO DAILY 06/21/25 06/21/25 Unknown History release lisinopril 40 mg tablet 40 mg PO DAILY 06/21/25 06/21/25 Unknown History Allergies Allergy/AdvReac Type Severity Reaction Status Date / Time No Known Allergies Allergy Verified 05/27/24 08:47 PFSH Acute PFSH: Medical History Fibula fracture Generalized anxiety disorder Depression Alcoholism Hypertension Surgical History History of open reduction and internal fixation (ORIF) procedure Fibula fracture, left distal lateral malleolar fracture Family History Other No pertinent family history Social History Smoking and tobacco/nicotine status: former use of tobacco/nicotine Quit status (tobacco/nicotine): has quit using Year quit tobacco: 2021 3-4 months ago Second hand smoke exposure: No Alcohol intake: former Former alcohol use details: has been sober x 6 months Substance/Drug Use: never Lives independently: No Household members: friend(s) Marital status: Single service: No Current occupational status: employed Current gender identity: Male Special bethel needs: No Agree to transfusion: Yes Vitals/I&O/Wt Last Vital Signs Temp 99.4 F 06/21/25 06:35 Pulse 108 H 06/21/25 08:27 Resp 16 06/21/25 08:00 BP 121/81 06/21/25 08:27 Pulse Ox 95 06/21/25 08:27 O2 Del Method Room Air 06/21/25 08:00 06/20/25 06/21/25 06/21/25 22:59 06:59 14:59 Intake Total 199.8 / 199.8 Balance 199.8 / 199.8 Weight last 48 hrs Weight 140.5 kg Weight 136.078 kg Physical Exam Narrative: General: Awake and alert. No obvious respiratory distress. Neuro/Psych: Mildly delirious. No significant tremors appreciated. Moves all extremities. Chest/Resp: Bilateral equal air entry; chest clinically clear. CVS: Rhythm: Regular heart rate and rhythm. No obvious murmurs appreciated. GI: Soft and non-tender abdomen. No obvious organomegaly. Extremities: Bilateral equal pulses. No obvious pitting pedal edema. Skin: No obvious skin rashes or significant lesions. Mildly dehydrated, with mildly dry mucous membranes. MSK: No obvious joint effusions or joint defomites noted. No apparent muscle tenderness. Data 06/21/25 06:26 06/21/25 06:26 CXR: Radiologist's impression: FINDINGS: Lungs: Unremarkable. No consolidation. Pleural spaces: Unremarkable. No pleural effusion. No pneumothorax. Heart/Mediastinum: Unremarkable. No cardiomegaly. Bones/joints: Unremarkable. IMPRESSION: No acute findings. A&P Assessment and plan 1. Alcohol withdrawal: Getting admitted to the stepdown unit. Will treat this empirically with CIWA score protocol. We have gotten/requested psychiatry consult for further advice. 2. Acute bronchitis: Chest exam & CXR are negative, thereby supporting Dx of acute bronchitis. Will treat empirically/Symptomatically. 3. Essential (primary) hypertension: Currently stable. Resume home dose of antihypertensives, and add metoprolol, for better control of tachycardia. Otherwise, patient currently vomiting, which may delay starting these. Plan: Patient admitted to the Step-down Unit. Will treat other associated symptoms as mentioned above. Control of symptoms empirically. Further plans to be adjusted as needed. Admitted, put patient on banana bag. PDMP PDMP Reviewed: Not Reviewed Attestations Medical Necessity Statement*: Patient presented with apparent alcohol withdrawal symptoms, currently tachycardic, and having respiratory symptoms. Patient is considerately estimated to likely to require up to 2 mid-night stay in the medical floor on inpatient status so as to hopefully optimally treat the acute medical problems and their symptoms and further control co-morbidities. Coding Level of Care Code Acute Code for [facility] Fwd Diagnoses Alcohol withdrawal F10.939 Acute bronchitis J20.9 Essential (primary) hypertension I10
[2025-06-21] MEDS: metoclopramide 5 mg/mL SDV 2 mL 10 MG IVP ×2 (11:37→19:39)
[2025-06-21] MEDS: pantoprazole 40 mg SDV IVP ×2 (11:38→21:47)
[2025-06-21 11:48] LABS: Magnesium 1.4 mg/dL (1.7-2.3)
[2025-06-21] MEDS: morphine 4 mg/mL SDV 1 mL 2 MG IVP ×2 (13:30→17:27)
[2025-06-21] MEDS: cetylpyridinium Lozenge 1 EACH MUCOUS MEM (17:32)
--- NOTE | 2025-06-21 23:07 | PC.NURSE ---
2211- notified Dr. Canales that patient is coughing frequently worsening his nausea. Received orders for Robitussion 10 ml PO Q4h PRN cough. 2224- Patient is receiving his third dose of ativan within 3 hours totaling 6 mg. Patient is still nauseated, moderatley tremulous, and has a 5-6/0 SILVEIRA. Received orders to administer ativan and MD to change zofran orders. 2303- Patient BP still elevated despite scheduled metoprolol given. Current BP 204/113 HR 107 Temp 100.1 Spo2 93% on [address] Canales notified and received orders for Hydralizin 10 mg IV Q4hr SBP>160. Currently resting in bed with visiable rise and fall of chest.
[2025-06-21] MEDS: hyDRALAzine 20 mg/mL INJ 1 mL 10 MG IVP (23:17)
[2025-06-22] VITALS (44 sets, daily range): BP systolic 130–223; BP diastolic 86–187; PULSE 97–117; RESP 14–43; TEMP 36.6–38.6; O2SAT 90–99
[2025-06-22] MEDS: nicardipine 20 MG/200 ML PREMIX 50 MG IV ×4 (00:07→18:47)
[2025-06-22] MEDS: LORazepam 2 mg/mL INJ 1 mL IVP ×6 (00:43→23:43)
--- NOTE | 2025-06-22 01:13 | PC.NURSE ---
PRN dose hydralazine given at 2317 see OCT. Rechecked BP at 2331 with a BP of 213/[address] Canales notified and MD to place orders for cardene gtt. By midnight patient is stating I am bouncing of the alan and endorsing 5/10 headache along with nausea. Ciwa score of [address] Canales if he wanted a fourth dose of ativan given which would total 8 mg of ativan since beginning of the shift. Per MD okay to give ativan.
[2025-06-22] MEDS: metoclopramide 5 mg/mL SDV 2 mL 10 MG IVP ×2 (01:43→09:13)
[2025-06-22] MEDS: guaiFENesin 100 mg/5 mL UDC 10 mL 200 MG PO ×4 (01:43→19:44)
[2025-06-22 03:40] LABS: Hematocrit 41.1 % (37-53); Hemoglobin 14.60 g/dL (11.27-16.99); Mean Corpuscular HGB Conc 35.5 g/dL (30-55); Mean Corpuscular Hemoglobin 32.7 pg (27-33); Mean Corpuscular Volume 91.9 fl (82-101); Nucleated Red Blood Cells % 0 %; Platelet Count 150 10^3/cmm (157-399); Red Blood Count 4.47 10^6/uL (3.85-5.65); White Blood Count 9.87 10^3/uL (3.29-11.43)
--- NOTE | 2025-06-22 04:04 | PC.NURSE ---
Patient called for nurse and stated he need to go to ICU. When this nurse went in to ask why he felt like this he stated I just get better then worse then better again . Patient endorses abd pain, nausea, he is very diaphoretic, and tremulous. Educated patient regarding withdrawal timeline and the it will take time to get over the withdrawals. Dr. Canales notified regarding patients concerns. Also discussed that ativan didn't seem to help to much, requesting something else to try. At this time received orders to continue CIWA protocol. Also notified MD that patient his still running a fever despite cooling measures and that he is now requiring 3L nc satting 90%.
[2025-06-22 04:11] LABS: Alanine Aminotransferase 30 U/L (0-41); Albumin Level 3.9 g/dL (3.5-5.2); Alkaline Phosphatase 73 U/L (40-130); Anion Gap 15.7 (5-19); Aspartate Amino Transferase 44 U/L (0-40); Blood Urea Nitrogen 8 mg/dL (6-20); Calcium 8.3 mg/dL (8.5-10.5); Carbon Dioxide 26 mmol/L (22-29); Chloride 92 mmol/L (98-107); Globulin 3.8 g/dL (1.3-4.6); Glucose 164 mg/dL (65-115); Magnesium 1.3 mg/dL (1.7-2.3); Osmolality Calculated 272 mOsm/kg (285-295); Potassium 3.7 mmol/L (3.5-5.1); Sodium 130 mmol/L (136-145); Total Protein 7.7 g/dL (6.6-8.7)
[2025-06-22] MEDS: multivitamin therapeutic Tablet 1 TAB PO (04:43)
[2025-06-22] MEDS: ondansetron 2 mg/ML SDV 2 mL 4 MG IVP (04:44)
[2025-06-22] MEDS: nicardipine 20 MG/200 ML PREMIX 30 MG IV (06:05)
--- NOTE | 2025-06-22 08:11 | W.PM.NPUH&PS ---
Providers/Chief Complaint Admitting Physician: Buck Goldsmith MD Primary Care Provider: Nany Carpenter MD Chief Complaint: ETOH intoxication HPI NPU History of Present Illness Ade Carcamo is a 54 year old male who presented to the emergency department with the following report: Chief Complaint: Alcohol Stated Complaint: ETOH intoxication Time Seen by Provider: 06/21/25 06:21 History of Present Illness: 54-year-old male presents emergency room complaining of withdrawal symptoms. Says he last drank around midnight he has been drinking about fifth per day for quite some time he says he only drinks to try to keep from getting sick. He has had a little bit of cough recently. He is not normally on oxygen when he arrives he is on 2 L by nasal cannula which turned the oxygen off he desats to 86 to 87% on room air. EMS reports failure. States he drank 5 big bottles of gin over the last few days (1.5 L bottles). Patient denies any hematemesis or coffee-ground emesis. EMS gave him 300 mg of nebulized ketamine enroute. Amount of alcohol consumed: About 1/5/day Associated symptoms: Deny abdominal pain He was admitted to the [facility] for definitive treatment of those issues. Psychiatric consult was requested with concerns for need for inpatient psychiatric stay but also related to depression active addiction and possible assistance with detox. Patient is known to [facility] psychiatry through inpatient and outpatient services. Primarily he is known for. From [id number] with a few outpatient contacts in 2018. He had 5 inpatient hospitalizations from [id number] and had an ICU stay in 2018 for ingestion of isopropyl alcohol reportedly secondary to only having access to that kind of alcohol and really struggling with his addiction at that time. He is a limited historian at this time with significant concerns for withdraw having a difficult night with 10 mg of Ativan given yesterday and him still really struggling with his withdrawal symptoms feeling that he is being underdosed. 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 We discussed the fact that my partner Dr. Mcgee would come back by tomorrow and try to get a better sense of things when he is willing or able to cooperate. Meds NPU Home Medications ?Medication ?Instructions ?Recorded ?Confirmed ?Last Taken ?Type amlodipine 10 mg tablet 10 mg PO DAILY 30 days #30 tabs 12/06/23 06/21/25 03/16/24 Rx omeprazole 40 mg capsule,delayed 40 mg PO DAILY #30 caps 01/10/24 06/21/25 03/16/24 Rx release vitamin B complex 1 tab PO DAILY 03/17/24 06/21/25 03/16/24 History folic acid 1 mg tablet 1 mg PO DAILY #30 tabs 03/19/24 06/21/25 Unknown Rx multivitamin with folic acid 400 1 tab PO DAILY #30 tabs 03/19/24 06/21/25 Unknown Rx mcg tablet (Thera) thiamine mononitrate (vit B1) 100 100 mg PO DAILY #30 tabs 03/19/24 06/21/25 Unknown Rx mg tablet (Vitamin B-1 (mononitrate)) diazepam 5 mg tablet 5 mg PO DAILY PRN anxiety #30 tabs 03/20/24 06/21/25 Unknown Rx duloxetine 60 mg capsule,delayed 60 mg PO DAILY 06/21/25 06/21/25 Unknown History release lisinopril 40 mg tablet 40 mg PO DAILY 06/21/25 06/21/25 Unknown History Allergies Allergy/AdvReac Type Severity Reaction Status Date / Time No Known Allergies Allergy Verified 05/27/24 08:47 PFSH NPU PFSH: Medical History (Updated 06/21/25 @ 12:07 by Buck Goldsmith MD) Fibula fracture Generalized anxiety disorder Depression Alcoholism Essential (primary) hypertension Surgical History History of open reduction and internal fixation (ORIF) procedure Fibula fracture, left distal lateral malleolar fracture Family History Other No pertinent family history Social History Smoking and tobacco/nicotine status: former use of tobacco/nicotine Quit status (tobacco/nicotine): has quit using Year quit tobacco: 2021 3-4 months ago Second hand smoke exposure: No Alcohol intake: former Former alcohol use details: has been sober x 6 months Substance/Drug Use: never Lives independently: No Household members: friend(s) Marital status: Single service: No Current occupational status: employed Current gender identity: Male Special bethel needs: No Agree to transfusion: Yes Mental Status Exam MSE Comments: This is an obese versus morbidly obese white male and hospital gown with poor grooming and limited eye contact. No abnormal movements except for significant psychomotor retardation. Somewhat uncooperative with exam and moderate distress. Speech was decreased rate and volume and limited in productivity. Mood described as horrible, affect congruent, subdued and irritable. Thought process was linear. Thought content: Patient denied suicidal or homicidal ideation, there were no delusions reported or noted, he denied any auditory or visual hallucinations. Attention and concentration were impaired and memory is unreliable but none were formally tested. He was alert and oriented to person and place. Insight, judgment and impulse control were impaired. Vitals/I&O/Wt Last Vital Signs Temp 97.8 F 06/22/25 08:00 Pulse 105 H 06/22/25 08:00 Resp 27 H 06/22/25 08:00 BP 145/92 06/22/25 08:00 Pulse Ox 94 06/22/25 08:00 O2 Del Method Oxymask 06/22/25 07:50 O2 Flow Rate 6 06/22/25 07:50 06/21/25 06/22/25 06/22/25 22:59 06:59 14:59 Intake Total 1878.333 / 2078.133 1600.000 / 3678.133 Output Total 775 / 775 Balance 1878.333 / 2078.133 825.000 / 2903.133 Weight last 48 hrs Weight 141.2 kg Weight 140.5 kg Weight 136.078 kg Data NPU 06/22/25 02:33 06/22/25 02:33 A&P Assessment and plan 1. Generalized anxiety disorder: 2. Alcohol withdrawal: 3. Anxiety: 4. Major depressive disorder, recurrent, moderate: 5. Alcohol use disorder, severe, dependence: Plan: This is a 54-year-old white male with a long history of mental health and addiction issues. Significant previous mental health treatment through [facility] which stopped mostly in 2014 but with a few in 2017 with significant inpatient hospitalizations and regular outpatient appointments during that 2011 and 2014 timeframe. Recently his hospital contacts have been related to his significant alcohol use disorder and he presented reporting a desire to discontinue his use but found himself in active withdrawal requiring hospitalist involvement given his concerning withdrawal history. 1. Continue current medication. 2. Continue CIWA protocol. Should be very aggressive and liberal with the use of Ativan using his level of alertness/lack of lethargy or sleepiness at this time that nor Ativan is acceptable. 3. Patient feeling extremely crappy today with significant withdrawal and unable versus unwilling to participate in full assessment. Will return tomorrow and try again. 4. Patient denied active lethality however will need to get a better assessment of the circumstances leading to his hospitalization before we decide with certainty that an inpatient hospitalization is not necessary. 5. Will consider transfer to the neuropsychiatric unit and will continue to follow. PDMP PDMP Reviewed: Not Reviewed Attestations NPU Medical Necessity Statement*: N/A. Please see primary team note for medical necessity but will need to evaluate patient for any need for inpatient psychiatric care prior to discharge. Coding Level of Care Code Acute Code for [facility] Fwd Diagnoses Generalized anxiety disorder F41.1 Alcohol withdrawal F10.939 Anxiety F41.9 Major depressive disorder, recurrent, moderate F33.1 Alcohol use disorder, severe, dependence F10.20
[2025-06-22] MEDS: pantoprazole 40 mg SDV IVP ×2 (09:27→22:13)
--- NOTE | 2025-06-22 10:27 | P.PN_ITS ---
Subjective 2 Subjective: Patient seen again this morning in the ICU. The nurse reported the patient had some episodes of delirium tremens last night, which was well-controlled with IV lorazepam. Patient also reports of having his oxygen saturation dropped while asleep because of his known sleep apnea. Otherwise, patient denies any new complaints. Medications: Medication Review Details: On DT CIWA protocol Vitals/I&O/Wt Last Vital Signs Temp 97.8 F 06/22/25 08:00 Pulse 105 H 06/22/25 08:00 Resp 27 H 06/22/25 08:00 BP 145/92 06/22/25 08:00 Pulse Ox 94 06/22/25 08:00 O2 Del Method Oxymask 06/22/25 07:50 O2 Flow Rate 6 06/22/25 07:50 06/21/25 06/22/25 06/22/25 22:59 06:59 14:59 Intake Total 1878.333 / 2078.133 1600.000 / 3678.133 Output Total 775 / 775 Balance 1878.333 / 2078.133 825.000 / 2903.133 Weight last 48 hrs Weight 141.2 kg Weight 140.5 kg Weight 136.078 kg Physical Exam 2 Narrative: General: Sleepy patient, but arousable; otherwise, mildly drowsy. Cooperative. Chest/Resp: Normal respiratory chest movts; no obvious respiratory distress. CVS: Rhythm: Regular heart rate and rhythm. GI: Non-distended; No obvious organomegaly. Extremities: No obvious pitting pedal edema. Skin: No obvious new rashes or new skin lesions. Data 06/22/25 02:33 06/22/25 02:33 A&P Assessment and plan 1. Alcohol withdrawal: Continue DT prophylaxis/treatment per [facility] protocol To follow otherwise, otherwise, from behavioral health 2. Sleep apnea: May be put on CPAP at night 3. Acute bronchitis: . Otherwise stable PDMP PDMP Reviewed: Not Reviewed Attestations 2 Medical Necessity Statement*: Patient is considerately estimated to likely to require up to another 2 mid- night stay in the ICU so as to hopefully optimally treat the acute medical problems and their symptoms and further control comorbidities. Coding Level of Care Code Acute Code for [facility] Diagnoses Alcohol withdrawal F10.939 Sleep apnea G47.30 Acute bronchitis J20.9
--- NOTE | 2025-06-22 13:34 | PC.NURSE ---
Per DR Garcia give the lorazepam 2mg until CWaw is under 10, okay to give now.
--- NOTE | 2025-06-22 18:31 | PC.NURSE ---
End of shift discussion with dr champion. Pt continues to require ativan about q2h. Pt has spiked a fever. treated with tylenol. BP remains high, cardene at 5 mg. Medication changes made. O2 requirements at 2L nc while sleeping
[2025-06-22] MEDS: cetylpyridinium Lozenge 1 EACH MUCOUS MEM (19:44)
[2025-06-22] MEDS: nicardipine 20 MG/200 ML PREMIX 75 MG IV (22:52)
--- NOTE | 2025-06-22 23:51 | XRR_ITS ---
PROCEDURE INFORMATION: Exam: XR Chest Exam date and time: 06/23/2025 1:07 AM Age: 54 years old Clinical indication: Persistent cough; Additional info: Frequent coughing TECHNIQUE: Imaging protocol: Radiologic exam of the chest. Views: 2 views. COMPARISON: CR XR chest 1V portable [id number] 06/21/2025 6:40 AM FINDINGS: Lungs: Unremarkable. No consolidation. Pleural spaces: Unremarkable. No pleural effusion. No pneumothorax. Heart/Mediastinum: Unremarkable. No cardiomegaly. Bones/joints: Unremarkable. XR/XR chest 2V* [id number] IMPRESSION: No acute findings.
[2025-06-23] VITALS (19 sets, daily range): BP systolic 129–170; BP diastolic 78–122; PULSE 100–113; RESP 15–33; TEMP 37.1–37.9; O2SAT 88–96
[2025-06-23] MEDS: guaiFENesin 100 mg/5 mL UDC 10 mL 200 MG PO ×2 (01:10→08:03)
[2025-06-23] MEDS: LORazepam 2 mg/mL INJ 1 mL IVP ×6 (01:50→23:38)
[2025-06-23] MEDS: cetylpyridinium Lozenge 1 EACH MUCOUS MEM ×5 (02:20→22:20)
[2025-06-23] MEDS: nicardipine 20 MG/200 ML PREMIX 75 MG IV (05:12)
[2025-06-23] MEDS: multivitamin therapeutic Tablet 1 TAB PO (06:06)
[2025-06-23 07:24] LABS: Glucose Urine UA Negative (Normal); Nitrate Urine Negative (Negative); Specific Gravity, Urine 1.010 (1.005-1.030)
--- NOTE | 2025-06-23 07:45 | PC.NURSE ---
1953- Patient requesting something for sleep,. IVP ativan has not been helping with sleep as patient states I am only getting a hour or so of sleep. Notified Dr. Canales, received orders for ambien 5 mg PO once. 2151- Despite robatussin administration patient is still coughing frequently cause irritation and inability to sleep. Discussed IVF, previous CXR, and fevers with Dr. Canales. Received orders for tessalon pearles 100 mg PO Q8h PRn cough. 2349- Patient is still coughing frequently requesting a respiratory panel. Received orders for CXR 2 view. 209- Notified Dr. Canales that cxr is avaliable to read and that patient is still coughing frequently. No new orders received. Patient given honey, Popsicle, lozenge, and encourage fluids at this time.
[2025-06-23] MEDS: nicardipine 20 MG/200 ML PREMIX 50 MG IV (07:58)
--- NOTE | 2025-06-23 09:27 | P.PN_ITS ---
Subjective 2 Subjective: Seeing this morning still on the medical floor, patient reports feeling much better today. He complains of cough, this is getting much better. He denies any difficulty breathing or chest pain. He is having some mild fever, for which urine culture, urinalysis, etc. were ordered by the night physician here. The blood pressure is getting much better today, having been started on labetalol twice daily yesterday evening. Vitals/I&O/Wt Last Vital Signs Temp 98.7 F 06/23/25 08:00 Pulse 100 06/23/25 08:00 Resp 29 H 06/23/25 08:00 BP 140/82 06/23/25 08:00 Pulse Ox 95 06/23/25 08:00 O2 Del Method Room Air 06/23/25 08:00 O2 Flow Rate 2 06/22/25 16:00 06/22/25 06/23/25 06/23/25 22:59 06:59 14:59 Intake Total 2400.000 / 3731.500 200 / 3931.500 200 / 200 Output Total 775 / 775 Balance 2400.000 / 3731.500 200 / 3931.500 -575 / -575 Weight last 48 hrs Weight 140.9 kg Weight 141.2 kg Physical Exam 2 Narrative: General: Awake and alert. Cooperative. Chest/Resp: Normal respiratory chest movts; no obvious respiratory distress. CVS: Rhythm: Regular heart rate and rhythm. GI: Non-distended; No obvious organomegaly. Extremities: No obvious pitting pedal edema. Skin: No obvious new rashes or new skin lesions. Data 06/22/25 02:33 06/22/25 02:33 Micro: Microbiology 06/23/25 00:49 Blood Culture - Preliminary Blood SPECIMEN COLLECTED 06/23/25 00:49 Blood Culture - Preliminary Blood SPECIMEN COLLECTED A&P Assessment and plan 1. Alcohol withdrawal: Resolving. Continue control with CIWA protocol. 2. Sleep apnea: Otherwise stable. 3. Severe hypertension: Metoprolol discontinued yesterday, and labetalol started. Also, I am adding clonidine on a PRN basis, with the hope of stopping the Cardene drip before the end of today. 4. Essential (primary) hypertension: See #3 problem above. Plan: Otherwise, stable patient. I am also resume patient's home dose of amlodipine, and continuing other ongoing treatment plans. Anticipate discharge from the cardiac stepdown unit tomorrow. PDMP PDMP Reviewed: Not Reviewed Attestations 2 Medical Necessity Statement*: Patient is considerately estimated to likely to require up to 1 more mid-night stay in the unit ot medical floor on inpatient status so as to hopefully optimally treat the acute medical problems and their symptoms and further control comorbidities. Coding Level of Care Code Acute Code for [facility] Fwd Diagnoses Alcohol withdrawal F10.939 Sleep apnea G47.30 Severe hypertension I10 Essential (primary) hypertension I10
[2025-06-23] MEDS: pantoprazole 40 mg SDV IVP ×2 (10:20→21:04)
[2025-06-23] MEDS: guaiFENesin-dextromethorphan UDC 10 mL 15 ML PO ×2 (12:30→21:13)
[2025-06-23] MEDS: ondansetron 2 mg/ML SDV 2 mL 4 MG IVP (13:50)
[2025-06-23] MEDS: metoclopramide 5 mg/mL SDV 2 mL 10 MG IVP (14:39)
--- NOTE | 2025-06-23 20:06 | W.PM.NPUPNS ---
Subjective NPU Subjective: 54-year-old male who was seen on the crisis unit with a long history of alcohol dependence with a reported history of alcohol-related withdrawal symptoms. The patient had denied any suicidal thoughts. He had reported that the longest period of sobriety off of alcohol was 2 years. He reported that he was feeling better today. He had reported having problems with anxiety and depression in the past. He denied having any thoughts of hurting himself. He had reported having been hospitalized for psychiatric reasons previously and reported having received outpatient substance abuse treatment and inpatient rehabilitation through the [facility] and [facility] in [facility]. He had reported continued alcohol use despite significant adverse consequences. He reported that he continued to manage chest pain. 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 He had admitted to drinking significant quantities of gin on a regular basis. Mental Status Exam MSE Comments: This is an obese versus morbidly obese white male and hospital gown with poor grooming and limited eye contact. No abnorma involuntary motor l movements except for significant psychomotor retardation. He was less irritable and more cooperative with the examination today. Speech was decreased in rate and normal in volume and more productive. Mood described as better. His affect was irritable and mood incongruent. Thought process was linear. Thought content: Patient denied suicidal or homicidal ideation, there were no delusions reported or noted, he denied any auditory or visual hallucinations. Attention and concentration were impaired and memory is unreliable but none were formally tested. He was alert and oriented to person and place. Insight was poor. Judgment was improving. Impulse control remained guarded. Vitals/I&O/Wt Last Vital Signs Temp 98.7 F 06/23/25 08:00 Pulse 106 H 06/23/25 15:36 Resp 21 H 06/23/25 15:36 BP 134/93 06/23/25 15:36 Pulse Ox 94 06/23/25 15:36 O2 Del Method Room Air 06/23/25 15:36 O2 Flow Rate 2 06/22/25 16:00 06/23/25 06/23/25 06/23/25 06:59 14:59 22:59 Intake Total 200 / 3931.500 914.167 / 914.167 150 / 1064.167 Output Total 775 / 775 100 / 875 Balance 200 / 3931.500 139.167 / 139.167 50 / 189.167 Weight last 48 hrs Weight 140.9 kg Weight 141.2 kg Data NPU 06/22/25 02:33 06/22/25 02:33 Micro: Microbiology 06/23/25 00:49 Blood Culture - Preliminary Blood SPECIMEN COLLECTED 06/23/25 00:49 Blood Culture - Preliminary Blood SPECIMEN COLLECTED Microbiology 06/23/25 00:49 Blood Blood Culture - Preliminary SPECIMEN COLLECTED 06/23/25 00:49 Blood Blood Culture - Preliminary SPECIMEN COLLECTED A&P Assessment and plan 1. Generalized anxiety disorder: 2. Alcohol withdrawal: 3. Anxiety: 4. Major depressive disorder, recurrent, moderate: 5. Alcohol use disorder, severe, dependence: Plan: This is a 54-year-old white male with a long history of mental health and addiction issues. He denies any suicidal thoughts at this time. He does appear to be interested in considering medications to help with reducing cravings as information on Vivitrol monthly was provided to the patient and he requested further information. 1. Continue current medication. 2. Continue CIWA protocol. Should be very aggressive and liberal with the use of Ativan using his level of alertness/lack of lethargy or sleepiness at this time that nor Ativan is acceptable. 3. Will discuss potentially having patient go into an intensive inpatient rehabilitation facility. 4. Will provide further information regarding vivitrol. 5. Will continue to follow. PDMP PDMP Reviewed: Not Reviewed Attestations NPU Medical Necessity Statement*: N/A. Please see primary team note for medical necessity but will need to evaluate patient for any need for inpatient psychiatric care prior to discharge although currently does not appear to be necessary. Coding Level of Care Code Acute Code for Chg Fwd Diagnoses Generalized anxiety disorder F41.1 Alcohol withdrawal F10.939 Anxiety F41.9 Major depressive disorder, recurrent, moderate F33.1 Alcohol use disorder, severe, dependence F10.20
[2025-06-23] MEDS: morphine 4 mg/mL SDV 1 mL 2 MG IVP (21:05)
[2025-06-24] VITALS: BP 139/84; PULSE 90; RESP 28; O2SAT 96
[2025-06-24 04:00] VITALS: BP 145/91; PULSE 86; RESP 20; TEMP 36.6; O2SAT 94
[2025-06-24] MEDS: multivitamin therapeutic Tablet 1 TAB PO (04:07)
[2025-06-24 06:02] LABS: Hematocrit 38.3 % (37-53); Hemoglobin 13.70 g/dL (11.27-16.99); Mean Corpuscular HGB Conc 35.8 g/dL (30-55); Mean Corpuscular Hemoglobin 32.7 pg (27-33); Mean Corpuscular Volume 91.4 fl (82-101); Nucleated Red Blood Cells % 0 %; Platelet Count 126 10^3/cmm (157-399); Red Blood Count 4.19 10^6/uL (3.85-5.65); White Blood Count 7.02 10^3/uL (3.29-11.43)
[2025-06-24 06:31] LABS: Anion Gap 11.1 (5-19); Blood Urea Nitrogen 9 mg/dL (6-20); Calcium 8.7 mg/dL (8.5-10.5); Carbon Dioxide 28 mmol/L (22-29); Chloride 96 mmol/L (98-107); Glucose 145 mg/dL (65-115); Magnesium 1.4 mg/dL (1.7-2.3); Osmolality Calculated 275 mOsm/kg (285-295); Potassium 3.1 mmol/L (3.5-5.1); Sodium 132 mmol/L (136-145)
[2025-06-24] MEDS: LORazepam 2 mg/mL INJ 1 mL IVP (07:39)
[2025-06-24 08:00] VITALS: BP 117/71; PULSE 87; RESP 24; TEMP 36.8; O2SAT 95
--- NOTE | 2025-06-24 09:22 | PM.PN ---
Vitals/I&O/Wt Last Vital Signs Temp 98.3 F 06/24/25 08:00 Pulse 87 06/24/25 08:00 Resp 24 H 06/24/25 08:00 BP 117/71 06/24/25 08:00 Pulse Ox 95 06/24/25 08:00 O2 Del Method Room Air 06/24/25 08:00 O2 Flow Rate 94 06/24/25 07:43 06/23/25 06/24/25 06/24/25 22:59 06:59 14:59 Intake Total 150 / 1064.167 360 / 1424.167 480 / 480 Output Total 100 / 875 Balance 50 / 189.167 360 / 549.167 480 / 480 Weight last 48 hrs Weight 140.977 kg Weight 140.9 kg Data 06/24/25 05:28 06/24/25 05:28 Micro: Microbiology 06/23/25 00:49 Blood Culture - Preliminary Blood NEGATIVE TO DATE 06/23/25 00:49 Blood Culture - Preliminary Blood NEGATIVE TO DATE A&P PDMP PDMP Reviewed: Not Reviewed Coding Level of Care Code Acute Code for Chg Fwd
[2025-06-24 11:35] VITALS: BP 112/76; RESP 22; TEMP 37.1
[2025-06-24] MEDS: LORazepam 2 mg/mL INJ 1 mL IM (11:50)
--- NOTE | 2025-06-24 13:16 | PM.DCS ---
Discharge Providers Date of Admission: 06/21/25 07:49 Date of Discharge: June 24, 2025 Attending Provider at Admission: Buck Goldsmith MD Attending Provider at Discharge: Buck Goldsmith MD Primary Care Provider: Nany Carpenter MD Diagnoses at Discharge Discharge Diagnosis 1. Alcohol withdrawal: 2. Alcohol use disorder, severe, dependence: 3. Generalized anxiety disorder: 4. Anxiety: 5. Essential (primary) hypertension: Reason for Visit Reason for Visit: Alcohol withdrawal symptoms Brief History: Patient presented with alcohol withdrawal symptoms. He requested for treatment for this, and was admitted to the stepdown unit. He was rehydrated with saline and banana bag infusion, while his alcohol withdrawal symptoms were treated with Ativan, etc., based on [facility] protocol. He also has some cough, thought to be due to acute bronchitis, which was treated empirically with cough suppressants and mucolytics. Hospital Course Hospital Course The psychiatrist was consulted, who made expert recommendations. Patient's tachycardia and severe hypertension were further controlled with metoprolol, later switched to labetalol, as well as resumption of home antihypertensive medications, as adjusted. As of today, patient had returned near to his baseline. I was going to wait for final advice from psychiatry regarding possible discharge plans today. However, about an hour ago, patient was reported to have suddenly requested to be discharged immediately, and actually left, before I could come back to see him, AGAINST MEDICAL ADVICE. Physical Exam Narrative: Not applicable; left against medical advice. Discharge Data Studies Completed and Pending Completed Studies During Hospitalization Category Date Time Status XR chest 1V portable [id number] Stat Exams 06/21/25 06:28 Completed XR chest 2V* [id number] Stat Exams 06/22/25 23:51 Completed Pending at discharge Category Date Time Status Basic Metabolic Panel AM LABS Lab 06/25/25 04:00 Ordered Basic Metabolic Panel AM LABS Lab 06/26/25 04:00 Ordered Blood Culture Stat Lab 06/23/25 00:49 Results Urine Culture Routine Lab 06/23/25 06:15 Results Radiology Impressions Chest X-Ray 06/22/25 23:51 IMPRESSION: No acute findings. Vitals Last Vital Signs Temp 98.8 F 06/24/25 11:35 Pulse 87 06/24/25 08:00 Resp 22 H 06/24/25 11:35 BP 112/76 06/24/25 11:35 Pulse Ox 95 06/24/25 08:00 O2 Del Method Room Air 06/24/25 08:00 O2 Flow Rate 94 06/24/25 07:43 Discharge Plan Discharge Patient Disposition: Left Against Medical Advice Condition: Stable Prescriptions: No Action amlodipine 10 mg tablet 10 mg PO DAILY 30 Days Qty: 30 3RF omeprazole 40 mg capsule,delayed release(DR/EC) 40 mg PO DAILY Qty: 30 2RF diazepam 5 mg tablet 5 mg PO DAILY PRN (Reason: anxiety) Qty: 30 1RF vitamin B complex Tablet 1 tab PO DAILY folic acid 1 mg Tablet 1 mg PO DAILY Qty: 30 0RF thiamine mononitrate (vit B1) [Vitamin B-1 (mononitrate)] 100 mg Tablet 100 mg PO DAILY Qty: 30 0RF multivitamin with folic acid [Thera] 400 mcg Tablet 1 tab PO DAILY Qty: 30 0RF lisinopril 40 mg tablet 40 mg PO DAILY duloxetine 60 mg capsule,delayed release(DR/EC) 60 mg PO DAILY Referrals: Nany Carpenter MD [Primary Care Provider, [facility]] - 4-7 days Referral Note: We have notified your physician's clinic of the need for a follow-up appointment to be scheduled. If you have not heard from them within the next 2 business days, please call them directly. Patient Instructions: Hypertension, Sleep Apnea (GEN), Alcohol Intoxication (ED), Alcohol Withdrawal (ED), Hypertensive Crisis (DC), Opioid Safety, Patient Portal & Dory Instructions Discharge Attestations Time Spent in Discharge Care*: less than 30 min Status at Discharge: Cognitive status at discharge: cognitively intact, Behavioral status at discharge: can be uncooperative, Quality Metrics Clinical Quality Measures [ No reported AMI, CVA or VTE this stay] Coding Level of Care Code 65887 Diagnoses Alcohol withdrawal F10.939 Alcohol use disorder, severe, dependence F10.20 Generalized anxiety disorder F41.1 Anxiety F41.9 Essential (primary) hypertension I10
--- NOTE | 2025-06-24 13:26 | PC.NURSE ---
After patient received ativan for ciwa protocol, he informed me that he wanted to leave AMA. Spoke with Dr Goldsmith and he is aware. Patient left at 1200
== END 2025-06-24 12:00 | disposition left against medical advice (07) | DRG 770 ==
LOC: ER 06:41 → CSU 08:08
PROVIDERS: Internal Medicine; Admitting Provider Family Medicine; Emergency Provider Family Medicine; PCP Family Medicine; Visit Provider Family Medicine
DX: F10.239 Alcohol dependence with withdrawal, unspecified (principal); F41.1 Generalized anxiety disorder; I10 Essential (primary) hypertension; J20.9 Acute bronchitis, unspecified; E66.01 Morbid (severe) obesity due to excess calories; Z68.41 Body mass index [BMI] 40.0-44.9, adult; F33.1 Major depressive disorder, recurrent, moderate; G47.30 Sleep apnea, unspecified; Z87.891 Personal history of nicotine dependence
CPT/HCPCS: 36415; 36600; 71045; 71046; 80048; 80051; 80053; 80307; 81001; 82140; 82330; 82805; 83735; 84100; 85025; 85610; 87040; 87086; 93005; 94640; 96372; 96374; 96375; 99285; J0360; J1650; J2060; J2270; J2404; J2405; J2470; J2765; J3411; J7030; J7042; J9999

== ENCOUNTER 2025-07-09 16:33 | Emergency (ER) | payer MEDICAID, SELFPAY ==
--- OUTSIDE RECORDS SUMMARY | 2025-05-05 02:40 | XMS_ITS ---
Author Organization [facility] Address [address] [place] [address] Care Team Providers Care Parking Control Officer Name Role Phone Jose Alfredo Herrera Primary Care Provider [phone] REASON FOR VISIT Follow up Encounters Encounter Location Date Provider Diagnosis [facility] [address] [phone] 05/05/2025 Jose Alfredo Herrera Plan Of Treatment Next Appt Details Provider Name:Jose Alfredo Herrera, 12/08/2025 09:00:00 AM, [address], [phone], Progress Notes * DIONISIO PERERADOB:1970 (54 yo M)Acc No.[id number]:05/05/2025 Progress Notes Patient: DIONISIO CHENG Provider: Shelby Herrera MD :1970 A ge:54 Y S ex:Male Date:05/05/2025 Address:[address] [place] [address], [address], [id number] Subjective: * Chief Complaints: * F ollow up Care Plan Details* * Electronic signature of Zenia Herrera MD on 07/09/2025 at 04:37 PM DIRECTOR OF INSTITUTIONAL GIVING Sign off status: Pending * Provider: Shelby Herrera MD Date: 0 05/05/2025 Generated for Dajuan garcia/Faninoskag/eTransmitting on: 1 09/09/2024 04:37 PM DIRECTOR OF INSTITUTIONAL GIVING
--- NOTE | 2025-07-09 16:34 | ECG_ITS ---
[email or web address] Test Date: 2025-07-09 Pat Name: Ade Carcamo Department: Room: Gender: Male [employer] Head: : 1970 Requested By: Michael Lawrence Order Number: [id number] Dilcia MD: Bartolo Luque M.D. Measurements Intervals [place] Rate: 93 P: 20 AK: 180 QRS: 16 QRSD: 86 T: 21 QT: 330 QTc: 411 Interpretive Statements SINUS RHYTHM POSSIBLE LEFT ATRIAL ENLARGEMENT [-0.1mV P-WAVE IN V1/V2] POSSIBLE ANTERIOR MYOCARDIAL INFARCTION , OF INDETERMINATE AGE [30 ms Q WAVE IN V3/V4, OR R < 0.2 mV IN V4] Compared to ECG 06/21/2025 06:39:40 Sinus tachycardia no longer present Myocardial infarct finding still present Electronically Signed On 07-09-2025 23:27:47 DIRECTOR INFORMATION SECURITY by Bartolo Luque M.D. [email or web address]
--- OUTSIDE RECORDS SUMMARY | 2025-07-09 16:38 | XMS_ITS | Patient Health Record ---
Author Organization [facility] Address [address] [place] [address] Care Team Providers Care Community Nutrition Educator Name Role Phone Jose Alfredo Herrera Primary [...] Externally Twice a day; Duration: 30 days Not-Taking amLODIPine Besylate 10 MG Tablet 1 tablet [...] you last smoked? 1-5 years Section Notes: PHQ- 9 - 06/03/24 CIME Dep/Tob 01/20/25 PHQ- 9 - 06/03/24 CIME Dep/Tob 01/20/25 PHQ--9 - 06/03/24 PHQ--9 - 06/03/24 Problems Problem Type SNOMED Code ICD Code Onset Dates Problem Status W/U Status Risk Notes Problem Essential hypertension (02954225) Essential hypertension (I10) Active confirmed Problem Generalized anxiety disorder (68145666) ARIAS (generalized anxiety disorder) (F41.1) Active confirmed Vital Signs Heart Rate 82 /min 06/13/2025 Temperature 98.2 degrees Fahrenheit 06/13/2025 Height-cm 182.88 cm 06/13/2025 Oximetry 97 % 06/13/2025 Blood pressure diastolic 76 mm Hg 06/13/2025 Weight-kg 136.99 kg 06/13/2025 Height 72 in 06/13/2025 Blood pressure systolic 136 mm Hg 06/13/2025 Weight 302 lbs 06/13/2025 BMI 40.95 kg/m2 06/13/2025 Encounters Encounter Location Date Provider Diagnosis [facility] [address] [place] [phone] 06/13/2025 Jose Alfredo Herrera Essential hypertension I10 ; ARIAS (generalized anxiety disorder) F41.1 ; Encounter for immunization Z23 and Immunization not carried out because of patient refusal Z28.21 [facility] [address] [phone] 01/20/2025 Jose Alfredo Herrera ARIAS (generalized anxiety disorder) F41.1 ; Essential hypertension I10 and Depression screen Z13.31 [facility] [address] [place] [phone] 12/25/2024 Jose Alfredo Herrera [facility] [address] [place] [phone] 06/02/2025 Jose Alfredo Herrera Assessments Encounter Date [...] ARIAS (generalized anxiety disorder) (ICD-10 - F41.1) 06/13/2025 Encounter for immunization (ICD-10 - Z23) 01/20/2025 Essential hypertension (ICD-10 - I10) 01/20/2025 Depression screen (ICD-10 - Z13.31) 06/13/2025 Immunization not carried out because of patient refusal (ICD-10 - Z28.21) Plan Of Treatment Next Appt Details Provider Name:Jose Alfredo Herrera, 12/08/2025 09:00:00 AM, [address] [place] [address], [phone], Insurance Providers Payer Name Payer Address Payer Phone Subscriber Number Group Number Insured Name Patient Relationship to Insured Coverage Start Date Coverage End Date Home State Health Plan Medicaid Replacement [address] [place] [phone] [id number] DIONISIO PERERA Self - patient is the insured Medical (General) History Medical History History ICD Code hypertension anxiety Surgical History Surgery Date(Month/Year) ankle surgery both
[2025-07-09 16:40] VITALS: BP 166/102; PULSE 94; RESP 18; TEMP 36.6; O2SAT 92; BMI 40.6
[2025-07-09 16:47] LABS: Hematocrit 44.0 % (37-53); Hemoglobin 15.50 g/dL (11.27-16.99); Mean Corpuscular HGB Conc 35.2 g/dL (30-55); Mean Corpuscular Hemoglobin 32.7 pg (27-33); Mean Corpuscular Volume 92.8 fl (82-101); Nucleated Red Blood Cells % 0 %; Platelet Count 102 10^3/cmm (157-399); Red Blood Count 4.74 10^6/uL (3.85-5.65); White Blood Count 6.32 10^3/uL (3.29-11.43)
--- NOTE | 2025-07-09 16:48 | W.ED.ALCOHOL ---
HPI - Alcohol General: Chief Complaint: Alcohol Stated Complaint: ETOH withdraw Time Seen by Provider: 07/09/25 16:34 History of Present Illness: 54-year-old male presents to the emergency room concerned about alcohol withdrawal. He is awake and alert verbal answers questions appropriately. He last drank just prior to arrival has been drinking all day. He denies any chest pain or abdominal pain no recent falls. He has not had any history of seizures with attempts at this stopping alcohol in the past. Associated symptoms: Deny abdominal pain Related Data Home Medications ?Medication ?Instructions ?Recorded ?Confirmed vitamin B complex 1 tab PO DAILY 03/17/24 06/21/25 duloxetine 60 mg capsule,delayed 60 mg PO DAILY 06/21/25 06/21/25 release lisinopril 40 mg tablet 40 mg PO DAILY 06/21/25 06/21/25 Previous Rx's ?Medication ?Instructions ?Recorded amlodipine 10 mg tablet 10 mg PO DAILY 30 days #30 tabs 12/06/23 omeprazole 40 mg capsule,delayed 40 mg PO DAILY #30 caps 01/10/24 release folic acid 1 mg tablet 1 mg PO DAILY #30 tabs 03/19/24 multivitamin with folic acid 400 1 tab PO DAILY #30 tabs 03/19/24 mcg tablet (Thera) thiamine mononitrate (vit B1) 100 100 mg PO DAILY #30 tabs 03/19/24 mg tablet (Vitamin B-1 (mononitrate)) diazepam 5 mg tablet 5 mg PO DAILY PRN anxiety #30 tabs 03/20/24 Allergies Allergy/AdvReac Type Severity Reaction Status Date / Time No Known Allergies Allergy Verified 05/27/24 08:47 Review of Systems Const: Denies: fever(s) or chills Card: Denies: chest pain Resp: Denies: dyspnea GI: Denies: abdominal pain : Denies: dysuria, urinary frequency or urinary urgency Musc: Denies: neck pain or back pain Skin/Breast: Denies: rash PFSH ED PFSH: Medical History Fibula fracture Generalized anxiety disorder Depression Alcoholism Essential (primary) hypertension Surgical History History of open reduction and internal fixation (ORIF) procedure Fibula fracture, left distal lateral malleolar fracture Family History Other No pertinent family history Social History Smoking and tobacco/nicotine status: former use of tobacco/nicotine Quit status (tobacco/nicotine): has quit using Year quit tobacco: 2021 3-4 months ago Second hand smoke exposure: No Alcohol intake: former Former alcohol use details: has been sober x 6 months Substance/Drug Use: never Lives independently: No Household members: friend(s) Marital status: Single service: No Current occupational status: employed Current gender identity: Male Special bethel needs: No Agree to transfusion: Yes Physical Exam Const: GENERAL APPEARANCE: cooperative ORIENTATION/CONSCIOUSNESS: Yes awake, Yes oriented to person, Yes oriented to place and Yes oriented to time HENMT: COMMON NORMALS: normocephalic, atraumatic and hearing grossly normal bilaterally HEAD & SCALP: normocephalic and atraumatic Resp: COMMON NORMALS: normal respiratory effort, No retractions, No use of accessory muscles and clear to auscultation bilaterally AUSCULTATION: clear to auscultation bilaterally Cardio: COMMON NORMALS: regular rate, regular rhythm and No murmurs present (Cardio) RATE: regular rate RHYTHM: regular rhythm GI: COMMON NORMALS: Soft to palpation and No hepatosplenomegaly present AUSCULTATION: Yes normoactive bowel sounds PALPATION: Yes Soft to palpation, No Tenderness to palpation present (GI), No Guarding due to palpation present (GI) and Yes No hepatosplenomegaly present Extremity: COMMON NORMALS: normal to inspection, capillary refill normal, no clubbing, cyanosis or edema, no calf tenderness and no pedal edema Neuro: SENSORIUM/ORIENTATION: Yes oriented to person, Yes oriented to place and Yes oriented to time Skin: COMMON NORMALS: no rashes or lesions noted GENERAL SKIN EXAM: no rashes or lesions noted Course Vital Signs: Vital signs: Vital Signs Temperature 97.9 F 07/09/25 16:40 Pulse Rate 93 07/09/25 18:12 Respiratory Rate 18 07/09/25 16:40 Blood Pressure 172/99 07/09/25 18:12 Pulse Oximetry 94 07/09/25 18:12 Oxygen Delivery Me thod Nasal Cannula 07/09/25 17:22 Oxygen Flow Rate 2 07/09/25 17:22 MDM - Alcohol Medical Decision Making Medical decision making Social determinants: None I reviewed the patient's medical record. I reviewed the patient's current home meds> Alternate historians: None Differential diagnosis: Acute alcohol intoxication, other substance abuse Lab Review: Labs reviewed CBC unremarkable with normal white count normal hemoglobin platelet count mildly decreased. Sodium 130 anion gap 23.5 which I believe is due to his acute alcohol intoxication. BUN and creatinine are normal ranges. Transaminases elevated with an AST of 113 and ALT of 92. Lipase 80 blood alcohol 310 Imaging: No imaging Assessment of risk Level of risk: Moderate Hospitalization considerations: No consideration for hospitalization Reexamination: Unchanged Assessment and plan: Patient acutely intoxicated no tremor no signs of withdrawal. Patient is requesting benzodiazepines. He is awake verbal able to give a good history and is ambulatory without difficulty. He appears to be highly tolerant of alcohol. Will discharge patient home have him follow-up with crisis stabilization or at [facility]. Patient states he does not want to be seen on an inpatient or outpatient basis for alcohol rehab prefers to go home. Lab Data 07/09/25 16:42 07/09/25 16:42 Laboratory Results WBC 6.32 10^3/uL (3.29-11.43) 07/09/25 16:42 RBC 4.74 10^6/uL (3.85-5.65) 07/09/25 16:42 Hgb 15.50 g/dL (11.27-16.99) 07/09/25 16:42 Hct 44.0 % (37-53) 07/09/25 16:42 MCV 92.8 fl (82-101) 07/09/25 16:42 MCH 32.7 pg (27-33) 07/09/25 16:42 MCHC 35.2 g/dL (30-55) 07/09/25 16:42 RDW 13.2 % (12.1-15.1) 07/09/25 16:42 Plt Count 102 10^3/cmm (157-399) L 07/09/25 16:42 MPV 9.6 fL (7.4-10.4) 07/09/25 16:42 Neut % (Auto) 58.9 % 07/09/25 16:42 Lymph % (Auto) 24.4 % 07/09/25 16:42 [place] % (Auto) 13.9 % 07/09/25 16:42 Eos % (Auto) 1.6 % 07/09/25 16:42 Baso % (Auto) 0.9 % 07/09/25 16:42 Neut # (Auto) 3.72 10^3/uL (1.8-7.7) 07/09/25 16:42 Lymph # (Auto) 1.5 10^3/uL (0.8-4.8) 07/09/25 16:42 [place] # (Auto) 0.9 10^3/uL (0.2-0.9) 07/09/25 16:42 Eos # (Auto) 0.1 10^3/uL (0.0-0.8) 07/09/25 16:42 Baso # (Auto) 0.1 10^3/uL (0.0-0.1) 07/09/25 16:42 Nucleated RBC % (auto) 0 % 07/09/25 16:42 Nucleated RBCs # 0.0 /100WBC 07/09/25 16:42 Sodium 135 mmol/L (136-145) L 07/09/25 16:42 Potassium 4.5 mmol/L (3.5-5.1) 07/09/25 16:42 Chloride 94 mmol/L (98-107) L 07/09/25 16:42 Carbon Dioxide 22 mmol/L (22-29) 07/09/25 16:42 Anion Gap 23.5 (5-19) H 07/09/25 16:42 BUN 11 mg/dL (6-20) 07/09/25 16:42 Creatinine 0.9 mg/dL (0.7-1.2) 07/09/25 16:42 GFR Calculation 88.6 mL/min (90-130) L 07/09/25 16:42 Glucose 90 mg/dL (65-115) 07/09/25 16:42 Calculated Osmolality 279 mOsm/kg (285-295) L 07/09/25 16:42 Calcium 9.2 mg/dL (8.5-10.5) 07/09/25 16:42 Total Bilirubin 0.4 mg/dL (0.15-1.2) 07/09/25 16:42 AST 113 U/L (0-40) H 07/09/25 16:42 ALT 92 U/L (0-41) H 07/09/25 16:42 Alkaline Phosphatase 68 U/L (40-130) 07/09/25 16:42 Ammonia 27 umol/L (16-60) 07/09/25 16:42 Total Protein 8.6 g/dL (6.6-8.7) 07/09/25 16:42 Albumin 4.3 g/dL (3.5-5.2) 07/09/25 16:42 Globulin 4.3 g/dL (1.3-4.6) 07/09/25 16:42 Lipase 80 U/L (13-60) H 07/09/25 16:42 Ethyl Alcohol 310 mg/dL (0-10) H* 07/09/25 16:42 No radiology studies performed this visit Discharge Plan Discharge Patient Disposition: Home Clinical Impression: Alcoholic intoxication, Alcoholism Condition: Stable Prescriptions: No Action amlodipine 10 mg tablet 10 mg PO DAILY 30 Days Qty: 30 3RF omeprazole 40 mg capsule,delayed release(DR/EC) 40 mg PO DAILY Qty: 30 2RF diazepam 5 mg tablet 5 mg PO DAILY PRN (Reason: anxiety) Qty: 30 1RF vitamin B complex Tablet 1 tab PO DAILY folic acid 1 mg Tablet 1 mg PO DAILY Qty: 30 0RF thiamine mononitrate (vit B1) [Vitamin B-1 (mononitrate)] 100 mg Tablet 100 mg PO DAILY Qty: 30 0RF multivitamin with folic acid [Thera] 400 mcg Tablet 1 tab PO DAILY Qty: 30 0RF lisinopril 40 mg tablet 40 mg PO DAILY duloxetine 60 mg capsule,delayed release(DR/EC) 60 mg PO DAILY Discharge Orders: Discharge ED (Routine); Ordered 07/09/25 Ordered By: Michael Gardner Discharge Diet: Usual diet Discharge Activity: Increase activity as tolerated Patient Instructions: Alcohol Intoxication (ED), Alcohol Withdrawal (ED), Opioid Safety, Pain Management, Patient Portal & Dory Instructions Activity Restrictions/Additional Instructions: Thank you for choosing [facility] for your healthcare needs today. It is very important that you follow up as instructed or that you return to the Emergency Department should you have concerns or if your condition changes or worsens in any way. Emergency department visits are focused on emergent conditions, in some cases you may require further evaluation on an outpatient basis. You were seen in the emergency room with complaints of alcohol withdrawal. Your blood alcohol is over 300 there are no physical exam findings of withdrawal at this time. Strongly recommend you pursue alcohol treatment program such as [facility] or [facility]. It is the best interest of your health to abstain from alcohol. (Please note that included in your discharge packet is information concerning opioid safety and pain management. This information is given to all patients were discharged from the ER regardless of their discharge diagnosis or the medicines they usually take or are prescribed.) Print Language: Tajik Coding Level of Care Code ED Retail Department Manager for Sandee Blanc
[2025-07-09 17:06] LABS: Alanine Aminotransferase 92 U/L (0-41); Albumin Level 4.3 g/dL (3.5-5.2); Alkaline Phosphatase 68 U/L (40-130); Anion Gap 23.5 (5-19); Aspartate Amino Transferase 113 U/L (0-40); Blood Urea Nitrogen 11 mg/dL (6-20); Calcium 9.2 mg/dL (8.5-10.5); Carbon Dioxide 22 mmol/L (22-29); Chloride 94 mmol/L (98-107); Globulin 4.3 g/dL (1.3-4.6); Glucose 90 mg/dL (65-115); Osmolality Calculated 279 mOsm/kg (285-295); Potassium 4.5 mmol/L (3.5-5.1); Sodium 135 mmol/L (136-145); Total Protein 8.6 g/dL (6.6-8.7)
[2025-07-09 17:10] LABS: Alcohol Level 310 mg/dL (0-10)
[2025-07-09 17:19] LABS: Ammonia 27 umol/L (16-60)
[2025-07-09 17:22] VITALS: BP 149/98; PULSE 93; O2SAT 97
[2025-07-09 17:37] LABS: Lipase 80 U/L (13-60)
[2025-07-09 18:12] VITALS: BP 172/99; PULSE 93; O2SAT 94
== END 2025-07-09 18:13 | disposition home or self-care (01) ==
PROVIDERS: Emergency Provider Family Medicine
DX: F10.229 Alcohol dependence with intoxication, unspecified (principal); Y90.8 Blood alcohol level of 240 mg/100 ml or more; Z87.891 Personal history of nicotine dependence; I10 Essential (primary) hypertension
CPT/HCPCS: 36415; 80053; 80307; 82140; 83690; 85025; 93005; 99284